=== PATIENT | female | born 1985 | race Hispanic/Latino ===

== ENCOUNTER 2020-06-12 11:23 | Emergency (ER) | payer OTHER, SELFPAY ==
--- NOTE | ~2020-06-12 | XR_ITS ---
EXAMINATION: XR chest 2V DATE: 06/12/2020 13:08 INDICATION: Cough. TECHNIQUE: Frontal and lateral views of the chest were obtained. COMPARISON: None. FINDINGS: The chest demonstrates clear lungs without pneumonia, pleural effusion, or pneumothorax. Th e heart size is normal. Pectus excavatum is noted. IMPRESSION: 1. No acute cardiopulmonary disease. Reviewed, dictated and finalized at location A.
[2020-06-12 11:48] VITALS: BP 106/79; PULSE 65; RESP 16; TEMP 37; O2SAT 98
--- NOTE | 2020-06-12 12:38 | ED.URI ---
HPI - URI/Sore Throat General Chief Complaint: Upper Respiratory Infection Stated Complaint: runny nose/redness swllen itchy eyes Time Seen by Provider: 06/12/20 12:38 Source: patient Mode of arrival: ambulatory Limitations: no limitations History of Present Illness HPI Narrative: Geovanna Torrez is a 35 yo female with a PMH of seasonal allergies who comes to [facility] with 2 days of symptoms of wheezing swelling eyes sore throat bilateral ear pain. 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 Related Data Home Medications Medication Instructions Recorded Confirmed Biotin 06/12/20 Cranberry Pill 06/12/20 One Daily Vitamin 06/12/20 Allergies Allergy/AdvReac Type Severity Reaction Status Date / Time No Known Allergies Allergy Verified 06/12/20 11:43 Review of Systems Review of Systems: Narrative: CONSTITUTIONAL: Denies fever, chills, sweats. EYES: Denies visual changes, redness, discharge. ENT: Denies rhinorrhea, congestion, has sore throat, bilateral otalgia. CARDIOVASCULAR: Denies chest pain, palpitations, edema. RESPIRATORY: Denies dyspnea, has wheezing, cough GASTROINTESTINAL: Denies abdominal pain, nausea, vomiting, diarrhea. GENITOURINARY: Denies dysuria, hematuria, abnormal discharge SKIN: Denies rash or itching. NEUROLOGIC: Denies numbness, or focal weakness. PSYCHIATRIC: Denies anxiety or depression. [facility] Past Medical History Medical History Asthma Family History Family History Other Hypertension Social History Social History (Updated 06/12/20 @ 12:48 by Sienna Brewer CNP) Smoking status: Never smoker Alcohol intake: current Comments At time of signature, I agree with nursing past medical, surgical, social and family history. There is no relevant family history pertinent to the presenting complaint. Exam Narrative: Exam Narrative: GENERAL: This is a well-nourished, well-developed patient, in mild distress. HEAD: normocephalic, atraumatic. EYES: Sclera clear/white. Vision is grossly intact. EARS: External ears normal, auditory canals erythema and without drainage, TMs bulging without perforation. Hearing grossly intact. NOSE: External nose normal without nasal discharge, nares without redness, no rhinorrhea. THROAT: Mucous membranes moist, posterior pharynx erythema with mild edema NECK: Neck supple, non-tender CARDIOVASCULAR: Regular rate and rhythm without murmurs, gallops, or rubs. RESPIRATORY: Clear to auscultation. Breath sounds equal bilaterally. No wheezes, rales, or rhonchi. GASTROINTESTINAL: Abdomen soft, SKIN: warm, intact with no suspicious lesions or rash, good texture and turgor. NEURO: awake, alert, and oriented to person, place and time. There were no obvious focal neurologic abnormalities. Steady gait EXTREMITIES: Normal range of motion. BACK: Nontender without deformity Course Course Emergency Course: Patient comes to [facility] with wheezing and swelling of her eyelids with seasonal allergies, worsening last 2 days Chest x-ray no acute pulmonary disease Start steroids, Cortisporin eardrops, albuterol inhaler Vital Signs Vital signs: Vital Signs Temperature 98.6 F 06/12/20 11:48 Pulse Rate 65 06/12/20 11:48 Respiratory Rate 16 06/12/20 11:48 Blood Pressure 106/79 06/12/20 11:48 Pulse Oximetry 98 06/12/20 11:48 Temperature 98.6 F 06/12/20 11:48 Pulse Rate 65 06/12/20 11:48 Respiratory Rate 16 06/12/20 11:48 Blood Pressure 106/79 06/12/20 11:48 Pulse Oximetry 98 06/12/20 11:48 MDM - URI/Sore Throat Differential Diagnosis Differential diagnosis: Likely upper respiratory infection, bronchitis, pharyngitis and other Lab Data Labs: Lab Results 06/12/20 Range/Units 12:52 POC SARS CoV-2 Ag Pending Influenza A Screen Negative
[2020-06-13 19:39] LABS: SARS-CoV-2 RNA PCR Negative
== END 2020-06-12 13:22 | disposition home or self-care (01) ==
PROVIDERS: Emergency Provider Nurse Practitioner
DX: J40 Bronchitis, not specified as acute or chronic (principal); Z20.822 Contact with and (suspected) exposure to COVID-19; J45.909 Unspecified asthma, uncomplicated
CPT/HCPCS: 71046; 87081; 87426; 87804; 87880; 99203; C9803; G0463; U0003; U0005

== ENCOUNTER 2020-08-01 07:27 | Outpatient (CLI) | payer OTHER, SELFPAY ==
--- NOTE | 2020-08-01 | ECHO_ITS ---
Patient Info Name: Geovanna Torrez Age: 35 years : 1985 Gender: Female Ht: 64 in Wt: 170 lbs BSA: 1.89 m2 HR: 61 bpm BP: 119 / 66 mmHg Technical Quality: Fair Exam Date: 08/01/2020 7:56 AM Exam Location: [facility] Patient Status: Outpatient Admit Date: 08/01/2020 Staff Ordering Physician: Guanako, Shira MOTA Courtesy Car Driver: Penelope Allen RDCS Attending Provider: Guanako, Shira MOTA Referring Physician: Guanako CHIU; Exam Type: CA echo doppler color flow Study Info Indications I51.7 - Cardiomegaly Complete two-dimensional, color flow and Doppler transthoracic echocardiogram is performed. Summary 1. Complete two-dimensional, color flow and Doppler transthoracic echocardiogram is performed. 2. Left ventricular chamber dimension is normal. 3. Left ventricular systolic function is normal, estimated at 55-60%. 4. The left ventricular diastolic function is normal. 5. E/e' 4 is not elevated. 6. Right atrial chamber dimension is mildly enlarged. 7. There is mild tricuspid valve regurgitation. 8. No pulmonary hypertension, estimated pulmonary arterial systolic pressure is 26 mmHg. 9. There is mild pulmonic regurgitation. Left Ventricle E/e' 4 is not elevated. Left ventricular chamber dimension is normal. Left ventricular systolic function is normal, estimated at 55-60%. The left ventricular diastolic function is normal. Right Ventricle Right ventricular systolic function is normal and with normal TAPSE 2.3 cm. Right ventricular chamber dimension is normal. Left Atria Left atrial chamber dimension is normal. Right Atria Right atrial chamber dimension is mildly enlarged. Aortic Valve The aortic valve is trileaflet. There is no aortic valve stenosis. There is no aortic valve regurgitation. Pulmonic Valve There is mild pulmonic regurgitation. Mitral Valve There is no mitral valve stenosis. There is no mitral valve regurgitation. Tricuspid Valve There is mild tricuspid valve regurgitation. No pulmonary hypertension, estimated pulmonary arterial systolic pressure is 26 mmHg. Pericardium/Pleural There is no pericardial effusion. Inferior Vena Cava Normal inferior vena cava with >50% collapse upon inspiration consistent with normal right atrial pressure, 5 mmHg. Aorta The aortic root size at the sinus of Valsalva is normal. Left Ventricular Outflow Tract Name Value Normal LVOT 2D LVOT Diameter 2.0 cm LVOT Doppler LVOT Peak Velocity 91 cm/s LVOT Peak Gradient 3 mmHg LVOT Mean Gradient 2 mmHg LVOT VTI 18 cm LVOT VTI/AV VTI Ratio 0.8 LVOT Stroke Volume 56 ml LVOT CO 3.4 l/min LVOT CI 1.8 l/min/m2 Pulmonic Valve Name Value Normal KALPANAO
== END 2020-08-01 07:28 | disposition home or self-care (01) ==
PROVIDERS: PCP Physician Assistant; Visit Provider Physician Assistant
DX: I51.7 Cardiomegaly (principal); I36.1 Nonrheumatic tricuspid (valve) insufficiency
CPT/HCPCS: 93306

== ENCOUNTER 2020-08-15 09:28 | Emergency (ER) | payer OTHER, SELFPAY ==
--- NOTE | ~2020-08-15 | XR_ITS ---
EXAMINATION: XR chest 2V EXAM DATE: 08/15/2020 10:46 INDICATION: Cough. TECHNIQUE: Frontal and lateral projections of the chest obtained and reviewed. Comparison is made to prior examination from 06/12/2020. FINDINGS: Borderline heart size. There is mild to moderate thoracic dextroscoliosis. No confluent co nsolidation, pneumothorax or pleural effusion suspected. IMPRESSION: 1. No acute findings. 2. Borderline cardiac size. Reviewed, dictated and finalized at location B.
--- NOTE | 2020-08-15 09:33 | ED.URI ---
HPI - URI/Sore Throat General Chief Complaint: Upper Respiratory Infection Stated Complaint: Cough,Fever Time Seen by Provider: 08/15/20 09:46 History of Present Illness HPI Narrative: 35-year-old female with history of asthma presents with concern for 6-day history of cough, chest congestion, fever, general malaise, headache, ear pain. She reports she has been using her albuterol inhaler, however her shortness of breath and cough continued to get worse. She reports that she has not had a Covid vaccine. She denies known sick contacts. MD elicited complaint: cough Related Data Home Medications Medication Instructions Recorded Confirmed albuterol sulfate 1 mcg INHALATION QID 08/15/20 08/15/20 cetirizine 1 mg PO DAILY 08/15/20 08/15/20 fluticasone propion-salmeterol 1 inh INHALATION BID 08/15/20 08/15/20 [Wixela Inhub] Allergies Allergy/AdvReac Type Severity Reaction Status Date / Time No Known Allergies Allergy Verified 08/15/20 09:48 Review of Systems Review of Systems: Narrative: CONSTITUTIONAL: Reports malaise, chills, sweats, or fever. EYES: Denies visual changes, redness, or discharge. ENT: Reports rhinorrhea, congestion, otalgia. Denies sinus pain and sore throat. CARDIOVASCULAR: Denies chest pain, palpitations, or edema. RESPIRATORY: Reports cough, wheezing, dyspnea. GASTROINTESTINAL: Denies abdominal pain, nausea, vomiting, diarrhea SKIN: Denies rash or itching. MUSCULOSKELETAL: Reports myalgia. NEUROLOGIC: Reports headache. PMFSH Past Medical History Medical History Asthma Family History Family History Other Hypertension Social History Social History (Updated 06/12/20 @ 12:48 by Sienna Brewer CNP) Smoking status: Never smoker Alcohol intake: current Exam Narrative: Exam Narrative: GENERAL: Well-appearing, well-nourished, and in no acute distress. HEAD: Normocephalic EYES: PERRLA, conjunctivae clear ENT: Nares clear, turbinates erythematous, clear discharge. Mucous membranes moist. TM mildly erythematous with dull light reflex bilaterally; no tragal tenderness. Oropharynx erythematous without lesions. Tonsils not enlarged and without exudate, no drooling, no hoarseness, no trismus, uvula midline. NECK: Supple. No lymphadenopathy CHEST: Scattered wheeze, rhonchi, breath sounds diminished in the bases, aeration fair. No rales, or stridor. No respiratory distress, speaks in full sentences. HEART: Regular rate and rhythm. No murmur heard. SKIN: Warm, dry, no rash. NEURO: Alert and oriented x3. PSYCH: Normal mood and affect Course Reevaluation(s) Reevaluation #1: DuoNeb given, aeration improved, wheezing greatly improved, left lower lobe continues to be diminished. Will obtain chest x-ray. Date: 08/15/20 Time: 10:35 Vital Signs Vital signs: Vital Signs Temperature 97.8 F 08/15/20 09:37 Pulse Rate 93 08/15/20 09:37 Respiratory Rate 16 08/15/20 09:37 Blood Pressure 93/63 L 08/15/20 09:37 Pulse Oximetry 98 08/15/20 09:37 Temperature 97.8 F 08/15/20 09:37 Pulse Rate 93 08/15/20 09:37 Respiratory Rate 16 08/15/20 09:37 Blood Pressure 93/63 L 08/15/20 09:37 Pulse Oximetry 98 08/15/20 09:37 MDM - URI/Sore Throat MDM Narrative Medical decision making narrative: Differential diagnosis considered: Kim virus, strep pharyngitis, allergic rhinitis, upper respiratory tract infection, sinusitis, rhinosinusitis, nasopharyngitis. viral pharyngitis, otitis media, otitis externa, pneumonia, bronchitis, viral cough syndrome, viral syndrome, and influenza. Exam findings show no acute concerns or changes; patient is non-toxic appearing and is in no distress. Patient is appropriate for outpatient treatment and follow-up. Lab Data Labs: Lab Results 08/15/20 Range/Units 09:46 POC SARS CoV-2 Ag Negative (Negative) Imaging Data My impression:
[2020-08-15 09:37] VITALS: BP 93/63; PULSE 93; RESP 16; TEMP 36.6; O2SAT 98
[2020-08-15] MEDS: IPRATROPIUM BR 0.02% INH SOLN 0.5 MG/2.5 ML VIAL INHALATION (10:04)
[2020-08-15] MEDS: ALBUTEROL SULFATE NEB 2.5 MG/3 ML INH INHALATION (10:04)
== END 2020-08-15 11:04 | disposition home or self-care (01) ==
PROVIDERS: Emergency Provider Nurse Practitioner
DX: J06.9 Acute upper respiratory infection, unspecified (principal); R05 Cough; H66.001 Acute suppurative otitis media without spontaneous rupture of ear drum, right ear; Z20.822 Contact with and (suspected) exposure to COVID-19; J45.909 Unspecified asthma, uncomplicated
CPT/HCPCS: 71046; 87426; 94640; 99213; C9803; G0463

== ENCOUNTER 2020-08-25 15:49 | Emergency (ER) | payer OTHER, SELFPAY ==
--- NOTE | ~2020-08-25 | XR_ITS ---
EXAMINATION: XR chest 2V DATE: 08/25/2020 16:21 INDICATION: Chest pain TECHNIQUE: PA and lateral views of the chest are obtained. COMPARISON: 08/15/2020 FINDINGS: The lungs are free of acute opacities. There is no pleural effusion or pneumothorax. The ca rdiomediastinal silhouette is normal. There is thoracic dextroscoliosis. IMPRESSION: 1. No acute cardiopulmonary abnormality. Reviewed, dictated and finalized at location B.
--- NOTE | 2020-08-25 15:57 | ECG_ITS ---
Measurements Intervals [place] Rate: 79 P: 46 MI: 160 QRS: 44 QRSD: 82 T: -9 QT: 384 QTc: 442 Interpretive Statements SINUS RHYTHM BORDERLINE ST-T WAVE ABNORMALITY- ANT/INF LEADS BORDERLINE ECG Electronically Signed On 08-25-2020 17:31:23 CDT by Shahram Wiggins D.O.
[2020-08-25 16:06] VITALS: BP 121/67; PULSE 77; RESP 14; TEMP 36.1; O2SAT 98
[2020-08-25 17:08] VITALS: BP 124/75; PULSE 65; RESP 20; O2SAT 100
[2020-08-25 17:08] LABS: Basophils Percent Auto 0.5 % (0.2-1.2); Eosinophils Absolute Auto 0.2 K/mm3 (0-0.3); Eosinophils Percent Auto 2.2 % (0-4.4); Hematocrit 41.2 % (37.0-47.0); Hemoglobin 13.1 g/dL (12.0-15.0); Immature Granulocyte Absolute 0.04 K/mm3 (0.00-0.031); Immature Granulocyte Percent A 0.5 % (0-0.5); Lymphocytes Absolute Auto 2.91 K/mm3 (0.9-3.2); Mean Corpuscular HGB Conc 31.8 g/dl (32-36); Mean Corpuscular Hemoglobin 28.1 pg (26-34); Mean Corpuscular Volume 88.2 fl (80-100); Mean Platelet Volume 9.5 fl (7.4-10.4); Monocytes Absolute Auto 0.6 K/mm3 (0.1-0.6); Monocytes Percent Auto 7.2 % (2.6-8.5); Neutrophils Percent Auto 56.6 % (45.5-73.1); Platelet Count Result 214 k/mm3 (150-375); Red Blood Count 4.67 M/mm3 (4.2-5.4); Red Cell Distribution Width 13.4 % (11.5-14.5); White Blood Count 8.8 K/mm3 (4.5-10.0)
[2020-08-25 17:18] LABS: Anion Gap 10 mmol/L (8-16); Blood Urea Nitrogen 11 mg/dL (7-17); Calcium 8.7 mg/dL (8.4-10.2); Carbon Dioxide 21 mmol/L (22-30); Chloride 109 mmol/L (98-107); Estimated CRCL calculation 111 ml/min; Estimated Glomerular Filt Rate > 60; Glucose 86 mg/dL (65-105); Potassium 3.7 mmol/L (3.4-5.0); Sodium 140 mmol/L (137-145)
[2020-08-25] MEDS: ALBUTEROL SULFATE (*SP) AEROSOL 1 PUFF 4 PUFF INHALATION (17:36)
[2020-08-25 17:37] VITALS: PULSE 80; RESP 16
--- NOTE | 2020-08-25 18:58 | ED.SOB ---
HPI - SOB/Dyspnea General Chief Complaint: Shortness of Breath/Dyspnea Stated Complaint: cough, sob Time Seen by Provider: 08/25/20 17:11 Source: patient and RN notes reviewed Mode of arrival: ambulatory Limitations: no limitations History of Present Illness HPI Narrative: This is a 35 year old female with history of asthma who presents for evaluation of cough and shortness of breath. She has been dealing with nonproductive cough for over 1 month. She has taken 2 courses of antibiotics and she just completed amoxicillin. She last evaluated at [facility] 10 days ago. She was prescribed amoxicillin and prednisone. She states there has been no improvement in her symptoms. She reports nonradiating midchest sore ness that she thinks is due to cough. She reports some shortness of breath but she is not getting so short of breath she has to stop. She denies recent fever, chills, leg swelling or calf pain. She has been using albuterol inhaler as needed. Related Data Home Medications Medication Instructions Recorded Confirmed albuterol sulfate 1 mcg INHALATION QID 08/15/20 08/15/20 cetirizine 1 mg PO DAILY 08/15/20 08/15/20 fluticasone propion-salmeterol 1 inh INHALATION BID 08/15/20 08/15/20 [Wixela Inhub] Allergies Allergy/AdvReac Type Severity Reaction Status Date / Time No Known Allergies Allergy Verified 08/25/20 17:12 Review of Systems Review of Systems: All systems reviewed & are unremarkable except as noted in HPI and below PMFSH Past Medical History Medical History Asthma Family History Family History Other Hypertension Social History Social History (Updated 06/12/20 @ 12:48 by Sienna Brewer CNP) Smoking status: Never smoker Alcohol intake: current Exam Const: General: no acute distress and alert Orientation/consciousness: patient oriented x3 HENMT: Ears: TM's normal bilaterally Eyes: Pupils: Equal, round and reactive pupils present EOM: EOMs intact bilaterally Neck: Neck: no lymphadenopathy Chest: Chest palpation & inspection: normal inspection of the chest Resp: Effort & Inspection: normal respiratory effort, not labored, no retractions and not tachypneic Other: prolonged expiratory phase but otherwise clear Cardio: Rate: regular rate Rhythm: regular rhythm Heart sounds: no murmurs GI: GI Palp: Yes Soft to palpation, No Tenderness to palpation present (GI) and No Guarding due to palpation present (GI) Auscultation: normal bowel sounds Back/Spine/Pelvis: Back: no CVA tenderness Skin: General skin exam: normal color Rashes: no rashes Neuro: General: patient oriented x3, moves all extremities and CN's II-XI intact bilaterally Extrem: General: normal to inspection Psych: Mental Status: mental status grossly normal Affect: normal affect Course Reevaluation(s) Reevaluation #1: Patient states she feels better. Clear lung sounds. air movement has improved. She declines taking steroids at this time. Date: 08/25/20 Time: 19:25 Vital Signs Vital signs: Vital Signs Temperature 97.0 F L 08/25/20 16:06 Pulse Rate 77 08/25/20 16:06 Respiratory Rate 14 08/25/20 16:06 Blood Pressure 121/67 08/25/20 16:06 Pulse Oximetry 98 08/25/20 16:06 Temperature 97.0 F L 08/25/20 16:06 Pulse Rate 79 08/25/20 19:40 Respiratory Rate 20 08/25/20 19:40 Blood Pressure 119/69 08/25/20 19:40 Pulse Oximetry 97 08/25/20 19:40 MDM - SOB/Dyspnea Medical Records Attestation: I reviewed the patient's medical records. Lab Data Attestation: I reviewed the patient's lab results. Result diagrams: 08/25/20 16:57 08/25/20 16:57 Labs: Lab Results 08/25/20 08/25/20 08/25/20 Range/Units 16:57 16:57 18:31 WBC 8.8 (4.5-10.0) K/mm3 RBC 4.67 (4.2-5.4) M/mm3 Hgb 13.1 (12.0-15.0) g/dL Hct 41.2
[2020-08-25 19:13] LABS: D Dimer 0.27 ug/mL (<0.48)
[2020-08-25 19:40] VITALS: BP 119/69; PULSE 79; RESP 20; O2SAT 97
== END 2020-08-25 19:42 | disposition home or self-care (01) ==
PROVIDERS: Emergency Medicine; Emergency Provider General Practice
DX: J45.901 Unspecified asthma with (acute) exacerbation (principal)
CPT/HCPCS: 36415; 71046; 80048; 85025; 85380; 93005; 94640; 99284; A9270

== ENCOUNTER 2022-11-18 10:44 | Emergency (ER) | payer OTHER, SELFPAY ==
--- NOTE | ~2022-11-18 | CT_ITS ---
EXAMINATION: CT abdomen pelvis w con DATE: 11/18/2022 16:22 INDICATION: Right lower quadrant and right flank pain TECHNIQUE: Computed tomography (CT) of the abdomen and pelvis was performed with 100 CC Omnipaque 350 intravenous contrast. Automated exposure control and iterative reconstruction technique were employe d. Exam dose: 377.01 mGy-cm total exam DLP. COMPARISON: None. FINDINGS: Minimal discoid atelectasis or scarring at the base of the left lower lobe. The lung bases are clear of infiltrate or consolidation. Normal heart size. No pericardial or pleural effusion. There are 2 l approximately 6 mm or smaller hypoattenuating lesions of the right hepatic lobe, statis tically most likely small hemangiomas and/or cysts. Otherwise the liver, spleen and pancreas appear unremarkable. The gallbladder is present, with eviden ce of cholelithiasis. No gallbladder wall thickening or pericholecystic fluid or fat stranding. No bi le duct or pancreatic duct dilatation is detected. Normal morphology of the adrenal glands. 2.4 cm right renal cyst. 4 mm probable left renal cyst. Kidneys are otherwise unremarkable. No urinary tract calculus or hydroureteronephrosis is detected. The urinary bladder, uterus and adnex al areas are unremarkable with the exception of approximately 1.8 cm left ovarian corpus luteum cyst. Probable postoperative change from appendectomy; recommend clinical correlation with surgical history . No bowel obstruction, bowel wall thickening, pneumatosis or intraperitoneal free air is detected. Normal caliber of the abdominal aorta. No intraperitoneal or retroperitoneal or pelvic mass lesion or adenopathy or ascites is detected. No suspicious osteolytic or osteoblastic lesions. IMPRESSION: Cholelithiasis Renal cysts Probable appendectomy 1.8 cm left ovarian corpus luteum cyst Reviewed, dictated and finalized at Location A. Reviewed, dictated and finalized at location A.
[2022-11-18 11:09] VITALS: BP 131/79; PULSE 51; RESP 15; TEMP 36.4; O2SAT 99
[2022-11-18 12:21] LABS: Basophils Percent Auto 0.5 % (0.2-1.2); Eosinophils Absolute Auto 0.1 K/mm3 (0-0.3); Eosinophils Percent Auto 1.1 % (0-4.4); Hemoglobin 13.3 g/dL (12.0-15.0); Immature Granulocyte Absolute 0.01 K/mm3 (0.00-0.031); Immature Granulocyte Percent A 0.2 % (0-0.5); Lymphocytes Absolute Auto 2.26 K/mm3 (0.9-3.2); Mean Corpuscular HGB Conc 32.4 g/dl (32-36); Mean Corpuscular Hemoglobin 28.6 pg (26-34); Mean Corpuscular Volume 88.2 fl (80-100); Mean Platelet Volume 9.5 fl (7.4-10.4); Monocytes Absolute Auto 0.4 K/mm3 (0.1-0.6); Neutrophils Absolute Auto 3.7 K/mm3 (1.3-6.7); Neutrophils Percent Auto 57.2 % (45.5-73.1); Platelet Count Result 256 k/mm3 (150-375); Red Blood Count 4.65 M/mm3 (4.2-5.4); Red Cell Distribution Width 14.3 % (11.5-14.5); White Blood Count 6.5 K/mm3 (4.5-10.0)
[2022-11-18 12:22] LABS: Appearance Urine Clear (Clear); Bilirubin Urine Negative (Negative); Blood Urine Negative (Negative); Color Urine Yellow (Yellow); Glucose Urine UA Negative (Negative); Ketones Urine 1+ mg/dL (Negative); Leukocyte Esterase Ur Negative LEU/UL (Negative); Nitrate Urine Negative (Negative); Protein Urine Negative (Negative); Specific Grav Ur 1.024 (1.001-1.035)
[2022-11-18 12:27] LABS: Add Urine Microscopic? NO
[2022-11-18 12:30] LABS: Alanine Aminotransferase 12 U/L (6-35); Albumin Level 4.8 g/dL (3.5-5.1); Alkaline Phosphatase 62 U/L (38-126); Anion Gap 9 mmol/L (8-16); Aspartate Amino Transferase 20 U/L (14-36); Bilirubin,Total 0.6 mg/dL (0.2-1.3); Blood Urea Nitrogen 9 mg/dL (7-17); Calcium 8.6 mg/dL (8.4-10.2); Carbon Dioxide 24 mmol/L (22-30); Chloride 108 mmol/L (98-107); Estimated CRCL calculation 93 ml/min; Estimated Glomerular Filt Rate > 60; Glucose 89 mg/dL (65-110); Sodium 141 mmol/L (137-145)
[2022-11-18 12:46] VITALS: BP 101/72; PULSE 62; RESP 18; TEMP 36.4; O2SAT 100
[2022-11-18 13:34] VITALS: BP 109/75; PULSE 74; RESP 20; O2SAT 100
--- NOTE | 2022-11-18 13:56 | ED.FEMALEGU ---
HPI - Female Genitourinary General Chief complaint: Urogenital-Female Stated complaint: pain to kidneys Time Seen by Provider: 11/18/22 13:29 History of Present Illness HPI Narrative: Patient is a 37-year-old female presenting with flank and abdominal pain. States over the last 2 days she has had right flank and right lower quadrant pain that sometimes goes into her left flank. States that today she had some dark urine so she was concerned about her kidneys. States that she has endometriosis as well as a uterine fibroid. She started menstruating this morning. No fevers, vomiting, diarrhea, dysuria. No further complaints. Related Data Home Medications Medication Instructions Recorded Confirmed albuterol sulfate 90 mcg/actuation 1 mcg inhalation QID 08/15/20 08/15/20 aerosol inhaler cetirizine 10 mg tablet 1 mg PO DAILY 08/15/20 08/15/20 fluticasone 500 mcg-salmeterol 50 1 inh inhalation BID 08/15/20 08/15/20 mcg/dose blistr powdr for inhalation (Wixela Inhub) Allergies Allergy/AdvReac Type Severity Reaction Status Date / Time No Known Allergies Allergy Verified 11/18/22 13:34 Review of Systems Review of Systems: All systems reviewed & are unremarkable except as noted in HPI and below PMFSH Past Medical History Medical History Asthma Family History Family History Other Hypertension Social History Social History Smoking status: Never smoker Alcohol intake: current Exam Narrative: GENERAL: Well-appearing, well-nourished, and in no acute distress. HEAD: Normocephalic, atraumatic. EYES: PERRLA and EOMI. ENT: Mucous membranes moist. NECK: Supple. CHEST: Clear to auscultation. No respiratory distress. HEART: Regular rate and rhythm ABDOMEN: Soft, +RLQ tenderness, +R CVA tenderness; no guarding or rebound BACK: no midline tenderness of lumbar or thoracic regions EXTREMITIES: Normal range of motion. No edema. SKIN: Warm, dry, no rash. NEURO: No focal deficits. Alert and oriented x3. PSYCH: Normal mood and affect. Course Vital Signs Vital signs: Vital Signs Temperature 97.6 F 11/18/22 11:09 Pulse Rate 51 L 11/18/22 11:09 Respiratory Rate 15 11/18/22 11:09 Blood Pressure 131/79 11/18/22 11:09 Pulse Oximetry 99 11/18/22 11:09 Oxygen Delivery Room Air 11/18/22 11:09 Temperature 97.6 F 11/18/22 12:46 Pulse Rate 74 11/18/22 13:34 Respiratory Rate 20 11/18/22 13:34 Blood Pressure 109/75 11/18/22 13:34 Pulse Oximetry 100 11/18/22 13:34 Oxygen Delivery Room Air 11/18/22 11:09 MDM - Female Genitourinary MDM Narrative Medical decision making narrative: Patient is a 37-year-old female presenting with right flank and abdominal pain for 2 days. Vital stable. Exam remarkable for the above. Blood work is unremarkable. UA is not infected. CT abdomen pelvis shows no acute abnormalities. On reevaluation, the patient is quietly resting. Discussed the reassuring work-up. Feel she is safe for outpatient management. Advised that she continue using Tylenol and ibuprofen for pain control. We will try some muscle relaxers to see if this helps at all. Appropriate return precautions given. Patient voiced understanding and is agreeable with plan. Discharged in stable condition. Differential Diagnosis Differential diagnosis: Likely urinary tract infection, cystitis and other (Flank pain, kidney stones, muscle spasms, musculoskeletal pain, back pain) Medical Records Attestation: I reviewed the patient's medical records. Lab Data Attestation: I reviewed the patient's lab results. 11/18/22 12:13 11/18/22 12:13 Labs: Lab Results 11/18/22 Range/Units 12:13 WBC 6.5 (4.5-10.0) K/mm3 RBC 4.65 (4.2-5.4) M/mm3 Hgb 13.3 (12.0-15.0) g/dL Hct 4
[2022-11-18] MEDS: SODIUM CHLORIDE 0.9% IV 1,000 ML 999 ML IV CONT (14:24)
[2022-11-18] MEDS: KETOROLAC 30 MG/ML VIAL (*BKC) IV PUSH (14:25)
[2022-11-18] MEDS: CYCLOBENZAPRINE HCL 10 MG TABLET PO (17:40)
== END 2022-11-18 17:40 | disposition home or self-care (01) ==
PROVIDERS: Emergency Medicine; Emergency Provider Emergency Medicine; PCP Physician Assistant
DX: J45.909 Unspecified asthma, uncomplicated (principal); M54.50 Low back pain, unspecified; N83.12 Corpus luteum cyst of left ovary; N28.1 Cyst of kidney, acquired
CPT/HCPCS: 36415; 74177; 80053; 81003; 81025; 85025; 96361; 96374; 99284; A9270; J1885; J7030; Q9967

== ENCOUNTER 2024-09-08 07:28 | Outpatient (CLI) | payer OTHER, SELFPAY ==
--- OUTSIDE RECORDS SUMMARY | 2024-09-08 07:33 | XMS_ITS | Encounter Summary ---
Author Organization [facility] Address [address] [place] [address] Phone Care Team Providers Care Truck Headlight Assembler Name Role Phone Kateryna Brandon MD Primary Care Pr ovider Unknown, Notinfile Primary Care Provider Unavail able Encounter Details Date Type Department Care Team (Late st Contact Info) Description 11/29/2017 Telephone [facility] Cardiology [address] [place] [address] [place] [id number] Bridgette Forbes, MPH Social History Tobacco Use Types Packs/Day Years Used Date Smoking Tobacco: Never Assessed Comments Unknown Sex and Gender Information Value Date Recorded Sex Assigned at Not on file 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
--- OUTSIDE RECORDS SUMMARY | 2024-09-08 07:33 | XMS_ITS | Clinical Summary ---
Author Organization [facility] Address [address] [place] [address] Care Team Providers Care Quarter Doper Name Role Phone Unknown, Notinfile Primary Care Provider Unavail able Allergies Active Allergy Reactions Criticality Noted Date Comments No Known Allergies Other (See comments) Low Reaction: Medications levETIRAcetam (KEPPRA) 500 mg tablet Take 1 tablet (500 mg total) by mouth 2 (two) times a day 09/01/2012 Active Active Problems Problem Noted Date Diagnosed Date Syncope and collapse 01/09/2018 Overview (01/09/2018): Added automatically from request for surgery [id number] Wheezing Encounters Date Type Department Care Team Description 07/09/2024 8:35 AM CDT - 07/09/2024 12:59 PM CDT Emergency [address] [address] Hugh Chan MD Abdominal pain (Primary Dx); Dysfunctional uterine bleeding Discharge Disposition: Discharge to home or self care from Last 3 Months Family History Medical History Relation Name Comments Hypertension Brother Cancer Father Coronary artery disease Father Diabetes Father Heart attack Father Heart failure Father Hypertension Father Stroke Father Sudden Cardiac Father Coronary artery disease Mother Diabetes Mother Heart attack Mother Family history of heart attack - (Added by TW Conv) Heart failure Mother Hypertension Mother Family history of hypertension - (Added by TW Conv) Stroke Mother Family history of cerebrovascular accident - (Added by TW Conv)/Family history of stroke - (Added by TW Conv) Coronary artery disease Sister Stroke Sister Relation Name Status Comments Brother Father Mother Sister Social History Tobacco Use Types Packs/Day Years Used Date Smoking Tobacco: Former Cigarettes Q uit: 11/22/2017 Smokeless Tobacco: Never Personal Safety Answer Date Recorded Have you ever been in or are you currently in a harmful physical or emotional relationship or is someone making you feel afraid or unsafe? 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 Gender Identity Not on file Sexual Orientation Not on file Obstetrics History Last Filed Vital Signs Vital Sign Reading Time Taken Comments Blood Pressure 99/76 07/09/2024 12:30 PM CDT Pulse 51 07/09/2024 12:30 PM CDT Temperature 36.5 C (97.7 F) 07/09/2024 5:12 AM CDT Respiratory Rate 17 07/09/2024 12:30 PM CDT Oxygen Saturation 100% 07/09/2024 12:30 PM CDT Inhaled Oxygen Concentration - - Weight 72.2 kg (159 lb 3.2 oz) 02/03/2018 9:54 A M 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 Height 162.6 cm (5' 4) 12/22/2017 2:52 PM CDT Body Mass Index 27.33 12/22/2017 2:52 PM CDT Plan of Treatment Health Maintenance Due Date Last Done Comments Breast Cancer Screening-Mammogram 1984 Cervical Cancer Screening 1984 Depression Screening 1984 Hepatitis C Screening 1984 DTaP/Tdap/Td Vaccine (3 - Tdap) 1995 12/29/1989, 12/10/1988 Varicella Vaccines (1 of 2 - 13+ 2-dose series) 1997 Regular Well Visit/Exam 18-64 2002 Influenza Vaccine (#1) 2024 Hepatitis B Screening Completed 01/14/2009 HPV Vaccines Aged Out No longer eligi ble based on patient's age to complete this topic Pneumococcal vaccine <65 Aged Out No longer eligible based on patient's age to complete this topic Procedures Procedure Name Priority Date/Time Associated Diagnosis Comments US TRANSVAGINAL AND DOPPLER LIMITED (C) ED 07/09/2024 11:[address] ABDOMEN PELVIS W CONTRAST ED 07/09/2024 8:44 AM CDT POCT HCG, URINE Routine 07/09/2024 7:33 AM CDT URINALYSIS, MICROSCOPIC ONLY STAT 07/09/2024 7:28 AM CDT URINE CULTURE Routine 07/09/2024 7:28 AM CDT URINALYSIS AND REFLEX TO MICROSCOPIC AND CULTURE STAT 07/09/2024 7:28 AM CDT HCG, BLOOD, QUANTITATIVE Add-On 07/09/2024 5:42 AM CDT EGFR STAT 07/09/2024 5:42 AM CDT DIFFERENTIAL AUTO STAT 07/09/2024 5:4 2 AM CDT LIPASE STAT 07/09/2024 5:42 AM CDT COMPREHENSIVE METABOLIC PANEL STAT 07/09/2024 5:42 AM CDT CBC WITH AUTO DIFFERENTIAL STAT 07/09/2024 5:42 AM CDT from Last 3 Months Results * US Transvaginal and Doppler Limited (C) (07/09/2024 11:18 AM CDT) Anatomical Region Laterality Modality Pelvis N/A Ultrasound 07/09/2024 11:2 9 AM CDT Narrative 07/09/2024 11:37 AM CDT EXAM DESCRIPTION: US TRANSVAGINAL AND DOPPLER LIMITED (C) REASON FOR STUDY: Rule out torsion TECHNIQUE: Ultrasound of the pelvic contents was performed with transvaginal transducer. Grayscale, color Doppler and spectral Doppler techniques were utilized. COMPARISON: Correlation is made with CT abdomen and pelvis performed 07/09/2024 FINDINGS: UTERUS: The uterus measures 5.6 x 7.6 x 11.3 cm. The endometrial stripe measures 7.6 mm in thickness. There is a myometrial uterine fibroid measuring 2.5 cm. There are nabothian cysts in the uterine cervix. RIGHT OVARY: The right ovary measures 2.7 x 3.7 x 4.3 cm. Venous blood flow is demonstrated to the ovary. There is a simple appearing cyst measuring 3.5 cm. LEFT OVARY: The left ovary measures 2.4 x 2.4 x 3.8 cm. Venous blood flow is demonstrated to the ovary. No ovarian mass is seen. PELVIC FLUID: There is no significant free pelvic fluid. IMPRESSION: No evidence of ovarian torsion. Uterine fibroid. Simple appearing right ovarian cyst. In a reproductive age female, no further follow-up should be necessary. THIS IS AN ELECTRONICALLY VERIFIED FINAL REPORT 07/09/2024 11:37 AM - Electronically signed by Rober Rogers M.D., JR T: Report ID: [id number] Reading Location: [id number] Procedure Note Rober Rogers MD - 07/09/2024 EXAM DESCRIPTION: US TRANSVAGINAL AND DOPPLER LIMITED (C) REASON FOR STUDY: Rule out torsion TECHNIQUE: Ultrasound of the pelvic contents was performed withtransvaginal transducer. Grayscale, color Doppler and spectral Doppler techniques were utilized. COMPARISON: Correlation is made with CT abdomen and pelvis performed 07/09/2024 FINDINGS: UTERUS: The uterus measures 5.6 x 7.6 x 11.3 cm. Theendometrial stripe measures 7.6 mm in thickness. There is a myometrial uterinefibroid measuring 2.5 cm. There are nabothian cysts in the uterine cervix. RIGHT OVARY: The right ovary measures 2.7 x 3.7 x 4.3 cm. Venous blood flow is demonstrated to the ovary. There is a simple appearing cyst measuring 3.5 cm. LEFT OVARY: The left ovary measures 2.4 x 2.4 x 3.8 cm. Venous bloodflow is demonstrated to the ovary. No ovarian mass is seen. PELVIC FLUID: There is no significant free pelvic fluid. IMPRESSION: No evidence of ovarian torsion. Uterine fibroid. Simple appearing right ovarian cyst. In a reproductive age female, no further follow-up should be necessary. THIS IS AN ELECTRONICALLY VERIFIED FINAL REPORT 07/09/2024 11:37 AM - Electronically signed by Rober Rogers M.D. JR T: Report ID: [id number] Reading Location: [place] [address] us Hugh Chan MD IMG US PROCEDURES Final Result * CT Abdomen Pelvis W Contrast (07/09/2024 8:44 AM CDT) Anatomical Region Laterality Modality Body N/A Computed Tomogra phy 07/09/2024 9:18 AM CDT Narrative 07/09/2024 9:23 AM CDT EXAM DESCRIPTION: CT ABDOMEN PELVIS W CONTRAST REASON FOR STUDY: Abdominal pain, acute, nonlocalized c/o generalized abd pain. PT states she began her cycle last night and the cramps became worse than normal. PT reports pain 8/10 and she has had n/v as well. Pt denies any chest pain or sob. PT reports she was using the restroom at home and was passing multiple blood clots. Surg Hx: Appendectomy, , Tubal Ligation TECHNIQUE: CT scan of the abdomen and pelvis performed with intravenous and without oral contrast using helical scanning technique with dynamic intravenous contrast injection. Reconstructed coronal and sagittal MPR images reviewed. All images stored on PACS. Automated exposure control was used as a dose optimization technique for this examination. CONTRAST TYPE/DOSE: 100mL of IOVERSOL 350 MG IODINE/ML INTRAVENOUS SYRINGE injected via intravenous COMPARISON: None available FINDINGS: LOWER CHEST: No significant pulmonary abnormalities. No effusion. LIVER: Normal size. 1.2 cm hypodensity right lobe image 41 of series 2 likely related to small cysts though nonspecific. GALLBLADDER: Normally distended BILE DUCTS: No intrahepatic or extrahepatic ductal dilatation. SPLEEN: Normal size. No focal lesions. PANCREAS: No identified cystic or solid masses. No significant calcifications. No adjacent inflammation or peripancreatic fluid collections. Pancreatic duct not dilated. ADRENALS: Normal. KIDNEYS/URINARY TRACT: No identified significant cystic or solid masses. No visualized stones. No hydronephrosis or hydroureter. Symmetric enhancement. Urinary bladder is unremarkable. GI: No dilated bowel loops. No obvious wall thickening. Normal appendix. No significant diverticular disease. PERITONEUM: No ascites or free air. RETROPERITONEUM: No mass or adenopathy. REPRODUCTIVE: Uterus is heterogeneous in density. The left fundal region demonstrates a 2.3 cm low-density component that may indicate a fibroid. The right adnexa demonstrates a 3.9 cm hypodensity that may indicate an ovarian cyst. VASCULATURE: No abdominal aortic aneurysm. MUSCULOSKELETAL: No significant abnormality. OTHER: No other abnormality. IMPRESSION: No acute finding. 1.2 cm hypodensity right lobe of liver likely related to a cyst though nonspecific. 3.9 cm hypodensity right adnexa may represent an ovarian cyst. 2.3 cm low-density focus left fundal region of the uterus may indicate a fibroid. THIS IS AN ELECTRONICALLY VERIFIED FINAL REPORT 07/09/2024 9:23 AM - Electronically signed by Deondre ONEILL T: Report ID: [id number] Reading Location: [id number] Procedure Note Deondre Arambula MD - 07/09/2024 EXAM DESCRIPTION: CT ABDOMEN PELVIS W CONTRAST REASON FOR STUDY: Abdominal pain, acute, nonlocalized c/o generalized abd pain. PT states she began her cycle last night and the cramps became worse than normal. PT reports pain 8/10 and she has had n/vas well. Pt denies any chest pain or sob. PT reports she was using therestroom at home and was passing multiple blood clots. Surg Hx:Appendectomy, , Tubal Ligation TECHNIQUE: CT scan of the abdomen and pelvis performed with intravenousand without oral contrast using helical scanning technique with dynamic intravenous contrast injection. Reconstructed coronal and sagittal MPRimages reviewed. All images stored on PACS. Automated exposure control was usedas a dose optimization technique for this examination. CONTRAST TYPE/DOSE: 100mL of IOVERSOL 350 MG IODINE/ML INTRAVENOUSSYRINGE injected via intravenous COMPARISON: None available FINDINGS: LOWER CHEST: No significant pulmonary abnormalities. Noeffusion. LIVER: Normal size. 1.2 cm hypodensity right lobe image 41 of series 2 likely related to small cysts though nonspecific. GALLBLADDER: Normally distended BILE DUCTS: No intrahepatic or extrahepatic ductal dilatation. SPLEEN: Normal size. No focal lesions. PANCREAS: No identified cystic or solid masses. No significant calcifications. No adjacent inflammation or peripancreatic fluidcollections. Pancreatic duct not dilated. ADRENALS: Normal. KIDNEYS/URINARY TRACT: No identified significant cystic or solid masses.No visualized stones. No hydronephrosis or hydroureter. Symmetricenhancement. Urinary bladder is unremarkable. GI: No dilated bowel loops. No obvious wall thickening. Normalappendix. No significant diverticular disease. PERITONEUM: No ascites or free air. RETROPERITONEUM: No mass or adenopathy. REPRODUCTIVE: Uterus is heterogeneous in density. The left fundalregion demonstrates a 2.3 cm low-density component that may indicate a fibroid. The right adnexa demonstrates a 3.9 cm hypodensity that may indicate an ovarian cyst. VASCULATURE: No abdominal aortic aneurysm. MUSCULOSKELETAL: No significant abnormality. OTHER: No other abnormality. IMPRESSION: No acute finding. 1.2 cm hypodensity right lobe of liver likely related to a cyst though nonspecific. 3.9 cm hypodensity right adnexa may represent an ovarian cyst. 2.3 cm low-density focus left fundal region of the uterus may indicate a fibroid. THIS IS AN ELECTRONICALLY VERIFIED FINAL REPORT 07/09/2024 9:23 AM - Electronically signed by Deondre ONEILL T: Report ID: [id number] Reading Location: [place] [address] PROCEDURES Final Re sult * POCT hCG, urine (07/09/2024 7:33 AM CDT) Pathologist [facility] HCG, ur, POC Negative Negative Lot Number [id number] QC Backgroud Clear Acceptable QC Control Line Acceptable Urine 07/09/2024 7:33 AM CDT Hugh Chan MD POINT OF CARE TEST ORDERABLES Fi nal Result * (ABNORMAL) Urinalysis reflex to microscopic and culture Urine (07/09/2024 7:28 AM CDT) Color, ur Red(A) Yellow Clarity, ur Turbid(A) Clear TERE MARIANO Specific gravity, ur 1.023 1.003 - 1.030 [facility] pH, urine 8.0 [facility] Comment: Interpretive Data U rine pH is affected by diet, medications, systemic acid-base disturbances, and renal tubular function. pH may affect urinary stone formation. For example, urine pH below 6.0 may help reduce the tendency for calcium phosphate stones and pH greater than 6.0 may reduce the tendency for uric acid stone formation. Source: [facility] Current Interpretive Data was last revised on 2017 Protein, ur ql 2+(A) Negative [facility] Glucose, ur ql Negative Negative [facility] Ketones, ur Negative Negative [facility] Bilirubin, ur Negative Negative [facility] Blood, ur 3+(A) Negative [facility] Urobilinogen, ur <2.0 <2.0 mg/dL [facility] Nitrite, ur Negative Negative [facility] Leukocyte esterase, ur 3+(A) Negative [facility] UA reflex comment Reflex to microscopic UA will be performed. [facility] Urine 07/09/2024 7:28 AM CDT 07/09/2024 7:35 AM CDT us Hugh Chan MD LAB MICROBIOLOGY - GENERAL ORDER SEBAS Final Result [place] [id number] [facility] Department [place] [address] * (ABNORMAL) Urinalysis, microscopic only (07/09/2024 7:28 AM CDT) WBC, ur >50(A) 0 - 5 /HPF Comment:Original result of 0 -5 was from the undiluted specimen, corrected result was from the diluted speicmen. RBC, ur >50(A) 0 - 2 /HPF [facility] Comment:Original result of 0 -5 was from the undiluted specimen, corrected result was from the diluted speicmen. Mucous, ur Present(A) [facility] Culture Reflex Comment Reflex conditions for urine culture (WBC >10) not met. [facility] Urine 07/09/2024 7:28 AM CDT 07/09/2024 1:54 PM CDT us Monica MOTA LAB URINE ORDERABLES Edited Resu lt - Final Performing Organization Address City/[facility]/ZIP Co de Phone Number [address] [place] [address] * Urine culture Urine (07/09/2024 7:28 AM CDT) Report Final Report: Less than 100,000 colonies/mL (clinically insignificant growth based on current clinical standards) Comment:Testing performed by : [facility], [address] [place]., [address] Organism (CLINICALLY INSIGNIFICANT GROWTH [facility] Urine 07/09/2024 7:28 AM CDT 07/09/2024 3:57 PM CDT Narrative TERE - 07/10/2024 11:22 PM CDT Testing performed by [facility] Microbiology Laboratory ([phone]) Hugh Chan MD LAB MICROBIOLOGY - GENERAL ORDER SEBAS Final Result Performing Organization Address [facility] Co de Phone Number [address] [place] [address] * eGFR (07/09/2024 5:42 AM CDT) eGFR >90 >=60 mL/min/1. 73 m2 Comment: Interpretive Data Reference Interval Normal >/= 90 mL/min/1.73m2 Mildly decreased* 60 - 89 mL/min/1.73m2 Mildly to moderately decreased 45 - 59 mL/min/1.73m2 Moderately to severely decreased 30 - 44 mL/min/1.73m2 Severely decreased 15 - 29 mL/min/1.73m2 Kidney Failure < 15 mL/min/1.73m2 *Relative to young adult level Estimated glomerular filtration rate is determined by the 2020 CKD-EPI equation recommended by the National Kidney Foundation (A Unifying Approach to GFR Estimation: Recommendations of the NKF-ASK Task Force on Reassessing the Inclusion of Race in Diagnosing Kidney Disease, JASN 2020). The CKD-EPI equation should not be used for patients with unstable renal function and has not been validated in children and those over 70. Current interpretive data was last reviewed 2020. Blood 07/09/2024 5:42 AM CDT 07/09/2024 5:45 AM CDT us Hugh Chan MD LAB BLOOD ORDERABLES Final Resul t [place] [id number] [facility] Department [place] [address] * (ABNORMAL) Differential, auto (07/09/2024 5:42 AM CDT) Neutrophil abs 7.13(H) 1.50 - 6.50 K/[place] Imm gran abs 0.03 0.00 - 0.10 K/cumm [facility] Lymphocyte abs 1.54 0.80 - 3.30 K/cumm [facility] Monocyte abs 0.66 0.20 - 0.80 K/cumm [facility] Eosinophil abs 0.15 0.00 - 0.50 K/cumm [facility] Basophil abs 0.03 0.00 - 0.10 K/cumm [facility] Neutrophil pct 74.8 % [facility] Comment: Interpretive Data Percent cell count reference ranges are not reported, since discordance with absolute values may lead to misinterpretation of CBC data. Current Interpretive Data was last revised on 2017. Imm gran pct 0.3 % [facility] Comment: Interpretive Data Percent cell count reference ranges are not reported, since discordance with absolute values may lead to misinterpretation of CBC data. Current Interpretive Data was last revised on 2017. Lymphocyte pct 16.1 % [facility] Comment: Interpretive Data Percent cell count reference ranges are not reported, since discordance with absolute values may lead to misinterpretation of CBC data. Current Interpretive Data was last revised on 2017. Monocyte pct 6.9 % [facility] Comment: Interpretive Data Percent cell count reference ranges are not reported, since discordance with absolute values may lead to misinterpretation of CBC data. Current Interpretive Data was last revised on 2017. Eosinophil pct 1.6 % [facility] Comment: Interpretive Data Percent cell count reference ranges are not reported, since discordance with absolute values may lead to misinterpretation of CBC data. Current Interpretive Data was last revised on 2017. Basophil pct 0.3 % [facility] Comment: Interpretive Data Percent cell count reference ranges are not reported, since discordance with absolute values may lead to misinterpretation of CBC data. Current Interpretive Data was last revised on 2017. Blood 07/09/2024 5:42 AM CDT 07/09/2024 5:45 AM CDT us Hugh Chan MD LAB BLOOD ORDERABLES Final Resul t Performing Organization Address [facility] de Phone Number [address] [place], [place] [id number] * CBC with auto differential (07/09/2024 5:42 AM CDT) WBC 9.54 3.80 - 9.90 K/cumm Hgb 12.9 11.9 - 15.5 g/dL [facility] Hct 38.7 35.6 - 45.5 % [facility] Plt 196 150 - 400 K/cumm [facility] MPV 9.8 9.1 - 12.3 fL [facility] RBC 4.43 3.90 - 5.20 M/cumm [facility] MCV 87.4 81.3 - 96.4 fL [facility] MCH 29.1 27.1 - 33.3 pg [facility] MCHC 33.3 32.3 - 35.7 g/dL [facility] RDW CV 13.6 11.1 - 14.9 % [facility] RDW SD 43.5 35.7 - 48.1 fL [facility] NRBC abs 0.00 0.00 - 0.01 K/cumm [facility] Blood Venous blood specimen / Unknown 07/09/2024 5:42 AM CDT 07/09/2024 5:45 AM CDT us Hugh Chan MD LAB BLOOD ORDERABLES Final Resul t Performing Organization Address City/[facility] Co de Phone Number [address] [place] [address] * hCG, blood, quantitative (07/09/2024 5:42 AM CDT) [facility] hCG, quant <5.0 0.0 - 5.0 IUnits/L Comment: Interpretive Data Male: < 5 IU/L Non- premenopausal Female: <5 IU/L The Abel hCG Beta Quant assay procedure was used. Results from different manufacturers or methods may not be comparable. Serial testing should be performed using the same method. Interpretive Data was last revised on 2023 Blood 07/09/2024 5:42 AM CDT 07/09/2024 9:06 AM CDT Hugh Chan MD LAB BLOOD ORDERABLES Final Resul t Performing Organization Address City/[facility] Co de Phone Number [address] [place] [address] * Lipase (07/09/2024 5:42 AM CDT) [facility] Lipase 20 10 - 99 Units/L Comment:Hemolyzed; result mi ght be falsely decreased Blood Venous blood specimen / Unknown 07/09/2024 5:42 AM CDT 07/09/2024 5:45 AM CDT Hugh Chan MD LAB BLOOD ORDERABLES Final Resul t Performing Organization Address City/[facility] Co de Phone Number [address] [address] * (ABNORMAL) Comprehensive metabolic panel (07/09/2024 5:42 AM CDT) [facility] Sodium 137 135 - 145 mmol/L Potassium, pl See Comment 3.3 - 4.9 [facility] Comment:Credited; Hemolyzed Specimen Chloride 107 97 - 110 mmol/L [facility] CO2 21(L) 22 - 32 mmol/L [facility] Anion gap 9 2 - 15 mmol/L [facility] BUN 9 6 - 25 mg/dL [facility] Creatinine 0.49(L) 0.60 - 1.10 mg/dL [facility] Glucose 97 70 - 199 mg/dL [facility] Comment: Interpretive Data Fasting glucose >/= 126 mg/dl is diagnostic for diabetes. Fasting is defined as no caloric intake for at least 8 hours. Fasting glucose between 100 mg/dl to 125 mg/dl is diagnostic of prediabetes. In a patient with classic symptoms of hyperglycemia or hyperglycemic crisis, a random glucose >/= 200 mg/dl is diagnostic for diabetes. In the absence of unequivocal hyperglycemia, results should be confirmed by repeat testing. The classification and Diagnosis of Diabetes Diabetes Care 202; 46: S19-S40. Current interpretive data was last revised 2022. Calcium 8.1(L) 8.5 - 10.3 mg/dL [facility] Bilirubin, total <0.2 0.1 - 1.2 mg/dL [facility] Protein, pl 6.8 6.5 - 8.5 g/dL [facility] Albumin 4.0 3.5 - 5.0 g/dL [facility] Alk phos 64 40 - 130 Units/L [facility] ALT See Comment 7 - 45 [facility] Comment:Credited; Hemolyzed Specimen AST See Comment 10 45 [facility] Comment:Credited; Hemolyzed Specimen Blood 07/09/2024 5:42 AM CDT 07/09/2024 5:45 AM CDT us Hugh Chan MD LAB BLOOD ORDERABLES Final Resul t [facility] [address] [facility] [place] [address] from Last 3 Months Insurance [employer] [facility] IDPA [facility] [facility] Care Teams Quarter Doper Relationship Specialty Start Date End Date Unknown, Notinfile PCP - General 07/09/24
--- OUTSIDE RECORDS SUMMARY | 2024-09-08 07:33 | XMS_ITS | Referral Summary ---
Author Organization [facility] Address [address] [place] [address] Care Team Providers Care Director Of Home Health Services Name Role Phone Unknown, Notinfile Primary Care Provider Unavail able Encounters Date Type Department Care Team Description 07/09/2024 8:35 AM CDT - 07/09/2024 12:59 PM CDT Emergency [facility] [address] [place] [id number] Hugh Chan MD Abdominal pain (Primary Dx); Dysfunctional uterine bleeding Discharge Disposition: Discharge to home or self care from Last 3 Months Allergies Active Allergy Reactions Criticality Noted Date Comments No Known Allergies Other (See comments) Low Reaction: Medications levETIRAcetam (KEPPRA) 500 mg tablet Take 1 tablet (500 mg total) by mouth 2 (two) times a day 09/01/2012 Active Active Problems Problem Noted Date Diagnosed Date Syncope and collapse 01/09/2018 Overview (01/09/2018): Added automatically from request for surgery [id number] Wheezing Social History Tobacco Use Types Packs/Day Years [...] on file Legal Sex Female 11:06 PM [employer] Gender Identity Not on file Sexual Orientation Not on file Last Filed Vital Signs Vital Sign Reading Time Taken Comments Blood Pressure 99/76 07/09/2024 12:30 PM CDT Pulse 51 07/09/2024 12:30 PM CDT Temperature 36.5 C (97.7 F) 07/09/2024 5:12 AM CDT Respiratory Rate 17 07/09/2024 12:30 PM CDT Oxygen Saturation 100% 07/09/2024 12:30 PM CDT Inhaled Oxygen Concentration - - Weight 72.2 kg (159 lb 3.2 oz) 02/03/2018 9:54 A M [employer] Height 162.6 cm (5' 4) 12/22/2017 2:52 PM CDT Body Mass Index 27.33 12/22/2017 2:52 PM CDT Plan of Treatment Not on file Procedures Procedure Name Priority Date/Time Associated Diagnosis [...] Rober Rogers M.D., JR T: Report ID: [id number] Reading Location: [id number] Procedure Note Rober Rogers MD - 07/09/2024 [...] - Electronically signed by Rober Rogers M.D. T: Report ID: [id number] Reading Location: [place] [address] us Hugh Chan MD IMG US PROCEDURES [...] signed by Deondre ONEILL T: Report ID: [id number] Reading Location: [id number] Procedure Note Deondre Arambula MD - 07/09/2024 [...] 9:23 AM - Electronically signed by Deondre Arambula M.D. RB T: Report ID: [id number] Reading Location: [id number] [facility] IMG CT PROCEDURES Final Re sult * POCT hCG, urine (07/09/2024 7:33 AM CDT) HCG, ur, POC Negative Negative Lot Number [id number] QC Backgroud Clear Acceptable QC Control Line Acceptable Urine 07/09/2024 7:33 AM CDT Hugh Chan MD POINT OF CARE TEST ORDERABLES Fi nal Result * (ABNORMAL) Urinalysis reflex to microscopic and culture Urine (07/09/2024 7:28 AM CDT) Color, ur Red(A) Yellow Clarity, ur Turbid(A) Clear [facility] Specific gravity, ur 1.023 1.003 - 1.030 [facility] pH, urine 8.0 [facility] Comment: Interpretive Data U rine pH is affected by diet, medications, systemic acid-base disturbances, and renal tubular function. pH may affect urinary stone formation. For example, urine pH below 6.0 may help reduce the tendency for calcium phosphate stones and pH greater than 6.0 may reduce the tendency for uric acid stone formation. Source: [facility] Current Interpretive Data was last revised on 2017 Protein, ur ql 2+(A) Negative [facility] Glucose, ur ql Negative Negative [facility] Ketones, ur Negative Negative [facility] Bilirubin, ur Negative Negative [facility] Blood, ur 3+(A) Negative [facility] Urobilinogen, ur <2.0 <2.0 mg/dL [facility] Nitrite, ur Negative Negative [facility] Leukocyte esterase, ur 3+(A) Negative [facility] UA reflex comment Reflex to microscopic UA will be performed. TERE Urine 07/09/2024 7:28 AM CDT 07/09/2024 7:35 AM CDT Hugh Chan MD LAB MICROBIOLOGY - GENERAL ORDER SEBAS Final Result [address] [address] * (ABNORMAL) Urinalysis, microscopic only (07/09/2024 7:28 AM CDT) WBC, ur >50(A) 0 - 5 /HPF Comment:Original result of 0 -5 was from the undiluted specimen, corrected result was from the diluted speicmen. RBC, ur >50(A) 0 - 2 /HPF [facility] Comment:Original result of 0 -5 was from the undiluted specimen, corrected result was from the diluted speicmen. Mucous, ur Present(A) [facility] Culture Reflex Comment Reflex conditions for urine culture (WBC >10) not met. [facility] Urine 07/09/2024 7:28 AM CDT 07/09/2024 1:54 PM CDT us Monica MOTA LAB URINE ORDERABLES Edited Resu lt - Final Performing Organization Address [facility] de Phone Number [address] [address] * Urine culture Urine (07/09/2024 7:28 AM CDT) Report Final Report: Less than 100,000 colonies/mL (clinically insignificant growth based on current clinical standards) Comment:Testing performed by : [facility], [address] [place]., [address] Organism (CLINICALLY INSIGNIFICANT GROWTH [facility] Urine 07/09/2024 7:28 AM CDT 07/09/2024 3:57 PM CDT Narrative [facility] - 07/10/2024 11:22 PM CDT Testing performed by [facility] Microbiology Laboratory ([phone]) us Hugh Chan MD LAB MICROBIOLOGY - GENERAL ORDER SEBAS Final Result Performing Organization Address [facility] Co de Phone Number [address] [address] * eGFR (07/09/2024 5:42 AM CDT) Pathologist [facility] eGFR >90 >=60 mL/min/1. 73 m2 Comment: [...] MD LAB BLOOD ORDERABLES Final Resul t [facility] [address] [facility] [place] [address] * (ABNORMAL) Differential, auto (07/09/2024 5:42 AM CDT) Pathologist [facility] Neutrophil abs 7.13(H) 1.50 - 6.50 K/cumm Imm gran abs 0.03 0.00 - 0.10 K/cumm [facility] Lymphocyte abs 1.54 0.80 - 3.30 K/cumm [facility] Monocyte abs 0.66 0.20 - 0.80 K/cumm [facility] Eosinophil abs 0.15 0.00 - 0.50 K/cumm [facility] Basophil abs 0.03 0.00 - 0.10 K/cumm [facility] Neutrophil pct 74.8 % [facility] Comment: Interpretive Data Percent cell count reference ranges are not reported, since discordance with absolute values may lead to misinterpretation of CBC data. Current Interpretive Data was last revised on 2017. Imm gran pct 0.3 % [facility] Comment: Interpretive Data Percent cell count reference ranges are not reported, since discordance with absolute values may lead to misinterpretation of CBC data. Current Interpretive Data was last revised on 2017. Lymphocyte pct 16.1 % [facility] Comment: Interpretive Data Percent cell count reference ranges are not reported, since discordance with absolute values may lead to misinterpretation of CBC data. Current Interpretive Data was last revised on 2017. Monocyte pct 6.9 % [facility] Comment: Interpretive Data Percent cell count reference ranges are not reported, since discordance with absolute values may lead to misinterpretation of CBC data. Current Interpretive Data was last revised on 2017. Eosinophil pct 1.6 % [facility] Comment: Interpretive Data Percent cell count reference ranges are not reported, since discordance with absolute values may lead to misinterpretation of CBC data. Current Interpretive Data was last revised on 2017. Basophil pct 0.3 % [facility] Comment: Interpretive Data Percent cell count reference ranges are not reported, since discordance with absolute values may lead to misinterpretation of CBC data. Current Interpretive Data was last revised on 2017. Blood 07/09/2024 5:42 AM CDT 07/09/2024 5:45 AM CDT us Hugh Chan MD LAB BLOOD ORDERABLES Final Resul t [facility] [address] [facility] Department of Laboratories [place], [place] [id number] * CBC with auto differential (07/09/2024 5:42 AM CDT) WBC 9.54 3.80 - 9.90 K/cumm Hgb 12.9 11.9 - 15.5 g/dL [facility] Hct 38.7 35.6 - 45.5 % [facility] Plt 196 150 - 400 K/cumm [facility] MPV 9.8 9.1 - 12.3 fL [facility] RBC 4.43 3.90 - 5.20 M/cumm [facility] MCV 87.4 81.3 - 96.4 fL [facility] MCH 29.1 27.1 - 33.3 pg [facility] MCHC 33.3 32.3 - 35.7 g/dL [facility] RDW CV 13.6 11.1 - 14.9 % [facility] RDW SD 43.5 35.7 - 48.1 fL [facility] NRBC abs 0.00 0.00 - 0.01 K/cumm [facility] Blood Venous blood specimen / Unknown 07/09/2024 5:42 AM CDT 07/09/2024 5:45 AM CDT Hugh Chan MD LAB BLOOD ORDERABLES Final Resul t Performing Organization Address [facility] Co de Phone Number [address] Interview [employer] [place], [place] [id number] * hCG, blood, quantitative (07/09/2024 5:42 AM CDT) hCG, quant <5.0 0.0 - 5.0 IUnits/L [...] ORDERABLES Final Resul t Performing Organization Address City/[facility] Co de Phone Number [address] [employer] [place], [place] [id number] * Lipase (07/09/2024 5:42 AM CDT) Pathologist [facility] Lipase 20 10 - 99 Units/L Comment:Hemolyzed; result mi ght be falsely decreased Blood Venous blood specimen / Unknown 07/09/2024 5:42 AM CDT 07/09/2024 5:45 AM CDT us Hugh Chan MD LAB BLOOD ORDERABLES Final Resul t [facility] [address] [facility] [place] [address] * (ABNORMAL) Comprehensive metabolic panel (07/09/2024 5:42 AM CDT) Sodium 137 135 - 145 mmol/L Potassium, pl See Comment 3.3 - 4.9 [facility] Comment:Credited; Hemolyzed Specimen Chloride 107 97 - 110 mmol/L [facility] CO2 21(L) 22 - 32 mmol/L [facility] Anion gap 9 2 - 15 mmol/L [facility] BUN 9 6 - 25 mg/dL [facility] Creatinine 0.49(L) 0.60 - 1.10 mg/dL [facility] Glucose 97 70 - 199 mg/dL [facility] Comment: Interpretive Data Fasting glucose >/= 126 [...] classification and Diagnosis of Diabetes Diabetes Care 2021; 46: S19-S40. Current interpretive data was last revised 2022. Calcium 8.1(L) 8.5 - 10.3 mg/dL [facility] Bilirubin, total <0.2 0.1 - 1.2 mg/dL [facility] Protein, pl 6.8 6.5 - 8.5 g/dL [facility] Albumin 4.0 3.5 - 5.0 g/dL [facility] Alk phos 64 40 - 130 Units/L [facility] ALT See Comment 7 - 45 [facility] Comment:Credited; Hemolyzed Specimen AST See Comment [facility] Comment:Credited; Hemolyzed Specimen Blood 07/09/2024 5:42 AM CDT 07/09/2024 5:45 AM CDT us Hugh Chan MD LAB BLOOD ORDERABLES Final Resul t [facility] [address] [facility] [place] [address] from Last 3 Months Insurance [employer] [place] [address] [place] [address] [employer] Care Teams Director Of Home Health Services Relationship Specialty Start Date End Date Unknown, Notinfile PCP - General 07/09/24
--- OUTSIDE RECORDS SUMMARY | 2024-09-08 07:33 | XMS_ITS | Data Portability ---
Author Organization [facility] [place] Address [address] [place] [address] Care Team Providers Care Peg Driver Name Role Phone EDDIE REYES Primary Care Provider Assessment Encounter Date Assessment Date Assessment LastModified by Organization Details LastModified Time 06/16/2022 06/16/2022 Discussed US & lab work. Will repeat a few values with her PCP. She is interested in surgical options for management of severe dysmenorrhea/ Memhorrhagia/ pelvic pain. While she is awaiting consult appt & possible scheduling of procedure we discussed trial of SLYND in hopes of lightening her cycle. She is open to this. Sample given. Will start now (tubes tied). Consult to discuss surgical options pelvic pain/severe dysmenorrhea/ heavy menses. scheduled Dr. Kerr. No further questions or concerns. Time spent in visit is a total of 22 mins with at least 50% of visit consisting of counseling and review of plan of care. [email or web address] Not available 06/17/2022 10:03:42 Plan of Treatment Reminders Order Date Submit Date Provider Last Modified By Organization Details Last Modified Time Details Appointments Robotic TLH 2024 07:30A Rolando KERR MD Not available Not available Not available SURG POST OP 2024 01:00P Rolando KERR MD Not available Not available Not available Lab None recorded. Referral None recorded. Procedures None recorded. Surgeries robotic assisted hysterect freddie with salpingec sherif (SURG) 2024 025 [id number], [address], [place], [address], 09/04/2024 09:38:14 Imaging US, pelvis 2022 023 [email or web address] [place], [address], [place], [address], 06/12/2022 15:42:58 US, transvagi nal 2022 023 [email or web address] [place], [address], [place], [address], 06/12/2022 15:42:58 Medication Orders Slynd 4 mg (28) tablet 2022 023 [email or web address] [id number], [address] [place], [place], [id number], 07/28/2024 09:47:03 Patient TargetsNo targets recorded. Patient InstructionsNo instructions recorded. Reason for Referral None Reported. Results Created Date Observation Date Name Description Value Unit Range Abnormal Flag Note LastModifiedBy Organization Detail LastModifiedTime 06/11/1906/10/2022 CBC W/DIF F WBC 7.8 10'3/ uL 3.6-10 .2 Not Available [facility] (Lab) [address], [place], [address], 06/11/2022 04:06:33 06/11/1906/10/2022 CBC W/DIF F RBC 4.60 10'6/ uL (based on docume nted legal sex) 4.10-5 .30 Not Available [facility] (Lab) [address], [place], [address], 06/11/2022 04:06:33 06/11/1906/10/2022 CBC W/DIF F HGB 13.3 g/dL (based on docume nted legal sex) 11.9-1 5.8 Not Available [facility] (Lab) [address], [place], [address], 06/11/2022 04:06:33 06/11/19 23 06/10/2022 CBC W/DIF F HCT 39.8 % (based on docume nted legal sex) 37.4-4 8.3 Not Available [facility] (Lab) [address], [place], [address], 06/11/2022 04:06:33 06/11/19 23 06/10/2022 CBC W/DIF F MCV 86.5 fL 82.0-9 9.0 Not Available [facility] (Lab) [address] [facility], [place], [address], 06/11/2022 04:06:33 06/11/19 23 06/10/2022 CBC W/DIF F MCH 28.9 pg 27.0-3 3.0 Not Available [facility] (Lab) [address], [place], [address], 06/11/2022 04:06:33 06/11/19 23 06/10/2022 CBC W/DIF F MCHC 33.4 g/dL 32.0-3 6.0 Not Available [facility] (Lab) [address] [facility], [place], [address], 06/11/2022 04:06:33 06/11/19 23 06/10/2022 CBC W/DIF F RDW 13.3 % 11.0-1 5.0 Not Available [facility] (Lab) [address], [place], [address], 06/11/2022 04:06:33 06/11/19 23 06/10/2022 CBC W/DIF F plt 239 10'3/ uL 150-45 0 Not Available [facility] (Lab) [address], [place], [address], 06/11/2022 04:06:33 06/11/19 23 06/10/2022 CBC W/DIF F MPV 9.8 fL 9.8-12 .7 Not Available [facility] (Lab) [address] [facility], [place], [address], 06/11/2022 04:06:33 06/11/19 23 06/10/2022 CBC W/DIF F NRBC's 0.0 % 0 Not Available [facility] (Lab) [address] [facility], [place], [address], 06/11/2022 04:06:33 06/11/19 23 06/10/2022 CBC W/DIF F absolute NRBCs 0.0 10'3/ uL 0 Not Available [facility] (Lab) [address] [facility], [place], [address], 06/11/2022 04:06:33 06/11/19 23 06/10/2022 CBC W/DIF F neutrophils 59.6 % 37.0-7 2.0 Not Available [facility] (Lab) [address] [facility], [place], [address], 06/11/2022 04:06:33 06/11/19 23 06/10/2022 CBC W/DIF F lymphocytes 29.2 % 16.0-4 8.0 Not Available [facility] (Lab) [address] [facility], [place], [address], 06/11/2022 04:06:33 06/11/19 23 06/10/2022 CBC W/DIF F monocytes 7.3 % 4.0-14 .0 Not Available [facility] (Lab) [address] [facility], [place], [address], 06/11/2022 04:06:33 06/11/19 23 06/10/2022 CBC W/DIF F eosinophils 3.2 % 0.0-9. 0 Not Available [facility] (Lab) [address] [facility], [place], [address], 06/11/2022 04:06:33 06/11/19 23 06/10/2022 CBC W/DIF F basophils 0.6 % 0.0-2. 0 Not Available [facility] (Lab) [address] [facility], [place], [address], 06/11/2022 04:06:33 06/11/19 23 06/10/2022 CBC W/DIF F immature granulocytes 0.1 % no define d refere nce range Not Available [facility] (Lab) [address] [facility], [place], [address], 06/11/2022 04:06:33 06/11/19 23 06/10/2022 CBC W/DIF F absolute neutrophils 4.6 10'3/ uL 1.1-6. 0 Not Available [facility] (Lab) [address] [facility], [place], [address], 06/11/2022 04:06:33 06/11/19 23 06/10/2022 CBC W/DIF F absolute lymphocytes 2.3 10'3/ uL 0.7-3. 4 Not Available [facility] (Lab) [address] [facility], [place], [address], 06/11/2022 04:06:33 06/11/19 23 06/10/2022 CBC W/DIF F absolute monocytes 0.6 10'3/ uL 0.3-1. 0 Not Available [facility] (Lab) [address] [facility], [place], [address], 06/11/2022 04:06:33 06/11/19 23 06/10/2022 CBC W/DIF F absolute eosinophils 0.3 10'3/ uL 0.0-0. 6 Not Available [facility] (Lab) [address] [facility], [place], [address], 06/11/2022 04:06:33 06/11/19 23 06/10/2022 CBC W/DIF F absolute basophils 0.1 10'3/ uL 0.0-0. 1 Not Available [facility] (Lab) [address] [facility], [place], [address], 06/11/2022 04:06:33 06/11/19 23 06/10/2022 CBC W/DIF F absolute immature granulocytes 0.0 10'3/ uL 0.00-0 .10 2022 1:39 AM: P indic ates parti al resul ts on a panel have been relea sed. Addit ional resul ts will follo w. 2022 1:39 AM: This resul t has been final verif ied. No addit ional or dunn ed resul ts are expec edwin. Not Available [facility] (Lab) [address], [place], [address], 06/11/2022 04:06:33 06/11/19 23 06/10/2022 HEMOG LOBIN A1C hemoglobin A1C 5.3 % 0-5.6 The Ameri can Diabe julio Assoc iatio n recom mends that a prima ry goal of thera py armand king be a HBA1C of < 7% and that physi cians shoul d reeva luate the treat ment regim en in patie nts with HBA1C value s consi stent ly > 8%. <5.7% Mary Alice l 5.7 - 6.4% Incre ased risk for diabe julio >=6.5 % Diagn ostic of diabe julio <7.0% Goal of thera py >8.0% Actio n sugge sted Not Available [facility] (Lab) [address], [place], [address], 06/11/2022 04:06:33 06/11/19 23 06/10/2022 CMP(C OMPRE HENSI VE METAB OLIC PANEL ) sodium 139 mmol/ L 133-14 6 Not Available [facility] (Lab) [address], [place], [address], 06/11/2022 04:06:34 06/11/19 23 06/10/2022 CMP(C OMPRE HENSI VE METAB OLIC PANEL ) potassium 3.7 mmol/ L 3.5-5. 1 Not Available [facility] (Lab) [address], [place], [address], 06/11/2022 04:06:34 06/11/19 23 06/10/2022 CMP(C OMPRE HENSI VE METAB OLIC PANEL ) chloride 108 mmol/ L 98-107 high Not Available [facility] (Lab) [address] [facility], [place], [address], 06/11/2022 04:06:34 06/11/19 23 06/10/2022 CMP(C OMPRE HENSI VE METAB OLIC PANEL ) carbon dioxide 24 mmol/ L 21-31 Not Available [facility] (Lab) [address] [facility], [place], [address], 06/11/2022 04:06:34 06/11/19 23 06/10/2022 CMP(C OMPRE HENSI VE METAB OLIC PANEL ) anion gap 7 mmol/ L 4-13 Not Available [facility] (Lab) [address] [facility], [place], [address], 06/11/2022 04:06:34 06/11/19 23 06/10/2022 CMP(C OMPRE HENSI VE METAB OLIC PANEL ) blood urea nitrogen 11 mg/dL 7-25 Not Available [facility] (Lab) [address] [facility], [place], [address], 06/11/2022 04:06:34 06/11/19 23 06/10/2022 CMP(C OMPRE HENSI VE METAB OLIC PANEL ) creatinine 0.59 mg/dL 0.60-1 .30 low Not Available [facility] (Lab) [address] [facility], [place], [address], 06/11/2022 04:06:34 06/11/19 23 06/10/2022 CMP(C OMPRE HENSI VE METAB OLIC PANEL ) egfrcr (CKD-epi 2020) >90 mL/mi n/1.7 3_m2 >=60 Not Available [facility] (Lab) [address], [place], [address], 06/11/2022 04:06:34 06/11/19 23 06/10/2022 CMP(C OMPRE HENSI VE METAB OLIC PANEL ) calcium 8.8 mg/dL 8.3-10 .5 Not Available [facility] (Lab) [address] [facility], [place], [address], 06/11/2022 04:06:34 06/11/19 23 06/10/2022 CMP(C OMPRE HENSI VE METAB OLIC PANEL ) glucose 77 mg/dL 70-100 Not Available [facility] (Lab) [address] [facility], [place], [address], 06/11/2022 04:06:34 06/11/19 23 06/10/2022 CMP(C OMPRE HENSI VE METAB OLIC PANEL ) protein, total 7.1 g/dL 6.4-8. 3 Not Available [facility] (Lab) [address] [facility], [place], [address], 06/11/2022 04:06:34 06/11/19 23 06/10/2022 CMP(C OMPRE HENSI VE METAB OLIC PANEL ) albumin 4.3 g/dL 3.5-5. 0 Not Available [facility] (Lab) [address] [facility], [place], [address], 06/11/2022 04:06:34 06/11/19 23 06/10/2022 CMP(C OMPRE HENSI VE METAB OLIC PANEL ) ALT 8 units /L 9-43 low Not Available [facility] (Lab) [address] [facility], [place], [address], 06/11/2022 04:06:34 06/11/19 23 06/10/2022 CMP(C OMPRE HENSI VE METAB OLIC PANEL ) alkaline phosphatase 55 units /L 34-104 Not Available [facility] (Lab) [address] [facility], [place], [address], 06/11/2022 04:06:34 06/11/19 23 06/10/2022 CMP(C OMPRE HENSI VE METAB OLIC PANEL ) AST 11 units /L 13-39 low Not Available [facility] (Lab) [address] [facility], [place], [address], 06/11/2022 04:06:34 06/11/19 23 06/10/2022 CMP(C OMPRE HENSI VE METAB OLIC PANEL ) bilirubin, total 0.4 mg/dL 0.2-1. 2 Not Available [facility] (Lab) [address] [facility], [place], [address], 06/11/2022 04:06:34 06/11/19 23 06/10/2022 TSH, REFLE X FREE T4 TSH 1.74 uIU/m L 0.30-5 .33 Not Available [facility] (Lab) [address] [facility], [place], [address], 06/11/2022 04:06:34 06/11/19 23 06/10/2022 REGINE TIN / IRON / TRANS REGINE N / TIBC iron 89 ug/dL 40-170 Not Available [facility] (Lab) [address] [facility], [place], [address], 06/11/2022 04:06:35 06/11/19 23 06/10/2022 REGINE TIN / IRON / TRANS REGINE N / TIBC transferrin 240 mg/dL 200-36 0 Not Available [facility] (Lab) [address] [facility], [place], [address], 06/11/2022 04:06:35 06/11/19 23 06/10/2022 REGINE TIN / IRON / TRANS REGINE N / TIBC ferritin 22.5 NG/mL 8.0-25 2.0 Not Available [facility] (Lab) [address] [facility], [place], [address], 06/11/2022 04:06:35 06/11/19 23 06/10/2022 REGINE TIN / IRON / TRANS REGINE N / TIBC TIBC 336 ug/dL 250-45 0 Not Available [facility] (Lab) [address] [facility], [place], [address], 06/11/2022 04:06:35 06/11/19 23 06/10/2022 REGINE TIN / IRON / TRANS REGINE N / TIBC iron saturation 26 % 20-55 Not Available [facility] (Lab) [address] [facility], [place], [address], 06/11/2022 04:06:35 06/11/19 23 06/10/2022 PROLA CTIN prolactin, total 12.80 NG/mL 4.79-2 3.30 This assay was perfo rmed using [employer] ratio n reage nts and test kits. Value s obtai lakesha with other assay metho ds or kits canno t be used inter dunn eably . Not Available [facility] (Lab) [address] [facility], [place], [address], 06/11/2022 04:06:35 06/11/19 23 06/10/2022 VITAM IN B12 / FOLAT E PANEL vitamin B12 150 pg/mL 180-91 4 low Mary Alice l Range : 180-9 14 pg/mL . Indet ermin ate Range : 145-1 80 pg/mL . Defic ient Range : <=145 pg/mL . Not Available [facility] (Lab) [address] [facility], [place], [address], 06/11/2022 04:06:35 06/11/1906/10/2022 VITAM IN B12 / FOLAT E PANEL folate, serum 17.8 NG/mL 6.0-20 .0 Not Available [facility] (Lab) [address] [facility], [place], [address], 06/11/2022 04:06:35 06/11/19 23 06/10/2022 IMAGE GUIDE D PAP AND HPV REGAR DLESS image guided Pap, HPV regardless of Pap result SEE RESULT S BELOW CASE REPOR T: Cytol ogy Gynec ologi loulou Repor t Case: [id number] Autho rizin g Provi tommie: Kirsten bolton , Lauren Barnes cted: 06/10 1621 [facility] Order ing Locat ion: [place] Patho logjacob Recei tyler: 06/11 0111 First Scree n: Jeyson Tello am, CT Speci men: Scree alo Pap - Image d, Cervi x STATE MENT OF ADEQU ACY: Satis facto ry for evalu ation Trans forma tion zone compo nent prese nt FINAL DIAGN OSIS: Negat brant for Intra epith elial Lesio n or Lorena lopez (NIL) . Shift in crispin sugge stive of bacte rial vagin osis. Elect zac jungjacob joaquín d by Jeyson Tello am, CT on 2022 at 8:16 AM ----- ----- ----- ----- ----- ----- ----- ----- ----- ----- ----- ----- ----- ----- ----- ----- ----- ---- HPV RESUL TS: HPV mRNA E6/E7 : No HPV mRNA Detec edwin NOTE: This high risk HPV mRNA assay detec ts fourt een high- risk HPV types (16, 18, 31, 33, 35, 39, 45, 51, 52, 56, 58, 59, 66, 68) witho ut diffe renti ation . COMME NT: This speci men was revie wed by a Cytot echno logis t and/o r Patho logis t (as indic ated in this repor t) after evalu ation using the Thinp rep Imagi ng Syste m. CLINI LOULOU INFOR MATIO N: Menst rual Statu s: LMP (if appli cable ): Clini loulou Histo ry/Pr eviou s Pap: Type of Neopl camilla (if appli cable ): Signi fican t Clini loulou Findi ngs: Other Histo ry: Hormo mikayla (if appli cable ): PAP EDUCA GEOFFREY L NOTE: The Pap Test is a scree alo test with an inher ent false negat brant rate. Liqui d-bas ed sampl ing may decre ase, but will not elimi suraj, false negat brant resul ts. A negat brant resul t does not precl ude the prese nce and/o r devel opmen t of disea se, since the prese nce of abnor mal cells in the sampl e depen ds on the locat ion of the lesio n and sampl ing techn ique. Letty nued regul ar scree alo is the best metho d of cance r preve ntion . If repor edwin cytol ogic findi ng do not corre late with physi loulou and/o r histo rical findi ngs, furth er inves tigat ion is recom cynthia d, as clini lina francis nted. Not Available [facility] (Lab) [address], [place], [address], 06/14/2022 09:19:00 06/12/19 23 06/11/2022 US, pelvi s No observ ation record ed. [email or web address], [place], [address], 06/11/2022 18:24:53 06/12/19 23 06/11/2022 US, trans vagmichaelle al No observ ation record ed. [email or web address] [place] [address] [address], [place], [address], 06/11/2022 18:24:45 06/12/19 23 06/11/2022 US, pelvi s No observ ation record ed. [email or web address] [address], [place], [address], 06/17/2022 13:46:59 Result Notes None recorded. Procedures Surgical History Date Name Laterality Status Provider Name and Address Organization Details Recorded Time 06/11/19 Date of Last Pap Smear completed Vilma Dotson [facility] 06/16/2022 15:44:58 05/31/19 cardiac pacemaker procedure completed Velma Aquino, [facility]- [address], [place], [address], [facility] 06/10/2022 16:44:53 03/31/19 10 Tubal Ligation completed [facility] 06/10/2022 16:19:32 01/15/20 08 delivery completed [facility] 06/16/2022 15:46:57 03/31/19 06 appendectomy completed [facility] 06/10/2022 16:19:37 01/16/20 05 Caesarean Section completed [facility] 06/16/2022 15:46:40 Tubal Ligation completed [facility] 06/16/2022 15:44:03 Laparoscopy completed [facility] 06/16/2022 15:44:04 Imaging Results None recorded. Procedure Notes None recorded. Medical Equipment None Reported. Allergies No known drug allergies Medications Name Sig Start Date Stop Date Status Note LastModified by Organization Details LastModified Time amoxicillin 500 mg capsule TAKE 1 CAPSULE BY MOUTH TWICE DAILY WITH FOOD 06/10 completed Not Available Not Available Not Available azelastine 0.05 % eye drops 06/10 completed Not Available Not Available Not Available prednisone 10 mg tablet 06/10 completed Not Available Not Available Not Available cetirizine 10 mg tablet TAKE 1 TABLET DAILY 07/28 completed Not Available Not Available Not Available azithromyci n 250 mg tablet 06/10 completed Not Available Not Available Not Available ibuprofen 800 mg tablet TAKE 1 TABLET BY MOUTH EVERY 8 HOURS NEEDED FOR PAIN 06/10 completed Not Available Not Available Not Available diclofenac ER 100 mg tablet,exte nded release 24 hr TAKE 1 TABLET BY MOUTH EVERY DAY 07/28 completed Not Available Not Available Not Available hydrocodone 5 mg-acetamin ophen 325 mg tablet TAKE 1 TABLET BY MOUTH EVERY 6 HOURS active Not Available Not Available No t Available ondansetron 8 mg disintegrat ing tablet DISSOLVE 1 TABLET ON THE TONGUE TWICE DAILY FOR 7 DAYS NEEDED 07/28 completed Not Available Not Available Not Available ofloxacin 0.3 % ear drops INSTILL 5 DROPS TO LEFT EAR TWICE DAILY FOR 7 DAYS 06/10 completed Not Available Not Available Not Available baclofen 10 mg tablet TAKE 1 TABLET BY MOUTH TWICE DAILY FOR 7 DAYS NEEDED 07/28 completed Not Available Not Available Not Available ergocalcife rol (vitamin D2) 1,250 mcg (50,000 unit) capsule TAKE 1 CAPSULE BY MOUTH WEEKLY 06/10 completed Not Available Not Available Not Available methylpredn isolone 4 mg tablets in a dose pack FOLLOW PACKAGE DIRECTION S 06/10 completed Not Available Not Available Not Available albuterol sulfate HFA 90 mcg/actuati on aerosol inhaler INHALE 2 PUFFS BY MOUTH EVERY 4 HOURS NEEDED 06/10 completed Not Available Not Available Not Available amoxicillin 875 mg-potassiu m clavulanate 125 mg tablet TAKE 1 TABLET BY MOUTH TWICE A DAY 07/28 completed Not Available Not Available Not Available tranexamic acid 650 mg tablet 06/16 completed Not Available Not Available Not Available Slynd 4 mg (28) tablet Take 1 tablet every day by oral route with meals for 30 days. 07/28 completed Not Available Not Available Not Available Vitals Date Recorded Body height Body mass index (BMI) Body weight Systolic And Diastolic Provider Name and Address Organization Details Last Updated DateTime 06/16/2022 162.56 cm 25.6 kg/m2 54399.26 g 114/73 mm[Hg] Vilma Dotson [facility] 06/16/2022 15:42:47 Date Recorded Body height Body mass index (BMI) Body weight Systolic And Diastolic Provider Name and Address Organization Details Last Updated DateTime 06/25/2022 162.56 cm 25.6 kg/m2 00977.26 g 100/66 mm[Hg] Megan Hargrove [facility] 06/25/2022 09:43:03 Date Recorded Body height Body mass index (BMI) Body weight Systolic And Diastolic Provider Name and Address Organization Details Last Updated DateTime 07/28/2024 162.56 cm 25.4 kg/m2 43314.67 g 116/81 mm[Hg] Tresa Brown [facility] 07/28/2024 09:47:27 Date Recorded Body height Body mass index (BMI) Body weight Systolic And Diastolic Provider Name and Address Organization Details Last Updated DateTime 09/05/2024 162.56 cm 25.4 kg/m2 08009.67 g 112/69 mm[Hg] Angela Lin [facility] 09/05/2024 18:19:16 Social History Question Answer Notes LastModified by Organizat ion Details LastModified Time Tobacco Smoking Status Never Smoker Domo Rodascassie thorne, [facility] 06/25/2022 09:15:02 How Many Years Have You Consumed Alcohol? 2 [email or web address] Information not available 06/16/2022 Are You Blind Or Do You Have Difficulty Seeing? No [email or web address] Information n ot available 06/16/2022 What Is Your Level Of Caffeine Consumption? Moderate [email or web address] Information not available 06/16/2022 How Much Tobacco Do You Chew? None [email or web address] Information not available 06/16/2022 In The 14 Days Before Symptom Onset, Have You Had Close Contact With A Laboratory-confirm ed COVID-19 While That Case Was Ill? No [email or web address] Information n ot available 06/16/2022 In The 14 Days Before Symptom Onset, Have You Had Close Contact With A Person Who Is Under Investigation For COVID-19 While That Person Was Ill? No Information not available 06/16/2022 Have You Been To An Area Known To Be High Risk For COVID-19? No [email or web address] Information not available 06/16/2022 Are You Deaf Or Do You Have Serious Difficulty Hearing? No [email or web address] Information not available 06/16/2022 What Type Of Diet Are You Following? REGULAR [email or web address] Information n ot available 06/16/2022 What Is The Highest Grade Or Level Of School You Have Completed Or The Highest Degree You Have Received? [id number] [email or web address] Information not available 06/16/2022 Are There Any Guns Present In Your Home? No [email or web address] Information not available 06/16/2022 Do You Use Protection During Sex? No [email or web address] Information not available 06/16/2022 Do You Use Your Seat Belt Or Car Seat Routinely? Yes [email or web address] Information not available 06/16/2022 Do You Have Smoke And Carbon Monoxide Detectors In Your Home? Yes [email or web address] Information not available 06/16/2022 At What Age Did You Start Smoking Tobacco? 13 [email or web address] Information not available 06/16/2022 How Much Tobacco Do You Smoke? No [email or web address] Information not available 06/16/2022 Do You Use Sunscreen Routinely? Yes [email or web address] Information not available 06/16/2022 Has Tobacco Cessation Counseling Been Provided? No [email or web address] Information not available 06/25/2022 How Many Years Have You Smoked Tobacco? 25 [email or web address] Information not available 06/16/2022 Have You Used IV Drugs? No [email or web address] Information not available 06/16/2022 Sex: Unknown Functional Status Question Answer Note LastModified by Organizat ion Details LastModified Time Do you use any illicit or recreational drugs? No Information not available 06/10/2022 Do you or have you ever used any other forms of tobacco or nicotine? No [email or web address] Information not available 06/25/2022 What is your level of alcohol consumption? None Information not available 06/10/2022 Are you able to walk? 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 Moderate [email or web address] Information not available 06/16/2022 Mental Status Question Answer Note LastModified by Organization D etails LastModified Time Do you feel stressed (tense, restless, nervous, or anxious, or unable to sleep at night)? [id number] [email or web address] Information not available 06/16/2022 Family History Relationship Description Onset Age of this Age Resolved Age Notes LastModified by Organization Details LastModified Time Father Myocardial infarction [email or web address] Not available 05/29 15:43:03 Father Heart disease [email or web address] Not available 06/16 15:43:03 Mother Myocardial infarction [email or web address] Not available 05/29 15:43:03 Mother Hypertensive disorder [email or web address] Not available 06/16 15:43:03 Mother Heart disease [email or web address] Not available 06/16 15:43:03 Mother Disorder of nervous system [email or web address] Not available 06/16 15:43:03 Mother Diabetes mellitus [email or web address] Not available 2022 16:23:05 Mother Depressive disorder [email or web address] Not available 2022 16:23:10 Mother Asthma [email or web address] Not available 06/16/2022 15:43:03 Mother Anxiety disorder [email or web address] Not available 2022 16:23:37 Mother Malignant tumor of breast Not available 06/16 15:43:03 Mother Endometrial carcinoma [email or web address] Not available 06/16 15:43:03 Paternal Aunt Malignant tumor of breast [email or web address] Not available 06/16 15:43:03 Maternal Aunt Malignant tumor of breast [email or web address] Not available 2022 16:20:32 Maternal Aunt Endometrial carcinoma Not available 06/16 15:43:03 Paternal Grandmother Depressive disorder [email or web address] Not available 06/16 15:43:03 Maternal Grandmother Disorder of nervous system [email or web address] Not available 06/16 15:43:03 Maternal Grandmother Myocardial infarction [email or web address] Not available 05/29 15:43:03 Maternal Grandmother Hypertensive disorder [email or web address] Not available 06/16 15:43:03 Maternal Grandmother Heart disease [email or web address] Not available 06/16 15:43:03 Maternal Grandmother Blood coagulation disorder [email or web address] Not available 06/16 15:43:03 Maternal Grandmother Diabetes mellitus [email or web address] Not available 06/16 15:43:03 Sister Asthma Not available 06/16/2022 15:43:03 Medical History Condition Response Allergies (Food, seasonal, environmental ) N Other N Breast Cancer N Drug/Latex Allergies/Reactions N Blood Transfusion Y Dermatologic Disorders N Lung Disease N Defects or Inherited Disease N Breast Problem N Gestational Diabetes N Hematologic disorders N Anesthesia Complications N History of STI N Deep Vein Thrombosis Y Polycystic ovary syndrome N Anxiety Disorder N Autoimmune disease N Arthritis N Infertility N Polyps N Acid Reflux (GERD) N History of abnormal pap N Cancer N Stroke N Varicosities N Neurologic/Epilepsy N Endometriosis Y High Cholesterol N Headaches N Fibromyalgia N Kidney Disease N Heart Problems Y Kidney or Bladder Problems N Thyroid Problems N GI Problems N Eating Disorder N Anemia N Art (IVF or FET) N Psychiatric Illness N Ovarian Cancer N Diabetes N Pulmonary (TB, Asthma) N Hepatitis/Liver Disease N No Past Medical History N Eczema N Urinary Tract Infection N Abuse/Domestic Violence N Asthma Y Trauma/Violence N Depression/ depression N Heart Disease N Pre-Eclampsia N Hypertension N Osteoporosis N Thrombophilias N Gynecological History Statement/Question Response Abnormal Pap N Flow Light Date of LMP 06/29/2024 On BCP's at Conception? N N Was last menstrual period normal Y STIs/STDs N HPV Vaccine N Duration of Flow (days) 4 Current Control Method Tubal Ligat ion Age at First Child 19 Frequency of Cycle (Q days) 24 Sexually Active? Y Condoms Age of first menstrual cycle 9 Date of Last Pap Smear 06/10/2022 Sexual Problems? Y Desired Control Method Condoms LMP Approximate N Obstetrics History GPAL:G 4 P 0 3 1 3 Type Value Full Term 0 Spontaneous 1 Premature 3 Living 3 Total 4 Past Encounters Encounter ID Performer Location Encounter Start Date Encounter Closed Date Diagnosis/Indication Diagnosis SNOMED-CT Code Diagnosis ICD10 Code Diagnosis Note [id number] AUBREY [facility] [address] [address] 06/10/2022 15:46:18 06/16/2022 15:54:25 Chronic pelvic pain of female 816040356 R10.2 Today we discussed Hx of chronic pelvic pain.She is not ready for a laproscopy to explore possible endometrio sis.We agreed to updated US which she has not had.Will determine what direction she needs to go once completed. +PDF on exam more on left side than right. Likely contribute s to some of her discomfort during her cycle. Advised likely need MD consult moving forward.Te sting updated Time spent in visit is a total of 45 mins with at least 50% of visit consisting of counseling and review of plan of care. Menorrhagia [id number] N9 2.0 Will return to discuss US/Labs and then decide what options she would like to pursue.We briefly discussed IUD's, BC options, Endometria l ablation.S he will consider & we will discuss again once returns.I have recommende d pre-medica ting with NSAID's, muscle relaxer and tylenol 2-3 days prior to onset of her cycle which she voices is predictabl e in onset.Will report outcome of this trial at her f/u. Secondary dysmenorrhea 02036241 N94.5 Trial for use prior to cycle & during cycle for max of 7 days. Counseled on medication R/B's, Most common side effects, & use. All questions were answered to patient satisfacti on. Nausea [id number] R11.0 Use prn if feel nauseated during her menstrual cycle.Coun seled on medication R/B's, Most common side effects, & use. All questions were answered to patient satisfacti on. [id number] Aaron Kerr MD [facility] [address],[place] [address] 06/11/2022 15:58:27 06/11/2022 17:10:09 Menorrhagia 922993844 N92.0 R10.2 [id number] Velma Aquino [facility] [address],[place] [address] 06/16/2022 14:56:23 06/17/2022 10:10:40 Pain in pelvis 08234314 R10.2 N92.0 N94.5 Vitamin B1 2 deficiency (non anemic) [id number] E53.8 Will update her PCP who can further manage this issue. [id number] Aaron Kerr MD [facility] [address],[place] [address] 06/25/2022 09:14:49 06/25/2022 10:28:13 Menorrhagia 710676748 N92.0 R10.2 Dysmenorrhea 485542829 N 94.6 This patient is a 37-year-ol d female with menorrhagi a and dysmenorrh ea. The menorrhagi a is and dysmenorrh ea or profound. It affects her quality of life and activities daily living. She has accidents , getting blood on her bedding and clothing. she wanted to consider surgical treatments . She has tried some medical therapy and has failed. She tried progestero ne only contracept ion. We talked about ablation. Talked hysterecto my. Talked in detail about the procedures themselves and risk. Talked about recovery. Talked about success rates. Talked about failure. We spent over 40 minutes face-to-fa ce. More than 50% was counseling . We agreed to meet again. She can talk to her family a decision about surgery. She is going to come together with me organ talk about a little bit more. [id number] Aaron Kerr MD [facility] [address] [address] 07/28/2024 09:40:15 07/30/2024 04:49:00 Dysmenorrhea 642446290 N94.6 Menorrhagia 631551640 N9 2.0 This patient is a 37-year-ol d female with menorrhagi a and dysmenorrh ea. The menorrhagi a is and dysmenorrh ea or profound. It affects her quality of life and activities daily living. She has accidents , getting blood on her bedding and clothing. she wanted to consider surgical treatments . She has tried some medical therapy and has failed. She tried progestero ne only contracept ion. she has tried Mirena IUD as well. She has failed multiple medical therapies. We talked about ablation. Talked hysterecto my. Talked in detail about the procedures themselves and risk. Talked about recovery. Talked about success rates. Talked about failure. I spent over 30 minutes on her care in total and we agreed to move forward with robotic assisted hysterecto my with bilateral salping The patient understand s the procedure. The procedure was described to the patient in great detail. the patient also understand s the risks. The risks were also explained in detail. She understand s that injuries May occur during surgery. She understand s these injuries can result in hospitaliz ation, more surgery, and severe illness. She understand s there is risk of hemorrhage and infection. [id number] Aaron Kerr MD [facility] [address] [address] 09/05/2024 17:52:45 09/07/2024 12:43:42 Menorrhagia 399613253 N92.0 Dysmenorrhea 260619166 N 94.6 This patient is a 39-year-ol d female with menorrhagi a and severe dysmenorrh ea. We agreed to perform robotic assisted hysterecto my and bilateral salpingect freddie. She understand s risks, benefits, and alternativ es. She has completed informed consent process and is ready to proceed. Health Concerns Section Related Observation LastModified by Organization Detai ls LastModified Time None Recorded Concern Status LastModified by Organization Details LastModified Time None Recorded Advance Directives Directive None Recorded Payers Insurance Date Sequence Insurance Name Policy Number Policy Huynh Covered Member ID Huynh Member ID Guarantor Name 09/04/2024 1 [place] [facility] Geovanna Torrez [id number] Geovanna Torrez 09/05/2024 1 [facility] (MEDICAID HMO) [id number] [id number] 09/04/2024 1 [facility] (MEDICAID HMO) [id number] [facility] [id number] Geovannabryce Ndiayeoza Notes Date Note Type Note Provider Name and Address Organization Details Recorded Time 06/16/2022 text/html Here today to review US & lab work. AUBREY [facility]- [address], [place], [address], [facility] 06/17/2022 10:04:05 06/25/2022 text/html This patient is a 37-year-old female with menorrhagia and dysmenorrhea. The menorrhagia is and dysmenorrhea or profound. It affects her quality of life and activities daily living. She has accidents , getting blood on her bedding and clothing. she wanted to consider surgical treatments. She has tried some medical therapy and has failed. She tried progesterone only contraception. We talked about ablation. Talked hysterectomy. Talked in detail about the procedures themselves and risk. Talked about recovery. Talked about success rates. Talked about failure. We spent over 40 minutes [id number]. More than 50% was counseling. We agreed to meet again. She can talk to her family a decision about surgery. She is going to come together with me organ talk about a little bit more. Aaron Kerr MD [address], [place], [address], [facility] 06/25/2022 10:24:06 07/28/2024 text/html This patient is a 37-year-old female with menorrhagia and dysmenorrhea. The menorrhagia is and dysmenorrhea or profound. It affects her quality of life and activities daily living. She has accidents , getting blood on her bedding and clothing. she wanted to consider surgical treatments. She has tried some medical therapy and has failed. She tried progesterone only contraception. she has tried Mirena IUD as well. She has failed multiple medical therapies. We talked about ablation. Talked hysterectomy. Talked in detail about the procedures themselves and risk. Talked about recovery. Talked about success rates. Talked about failure. I spent over 30 minutes on her care in total and we agreed to move forward with robotic assisted hysterectomy with bilateral salping The patient understands the procedure. The procedure was described to the patient in great detail. the patient also understands the risks. The risks were also explained in detail. She understands that injuries May occur during surgery. She understands these injuries can result in hospitalization, more surgery, and severe illness. She understands there is risk of hemorrhage and infection. Aaron Kerr MD [address], [place], [address], [facility] 07/28/2024 12:51:11 09/05/2024 text/html This patient is a 39-year-old female with menorrhagia and severe dysmenorrhea. We agreed to perform robotic assisted hysterectomy and bilateral salpingectomy. She understands risks, benefits, and alternatives. She has completed informed consent process and is ready to proceed. The patient understands the procedure. The procedure was described to the patient in great detail. the patient also understands the risks. The risks were also explained in detail. She understands that injuries May occur during surgery. She understands these injuries can result in hospitalization, more surgery, and severe illness. She understands there is risk of hemorrhage and infection. Aaron Kerr MD [address], [place], [address], [facility] 09/07/2024 11:09:02 OBGyn Episode Ob Episode Information Episode Created Date Number of Fetuses Patient Bloodtype Patient rh Status Prepregnancy Weight lbs Domestic Partner Domestic Partner Phone Father Name Inside Tester Status 06/11/19 1 CLOSED Fetus Data First Name Last Name Admitted to NICU Weight (g) Sex Living Outcome Pediatric Complications Fetus ID Race Codes Race Delivery Type 3628.73 6 [place] [address] Repeat Blanco Calculation Initial Blanco Date Initial Exam Date Initial Exam Provider Initial Ultrasound Date Last Menstrual Period Date Ultra Sound Weeks Gestation 0 Eighteen To Twenty Week Blanco Update Ultra Sound Date Fundal Height At Umbil Quickening Date Ultra Sound Latest Weeks Gestation Final Blanco Confirmed By Final Blanco Confirmed Date Final Blanco Date Ultra Sound Latest Days Gestation 0 0 Menstrual History Last Menstrual Date Menses Monthly On Bcp Conception Prior Menses Frequency Hcg Plus Date Menarche Onset Age Delivery Information Delivery Date Delivery Type Labor Anesthesia Weeks Gestation Incision Type Labor Labor Length Hrs Delivered By Post Complications Tubal Sterilization Discharge Date Comments 8 30 Discharge Information Feeding Method Contraceptive Method Maternal HG B and HCT Levels Ob Episode Information Episode Created Date Number of Fetuses Patient Bloodtype Patient rh Status Prepregnancy Weight lbs Domestic Partner Domestic Partner Phone Father Name Inside Tester Status 06/11/19 1 CLOSED Fetus Data First Name Last Name Admitted to NICU Weight (g) Sex Living Outcome Pediatric Complications Fetus ID Race Codes Race Delivery Type 4365.82 3 M Prematur e 01885 Primary Blanco Calculation Initial Blanco Date Initial Exam Date Initial Exam Provider Initial Ultrasound Date Last Menstrual Period Date Ultra Sound Weeks Gestation 0 Eighteen To Twenty Week Blanco Update Ultra Sound Date Fundal Height At Umbil Quickening Date Ultra Sound Latest Weeks Gestation Final Blanco Confirmed By Final Blanco Confirmed Date Final Blanco Date Ultra Sound Latest Days Gestation 0 0 Menstrual History Last Menstrual Date Menses Monthly On Bcp Conception Prior Menses Frequency Hcg Plus Date Menarche Onset Age Delivery Information Delivery Date Delivery Type Labor Anesthesia Weeks Gestation Incision Type Labor Labor Length Hrs Delivered By Post Complications Tubal Sterilization Discharge Date Comments 5 32 blood clot Discharge Information Feeding Method Contraceptive Method Maternal HG B and HCT Levels Ob Episode Information Episode Created Date Number of Fetuses Patient Bloodtype Patient rh Status Prepregnancy Weight lbs Domestic Partner Domestic Partner Phone Father Name Inside Tester Status 06/11/19 23 1 CLOSED Fetus Data First Name Last Name Admitted to NICU Weight (g) Sex Living Outcome Pediatric Complications Fetus ID Race Codes Race Delivery Type 3855.53 2 M Prematur e 29466 Repeat Blanco Calculation Initial Blanco Date Initial Exam Date Initial Exam Provider Initial Ultrasound Date Last Menstrual Period Date Ultra Sound Weeks Gestation 0 Eighteen To Twenty Week Blanco Update Ultra Sound Date Fundal Height At Umbil Quickening Date Ultra Sound Latest Weeks Gestation Final Blanco Confirmed By Final Blanco Confirmed Date Final Blanco Date Ultra Sound Latest Days Gestation 0 0 Menstrual History Last Menstrual Date Menses Monthly On Bcp Conception Prior Menses Frequency Hcg Plus Date Menarche Onset Age Delivery Information Delivery Date Delivery Type Labor Anesthesia Weeks Gestation Incision Type Labor Labor Length Hrs Delivered By Post Complications Tubal Sterilization Discharge Date Comments 8 26 asthma Discharge Information Feeding Method Contraceptive Method Maternal HG B and HCT Levels Ob Episode Information Episode Created Date Number of Fetuses Patient Bloodtype Patient rh Status Prepregnancy Weight lbs Domestic Partner Domestic Partner Phone Father Name Inside Tester Status 06/11/19 23 1 CLOSED Fetus Data First Name Last Name Admitted to NICU Weight (g) Sex Living Outcome Pediatric Complications Fetus ID Race Codes Race Delivery Type , Spontane ous [id number] Blanco Calculation Initial Blanco Date Initial Exam Date Initial Exam Provider Initial Ultrasound Date Last Menstrual Period Date Ultra Sound Weeks Gestation 0 Eighteen To Twenty Week Blanco Update Ultra Sound Date Fundal Height At Umbil Quickening Date Ultra Sound Latest Weeks Gestation Final Blanco Confirmed By Final Blanco Confirmed Date Final Blanco Date Ultra Sound Latest Days Gestation 0 0 Menstrual History Last Menstrual Date Menses Monthly On Bcp Conception Prior Menses Frequency Hcg Plus Date Menarche Onset Age Delivery Information Delivery Date Delivery Type Labor Anesthesia Weeks Gestation Incision Type Labor Labor Length Hrs Delivered By Post Complications Tubal Sterilization Discharge Date Comments 4 Discharge Information Feeding Method Contraceptive Method Maternal HG B and HCT Levels
--- OUTSIDE RECORDS SUMMARY | 2024-09-08 07:33 | XMS_ITS | Clinical Summary ---
Author Organization [facility] Address [address] [place] [address] Care Team Providers Care Rail Manager Name Role Phone Unavailable Primary Care Provider Unavailabl e Social History Tobacco Use Types Packs/Day Years Used Date Smoking Tobacco: Never Assessed Comments Unknown Sex and Gender Information Value Date Recorded Sex Assigned at Not on file Legal Sex Female 11:35 AM KEYPUNCHER Gender Identity Not on file Sexual Orientation Not on file Plan of Treatment Health Maintenance Due Date Last Done Comments Hepatitis C Virus (HCV) Screening 1984 TdaP Immunization 1984 Hepatitis B Immunization (1 of 3 - 19+ 3-dose series) 2003 Pap Smear 2005 Cervical Cancer Screening (CCS) 2014 HPV/Cotest 2014 Influenza Immunization (#1) 2023 SARS-COV-2 Immunization ( season) 2023 Discussion re Starting/Frequ ency of Mammograms 2024 Respiratory Syncytial Virus (RSV) Immunization (Adult) (1 - 1-dose 75+ series) 2059 Meningococcal Immunization (ACWY) Aged Out No longer eligible based on patient's age to complete this topic Pneumococcal Immunization Combined Aged Out No longer eligible based on patient's age to complete this topic Rotavirus Immunization Aged Out No lo nger eligible based on patient's age to complete this topic
--- OUTSIDE RECORDS SUMMARY | 2024-09-08 07:33 | XMS_ITS | Encounter Summary ---
Author Organization [facility] Address [address] [place] [address] Phone Care Team Providers Care Crepe Sole Wire Brusher Name Role Phone No, Physician Primary Care Provider Unavailabl e No, Physician Primary Care Provider [phone] Kateryna Brandon MD Primary Care Pr ovider Unknown, Notinfile Primary Care Provider Unavail able Encounter Details Date Type Department Care Team (Late st Contact Info) Description 01/11/2014 Orders Only [facility] Provider, MD Sebastien [address] [place] [address] Social History Tobacco Use Types Packs/Day Years Used Date Smoking Tobacco: Never Assessed Comments Unknown Sex and Gender Information Value Date Recorded Sex Assigned at Not on file Legal Sex Female 11:06 PM PATIENT INTAKE COORDINATOR Gender Identity Not on file Sexual Orientation Not on file documented as of this encounter Plan of Treatment Not on file documented as of this encounter Procedures Procedure Name Priority Date/Time Associated Diagnosis Comments CARDIOLOGY REPORT 01/11/2014 documented in this encounter Results * CARDIOLOGY REPORT (01/11/2014) Anatomical Region Laterality Modality Other Narrative 01/11/2014 Ordered by an unspecified provider. us Historical Provider [facility] Final Result documented in this encounter Visit Diagnoses Not on filedocumented in this encounter Care Teams Crepe Sole Wire Brusher Relationship Specialty Start Date End Date NO, PHYSICIAN PCP - General 06/27/16 07/09/16 No, Physician PCP - General 07/10/16 10/18/17 Kateryna Brandon MD PCP - General Obstetrics and Gynecology 10/19/1706/28 Unknown, Notinfile PCP - General 07/09/24 documented as of this encounter
--- OUTSIDE RECORDS SUMMARY | 2024-09-08 07:33 | XMS_ITS | Encounter Summary ---
Author Organization [facility] Address [address] [place] [address] Phone Care Team Providers Care Education Department Chair Name Role Phone No, Physician Primary Care Provider Unavailabl e No, Physician Primary Care Provider Kateryna Brandon MD Primary Care Pr ovider Unknown, Notinfile Primary Care Provider Unavail able Encounter Details Date Type Department Care Team (Late st Contact Info) Description 06/07/2013 Orders Only [facility] Provider, MD Sebastien [address] [place] [address] Social History Tobacco Use Types Packs/Day Years Used Date Smoking Tobacco: Never Assessed Comments Unknown Sex and Gender Information Value Date Recorded Sex Assigned at Not on file 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 us Historical Provider [facility] Final Result documented in this encounter Visit Diagnoses Not on filedocumented in this encounter Care Teams Education Department Chair Relationship Specialty Start Date End Date NO, PHYSICIAN PCP - General 06/27/16 07/09/16 No, Physician PCP - General 07/10/16 10/18/17 Kateryna Brandon MD PCP - General Obstetrics and Gynecology 10/19/1706/28 Unknown, Notinfile PCP - General 07/09/24 documented as of this encounter
--- OUTSIDE RECORDS SUMMARY | 2024-09-08 07:34 | XMS_ITS | Clinical Summary ---
Author Organization [facility] Address [address] [place] [id number] Care Team Providers Care Lagging Machine Operator Name Role Phone Shira Mujica PA-C Primary Care Provider [phone] Allergies No known active allergies Medications No known medications Active Problems Problem Noted Date Diagnosed Date Enlarged heart Angina at rest Family History Medical History Relation Comments Heart Attack Maternal Grandmother Open Heart Maternal Grandmother Stent Cardiac Maternal Grandmother Stroke Maternal Grandmother Relation Status Comments Brother Alive Father (Age 45) Maternal Grandmother (Age 42) Mother Alive Sister Alive Social History Tobacco Use Types Packs/Day Years Used Date Smoking Tobacco: Every Day Cigarettes 0.5 16.5 Started: 2008 Smokeless Tobacco: Never Tobacco Cessation:Ready to Q uit: Not Asked; Counseling Given: Not Answered Alcohol Use Standard Drinks/Week Comments Not Currently 0 (1 standard drink = 0.6 oz pur e alcohol) Comments No Sex and Gender Information Value Date Recorded Sex Assigned at Not on file Legal Sex Female 10:35 AM CDT Gender Identity Not on file Sexual Orientation Not on file 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 Not on file Not on file Last Filed Vital Signs Vital Sign Reading Time Taken Comments Blood Pressure 133/93 08/29/2023 8:11 AM CDT Pulse 79 08/29/2023 8:06 AM CDT Temperature 37.3 C (99.1 F) 08/29/2023 8:06 AM CDT Respiratory Rate 16 08/29/2023 8:06 AM CDT Oxygen Saturation 99% 08/29/2023 8:06 AM CDT Inhaled Oxygen Concentration - - Weight 65.8 kg (145 lb) 08/29/2023 8:06 AM CDT Height 162.6 cm (5' 4) 08/29/2023 8:06 AM CDT Body Mass Index 24.89 08/29/2023 8:06 AM CDT Plan of Treatment Health Maintenance Due Date Last Done Comments ASCVD LDL 1984 ASCVD Statin 1984 Annual Physical 1987 Hepatitis C 2002 DTaP, Tdap and Td Vaccines ( 1 - Tdap) 2003 Hepatitis B Vaccines (1 of 3 - 19+ 3-dose series) 2003 Pneumococcal Vaccine: Pediat rics (0 to 5 Years) and At-Risk Patients (6 to 49 Years) (1 of 2 - PCV) 2003 Cervical Cancer Screening Pa p with HPV Testing (Age 30 to 64) Every 5 Years 2014 COVID-19 Vaccine ( - 2023-2 5 season) 2023 PHQ-2 (Physician Citizen [place]) 02/29/2024 Mammogram Screening 2024 Cervical Cancer Screening Pa p Smear (Age 30 to 64) Every 3 Years 06/10/2025 06/10/2022 Cervical Cancer Screening with HPV 06/10/2025 HPV Vaccines Aged Out No longer eligi ble based on patient's age to complete this topic Meningococcal B Vaccine Aged Out No l onger eligible based on patient's age to complete this topic Meningococcal Vaccine Aged Out No fern stella eligible based on patient's age to complete this topic RSV Immunizations Under 20 Months Aged Out No longer eligible based on patient's age to complete this topic Insurance [facility] [address] MEDICAID Care Teams Lagging Machine Operator Relationship Specialty Start Date End Date Shira Mujica PA-C PCP - General NURSE PRACTITIONER 05/15/23
== END 2024-09-08 07:29 | disposition home or self-care (01) ==
PROVIDERS: PCP Physician Assistant; Visit Provider Anesthesiology
DX: N92.0 Excessive and frequent menstruation with regular cycle (principal)
CPT/HCPCS: 36415; 86850; 86900; 86901

== ENCOUNTER 2024-09-11 00:41 | Day surgery (SDC) | payer OTHER, SELFPAY ==
[2024-09-07 14:06] VITALS: BMI 26.4
--- NOTE | 2024-09-07 14:17 | PC.NURSE ---
Report to the Outpatient Waiting Room, entrance under the green pavilion located off [facility], at time _0600__ on date 09/11/24_. Planned Procedure Time: _0730_.? Time changes happen often and if your time is changed the preop area will call you the afternoon before. - You and your visitor will be asked to self-screen and do not enter if you have any COVID symptoms. Please call surgeon if you need to reschedule. - A mask is optional within the hospital at this time. Patients may have clear liquids (water, carbonated beverages, clear teas, apple juice) until 3 hours prior to surgery with a maximum of 20 ounces. - No food from midnight until time of surgery and no smoking, or chewing tobacco (or any form of nicotine). No chewing gum, candy or mints. - Infants may have breast milk until 4 hours before surgery, infant formula 6 hours prior to surgery. - Children will be allowed to drink immediately following surgery.? If applicable, please bring a bottle or sippy cup to assist with drinking. Juice, water, soda, and popsicles are readily available.? For infants on formula, please bring formula the day of surgery.? Pacifiers are allowed. Take only the following medications with a SIP of water on the morning of surgery: ____NONE DO NOT STOP ANY OF YOUR OTHER PRESCRIPTION MEDICATIONS PRIOR TO SURGERY EXCEPT THE FOLLOWING Hold all vitamins and supplements for 3 days per anesthesiologist. Medications to discontinue per physician Date to take last dose Please no make-up, nail singaporean, hairspray, perfume, deodorant, or body powder the day of surgery.? No jewelry (including any body piercings) or valuables the day of surgery, leave them at home.? Please take a shower or bath the night before, or the morning of, surgery with an antibacterial soap.? Wear comfortable, loose fitting clothing.? Children are encouraged to wear pajamas. - Jewelry must be removed prior to entering the operating room.? Rings and piercings that are not removed may be cut off. - The hospital will not accept responsibility for valuables.? - Please leave all valuables, including medications, at home the day of surgery. If you are going home after surgery, a licensed dray driver must drive you home.? - NO public transportation without another adult if you receive anesthesia. - We recommend that an adult stay with you for 24 hours following discharge. - We also recommend that you do not drive, make important decision, drink alcoholic beverages, or take any drugs that were not prescribed by your health care provider for at least 24 hours after your discharge time. For Pediatric surgeries, we recommend two adults accompany the child home. Follow any additional instructions given to you from your surgeon. Telephone instructions given to _PATIENT__and asked if any additional questions and then verbalized understanding. Patient advised to call surgeon office or pre surgery nurse liaison [phone] if any additional questions.
[2024-09-11] VITALS (11 sets, daily range): BP systolic 99–129; BP diastolic 49–79; PULSE 51–78; RESP 14–30; TEMP 36.4–36.9; O2SAT 99–100
--- OUTSIDE RECORDS SUMMARY | 2024-09-11 00:50 | XMS_ITS | Data Portability ---
Author Organization [facility] [place] Address [address] [place] [address] Care Team Providers Care Cook Helper Preserves Name Role Phone EDDIE REYES Primary Care [...] [facility], [address], [place], [address], 09/04/2024 09:38:14 Imaging US, pelvis 2022 023 [email or web address] [facility], [address], [place], [address], 06/12/2022 15:42:58 US, transvagi nal 2022 023 [email or web address] [facility], [address], [place], [address], 06/12/2022 15:42:58 Medication Orders Slynd 4 mg (28) tablet 2022 023 [email or web address] [id number], [address], [place], [id number], 07/28/2024 09:47:03 Patient TargetsNo targets recorded. Patient InstructionsNo instructions recorded. Reason for Referral None Reported. Results Created Date Observation Date Name Description Value Unit Range Abnormal Flag Note LastModifiedBy Organization Detail LastModifiedTime 06/11/1906/10/2022 CBC W/DIF F WBC 7.8 10'3/ uL 3.6-10 .2 Not Available [facility] (Lab) [address], [place], [address], 06/11/2022 04:06:33 06/11/1906/10/2022 CBC W/DIF F RBC 4.60 10'6/ uL (based on docume nted legal sex) 4.10-5 .30 Not Available [facility] (Lab) [address], [place], [address], 06/11/2022 04:06:33 06/11/1906/10/2022 CBC W/DIF F HGB 13.3 g/dL (based on docume nted legal sex) 11.9-1 5.8 Not Available [facility] (Lab) [address], [place], [address], 06/11/2022 04:06:33 06/11/19 23 06/10/2022 CBC W/DIF F HCT 39.8 % (based on docume nted legal sex) 37.4-4 8.3 Not Available [facility] (Lab) [address], [place], [address], 06/11/2022 04:06:33 06/11/19 23 06/10/2022 CBC W/DIF F MCV 86.5 fL 82.0-9 9.0 Not Available [facility] (Lab) [address] [facility], [place], [address], 06/11/2022 04:06:33 06/11/19 23 06/10/2022 CBC W/DIF F MCH 28.9 pg 27.0-3 3.0 Not Available [facility] (Lab) [address], [place], [address], 06/11/2022 04:06:33 06/11/19 23 06/10/2022 CBC W/DIF F MCHC 33.4 g/dL 32.0-3 6.0 Not Available [facility] (Lab) [address] [facility], [place], [address], 06/11/2022 04:06:33 06/11/19 23 06/10/2022 CBC W/DIF F RDW 13.3 % 11.0-1 5.0 Not Available [facility] (Lab) [address], [place], [address], 06/11/2022 04:06:33 06/11/19 23 06/10/2022 CBC W/DIF F plt 239 10'3/ uL 150-45 0 Not Available [facility] (Lab) [address], [place], [address], 06/11/2022 04:06:33 06/11/19 23 06/10/2022 CBC W/DIF F MPV 9.8 fL 9.8-12 .7 Not Available [facility] (Lab) [address] [facility], [place], [address], 06/11/2022 04:06:33 06/11/19 23 06/10/2022 CBC W/DIF F NRBC's 0.0 % 0 Not Available [facility] (Lab) [address] [facility], [place], [address], 06/11/2022 04:06:33 06/11/19 23 06/10/2022 CBC W/DIF F absolute NRBCs 0.0 10'3/ uL 0 Not Available [facility] (Lab) [address] [facility], [place], [address], 06/11/2022 04:06:33 06/11/19 23 06/10/2022 CBC W/DIF F neutrophils 59.6 % 37.0-7 2.0 Not Available [facility] (Lab) [address] [facility], [place], [address], 06/11/2022 04:06:33 06/11/19 23 06/10/2022 CBC W/DIF F lymphocytes 29.2 % 16.0-4 8.0 Not Available [facility] (Lab) [address] [facility], [place], [address], 06/11/2022 04:06:33 06/11/19 23 06/10/2022 CBC W/DIF F monocytes 7.3 % 4.0-14 .0 Not Available [facility] (Lab) [address] [facility], [place], [address], 06/11/2022 04:06:33 06/11/19 23 06/10/2022 CBC W/DIF F eosinophils 3.2 % 0.0-9. 0 Not Available [facility] (Lab) [address] [facility], [place], [address], 06/11/2022 04:06:33 06/11/19 23 06/10/2022 CBC W/DIF F basophils 0.6 % 0.0-2. 0 Not Available [facility] (Lab) [address] [facility], [place], [address], 06/11/2022 04:06:33 06/11/19 23 06/10/2022 CBC W/DIF F immature granulocytes 0.1 % no define d refere nce range Not Available [facility] (Lab) [address] [facility], [place], [address], 06/11/2022 04:06:33 06/11/19 23 06/10/2022 CBC W/DIF F absolute neutrophils 4.6 10'3/ uL 1.1-6. 0 Not Available [facility] (Lab) [address] [facility], [place], [address], 06/11/2022 04:06:33 06/11/19 23 06/10/2022 CBC W/DIF F absolute lymphocytes 2.3 10'3/ uL 0.7-3. 4 Not Available [facility] (Lab) [address] [facility], [place], [address], 06/11/2022 04:06:33 06/11/19 23 06/10/2022 CBC W/DIF F absolute monocytes 0.6 10'3/ uL 0.3-1. 0 Not Available [facility] (Lab) [address] [facility], [place], [address], 06/11/2022 04:06:33 06/11/19 23 06/10/2022 CBC W/DIF F absolute eosinophils 0.3 10'3/ uL 0.0-0. 6 Not Available [facility] (Lab) [address] [facility], [place], [address], 06/11/2022 04:06:33 06/11/19 23 06/10/2022 CBC W/DIF F absolute basophils 0.1 10'3/ uL 0.0-0. 1 Not Available [facility] (Lab) [address] [facility], [place], [address], 06/11/2022 04:06:33 06/11/19 23 06/10/2022 CBC W/DIF [...] resul ts are expec edwin. Not Available [facility] (Lab) [address], [place], [address], 06/11/2022 04:06:33 06/11/19 23 06/10/2022 HEMOG LOBIN [...] >8.0% Actio n sugge sted Not Available [facility] (Lab) [address], [place], [address], 06/11/2022 04:06:33 06/11/19 23 06/10/2022 CMP(C OMPRE HENSI VE METAB OLIC PANEL ) sodium 139 mmol/ L 133-14 6 Not Available [facility] (Lab) [address], [place], [address], 06/11/2022 04:06:34 06/11/19 23 06/10/2022 CMP(C OMPRE HENSI VE METAB OLIC PANEL ) potassium 3.7 mmol/ L 3.5-5. 1 Not Available [facility] (Lab) [address], [place], [address], 06/11/2022 04:06:34 06/11/19 23 06/10/2022 CMP(C OMPRE HENSI VE METAB OLIC PANEL ) chloride 108 mmol/ L 98-107 high Not Available [facility] (Lab) [address] [facility], [place], [address], 06/11/2022 04:06:34 06/11/19 23 06/10/2022 CMP(C OMPRE HENSI VE METAB OLIC PANEL ) carbon dioxide 24 mmol/ L 21-31 Not Available [facility] (Lab) [address] [facility], [place], [address], 06/11/2022 04:06:34 06/11/19 23 06/10/2022 CMP(C OMPRE HENSI VE METAB OLIC PANEL ) anion gap 7 mmol/ L 4-13 Not Available [facility] (Lab) [address] [facility], [place], [address], 06/11/2022 04:06:34 06/11/19 23 06/10/2022 CMP(C OMPRE HENSI VE METAB OLIC PANEL ) blood urea nitrogen 11 mg/dL 7-25 Not Available [facility] (Lab) [address] [facility], [place], [address], 06/11/2022 04:06:34 06/11/19 23 06/10/2022 CMP(C OMPRE HENSI VE METAB OLIC PANEL ) creatinine 0.59 mg/dL 0.60-1 .30 low Not Available [facility] (Lab) [address] [facility], [place], [address], 06/11/2022 04:06:34 06/11/19 23 06/10/2022 CMP(C OMPRE HENSI VE METAB OLIC PANEL ) egfrcr (CKD-epi 2020) >90 mL/mi n/1.7 3_m2 >=60 Not Available [facility] (Lab) [address], [place], [address], 06/11/2022 04:06:34 06/11/19 23 06/10/2022 CMP(C OMPRE HENSI VE METAB OLIC PANEL ) calcium 8.8 mg/dL 8.3-10 .5 Not Available [facility] (Lab) [address] [facility], [place], [address], 06/11/2022 04:06:34 06/11/19 23 06/10/2022 CMP(C OMPRE HENSI VE METAB OLIC PANEL ) glucose 77 mg/dL 70-100 Not Available [facility] (Lab) [address] [facility], [place], [address], 06/11/2022 04:06:34 06/11/19 23 06/10/2022 CMP(C OMPRE HENSI VE METAB OLIC PANEL ) protein, total 7.1 g/dL 6.4-8. 3 Not Available [facility] (Lab) [address] [facility], [place], [address], 06/11/2022 04:06:34 06/11/19 23 06/10/2022 CMP(C OMPRE HENSI VE METAB OLIC PANEL ) albumin 4.3 g/dL 3.5-5. 0 Not Available [facility] (Lab) [address] [facility], [place], [address], 06/11/2022 04:06:34 06/11/19 23 06/10/2022 CMP(C OMPRE HENSI VE METAB OLIC PANEL ) ALT 8 units /L 9-43 low Not Available [facility] (Lab) [address] [facility], [place], [address], 06/11/2022 04:06:34 06/11/19 23 06/10/2022 CMP(C OMPRE HENSI VE METAB OLIC PANEL ) alkaline phosphatase 55 units /L 34-104 Not Available [facility] (Lab) [address] [facility], [place], [address], 06/11/2022 04:06:34 06/11/19 23 06/10/2022 CMP(C OMPRE HENSI VE METAB OLIC PANEL ) AST 11 units /L 13-39 low Not Available [facility] (Lab) [address] [facility], [place], [address], 06/11/2022 04:06:34 06/11/19 23 06/10/2022 CMP(C OMPRE HENSI VE METAB OLIC PANEL ) bilirubin, total 0.4 mg/dL 0.2-1. 2 Not Available [facility] (Lab) [address] [facility], [place], [address], 06/11/2022 04:06:34 06/11/19 23 06/10/2022 TSH, REFLE X FREE T4 TSH 1.74 uIU/m L 0.30-5 .33 Not Available [facility] (Lab) [address] [facility], [place], [address], 06/11/2022 04:06:34 06/11/19 23 06/10/2022 REGINE TIN / IRON / TRANS REGINE N / TIBC iron 89 ug/dL 40-170 Not Available [facility] (Lab) [address] [facility], [place], [address], 06/11/2022 04:06:35 06/11/19 23 06/10/2022 REGINE TIN / IRON / TRANS REGINE N / TIBC transferrin 240 mg/dL 200-36 0 Not Available [facility] (Lab) [address] [facility], [place], [address], 06/11/2022 04:06:35 06/11/19 23 06/10/2022 REGINE TIN / IRON / TRANS REGINE N / TIBC ferritin 22.5 NG/mL 8.0-25 2.0 Not Available [facility] (Lab) [address] [facility], [place], [address], 06/11/2022 04:06:35 06/11/19 23 06/10/2022 REGINE TIN / IRON / TRANS REGINE N / TIBC TIBC 336 ug/dL 250-45 0 Not Available [facility] (Lab) [address] [facility], [place], [address], 06/11/2022 04:06:35 06/11/19 23 06/10/2022 REGINE TIN / IRON / TRANS REGINE N / TIBC iron saturation 26 % 20-55 Not Available [facility] (Lab) [address] [facility], [place], [address], 06/11/2022 04:06:35 06/11/19 23 06/10/2022 PROLA CTIN prolactin, total 12.80 NG/mL 4.79-2 3.30 This assay was perfo rmed using [employer] ratio n reage nts and test kits. Value s obtai lakesha with other assay metho ds or kits canno t be used inter dunn eably . Not Available [facility] (Lab) [address] [facility], [place], [address], 06/11/2022 04:06:35 06/11/19 23 06/10/2022 VITAM IN B12 / FOLAT E PANEL vitamin B12 150 pg/mL 180-91 4 low Mary Alice l Range : 180-9 14 pg/mL . Indet ermin ate Range : 145-1 80 pg/mL . Defic ient Range : <=145 pg/mL . Not Available [facility] (Lab) [address] [facility], [place], [address], 06/11/2022 04:06:35 06/11/1906/10/2022 VITAM IN B12 / FOLAT E PANEL folate, serum 17.8 NG/mL 6.0-20 .0 Not Available [facility] (Lab) [address] [facility], [place], [address], 06/11/2022 04:06:35 06/11/19 23 06/10/2022 IMAGE GUIDE D PAP AND HPV REGAR DLESS image guided Pap, HPV regardless of Pap result SEE RESULT S BELOW CASE REPOR T: Cytol ogy Gynec ologi loulou Repor t Case: [id number] Autho rizin g Provi tommie: Kirsten bolton , Lauren Barnes cted: 06/10 1621 [employer] Order ing Locat ion: [place] Patho logjacob [...] as clini lina francis nted. Not Available [facility] (Lab) [address], [place], [address], 06/14/2022 09:19:00 06/12/19 23 06/11/2022 US, pelvi s No observ ation record ed. [email or web address], [place], [address], 06/11/2022 18:24:53 06/12/19 23 06/11/2022 US, trans vagmichaelle al No observ ation record ed. [email or web address] [place] [address] [address], [place], [address], 06/11/2022 18:24:45 06/12/19 23 06/11/2022 US, pelvi s No observ ation record ed. [email or web address] [address], [place], [address], 06/17/2022 13:46:59 Result Notes None recorded. Procedures Surgical History Date Name Laterality Status Provider Name and Address Organization Details Recorded Time 06/11/19 Date of Last Pap Smear completed Vilma Dotson [facility] 06/16/2022 15:44:58 05/31/19 cardiac pacemaker procedure completed Velma Aquino, [facility]- [address], [place], [address], [facility] 06/10/2022 16:44:53 03/31/19 10 Tubal Ligation completed [facility] 06/10/2022 16:19:32 01/15/20 08 delivery completed [facility] 06/16/2022 15:46:57 03/31/19 06 appendectomy completed [facility] 06/10/2022 16:19:37 01/16/20 05 Caesarean Section completed [facility] 06/16/2022 15:46:40 Tubal Ligation completed [facility] 06/16/2022 15:44:03 Laparoscopy completed [facility] 06/16/2022 15:44:04 Imaging Results None recorded. [...] Updated DateTime 06/16/2022 162.56 cm 25.6 kg/m2 40247.26 g 114/73 mm[Hg] Vilma Dotson [facility] 06/16/2022 15:42:47 Date Recorded Body height Body mass index (BMI) Body weight Systolic And Diastolic Provider Name and Address Organization Details Last Updated DateTime 06/25/2022 162.56 cm 25.6 kg/m2 96976.26 g 100/66 mm[Hg] Megan Hargrove [facility] 06/25/2022 09:43:03 Date Recorded Body height Body mass index (BMI) Body weight Systolic And Diastolic Provider Name and Address Organization Details Last Updated DateTime 07/28/2024 162.56 cm 25.4 kg/m2 38715.67 g 116/81 mm[Hg] Tresa Brown [facility] 07/28/2024 09:47:27 Date Recorded Body height Body mass index (BMI) Body weight Systolic And Diastolic Provider Name and Address Organization Details Last Updated DateTime 09/05/2024 162.56 cm 25.4 kg/m2 69229.67 g 112/69 mm[Hg] Angela Lin [facility] 09/05/2024 18:19:16 Social History Question Answer Notes LastModified by Organizat ion Details LastModified Time Tobacco Smoking Status Never Smoker Domo Rodascassie thorne, [facility] 06/25/2022 09:15:02 How Many Years Have You Consumed Alcohol? 2 [email or web address] Information not available 06/16/2022 Are You Blind Or Do You Have Difficulty Seeing? No [email or web address] Information n ot available 06/16/2022 What Is Your Level Of Caffeine Consumption? Moderate [email or web address] Information not available 06/16/2022 How Much Tobacco Do You Chew? None [email or web address] Information not available 06/16/2022 In The 14 Days Before Symptom Onset, Have You Had Close Contact With A Laboratory-confirm ed COVID-19 While That Case Was Ill? No [email or web address] Information n ot available 06/16/2022 In The 14 Days Before Symptom Onset, Have You Had Close Contact With A Person Who Is Under Investigation For COVID-19 While That Person Was Ill? No [email or web address] Information not available 06/16/2022 Have You Been To An Area Known To Be High Risk For COVID-19? No [email or web address] Information not available 06/16/2022 Are You Deaf Or Do You Have Serious Difficulty Hearing? No [email or web address] Information not available 06/16/2022 What Type Of Diet Are You Following? REGULAR [email or web address] Information n ot available 06/16/2022 What Is The Highest Grade Or Level Of School You Have Completed Or The Highest Degree You Have Received? [id number] [email or web address] Information not available 06/16/2022 Are There Any Guns Present In Your Home? No [email or web address] Information not available 06/16/2022 Do You Use Protection During Sex? No [email or web address] Information not available 06/16/2022 Do You Use Your Seat Belt Or Car Seat Routinely? Yes [email or web address] Information not available 06/16/2022 Do You Have Smoke And Carbon Monoxide Detectors In Your Home? Yes [email or web address] Information not available 06/16/2022 At What Age Did You Start Smoking Tobacco? 13 [email or web address] Information not available 06/16/2022 How Much Tobacco Do You Smoke? No [email or web address] Information not available 06/16/2022 Do You Use Sunscreen Routinely? Yes Information not available 06/16/2022 Has Tobacco Cessation Counseling Been Provided? No [email or web address] Information not available 06/25/2022 How Many Years Have You Smoked Tobacco? 25 [email or web address] Information not available 06/16/2022 Have You Used IV Drugs? No [email or web address] Information not available 06/16/2022 Sex: Unknown Functional Status Question Answer Note LastModified by Organizat ion Details LastModified Time Do you use any illicit or recreational drugs? No Information not available 06/10/2022 Do you or have you ever used any other forms of tobacco or nicotine? No [email or web address] Information not available 06/25/2022 What is your level of alcohol consumption? None Information not available 06/10/2022 Are you able to walk? 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 Moderate [email or web address] Information not available 06/16/2022 Mental Status Question Answer Note LastModified by Organization D etails LastModified Time Do you feel stressed (tense, restless, nervous, or anxious, or unable to sleep at night)? [id number] [email or web address] Information not available 06/16/2022 Family History Relationship Description Onset Age of this Age Resolved Age Notes LastModified by Organization Details LastModified Time Father Myocardial infarction Not available 05/29 15:43:03 Father Heart disease [email or web address] Not available 06/16 15:43:03 Mother Myocardial infarction [email or web address] Not available 05/29 15:43:03 Mother Hypertensive disorder [email or web address] Not available 06/16 15:43:03 Mother Heart disease Not available 06/16 15:43:03 Mother Disorder of nervous system [email or web address] Not available 06/16 15:43:03 Mother Diabetes mellitus smcaley Not available 2022 16:23:05 Mother Depressive disorder smcaley Not available 2022 16:23:10 Mother Asthma [email or web address] Not available 06/16/2022 15:43:03 Mother Anxiety disorder smcaley Not available 2022 16:23:37 Mother Malignant tumor of breast [email or web address] Not available 06/16 15:43:03 Mother Endometrial carcinoma [email or web address] Not available 06/16 15:43:03 Paternal Aunt Malignant tumor of breast [email or web address] Not available 06/16 15:43:03 Maternal Aunt Malignant tumor of breast smcaley Not available 2022 16:20:32 Maternal Aunt Endometrial carcinoma iprbwniy82 Not available 06/16 15:43:03 Paternal Grandmother Depressive disorder [email or web address] Not available 06/16 15:43:03 Maternal Grandmother Disorder of nervous system [email or web address] Not available 06/16 15:43:03 Maternal Grandmother Myocardial infarction [email or web address] Not available 05/29 15:43:03 Maternal Grandmother Hypertensive disorder Not available 06/16 15:43:03 Maternal Grandmother Heart disease [email or web address] Not available 06/16 15:43:03 Maternal Grandmother Blood coagulation disorder Not available 06/16 15:43:03 Maternal Grandmother Diabetes mellitus [email or web address] Not available 06/16 15:43:03 Sister Asthma Not available 06/16/2022 15:43:03 Medical History Condition Response Allergies (Food, seasonal, environmental ) N Other N Drug/Latex Allergies/Reactions N Blood Transfusion Y Breast Cancer N Dermatologic Disorders N Lung Disease N Defects or Inherited Disease N Breast Problem N Gestational Diabetes N Hematologic disorders N Anesthesia Complications N History of STI N Deep Vein Thrombosis Y Polycystic ovary syndrome N Anxiety Disorder N Autoimmune disease N Arthritis N Polyps N Infertility N Acid Reflux (GERD) N History of abnormal pap N Cancer N Varicosities N Stroke N Neurologic/Epilepsy N Endometriosis Y High Cholesterol N Fibromyalgia N Headaches N Kidney Disease N Heart Problems Y Thyroid Problems N Kidney or Bladder Problems N GI Problems N Eating Disorder [...] SNOMED-CT Code Diagnosis ICD10 Code Diagnosis Note [id number] AUBREY Hopson[facility] [address] [address] 06/10/2022 15:46:18 06/16/2022 15:54:25 Chronic pelvic pain of female 920941581 R10.2 Today we discussed Hx of chronic [...] and review of plan of care. Menorrhagia 533676246 N9 2.0 Will return to discuss US/Labs [...] this trial at her f/u. 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 Counseled on medication R/B's, Most common side effects, & use. All questions were answered to patient satisfacti on. Nausea [id number] R11.0 Use prn if feel nauseated during her menstrual cycle.Coun seled on medication R/B's, Most common side effects, & use. All questions were answered to patient satisfacti on. [id number] Aaron Kerr MD [facility] [address],[place] [address] 06/11/2022 15:58:27 06/11/2022 17:10:09 Menorrhagia 155277173 N92.0 R10.2 [id number] Velma Aquino [facility] [address],[place] [address] 06/16/2022 14:56:23 06/17/2022 10:10:40 Pain in pelvis 20779104 R10.2 N92.0 N94.5 Vitamin B1 2 deficiency (non anemic) 62265392 E53.8 Will update her PCP who can further manage this issue. [id number] Aaron Kerr MD [facility] [address],[place] [address] 06/25/2022 09:14:49 06/25/2022 10:28:13 Menorrhagia 345265862 N92.0 R10.2 Dysmenorrhea 623763329 N 94.6 This patient is a 37-year-ol [...] organ talk about a little bit more. [id number] Aaron Kerr MD [facility] [address] [address] 07/28/2024 09:40:15 07/30/2024 04:49:00 Dysmenorrhea 435215731 N94.6 Menorrhagia 482723939 N9 2.0 This patient is a 37-year-ol [...] there is risk of hemorrhage and infection. [id number] Aaron Kerr MD [facility] [address] [address] 09/05/2024 17:52:45 09/07/2024 12:43:42 Menorrhagia 050975596 N92.0 Dysmenorrhea 509817834 N 94.6 This patient is a 39-year-ol [...] Member ID Guarantor Name 09/04/2024 1 [place] [employer] Geovanna Torrez [id number] Geovanna Torrez 09/09/2024 1 [facility] (MEDICAID HMO) [id number] [id number] [facility] 09/04/2024 1 [facility] (MEDICAID HMO) [id number] [facility] [id number] Geovannabryce Ndiayeoza Notes Date Note Type Note Provider Name and Address Organization Details Recorded Time 06/16/2022 text/html Here today to review US & lab work. AUBREY Hopson- [address], [place], [address], [facility] 06/17/2022 10:04:05 [...] about failure. We spent over 40 minutes [id number]. More than 50% was counseling. We agreed to meet again. She can talk to her family a decision about surgery. She is going to come together with me organ talk about a little bit more. Aaron Kerr MD [address], [place], [address], [facility] 06/25/2022 10:24:06 07/28/2024 text/html This patient [...] infection. Aaron Kerr MD [address], [place], [address], [facility] 07/28/2024 12:51:11 09/05/2024 text/html This patient [...] infection. Aaron Kerr MD [address], [place], [address], [facility] 09/07/2024 11:09:02 OBGyn Episode Ob Episode Information Episode Created Date Number of Fetuses Patient Bloodtype Patient rh Status Prepregnancy Weight lbs Domestic Partner Domestic Partner Phone Father Name Envelope Cutter Status 06/11/19 1 CLOSED Fetus Data First Name Last Name Admitted to NICU Weight (g) Sex Living Outcome Pediatric Complications Fetus ID Race Codes Race Delivery Type 3628.73 6 F Prematur e [id number] Repeat Blanco Calculation Initial Blanco Date Initial [...] Domestic Partner Domestic Partner Phone Father Name Envelope Cutter Status 06/11/19 1 CLOSED Fetus Data First Name Last Name Admitted to NICU Weight (g) Sex Living Outcome Pediatric Complications Fetus ID Race Codes Race Delivery Type 4365.82 3 M Prematur e [id number] Primary Blanco Calculation Initial Blanco Date Initial [...] Domestic Partner Domestic Partner Phone Father Name Envelope Cutter Status 06/11/19 23 1 CLOSED Fetus Data First Name Last Name Admitted to NICU Weight (g) Sex Living Outcome Pediatric Complications Fetus ID Race Codes Race Delivery Type 3855.53 2 M Prematur e [id number] Repeat Blanco Calculation Initial Blanco Date Initial [...] Domestic Partner Domestic Partner Phone Father Name Envelope Cutter Status 06/11/19 23 1 CLOSED Fetus Data First Name Last Name Admitted to NICU Weight (g) Sex Living Outcome Pediatric Complications Fetus ID Race Codes Race Delivery Type , Spontane ous [id number] Blanco Calculation Initial Blanco Date Initial Exam [...]
--- OUTSIDE RECORDS SUMMARY | 2024-09-11 00:50 | XMS_ITS | Encounter Summary ---
Author Organization [facility] Address [address] [place] [address] Phone Care Team Providers Care Prop And Effects Designer Name Role Phone Kateryna Brandon MD Primary Care Pr ovider Unknown, Notinfile Primary Care Provider Unavail able Encounter Details Date Type Department Care Team (Late st Contact Info) Description 11/29/2017 Telephone [facility] Cardiology [address] [place] [address] [place] [phone] Bridgette Forbes, MPH Social History Tobacco Use Types Packs/Day Years Used Date Smoking Tobacco: Never Assessed Comments Unknown Sex and Gender Information Value Date Recorded Sex Assigned at Not on file Legal Sex Female 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
--- OUTSIDE RECORDS SUMMARY | 2024-09-11 00:50 | XMS_ITS | Referral Summary ---
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 T: Report ID: [id number] Reading Location: [place] [address] us Hugh Chan MD IMG US PROCEDURES [...] signed by Deondre ONEILL T: Report ID: [id number] Reading Location: [id number] Procedure Note Deondre Arambula MD - 07/09/2024 [...] Deondre Arambula M.D. RB T: Report ID: [id number] Reading Location: [id number] Breann MOTA IMG CT PROCEDURES Final Re [...] ur Red(A) Yellow Clarity, ur Turbid(A) Clear [facility] Specific gravity, ur 1.023 1.003 - 1.030 [facility] pH, urine 8.0 [facility] Comment: Interpretive Data U rine pH is affected by diet, medications, systemic acid-base disturbances, and renal tubular function. pH may affect urinary stone formation. For example, urine pH below 6.0 may help reduce the tendency for calcium phosphate stones and pH greater than 6.0 may reduce the tendency for uric acid stone formation. Source: [facility] [place] [facility] Current Interpretive Data was last revised on 2017 Protein, ur ql 2+(A) Negative [facility] Glucose, ur ql Negative Negative [facility] Ketones, ur Negative Negative [facility] Bilirubin, ur Negative Negative [facility] Blood, ur 3+(A) Negative [facility] Urobilinogen, ur <2.0 <2.0 mg/dL [facility] Nitrite, ur Negative Negative [facility] Leukocyte esterase, ur 3+(A) Negative [facility] UA reflex comment Reflex to microscopic UA will be performed. TERE Urine 07/09/2024 7:28 AM CDT 07/09/2024 7:35 AM CDT Hugh Chan MD LAB MICROBIOLOGY - GENERAL ORDER SEBAS Final Result [address] [address] * (ABNORMAL) Urinalysis, microscopic only (07/09/2024 7:28 AM CDT) WBC, ur >50(A) 0 - 5 /HPF Comment:Original result of 0 -5 was from the undiluted specimen, corrected result was from the diluted speicmen. RBC, ur >50(A) 0 - 2 /HPF [facility] Comment:Original result of 0 -5 was from the undiluted specimen, corrected result was from the diluted speicmen. Mucous, ur Present(A) [facility] Culture Reflex Comment Reflex conditions for urine culture (WBC >10) not met. [facility] Urine 07/09/2024 7:28 AM CDT 07/09/2024 1:54 PM CDT us Monica MOTA LAB URINE ORDERABLES Edited Resu lt - Final Performing Organization Address [facility] de Phone Number [address] [address] * Urine culture Urine (07/09/2024 7:28 AM CDT) Report Final Report: Less than 100,000 colonies/mL (clinically insignificant growth based on current clinical standards) Comment:Testing performed by : [facility], [address] [facility] [place]., [address] Organism (CLINICALLY INSIGNIFICANT GROWTH [facility] Urine 07/09/2024 7:28 AM CDT 07/09/2024 3:57 PM CDT Narrative [facility] - 07/10/2024 11:22 PM CDT Testing performed by [facility] Microbiology Laboratory ([phone]) us Hugh Chan MD LAB MICROBIOLOGY - GENERAL ORDER SEBAS Final Result Performing Organization Address [facility] Co de Phone Number [address] [address] * eGFR (07/09/2024 5:42 AM CDT) Pathologist [facility] eGFR >90 >=60 mL/min/1. 73 m2 Comment: [...] MD LAB BLOOD ORDERABLES Final [facility]ul t [facility] [address] [facility] Department [place] [address] * (ABNORMAL) Differential, auto (07/09/2024 5:42 AM CDT) Pathologist [facility] Neutrophil abs 7.13(H) 1.50 - 6.50 K/cumm Imm gran abs 0.03 0.00 - 0.10 K/cumm [facility] Lymphocyte abs 1.54 0.80 - 3.30 K/cumm [facility] Monocyte abs 0.66 0.20 - 0.80 K/cumm [facility] Eosinophil abs 0.15 0.00 - 0.50 K/cumm [facility] Basophil abs 0.03 0.00 - 0.10 K/cumm [facility] Neutrophil pct 74.8 % [facility] Comment: Interpretive Data Percent cell count reference ranges are not reported, since discordance with absolute values may lead to misinterpretation of CBC data. Current Interpretive Data was last revised on 2017. Imm gran pct 0.3 % [facility] Comment: Interpretive Data Percent cell count reference ranges are not reported, since discordance with absolute values may lead to misinterpretation of CBC data. Current Interpretive Data was last revised on 2017. Lymphocyte pct 16.1 % [facility] Comment: Interpretive Data Percent cell count reference ranges are not reported, since discordance with absolute values may lead to misinterpretation of CBC data. Current Interpretive Data was last revised on 2017. Monocyte pct 6.9 % [facility] Comment: Interpretive Data Percent cell count reference ranges are not reported, since discordance with absolute values may lead to misinterpretation of CBC data. Current Interpretive Data was last revised on 2017. Eosinophil pct 1.6 % [facility] Comment: Interpretive Data Percent cell count reference ranges are not reported, since discordance with absolute values may lead to misinterpretation of CBC data. Current Interpretive Data was last revised on 2017. Basophil pct 0.3 % [facility] Comment: Interpretive Data Percent cell count reference ranges are not reported, since discordance with absolute values may lead to misinterpretation of CBC data. Current Interpretive Data was last revised on 2017. Blood 07/09/2024 5:42 AM CDT 07/09/2024 5:45 AM CDT us Hugh Chan MD LAB BLOOD ORDERABLES Final Resul t [facility] [address] [facility] Department of Laboratories [place], [place] [id number] * CBC with auto differential (07/09/2024 5:42 AM CDT) WBC 9.54 3.80 - 9.90 K/cumm Hgb 12.9 11.9 - 15.5 g/dL [facility] Hct 38.7 35.6 - 45.5 % [facility] Plt 196 150 - 400 K/cumm [facility] MPV 9.8 9.1 - 12.3 fL [facility] RBC 4.43 3.90 - 5.20 M/cumm [facility] MCV 87.4 81.3 - 96.4 fL [facility] MCH 29.1 27.1 - 33.3 pg [facility] MCHC 33.3 32.3 - 35.7 g/dL [facility] RDW CV 13.6 11.1 - 14.9 % [facility] RDW SD 43.5 35.7 - 48.1 fL [facility] NRBC abs 0.00 0.00 - 0.01 K/cumm [facility] Blood Venous blood specimen / Unknown 07/09/2024 5:42 AM CDT 07/09/2024 5:45 AM CDT Hugh Chan MD LAB BLOOD ORDERABLES Final Resul t Performing Organization Address [facility] Co de Phone Number [address] [employer] [place], [place] [id number] * hCG, blood, quantitative (07/09/2024 5:42 AM [...] ORDERABLES Final Resul t Performing Organization Address [place]/[facility] Co de Phone Number [address] [employer] [place], [place] [id number] * Lipase (07/09/2024 5:42 AM CDT) Pathologist [facility] Lipase 20 10 - 99 Units/L Comment:Hemolyzed; result mi ght be falsely decreased Blood Venous blood specimen / Unknown 07/09/2024 5:42 AM CDT 07/09/2024 5:45 AM CDT us Hugh Chan MD LAB BLOOD ORDERABLES Final Resul t [facility] [address] [facility] Department [place] [address] * (ABNORMAL) Comprehensive metabolic panel (07/09/2024 5:42 AM CDT) Sodium 137 135 - 145 mmol/L Potassium, pl See Comment 3.3 - 4.9 [facility] Comment:Credited; Hemolyzed Specimen Chloride 107 97 - 110 mmol/L [facility] CO2 21(L) 22 - 32 mmol/L [facility] Anion gap 9 2 - 15 mmol/L [facility] BUN 9 6 - 25 mg/dL [facility] Creatinine 0.49(L) 0.60 - 1.10 mg/dL [facility] Glucose 97 70 - 199 mg/dL [facility] Comment: Interpretive Data Fasting glucose >/= [...] 2022. Calcium 8.1(L) 8.5 - 10.3 mg/dL [facility] Bilirubin, total <0.2 0.1 - 1.2 mg/dL [facility] Protein, pl 6.8 6.5 - 8.5 g/dL [facility] Albumin 4.0 3.5 - 5.0 g/dL [facility] Alk phos 64 40 - 130 Units/L [facility] ALT See Comment 7 - 45 [facility] Comment:Credited; Hemolyzed Specimen AST See Comment [facility] Comment:Credited; Hemolyzed Specimen Blood 07/09/2024 5:42 AM CDT 07/09/2024 5:45 AM CDT us Hugh Chan MD LAB BLOOD ORDERABLES Final Resul t [facility] [address] [facility] Department [place] [address] from Last 3 Months Insurance [employer] [place] [address] [place] [id number] [employer] Care Teams Welding Specialist Relationship Specialty Start Date End Date Unknown, Notinfile PCP - General 07/09/24
--- OUTSIDE RECORDS SUMMARY | 2024-09-11 00:50 | XMS_ITS | Clinical Summary ---
Author Organization 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
--- OUTSIDE RECORDS SUMMARY | 2024-09-11 00:50 | XMS_ITS | Encounter Summary ---
Author Organization [facility] Address [address] [place] [address] Phone Care Team Providers Care Needle Maker Name Role Phone No, Physician Primary Care Provider Unavailabl e No, Physician Primary Care Provider [phone] Kateryna Brandon MD Primary Care Pr ovider Unknown, Notinfile Primary Care Provider Unavail able Encounter Details Date Type Department Care Team (Late st Contact Info) Description 06/07/2013 Orders Only [facility] IM CAR CLINCONV Provider, MD Sebastien [address] [place] [id number] Social History Tobacco Use Types Packs/Day Years Used Date Smoking Tobacco: Never Assessed Comments Unknown Sex and Gender Information Value Date Recorded Sex Assigned at Not on file 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
--- OUTSIDE RECORDS SUMMARY | 2024-09-11 00:50 | XMS_ITS | Clinical Summary ---
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 JR T: Report ID: [id number] Reading Location: [place] [address] us Hugh Chan MD IMG US PROCEDURES [...] signed by Deondre ONEILL T: Report ID: [id number] Reading Location: [id number] Procedure Note Deondre Arambula MD - 07/09/2024 [...] signed by Deondre ONEILL T: Report ID: [id number] Reading Location: [place] [address] PROCEDURES Final Re sult * POCT hCG, urine (07/09/2024 7:33 AM CDT) Pathologist [facility] HCG, ur, POC Negative Negative Lot Number [id number] QC Backgroud Clear Acceptable QC Control Line Acceptable Urine 07/09/2024 7:33 AM CDT Hugh Chan MD POINT OF CARE TEST ORDERABLES Fi nal Result * (ABNORMAL) Urinalysis reflex to microscopic and culture Urine (07/09/2024 7:28 AM CDT) Color, ur Red(A) Yellow Clarity, ur Turbid(A) Clear TERE MARIANO Specific gravity, ur 1.023 1.003 - 1.030 [facility] pH, urine 8.0 [facility] Comment: Interpretive Data U rine pH is affected by diet, medications, systemic acid-base disturbances, and renal tubular function. pH may affect urinary stone formation. For example, urine pH below 6.0 may help reduce the tendency for calcium phosphate stones and pH greater than 6.0 may reduce the tendency for uric acid stone formation. Source: [facility] Current Interpretive Data was last revised on 2017 Protein, ur ql 2+(A) Negative [facility] Glucose, ur ql Negative Negative [facility] Ketones, ur Negative Negative [facility] Bilirubin, ur Negative Negative [facility] Blood, ur 3+(A) Negative [facility] Urobilinogen, ur <2.0 <2.0 mg/dL [facility] Nitrite, ur Negative Negative [facility] Leukocyte esterase, ur 3+(A) Negative [facility] UA reflex comment Reflex to microscopic UA will be performed. [facility] Urine 07/09/2024 7:28 AM CDT 07/09/2024 7:35 AM CDT us Hugh Chan MD LAB MICROBIOLOGY - GENERAL ORDER SEBAS Final Result [place] [id number] [facility] [place] [address] * (ABNORMAL) Urinalysis, microscopic only (07/09/2024 7:28 AM CDT) WBC, ur >50(A) 0 - 5 /HPF Comment:Original result of 0 -5 was from the undiluted specimen, corrected result was from the diluted speicmen. RBC, ur >50(A) 0 - 2 /HPF [facility] Comment:Original result of 0 -5 was from the undiluted specimen, corrected result was from the diluted speicmen. Mucous, ur Present(A) [facility] Culture Reflex Comment Reflex conditions for urine culture (WBC >10) not met. [facility] Urine 07/09/2024 7:28 AM CDT 07/09/2024 1:54 PM CDT us Monica MOTA LAB URINE ORDERABLES Edited Resu lt - Final Performing Organization Address City/[facility]/ZIP Co de Phone Number [address] [place] [address] * Urine culture Urine (07/09/2024 7:28 AM CDT) Report Final Report: Less than 100,000 colonies/mL (clinically insignificant growth based on current clinical standards) Comment:Testing performed by : [facility], [address] [place]., [address] Organism (CLINICALLY INSIGNIFICANT GROWTH [facility] Urine 07/09/2024 7:28 AM CDT 07/09/2024 3:57 PM CDT Narrative TERE - 07/10/2024 11:22 PM CDT Testing performed by [facility] Microbiology Laboratory ([phone]) Hugh Chan MD LAB MICROBIOLOGY - GENERAL ORDER SEBAS Final Result Performing Organization Address [facility] Co de Phone Number JOS[address] [place] [address] * eGFR (07/09/2024 5:42 AM CDT) eGFR [...] MD LAB BLOOD ORDERABLES Final Resul t [place] [id number] [facility] [place] [address] * (ABNORMAL) Differential, auto (07/09/2024 5:42 AM CDT) Neutrophil abs 7.13(H) 1.50 - 6.50 K/cumm Imm gran abs 0.03 0.00 - 0.10 K/cumm [facility] Lymphocyte abs 1.54 0.80 - 3.30 K/cumm [facility] Monocyte abs 0.66 0.20 - 0.80 K/cumm [facility] Eosinophil abs 0.15 0.00 - 0.50 K/cumm [facility] Basophil abs 0.03 0.00 - 0.10 K/cumm [facility] Neutrophil pct 74.8 % [facility] Comment: Interpretive Data Percent cell count reference ranges are not reported, since discordance with absolute values may lead to misinterpretation of CBC data. Current Interpretive Data was last revised on 2017. Imm gran pct 0.3 % [facility] Comment: Interpretive Data Percent cell count reference ranges are not reported, since discordance with absolute values may lead to misinterpretation of CBC data. Current Interpretive Data was last revised on 2017. Lymphocyte pct 16.1 % [facility] Comment: Interpretive Data Percent cell count reference ranges are not reported, since discordance with absolute values may lead to misinterpretation of CBC data. Current Interpretive Data was last revised on 2017. Monocyte pct 6.9 % [facility] Comment: Interpretive Data Percent cell count reference ranges are not reported, since discordance with absolute values may lead to misinterpretation of CBC data. Current Interpretive Data was last revised on 2017. Eosinophil pct 1.6 % [facility] Comment: Interpretive Data Percent cell count reference ranges are not reported, since discordance with absolute values may lead to misinterpretation of CBC data. Current Interpretive Data was last revised on 2017. Basophil pct 0.3 % [facility] Comment: Interpretive Data Percent cell count reference ranges are not reported, since discordance with absolute values may lead to misinterpretation of CBC data. Current Interpretive Data was last revised on 2017. Blood 07/09/2024 5:42 AM CDT 07/09/2024 5:45 AM CDT us Hugh Chan MD LAB BLOOD ORDERABLES Final Resul t Performing Organization Address [facility] de Phone Number [address] [employer] [place], [place] [id number] * CBC with auto differential (07/09/2024 5:42 AM CDT) WBC 9.54 3.80 - 9.90 K/cumm Hgb 12.9 11.9 - 15.5 g/dL [facility] Hct 38.7 35.6 - 45.5 % [facility] Plt 196 150 - 400 K/cumm [facility] MPV 9.8 9.1 - 12.3 fL [facility] RBC 4.43 3.90 - 5.20 M/cumm [facility] MCV 87.4 81.3 - 96.4 fL [facility] MCH 29.1 27.1 - 33.3 pg [facility] MCHC 33.3 32.3 - 35.7 g/dL [facility] RDW CV 13.6 11.1 - 14.9 % [facility] RDW SD 43.5 35.7 - 48.1 fL [facility] NRBC abs 0.00 0.00 - 0.01 K/cumm [facility] Blood Venous blood specimen / Unknown 07/09/2024 5:42 AM CDT 07/09/2024 5:45 AM CDT us Hugh Chan MD LAB BLOOD ORDERABLES Final Resul t Performing Organization Address City/[facility] Co de Phone Number JOS[address] [place] [employer] [place] [address] * hCG, blood, quantitative (07/09/2024 5:42 AM CDT) [facility] hCG, quant <5.0 0.0 - 5.0 IUnits/L [...] ORDERABLES Final Resul t Performing Organization Address City/[facility] Co de Phone Number [address] [place] [address] * Lipase (07/09/2024 5:42 AM CDT) [facility] Lipase 20 10 - 99 Units/L Comment:Hemolyzed; result mi ght be falsely decreased Blood Venous blood specimen / Unknown 07/09/2024 5:42 AM CDT 07/09/2024 5:45 AM CDT Hugh Chan MD LAB BLOOD ORDERABLES Final Resul t Performing Organization Address City/[facility] Co de Phone Number [address] [address] * (ABNORMAL) Comprehensive metabolic panel (07/09/2024 5:42 AM CDT) [facility] Sodium 137 135 - 145 mmol/L Potassium, pl See Comment 3.3 - 4.9 [facility] Comment:Credited; Hemolyzed Specimen Chloride 107 97 - 110 mmol/L [facility] CO2 21(L) 22 - 32 mmol/L [facility] Anion gap 9 2 - 15 mmol/L [facility] BUN 9 6 - 25 mg/dL [facility] Creatinine 0.49(L) 0.60 - 1.10 mg/dL [facility] Glucose 97 70 - 199 mg/dL [facility] Comment: Interpretive Data Fasting glucose [...] 2022. Calcium 8.1(L) 8.5 - 10.3 mg/dL [facility] Bilirubin, total <0.2 0.1 - 1.2 mg/dL [facility] Protein, pl 6.8 6.5 - 8.5 g/dL [facility] Albumin 4.0 3.5 - 5.0 g/dL [facility] Alk phos 64 40 - 130 Units/L [facility] ALT See Comment 7 - 45 [facility] Comment:Credited; Hemolyzed Specimen AST See Comment 10 45 [facility] Comment:Credited; Hemolyzed Specimen Blood 07/09/2024 5:42 AM CDT 07/09/2024 5:45 AM CDT us Hugh Chan MD LAB BLOOD ORDERABLES Final Resul t [facility] [address] [facility] [place] [address] from Last 3 Months Insurance [employer] [facility] IDPA [employer] [facility] Care Teams Pick Up Man Relationship Specialty Start Date End Date Unknown, Notinfile PCP - General 07/09/24
--- OUTSIDE RECORDS SUMMARY | 2024-09-11 00:50 | XMS_ITS | Encounter Summary ---
Author Organization [facility] Address [address] [place] [address] Phone Care Team Providers Care Sales Account Manager Name Role Phone No, Physician Primary Care Provider Unavailabl e No, Physician Primary Care Provider [phone] Kateryna Brandon MD Primary Care Pr ovider Unknown, Notinfile Primary Care Provider Unavail able Encounter Details Date Type Department Care Team (Late st Contact Info) Description 01/11/2014 Orders Only [facility] IM CAR CLINCONV Provider, MD Sebastien [address] [place] [id number] Social History Tobacco Use Types Packs/Day Years Used Date Smoking Tobacco: Never Assessed Comments Unknown Sex and Gender Information Value Date Recorded Sex Assigned at Not on file 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
--- OUTSIDE RECORDS SUMMARY | 2024-09-11 00:50 | XMS_ITS | Clinical Summary ---
Author Organization [facility] Address [address] [place] [address] Care Team Providers Care Supervising Appraiser Name Role Phone Shira Mujica PA-C Primary Care Provider [phone] Allergies No known active allergies Medications No [...] - 2023-2 5 season) 2023 PHQ-2 (Physician [place]) 02/29/2024 Mammogram Screening 2024 Cervical Cancer Screening [...] patient's age to complete this topic Insurance [facility] N [address] MEDICAID Care Teams Supervising Appraiser Relationship Specialty Start Date End Date Shira Mujica PA-C PCP - General NURSE PRACTITIONER 05/15/23
[2024-09-11] MEDS: LACTATED RINGERS 1,000 ML 30 ML IV CONT ×2 (07:00→10:09)
[2024-09-11] MEDS: ACETAMINOPHEN 500 MG TABLET 1000 MG PO ×3 (07:00→20:03)
[2024-09-11] MEDS: KETOROLAC 15 MG/ML VIAL (*BKC) IV PUSH (07:00)
--- NOTE | 2024-09-11 07:07 | P.PNAN_ITS ---
Anes - Initial Pre Proc Eval Procedure: Operation Date: 09/11/24 07:30 Proposed Procedures p Robotic Assisted Hysterectomy with Bilateral Salpingectomy - Aaron Kerr MD Date/Time: 09/11/24 07:07 Surgeon: Aaron Kerr MD Pre Op Diagnosis: Menorrhagia Patient Data Age: 39 Gender: F Height: 1.63 m Weight: 70 kg Allergies Allergy/AdvReac Type Severity Reaction Status Date / Time No Known Allergies Allergy Verified 09/07/24 14:03 Home Medications ?Medication ?Instructions ?Recorded ?Confirmed ?Type albuterol sulfate 90 mcg/actuation 2 puff inhalation QID PRN 08/25/20 09/07/24 Rx aerosol inhaler shortness of breath or wheezing #6.7 grams Patient hx anesthesia problems: none Family hx anesthesia problems: none Results Review: All pre-operative results and documents have been reviewed as part of the pre- operative evaluation. PMFSH Past Medical History Medical History Asthma Family History Family History Other Hypertension Social History Social History Years smoked: 15 Smoking status: Current some day smoker Tobacco type: cigarettes Alcohol intake: former Substance use type: marijuana Other substance usage details: DAILY Living arrangements: with family Anes - Eval Final PreProcedure Day of Procedure 09/11/24 07:07 Patient weight: overweight Heart: regular rate and rhythm Lungs: clear to auscultation Airway: Mallampati scale class II Neurological: alert and oriented Last oral intake: >/= 8 hours ASA classification: II Emergent: no Anesthetic plan: proceed Anesthesia type and monitoring: general ETT and standard monitoring Results Review: All pre-operative results and documents have been reviewed as part of the pre- operative evaluation. Informed Consent: The patient's anesthetic plan and its attendant risks and benefits were discussed with the patient/family/POA. Questions were solicited and answers provided to the satisfaction of the patient/family/POA.
--- NOTE | 2024-09-11 07:20 | WPDHPUPDATE1 ---
History and Physical Update Update Date/Time: 09/11/24 07:20 History and Physical has been reviewed, including an updated exam of the patient. There are NO changes in the patient's condition. Risks, benefits, and alternatives have been discussed and questions answered. Patient agrees to proceed with procedure.
[2024-09-11] MEDS: SCOPOLAMINE 1 MG PATCH 1 PATCH TRANSDERM (07:30)
[2024-09-11 07:32] LABS: BEDSIDEPREGUCG Negative (Negative)
[2024-09-11] MEDS: ceFAZolin 2 GM in SODIUM CHLORIDE 0.9% IV 50 ML 100 ML IVPB (07:38)
--- NOTE | 2024-09-11 09:43 | S_PTH ---
PATIENT: Geovanna Torrez LOC: [facility] U#:[id number] AGE/SX: 39/F ROOM: RE09/11/[address]: Aaron Kerr MD : 1985 BED: DIS: 09/12/2024 SPEC #: [id number] RECD: 09/11/24 13:19 STATUS: ROSALINO REQ #: [id number] LINDEN: 09/11/24 09:[address]: Aaron Kerr DEPT: [facility] Surgical RECD BY: Danielle Flores ENTERED: 09/11/24 13:20 SP TYPE: Surgical OTHR DR: Shira Mujica, PA Tissues: A - Uterus Procedures: Hematoxylin and Eosin Stain Gross and Microscopic Level 5
--- NOTE | 2024-09-11 10:16 | P.OP_ITS ---
Procedure Note - Detailed Date of Procedure 09/11/24 Pre-op Diagnosis Menorrhagia Post-op Diagnosis Same Procedure Performed Robot assisted Total hysterectomy with bilateral salpingectomy. Surgeon Aaron Kerr MD Anesthesia General Indications heavy vaginal bleeding, pelvic pain Findings normal-appearing uterus, ovaries, and left tube, right tube was partially resected. Some scarring over the posterior cul-de-sac peritoneum. Description of Procedure This patient was taken to the operating room. She was prepped and draped in the dorsal lithotomy position after induction of general anesthesia. The uterine manipulator and Lalit cup were placed. This was done with a speculum and tenaculum. The speculum was placed. The cervix was grasped with a tenaculum. The stay sutures were placed at 3 and 9:00 a.m.. The stay sutures of 0 Vicryl were tied to the appropriately Size scope after it was slipped around the cervix.. The tip of the ARMANDO manipulator was placed in the intrauterine cavity. The cup was slid into place around the cervix and into the fornices. It was locked into place. The sutures were then wrapped around the handle and tied under tension. A 8 mm skin incision was made in the left upper quadrant the abdomen. a 5 mm Visiport trocar was inserted into abdominal cavity and pneumoperitoneum was achieved. A 8 mm supraumbilical incision was made and a 8 mm trocar was insert ed into the intrauterine cavity under direct visualization of the scope. an 8 mm incision was made in the right upper quadrant of the abdomen and an 8 mm robotic trocar was placed the inter uterine cavity under direct visualization the scope. An 11 mm trocar was inserted in the right upper quadrant of the abdomen rectal is a cystoscope after an incision was made there as well. The robot was docked. Electronic Orientation of the robot was performed. Bilateral ureteral lysis was performed. This was done from the pelvic brim down to the uterine artery. This was done with careful dissection using sharp and blunt dissection. The fallopian tubes were removed bilaterally. The mesosalpinx around the fallopian tubes were cauterized transected with LigaSure cautery. This was done in a bilateral fashion from the ovary to the uterine cornua. The fallopian tube was transected at the uterine cornu and amputated. The tube was taken out the left lower quadrant trocar site. In a stepwise f ashion along the lateral aspects of the uterus the round ligament and broad ligaments were cauterized transected down to the level of the uterine arteries. A bladder flap was created in the bladder was moved distally to the end of the cervix and over the Lalit cup. The bilateral uterine arteries were cauterized and transected. Colpotomy was then performed. In a circumferential fashion the vagina was transected using unipolar cautery. The incision was made down on the Lalit cup. The uterus and cervix were taken out through the vagina. A pneumo occluder was placed in the vagina. The vaginal cuff was closed with a 0 V lock suture in a running fashion. The pelvis was irrigated with copious amounts antibiotic irrigation. The ureters were again examined and found to be intact and flowing freely under the uterine arteries into the bladder. The bladder was intact. It was examined directly. Cystoscopy was performed after administration of methylene blue. The cystoscope was inserted. Bladder was distended with fluid. The ureteric meatus was observed bilaterally. Blue fluid was seen to egress bilaterally. The bladder was drained and the cystoscope was withdrawn. The vagina was irrigated with Betadine solution after removal of the Pneumo occluder. the trocars were removed after the robot was undocked. The skin was closed with subacute or Dermabond. The patient was taken to recovery room. She was stable condition. Sponge lap and needle counts were correct x2. Estimated Blood Loss 125 Urine Output 800 Drains Yes Packing No Pathology Yes Complications No immediate complications Condition Stable Disposition Floor
[2024-09-11] MEDS: HYDROmorphone HCL INJ (*CRX) 1 MG/ML SYR 0.25 MG IV PUSH ×4 (10:20→10:49)
[2024-09-11] MEDS: fentaNYL CITRATE INJ (*CRX) 100 MCG/2 ML VIAL 25 MCG IV PUSH ×4 (10:53→11:03)
[2024-09-11] MEDS: ONDANSETRON INJ 4 MG/2 ML VIAL IV PUSH ×2 (11:18→18:03)
[2024-09-11] MEDS: PROPARACAINE HCL 0.5% 15 ML OPHTH SOLN 1 DROP EACH EYE (11:23)
[2024-09-11] MEDS: DICLOFENAC SODIUM 0.1% OPHTH SOLN 2.5 ML BOTTLE 1 DROP EACH EYE ×2 (11:24→18:02)
[2024-09-11] MEDS: ARTIFICIAL TEARS OPHTH SOLN 15 ML BOTTLE 1 DROP EACH EYE ×2 (11:26→15:09)
[2024-09-11] MEDS: DEXTROSE 5%/0.45% SOD CHL 1,000 ML 125 ML IV CONT ×2 (12:32→20:11)
[2024-09-11] MEDS: HYDROmorphone HCL INJ (*CRX) 2 MG/ML VIAL 1 MG IV PUSH ×2 (12:33→18:05)
[2024-09-11] MEDS: METOCLOPRAMIDE HCL INJ 10 MG/2 ML VIAL IV PUSH ×2 (12:33→20:11)
[2024-09-11] MEDS: SIMETHICONE 80 MG TAB.CHEW PO (14:03)
[2024-09-11] MEDS: KETOROLAC 30 MG/ML VIAL (*BKC) IV PUSH ×2 (14:04→20:03)
[2024-09-11] MEDS: oxyCODONE HCL (*CRX) 5 MG TAB IR 10 MG PO (15:08)
--- NOTE | 2024-09-11 15:26 | PC.NURSE ---
This patient, Geovanna Torrez, was received from PACU on 09/11/24 at 1143. Patient/family oriented to unit policies and routines
[2024-09-12] MEDS: oxyCODONE HCL (*CRX) 5 MG TAB IR PO ×2 (00:12→04:23)
[2024-09-12] MEDS: ACETAMINOPHEN 500 MG TABLET 1000 MG PO ×3 (02:24→14:20)
[2024-09-12] MEDS: KETOROLAC 30 MG/ML VIAL (*BKC) IV PUSH (02:25)
[2024-09-12] MEDS: DICLOFENAC SODIUM 0.1% OPHTH SOLN 2.5 ML BOTTLE 1 DROP EACH EYE ×2 (02:26→10:47)
[2024-09-12 03:53] VITALS: BP 99/54; PULSE 58; RESP 17; TEMP 36.8; O2SAT 98
--- NOTE | 2024-09-12 08:01 | WPDANESPN ---
Anes - Prog Note Post-Op Date/Time: 09/12/24 08:01 Cardiovascular status: normal Respiratory status: normal Airway patency: baseline Mental status: baseline Post-Op hydration status: normal Vital Signs: Last Vital Signs Temp 36.8 C 09/12/24 03:53 Pulse 58 L 09/12/24 03:53 Resp 17 09/12/24 03:53 BP 99/54 L 09/12/24 03:53 Pulse Ox 98 09/12/24 03:53 O2 Del Method Room Air 09/11/24 11:20 O2 Flow Rate 8 09/11/24 10:35 Pain Score (VAS): 3 I/O: Intake & Output 09/11/24 09/12/24 09/12/24 23:59 07:59 15:59 Intake Total 1196.3 Output Total 1600 Balance -403.7 Post-procedural complaints: nausea Patient Feedback: Patient satisfied with anesthetic care.
[2024-09-12 08:20] VITALS: BP 104/64; PULSE 50; RESP 16; TEMP 37.6; O2SAT 99
[2024-09-12] MEDS: SIMETHICONE 80 MG TAB.CHEW PO ×2 (08:20→14:20)
[2024-09-12] MEDS: METOCLOPRAMIDE HCL INJ 10 MG/2 ML VIAL IV PUSH (08:20)
[2024-09-12] MEDS: DOCUSATE SODIUM 100 MG CAPSULE PO (08:24)
[2024-09-12] MEDS: IBUPROFEN 600 MG TABLET PO ×2 (08:24→14:20)
--- NOTE | 2024-09-12 14:31 | PC.NURSE ---
1430-Patient discharged per Dr. Kerr; RN spoke with doctor via phone regarding patient's discharge today. Dr. Kerr telephoned patient and spoke with her via phone regarding her instructions for healing. Medications were send to pharmacy via his office.
== END 2024-09-12 14:30 | disposition home or self-care (01) ==
LOC: ANHSURGERY 10:43 → ANHOB2 12:01
PROVIDERS: PCP Physician Assistant; Visit Provider Obstetrics & Gynecology
PROC: (CPT 58571; principal; 2024-09-11 07:30)
DX: N92.0 Excessive and frequent menstruation with regular cycle (principal); N73.6 Female pelvic peritoneal adhesions (postinfective); R10.2 Pelvic and perineal pain; N80.03 Adenomyosis of the uterus; D25.1 Intramural leiomyoma of uterus; F17.210 Nicotine dependence, cigarettes, uncomplicated; F12.90 Cannabis use, unspecified, uncomplicated
CPT/HCPCS: 58571; S2900; 88307; 99199; J0690; A9270; J1100; J1171; J1885; J2003; J2250; J2405; J2704; J2765; J3010; J7030; J7120; Q9968

== ENCOUNTER 2024-11-01 12:33 | Inpatient (IN) | payer OTHER, SELFPAY ==
--- OUTSIDE RECORDS SUMMARY | 2024-10-28 12:48 | XMS_ITS | Encounter Summary ---
Author Organization [facility] Healthcare Address [address] [place] [address] Care Team Providers Care Housesmith Name Role Phone Unknown, Notinfile Primary Care Provider Unavail able Reason for Visit * Reason Comments Abdominal Pain * Auth/Cert (Routine) Specialty Diagnoses / Procedures Referred By Genna siu Referred To Contact Diagnoses Pneumoperitoneum Procedures na Referral ID Status Reason Start Date Expiration Date Visits Re quested Visits Authorized [id number] 1 1 Encounter Details Date Type Department Care Team (Latest Contact Info) Description 10/28/2024 12:48 PM CDT - 10/30/2024 7:05 PM CDT Hospital Encounter [place] [id number] Med [address] [place] [id number] Esa Wesley DO [address] [place] [address] EMERGENCY DEPT [place], [place] [id number] Jona Palumbo MD [address] [place] [address] [id number] Kelvin Portillo MD [address] [place] [address] [place] [address] Pneumoperitoneum (Primary Dx) Discharge Disposition: Discharge to home or self care Social History Tobacco Use Types Packs/Day Years Used Date Smoking Tobacco: Former Cigarettes Q uit: 11/22/2017 Smokeless Tobacco: Never Social Connection and Isolation Panel Answer Date Recorded In a typical week, how many times do you talk on the phone with family, friends, or neighbors? More than three times a week 10/30/2024 How often do you get togethe r with friends or relatives? More than three times a week 10/30/2024 How often do you attend chur ch or tenriism services? Never 10/30/2024 Do you belong to any clubs o r organizations such as scientology groups, unions, fraternal or athletic groups, or school groups? No 10/30/2024 How often do you attend meet ings of the clubs or organizations you belong to? Never 10/30/2024 Are you , , di vorced, , never , or living with a partner? Never 10/30/2024 Overall Financial Resource Strain (CARDIA) Answe r Date Recorded How hard is it for you to pa y for the very basics like food, housing, medical care, and heating? Not hard at all 10/30/2024 Hunger Vital Sign Answer Date Recorded Within the past 12 months, y ou worried that your food would run out before you got the money to buy more. Never true 10/31/19 25 Within the past 12 months, t he food you bought just didn't last and you didn't have money to get more. Never true 10/30/2024 PRAPARE - Transportation Answer Date Re corded In the past 12 months, has l ack of transportation kept you from medical appointments or from getting medications? No 03/2024 In the past 12 months, has l ack of transportation kept you from meetings, work, or from getting things needed for daily living? No 10/30/2024 Housing Stability Vital Sign Answer Chaparro e Recorded In the last 12 months, was t here a time when you were not able to pay the mortgage or rent on time? No 10/30/2024 In the past 12 months, how m any times have you moved where you were living? 0 10/30/2024 At any time in the past 12 m [facility], were you homeless or living in a residential (including now)? No 10/30/2024 [facility] Utilities Answer Date Recorded In the past 12 months has th e electric, gas, oil, or water company threatened to shut off services in your home? No 10/30/2024 Personal Safety Answer Date Recorded Have you ever been in or are you currently in a harmful physical or emotional relationship or is someone making you feel afraid or unsafe? 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[employer] Gender Identity Not on file Sexual Orientation Not on file documented as of this encounter Last Filed Vital Signs Vital Sign Reading Time Taken Comments Blood Pressure 113/72 10/30/2024 3:32 PM CDT Pulse 62 10/30/2024 3:32 PM CDT Temperature 36.6 C (97.9 F) 10/30/2024 3:32 PM CDT Respiratory Rate 18 10/30/2024 3:32 PM CDT Oxygen Saturation 97% 10/30/2024 3:32 PM CDT Inhaled Oxygen Concentration - - Weight 68 kg (150 lb) 10/28/2024 10:57 PM CDT Height 162.6 cm (5' 4.02) 10/28/2024 10:57 PM C DT Body Mass Index 25.73 10/28/2024 10:57 PM CDT documented in this encounter Discharge Summaries * Kelvin Portillo MD - 10/30/2024 3:06 PM CDT Inpatient Discharge Summary Patient Name - Aurelia Torrez Patient Age - 39 yrs Patient - [id number] [facility] - [id number] Document Creation Date: 10/30/2024 Admitting Provider, MD: Jona Palumbo MD Discharge Provider, MD: Kelvin Portillo MD Primary Care Physician at Discharge: Unknown, Notinfile None Admission Date: 10/28/2024 Discharge Date/time: 10/30/2024 Admission Location: [facility] LOS - LOS: 2 days DETAILS OF HOSPITAL STAY Hospital Problems/Diagnoses Principal Problem: Pneumoperitoneum Reason for Hospitalization: Pneumoperitoneum Hospital Course: Aurelia Torrez is a 39 y.o. female who is s/p a laparoscopic TLH complicated by severe endometriosis that required a 5hr surgical time and 2 day post-op admission on 09/11 (Dr. [facility]) with a to-date normal post-operative recovery course who presented to ED withacute onset diffuse abdominal pain and bleeding from the vaginal canal, diaphoresis, and syncope inthe last 24hrs. Pt was seen for her last post-op exam on 10/23 and was clear of all restrictions but no pelvic examination was done. She has been doing heavy lifting since cleared but has NOT been sexually active. ED work -up notable for WBC - 23.5, lactate - normal (1.3), and a CT that showed Scattered subtle foci of free air in the abdomen and pelvis; Mild mucosal thickening of the small bowel with mild dilatation measuring up to 3.7 cm, which may be related to mild enteritis of infectious or inflammatoryetiology with mild reactive ileus; Mild diffuse mucosal thickening of the mid to distal transverse colon, descending colon, and sigmoid colon, which may be related to underdistention versus a component of mild colitis of infectious or inflammatory etiology; Small amount of free fluid in the abdomen and pelvis; Mild mucosal thickening of the urinary bladder, which may be related to underdistention versus cystitis; Right ovarian cystic lesion with an irregular hyperattenuating rimmeasuring 2.1 cm, which likely represents a corpus luteum or hemorrhagic cyst; Few foci of air noted within the urinary bladder, which may be related to recent instrumentation. General surgery was consulted for CT findings and recommended broad spectrum antibiotics and bowel rest for conservative management for now. 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 On pelvic examination ED - a full vaginal cuff width (3-4cm) mucosal dehiscence was noted with proximal peritonealization - no evidence of visceral evisceration or strangulation, active bleeding or acute infection/celulitis of cuff. The patient was seen by both general surgery and quality assurance/r&d lab technician. Pile Header cleared the patient for discharge since no acute intervention is required general surgery recommended to repeat CT which was done today and show few air bubbles next of the vagina but no gross abnormalities and no indication for acute intervention. The patient's WBC count down trended from the peak of 23.5-12.6 she has remained afebrile. General surgery and quality assurance/r&d lab technician cleared the patient for discharge he went recommended Augmentin for 14 days. The patient refused times the pain medications which include ibuprofen and pain medication we will send Tylenol to help with the pain control. Discharge Details Physical Exam at Discharge: Discharge Condition: stable Pulse: 56 Resp: 18 BP: 106/71 Temp: 36.7 ??C (98.1 ??F) Weight: 68 kg (150 lb) Pertinent Exam Findings at Discharge: No acute findings Discharge Disposition: Discharge to home or self care Code Status at Discharge: Full Code Active Issues & Recommended Plan for Follow-up: PCP and quality assurance/r&d lab technician Allergies: No known allergies Discharge Medications: Your medication list START taking these medications Instructions Last Dose Given Next Dose Due acetaminophen 500 mg tablet Commonly known as: TYLENOL 500 mg, oral, Every 6 hours PRN amoxicillin-clavulanate 875-125 mg per tablet Commonly known as: AUGMENTIN 875 mg of amoxicillin, oral, 2 times daily CONTINUE taking these medications Instructions Last Dose Given Next Dose Due levETIRAcetam 500 mg tablet Commonly known as: KEPPRA 500 mg, oral, 2 times daily Where to Get Your Medications These medications were sent to [id number] - [facility] [address] [facility] [place], [facility] [address] [facility] [id number] acetaminophen 500 mg tablet amoxicillin-clavulanate 875-125 mg per tablet Time Spent in Discharge Process: I have spent 42 minutes on discharge planning activities. Time spent was on Counselling with patient/family Test Results Pending at Discharge (If Blank, None Found): Pending Labs Order Current Status Lipase In process Blood culture Blood Peripheral Preliminary result Blood culture Blood Peripheral Preliminary result Operative Procedures Performed (If Blank, None Found): Procedure(s): EXAM UNDER ANESTHESIA, REPAIR OF VAGINAL CUFF Outpatient Follow-Up: Please schedule an appointment with the following provider(s): No follow-up provider specified. ANCILLARY INFORMATION Other Procedures & Diagnostic Tests: CTA Abdomen Pelvis Result Date: 10/28/2024 EXAM DESCRIPTION: CTA ABDOMEN PELVIS REASON FOR STUDY: Lower GI bleed Patient she had syncopal episode on the toilet due to the pain she got very sweaty and dizzy and blacked out falling off the toilet. She reports she is 5 weeks post-op hysterectomy. Reports she started with heavy vaginal bleedingyesterday and has continued today. TECHNIQUE: CTA scan of the abdomen and pelvis performed without and with intravenous and without oral contrast using helical scanning technique with dynamic intravenous contrast injection. Precontrast, arterial, and portal venous phase images of the abdomen and pelvis were acquired. Images reviewed with lung, soft tissue and bone windows. Reconstructed coronal and sagittal MPR images reviewed. All images stored on PACS. 3D MIP images rendered on scanning unit and reviewed at time of interpretation. Automated exposure control was used as a dose optimization technique for this examination. CONTRAST TYPE/DOSE: 100mL of IOVERSOL 350 MG IODINE/ML INTRAVENOUS SYRINGE injected via intravenous COMPARISON: 07/09/2024 FINDINGS: VASCULATURE: On the noncontrast sequence, there are no significant calcified atherosclerotic changes of the aorta. On the post- contrast sequence, there is no definite evidence of acute aortic injury or dissection. The abdominal aorta appears grossly unremarkable without definite evidence of hemodynamic significant stenosis, occlusion,aneurysmal dilatation. There is no definite evidence of intraluminal extravasation of contrast within the large and small bowel to suggest active GI bleed. CELIAC TRUNK: The celiac artery appears grossly unremarkable without definite evidence of hemodynamically significant stenosis, occlusion, or aneurysmal dilatation. SUPERIOR MESENTERIC ARTERY: The superior mesenteric artery appears grossly unremarkable without definite of hemodynamically significant stenosis, occlusion, or aneurysmal dilatation. RIGHT RENAL ARTERY: There is a single right renal artery noted without evidence of hemodynamically significant stenosis, occlusion, aneurysmal dilatation. LEFT RENAL ARTERY: There are 2 left renal arteries noted without evidence of hemodynamic significant stenosis, occlusion, aneurysmal dilatation. INFERIOR MESENTERIC ARTERY: The inferior mesenteric artery appears grossly unremarkable without definite evidence of occlusion or aneurysmal dilatation. ILIAC ARTERIES: The bilateral common iliac, internal iliac, external iliac, and common femoral arteries appear grossly unremarkable without evidence of hemodynamic significant stenosis, occlusion, aneurysmal dilatation. LOWER CHEST: The heart size is normal. There is no definite evidence of pericardial effusion. There are mild patchy airspace opacities in the left lower lobe, which may be related to subsegmental atelectasis versus airspace disease. LIVER: The liver is grossly normal in size and contour. There is focal fatty infiltration of the liver along the falciform ligament. There are few scattered too small to characterize hypoattenuating lesions in the liver, which do not require follow- up imaging. The hepatic and portal veins are grossly patent. GALLBLADDER: There is cholelithiasis. BILE DUCTS: No intrahepatic or extrahepatic ductal dilatation. SPLEEN: The spleen is grossly normal in size and unremarkable. PANCREAS: The pancreas appears grossly unremarkable without definite evidence of pancreatic ductal dilatation, peripancreatic inflammatory changes, or peripancreatic fluid collection. ADRENALS: The bilateral adrenal glands are grossly symmetrical and unremarkable. KIDNEYS/URINARY TRACT: On the noncontrast sequence, there is no definite evidence of nephrolithiasis. The bilateral kidneys enhance symmetrically. There is a 2.6 cm cyst in the interpolar region of the right kidney, which does not require follow-up imaging. There is no definite evidence of hydronephrosis or hydroureter. There is mild mucosal thicke alo of the urinary bladder. There are few foci of air noted within the urinary bladder, which may be related to recent instrumentation. GI: There are scattered subtle foci of free air in the abdomenand pelvis, which is most significant in the right upper quadrant of the abdomen, and findings raise the concern for bowel perforation. There is mild mucosal thickening of the small bowel with mild dilatation measuring up to 3.7 cm, which may be related to mild enteritis of infectious or inflammatory etiology with mild reactive ileus. The appendix is surgically absent. There is mild diffuse mucosal thickening of the mid to distal transverse colon, descending colon, and sigmoid colon. There is asmall amount of free fluid in the abdomen and pelvis. There is no definite evidence of lymphadenopathy in the abdomen and pelvis. REPRODUCTIVE: The uterus is surgically absent. There is a cystic lesion in the right ovary with an irregular hyperattenuating rim measuring 2.1 cm, which likely represents a corpus luteum or hemorrhagic cyst. MUSCULOSKELETAL: There is a minimal to mild S shaped scoliotic curvature of the spine with minimal to mild degenerative changes. OTHER: No other abnormality. IMPRESSION: 1. No definite evidence of intraluminal extravasation of contrast within the large and small bowel to suggest active GI bleed. 2. Scattered subtle foci of free air in the abdomen and pelvis,which is most significant in the right upper quadrant of the abdomen, and findings raise the concern for bowel perforation. Surgical consultation and management is recommended as clinically indicated. 3. Mild mucosal thickening of the small bowel with mild dilatation measuring up to 3.7 cm, which may be related to mild enteritis of infectious or inflammatory etiology with mild reactive ileus. Cont inued follow-up is recommended as clinically indicated. 4. Mild diffuse mucosal thickening of the mid to distal transverse colon, descending colon, and sigmoid colon, which may be related to underdistention versus a component of mild colitis of infectious or inflammatory etiology. 5. Small amount of free fluid in the abdomen and pelvis. 6. Mild mucosal thickening of the urinary bladder, which maybe related to underdistention versus cystitis. Clinical correlation with urinary analysis is recommended as clinically indicated. 7. Few foci of air noted within the urinary bladder, which may be related to recent instrumentation. Correlation with recent procedural history is recommended as clinically indicated. 8. Mild patchy airspace opacities in the left lower lobe, which may be related to subsegmental atelectasis versus airspace disease. 9. Cholelithiasis. 10. Right ovarian cystic lesion with an irregular hyperattenuating rim measuring 2.1 cm, which likely represents a corpus luteum or hemorrhagic cyst. Findings were discussed with Dr. Wesley by Dr. Dominguez at 15:48 hours on 10/28/2024 . THIS IS AN ELECTRONICALLY VERIFIED FINAL REPORT 10/28/2024 3:48 PM - Electronically signed by Brijesh Dominguez D.O. PS: PS Report ID: [id number] Reading Location: [id number] Recent Labs: Recent Labs Lab Units 10/30/24 0534 10/29/24 01510/28/24 1304 WBC K/cumm 12.63* 15.61* 23.51* HEMOGLOBIN g/dL 10.3* 11.5* 13.9 HEMATOCRIT % 30.7* 33.5* 41.0 PLATELETS K/cumm 197 214 263 Recent Labs Lab Units 10/30/24 0534 10/29/24 0156 10/28/24 1304 WBC K/cumm 12.63* 15.61* 23.51* HEMOGLOBIN g/dL 10.3* 11.5* 13.9 HEMATOCRIT % 30.7* 33.5* 41.0 PLATELETS K/cumm 197 214 263 NEUTROS PCT % 79.4 94.2 91.6 LYMPHS PCT % 13.2 4.0 3.8 MONOS PCT % 6.0 1.3 3.7 EOS PCT % 0.5 0.0 0.0 Recent Labs Lab Units 10/30/24 0534 10/29/24 0156 10/28/24 1928 10/28/24 1304 SODIUM mmol/L 140 136 -- 140 POTASSIUM PLASMA mmol/L 3.3 3.8 -- 4.0 CHLORIDE mmol/L 108 104 -- 106 CO2 mmol/L 21* 20* -- 18* BUN SERUM mg/dL 6 6 -- 9 CREATININE mg/dL 0.50* 0.55* -- 0.50* QOX-EFC-CEWOSUB mL/min/1.73 m2 >90 >90 -- >90 GLUCOSE mg/dL 94 157 -- 107 CALCIUM mg/dL 7.7* 8.4* -- 8.5 ALBUMIN g/dL -- -- -- 4.1 PHOSPHORUS PLASMA mg/dL -- -- 2.6 -- Recent Labs Lab Units 10/30/24 0534 10/29/24 0156 10/28/24 1304 SODIUM mmol/L 140 136 140 POTASSIUM PLASMA mmol/L 3.3 3.8 4.0 CHLORIDE mmol/L 108 104 106 CO2 mmol/L 21* 20* 18* ANIONGAP mmol/L 11 12 16* GLUCOSE mg/dL 94 157 107 BUN SERUM mg/dL 6 6 9 CREATININE mg/dL 0.50* 0.55* 0.50* CALCIUM mg/dL 7.7* 8.4* 8.5 ALBUMIN g/dL -- -- 4.1 ALK PHOS Units/L -- -- 66 ALT Units/L -- -- 6* AST Units/L -- -- 17 BILIRUBIN TOTAL mg/dL -- -- 0.6 Recent Labs Lab Units 10/28/24 1304 ALK PHOS Units/L 66 BILIRUBIN TOTAL mg/dL 0.6 TOTAL PROTEIN g/dL 6.9 ALT Units/L 6* AST Units/L 17 Recent Labs Lab Units 10/28/24 1928 MAGNESIUM mg/dL 1.6 Lab Results Component Value Date GLUCOSE 94 10/30/2024 GLUCOSE 157 10/29/2024 GLUCOSE 107 10/28/2024 Implant: Implants No active implants to display in this view. General Precautions (If Blank, None Found): Isolation Status: No active isolations Nutritional Status and in-house recommendations: Dietary Orders (From admission, onward) Start Ordered 10/28/242258 Adult Diet Regular Diet effective now Question: (MHB/MHE) Diet type Answer: Regular 10/28/242257 Anticoagulation Indication: INR: No results found for requested labs within last 30 days. Warfarin Administrations (last 168 hours) None Oxygen Status: O2 Therapy for the past 12 hrs: O2 Therapy 10/30/24 1137 None (Room air) 10/30/24 0339 None (Room air) Wound Care Instructions Wound 10/28/24 Incision Vagina (Active) Dressing Status OR dressing;Clean/Dry/Intact 10/29/242099 Site Assessment ELE 10/29/242099 Drainage Amount None 10/29/242099 Claudia-wound Assessment ELE 10/29/242099 Interventions Closure 10/28/240 Dressing Dry dressing 10/29/242099 Closure Sutures 10/29/24 2100 Wound 10/28/24 Incision Vagina (Active) Dressing Status OR dressing;Clean/Dry/Intact 10/29/242099 Site Assessment ELE 10/29/242099 Drainage Amount None 10/29/242099 Claudia-wound Assessment ELE 10/29/242099 Interventions Closure 10/28/240 Dressing Dry dressing 10/29/242099 Closure Sutures 10/29/242099 Active LDAs (If Blank, None Found): Peripheral IV Left;Posterior Hand (Active) No placement date or time found. Location Orientation: Left;Posterior Location: Hand Patient Emergency Contact: Primary Emergency Contact: Reina Urrutia Immunization Status at Discharge There is no immunization history on file for this patient. Kelvin Blunt MD documented in this encounter Discharge Instructions * Discharge Instructions* Melva Palomino RN - 10/30/2024 5:53 PM CDT * Attachments The following attachments cannot be sent through Care Everywhere. * Amoxicillin/Clavulanate Potassium (By mouth) (Bolivian) * Oxycodone, Rapid Release (By mouth) (Bolivian) documented in this encounter Medications at Time of Discharge acetaminophen (TYLENOL) 500 mg tablet Take 1 tablet (500 mg total) by mouth every 6 (six) hours as needed for pain, headaches or fever for up to 14 days 30 tablet 10/30/2024 11/14/19 amoxicillin-clavula suraj (AUGMENTIN) 875-125 mg per tablet Take 1 tablet (875 mg of amoxicillin total) by mouth 2 (two) times a day for 14 days 28 tablet 10/30/2024 11/14/19 25 levETIRAcetam (KEPPRA) 500 mg tablet Take 1 tablet (500 mg total) by mouth 2 (two) times a day 09/01/2012 ondansetron ODT (ZOFRAN-ODT) 4 mg disintegrating tablet Take 1 tablet (4 mg total) by mouth every 8 (eight) hours as needed for nausea or vomiting for up to 7 days 20 tablet 10/30/2024 11/07/19 25 oxyCODONE (ROXICODONE) 5 mg immediate release tabletIndications:P ain Take 1 tablet (5 mg total) by mouth every 6 (six) hours as needed for pain for up to 5 days 20 tablet 10/30/2024 11/05/19 25 documented as of this encounter Ordered Prescriptions Prescription Sig Dispense Quantity Refills Last Filled Start Date End Date ondansetron ODT (ZOFRAN-ODT) 4 mg disintegrating tablet Take 1 tablet (4 mg total) by mouth every 8 (eight) hours as needed for nausea or vomiting for up to 7 days 20 tablet 10/30/2024 11/07/19 25 oxyCODONE (ROXICODONE) 5 mg immediate release tabletIndications:P ain Take 1 tablet (5 mg total) by mouth every 6 (six) hours as needed for pain for up to 5 days 20 tablet 10/30/2024 11/05/19 25 acetaminophen (TYLENOL) 500 mg tablet Take 1 tablet (500 mg total) by mouth every 6 (six) hours as needed for pain, headaches or fever for up to 14 days 30 tablet 10/30/2024 11/14/19 25 amoxicillin-clavula suraj (AUGMENTIN) 875-125 mg per tablet Take 1 tablet (875 mg of amoxicillin total) by mouth 2 (two) times a day for 14 days 28 tablet 10/30/2024 11/14/19 25 metroNIDAZOLE (FLAGYL) 500 mg tablet Take 1 tablet (500 mg total) by mouth 4 (four) times a day for 14 days 56 tablet 10/30/2024 10/31/19 25 documented in this encounter Discharge Disposition Disposition Code Departure Means Destination Comment s Discharge to home or self care documented in this encounter Progress Notes * Sherry Boyd - 10/30/2024 3:28 PM CDT Spiritual Care Note Sherry Boyd M.Div. BCC Pt not in room. 10/30/24 1500 Time Spent Start Time 1515 Clinical Encounter Type Visited With Patient not available Advance Directives (For Healthcare) Advance Directive Patient does not have advance directive * Kelvin Portillo MD - 10/30/2024 11:18 AM CDT Images from the original note were not included. General Medicine Daily Progress SUBJECTIVE The patient is seen and examined at bedside, she is hemodynamically stable AO x3 the patient is still complains of abdominal pain History of Present Illness: Aurelia Torrez is a 39 y.o. female who is s/p a laparoscopic TLH complicated by severe endometriosis that required a 5hr surgical time and 2 day post-op admission on 09/11 (Dr. [facility] of [facility]) with a to-date normal post- operative recovery course who presented to ED with acute onset diffuse abdominal pain and bleeding from the vaginal canal, diaphoresis, and syncope in the last 24hrs. Pt was seen for her last post-op exam on 10/23 and was clear of all restrictions but no pelvic examination was done. She has been doing heavy lifting since cleared but has NOT been sexually active. ED work -up notable for WBC - 23.5, lactate - normal (1.3), and a CT that showed Scattered subtle foci of free air in the abdomen and pelvis; Mild mucosal thickening of the small bowel with mild dilatation measuring up to 3.7 cm, which may be related to mild enteritis of infectious or inflammatoryetiology with mild reactive ileus; Mild diffuse mucosal thickening of the mid to distal transverse colon, descending colon, and sigmoid colon, which may be related to underdistention versus a component of mild colitis of infectious or inflammatory etiology; Small amount of free fluid in the abdomen and pelvis; Mild mucosal thickening of the urinary bladder, which may be related to underdistention versus cystitis; Right ovarian cystic lesion with an irregular hyperattenuating rimmeasuring 2.1 cm, which likely represents a corpus luteum or hemorrhagic cyst; Few foci of air noted within the urinary bladder, which may be related to recent instrumentation. General surgery was consulted for CT findings and recommended broad spectrum antibiotics and bowel rest for conservative management for now. 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 On pelvic examination ED - a full vaginal cuff width (3-4cm) mucosal dehiscence was noted with proximal peritonealization - no evidence of visceral evisceration or strangulation, active bleeding or acute infection/celulitis of cuff. Chief complaint of abdominal pain Interval History: Aurelia Torrez is a 39 y.o. female who is s/p a laparoscopic TLH complicated by severe endometriosis that required a 5hr surgical time and 2 day post-op admission on 09/11 (Dr. Miller of [facility]) with a to-date normal post-operative recovery course who presented to ED with acute onset diffuse abdominal pain and bleeding from the vaginal canal, diaphoresis, and syncope in the last 24hrs. Pt was seen for her last post-op exam on 10/23 and was clear of all restrictions but no pelvic examination was done. She has been doing heavy lifting since cleared but has NOT been sexually active. ED work -up notable for WBC - 23.5, lactate - normal (1.3), and a CT that showed Scattered subtle foci of free air in the abdomen and pelvis; Mild mucosal thickening of the small bowel with mild dilatation measuring up to 3.7 cm, which may be related to mild enteritis of infectious or inflammatoryetiology with mild reactive ileus; Mild diffuse mucosal thickening of the mid to distal transverse colon, descending colon, and sigmoid colon, which may be related to underdistention versus a component of mild colitis of infectious or inflammatory etiology; Small amount of free fluid in the abdomen and pelvis; Mild mucosal thickening of the urinary bladder, which may be related to underdistention versus cystitis; Right ovarian cystic lesion with an irregular hyperattenuating rimmeasuring 2.1 cm, which likely represents a corpus luteum or hemorrhagic cyst; Few foci of air noted within the urinary bladder, which may be related to recent instrumentation. General surgery was consulted for CT findings and recommended broad spectrum antibiotics and bowel rest for conservative management for now. 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 On pelvic examination ED - a full vaginal cuff width (3-4cm) mucosal dehiscence was noted with proximal peritonealization - no evidence of visceral evisceration or strangulation, active bleeding or acute infection/celulitis of cuff. The patient was seen by both general surgery and quality assurance/r&d lab technician. Pile Header cleared the patient for discharge since no acute intervention is required general surgery recommended to repeat CT which was done today and show few air bubbles next of the vagina but no gross abnormalities and no indication for acute intervention. The patient's WBC count down trended from the peak of 23.5-12.6 she has remained afebrile will continue antibiotic therapy anticipate transitioned to p.o. and discharge tomorrow pending on pain control OBJECTIVE Vitals: 24hr Min/Max: Temp Min: 36 ??C (96.8 ??F) Max: 36.9 ??C (98.4 ??F) Pulse Min: 56 Max: 86 BP Min: 88/55 Max: 122/68 Resp Min: 18 Max: 18 SpO2 Min: 96 % Max: 98 % Most Recent : Vitals: 10/30/24 0737 BP: 122/68 Pulse: 56 Resp: 18 Temp: 36.7 ??C (98.1 ??F) SpO2: 98% I/O last 2 completed shifts: In: 1200.2 [P.O.:480; I.V.:398; IV Piggyback:322.2] Out: - I/O this shift: In: 240 [P.O.:240] Out: - Physical Exam: General: NAD Eyes: EOMI, BING, sclare non icteric Neck: supple, no nuchal ridigity, no gross carotid bruits appreciated Pharynx: No gross oral lesion, tongue midline, mucosa moist Lungs CTA Heart: [id number], no significant murmur or gallop Abd: +BS, mild lower quadrant tenderness, Non distended, No gross hepatomegaly Lower Ext: No gross edema, pedal artery pulses are palpable bilaterally Neuro: No new deficits appreciated Musculoskeletal: no gross joint erythema, edema, tenderness Skin: No new change Lab/Current Medication Review: Recent Results (from the past 24 hours) Basic metabolic panel Collection Time: 10/30/24 5:34 AM Result Value Ref Range Sodium 140 135 - 145 mmol/L Potassium, pl 3.3 3.3 - 4.9 mmol/L Chloride 108 97 - 110 mmol/L CO2 21 (L) 22 - 32 mmol/L Anion gap 11 2 - 15 mmol/L BUN 6 6 - 25 mg/dL Creatinine 0.50 (L) 0.60 - 1.10 mg/dL Glucose 94 70 - 199 mg/dL Calcium 7.7 (L) 8.5 - 10.3 mg/dL CBC with auto differential Collection Time: 10/30/24 5:34 AM Result Value Ref Range WBC 12.63 (H) 3.80 - 9.90 K/cumm Hgb 10.3 (L) 11.9 - 15.5 g/dL Hct 30.7 (L) 35.6 - 45.5 % Plt 197 150 - 400 K/cumm MPV 9.9 9.1 - 12.3 fL RBC 3.60 (L) 3.90 - 5.20 M/cumm MCV 85.3 81.3 - 96.4 fL MCH 28.6 27.1 - 33.3 pg MCHC 33.6 32.3 - 35.7 g/dL RDW CV 13.1 11.1 - 14.9 % RDW SD 40.9 35.7 - 48.1 fL NRBC abs 0.00 0.00 - 0.01 K/cumm Differential, auto Collection Time: 10/30/24 5:34 AM Result Value Ref Range Neutrophil abs 10.02 (H) 1.50 - 6.50 K/cumm Imm gran abs 0.09 0.00 - 0.10 K/cumm Lymphocyte abs 1.67 0.80 - 3.30 K/cumm Monocyte abs 0.76 0.20 - 0.80 K/cumm Eosinophil abs 0.06 0.00 - 0.50 K/cumm Basophil abs 0.03 0.00 - 0.10 K/cumm Neutrophil pct 79.4 % Imm gran pct 0.7 % Lymphocyte pct 13.2 % Monocyte pct 6.0 % Eosinophil pct 0.5 % Basophil pct 0.2 % eGFR Collection Time: 10/30/24 5:34 AM Result Value Ref Range eGFR >90 >=60 mL/min/1.73 m2 Imaging CTA Abdomen Pelvis Result Date: 10/28/2024 Narrative: EXAM DESCRIPTION: CTA ABDOMEN PELVIS REASON FOR STUDY: Lower GI bleed Patient she had syncopal episode on the toilet due to the pain she got very sweaty and dizzy and blacked out falling off the toilet. She reports she is 5 weeks post-op hysterectomy. Reports she started with heavy vaginal bleeding yesterday and has continued today. TECHNIQUE: CTA scan of the abdomen and pelvis performed without and with intravenous and without oral contrast using helical scanning technique with dynamic intravenous contrast injection. Precontrast, arterial, and portal venous phase images of the abdomen and pelvis were acquired. Images reviewed with lung, soft tissue and bone windows. Reconstructe d coronal and sagittal MPR images reviewed. All images stored on PACS. 3D MIP images rendered on scanning unit and reviewed at time of interpretation. Automated exposure control was used as a dose optimization technique for this examination. CONTRAST TYPE/DOSE: 100mL of IOVERSOL 350 MG IODINE/ML INTRAVENOUS SYRINGE injected via intravenous COMPARISON: 07/09/2024 FINDINGS: VASCULATURE: On the noncontrast sequence, there are no significant calcified atherosclerotic changes of the aorta. On the post-contrast sequence, there is no definite evidence of acute aortic injury or dissection. The abdominal aorta appears grossly unremarkable without definite evidence of hemodynamic significant stenosis, occlusion, aneurysmal dilatation. There is no definite evidence of intraluminal extravasation of contrast within the large and small bowel to suggest active GI bleed. CELIAC TRUNK: The celiac arteryappears grossly unremarkable without definite evidence of hemodynamically significant stenosis, occlusion, or aneurysmal dilatation. SUPERIOR MESENTERIC ARTERY: The superior mesenteric artery appearsgrossly unremarkable without definite of hemodynamically significant stenosis, occlusion, or aneurysmal dilatation. RIGHT RENAL ARTERY: There is a single right renal artery noted without evidence of h emodynamically significant stenosis, occlusion, aneurysmal dilatation. LEFT RENAL ARTERY: There are2 left renal arteries noted without evidence of hemodynamic significant stenosis, occlusion, aneurysmal dilatation. INFERIOR MESENTERIC ARTERY: The inferior mesenteric artery appears grossly unremarkable without definite evidence of occlusion or aneurysmal dilatation. ILIAC ARTERIES: The bilateral common iliac, internal iliac, external iliac, and common femoral arteries appear grossly unremarkable without evidence of hemodynamic significant stenosis, occlusion, aneurysmal dilatation. LOWER CHEST: The heart size is normal. There is no definite evidence of pericardial effusion. There are mild pa tchy airspace opacities in the left lower lobe, which may be related to subsegmental atelectasis versus airspace disease. LIVER: The liver is grossly normal in size and contour. There is focal fatty infiltration of the liver along the falciform ligament. There are few scattered too small to characterize hypoattenuating lesions in the liver, which do not require follow-up imaging. The hepatic and portal veins are grossly patent. GALLBLADDER: There is cholelithiasis. BILE DUCTS: No intrahepatic or extrahepatic ductal dilatation. SPLEEN: The spleen is grossly normal in size and unremarkable. PANCREAS: The pancreas appears grossly unremarkable without definite evidence of pancreatic ductal dilatation, peripancreatic inflammatory changes, or peripancreatic fluid collection. ADRENALS: The bilateral adrenal glands are grossly symmetrical and unremarkable. KIDNEYS/URINARY TRACT: On the noncontrast sequence, there is no definite evidence of nephrolithiasis. The bilateral kidneys enhance symmetr ically. There is a 2.6 cm cyst in the interpolar region of the right kidney, which does not requirefollow-up imaging. There is no definite evidence of hydronephrosis or hydroureter. There is mild mucosal thickening of the urinary bladder. There are few foci of air noted within the urinary bladder,which may be related to recent instrumentation. GI: There are scattered subtle foci of free air in the abdomen and pelvis, which is most significant in the right upper quadrant of the abdomen, and findings raise the concern for bowel perforation. There is mild mucosal thickening of the small bowel with mild dilatation measuring up to 3.7 cm, which may be related to mild enteritis of infectious or inflammatory etiology with mild reactive ileus. The appendix is surgically absent. There is mild diffuse mucosal thickening of the mid to distal transverse colon, descending colon, and sigmoid colon.There is a small amount of free fluid in the abdomen and pelvis. There is no definite evidence of ly mphadenopathy in the abdomen and pelvis. REPRODUCTIVE: The uterus is surgically absent. There is a cystic lesion in the right ovary with an irregular hyperattenuating rim measuring 2.1 cm, which likely represents a corpus luteum or hemorrhagic cyst. MUSCULOSKELETAL: There is a minimal to mild S shaped scoliotic curvature of the spine with minimal to mild degenerative changes. OTHER: No other abnormality. IMPRESSION: 1. No definite evidence of intraluminal extravasation of contrast within the large and small bowel to suggest active GI bleed. 2. Scattered subtle foci of free air in the abdomen and pelvis, which is most significant in the right upper quadrant of the abdomen, and findings raise the concern for bowel perforation. Surgical consultation and management is recommended as clinically indicated. 3. Mild mucosal thickening of the small bowel with mild dilatation measuring up to 3.7 cm, which may be related to mild enteritis of infectious or inflammatory etiology with mild reactiveileus. Continued follow-up is recommended as clinically indicated. 4. Mild diffuse mucosal thickening of the mid to distal transverse colon, descending colon, and sigmoid colon, which may be related to underdistention versus a component of mild colitis of infectious or inflammatory etiology. 5. Small amount of free fluid in the abdomen and pelvis. 6. Mild mucosal thickening of the urinary bladder, which may be related to underdistention versus cystitis. Clinical correlation with urinary analysis is recommended as clinically indicated. 7. Few foci of air noted within the urinary bladder, whichmay be related to recent instrumentation. Correlation with recent procedural history is recommendedas clinically indicated. 8. Mild patchy airspace opacities in the left lower lobe, which may be related to subsegmental atelectasis versus airspace disease. 9. Cholelithiasis. 10. Right ovarian cystic lesion with an irregular hyperattenuating rim measuring 2.1 cm, which likely represents a corpus luteum or hemorrhagic cyst. Findings were discussed with Dr. Wesley by Dr. Dominguez at 15:48 hours on 10/28/2024 . THIS IS AN ELECTRONICALLY VERIFIED FINAL REPORT 10/28/2024 3:48 PM - Electronically signed byBrijesh Dominguez D.O. PS: PS Report ID: [id number] Reading Location: [place] [address] Current Facility-Administered Medications Medication Dose Route Frequency Provider Last Rate Last Admin acetaminophen (TYLENOL) tablet 650 mg 650 mg oral Q4H PRN Latha Rojas NP Or acetaminophen (TYLENOL) 32 mg/mL oral liquid 650 mg 650 mg feeding tube Q4H PRN Latha Rojas NP Or acetaminophen (TYLENOL) suppository 650 mg 650 mg rectal Q4H PRN Latha Rojas NP acetaminophen (TYLENOL) tablet 975 mg 975 mg oral Q6H [facility] Jackson Rodarte MD 975 mg at 10/30/24 0537 Carrier Fluids for Secondary Infusion - 0.9% Sodium Chloride 30 mL intravenous PRN Latha Rojas NP Carrier Fluids for Secondary Infusion - 0.9% Sodium Chloride 30 mL intravenous PRN Jackson Rodarte MD enoxaparin (LOVENOX) syringe 40 mg 40 mg subcutaneous Daily Jackson Rodarte MD 40 mg at 10/30/24 0815 ibuprofen (ADVIL,MOTRIN) tablet/capsule 600 mg 600 mg oral Q6H NATALY Jackson Rodarte MD 600 mgat 10/30/24 0815 Lactated Ringer's (LR) infusion 125 mL/hr intravenous Continuous Latha Rojas NP 125 mL/hr at 10/29/24 0400 125 mL/hr at 10/29/24 0400 Lactated Ringer's (LR) infusion 30 mL/hr intravenous Continuous Jackson Rodarte MD 30 mL/hr at 10/29/24 1737 30 mL/hr at 10/29/24 1737 levETIRAcetam (KEPPRA) tablet 500 mg 500 mg oral BID Latha Rojas NP loperamide (IMODIUM) capsule 2 mg 2 mg oral TID PRN Kelvin Portillo MD 2 mg at 10/30/24 1109 metoclopramide (REGLAN) 5 mg/mL injection 10 mg 10 mg intravenous Q8H PRN Jackson Rodarte MD10 mg at 10/30/24 1109 morphine injection 2 mg 2 mg intravenous Q4H PRN Jackson Rodarte MD 2 mg at 10/30/24 0645 naloxone (NARCAN) 0.4 mg/mL injection 0.4 mg 0.4 mg intravenous Q10 Min PRN Jackson Rodarte MD ondansetron (ZOFRAN) injection 4 mg 4 mg intravenous Q6H PRN Jackson Rodarte MD 4 mg at 10/30/24 0538 oxyCODONE (ROXICODONE) tablet 5 mg 5 mg oral Q4H PRN Jackson Rodarte MD 5 mg at 10/30/24 0538 piperacillin-tazobactam (ZOSYN) 3.375 gram/115 mL in sodium chloride 0.9% (premix) 3.375 g 3.375 g intravenous Q8H [facility] Jackson Rodarte MD 28.8 mL/hr at 10/30/24 0629 3.375 g at 10/30/24 0629 polyethylene glycol (MIRALAX) packet 17 g 17 g oral Daily PRN Latha Rojas NP 17 g at 10/29/24 1309 simethicone (MYLICON) chewable tablet 160 mg 160 mg oral TID PRN Jameson Smith MD 160 mg at 10/29/24 1309 sodium chloride 0.9% flush 0.5-20 mL 0.5-20 mL intra-catheter Q8H NATALY Latha Rojas NP 10 mL at 10/30/24 0538 sodium chloride 0.9% flush 0.5-20 mL 0.5-20 mL intra-catheter PRN Latha Rojas NP sodium chloride 0.9% flush 0.5-20 mL 0.5-20 mL intra-catheter Q8H [facility] (ALT) Jackson Rodarte MD 10 mL at 10/29/24 2336 sodium chloride 0.9% flush 0.5-20 mL 0.5-20 mL intra-catheter PRN Jackson Rodarte MD A/P: Principal Problem: Pneumoperitoneum Resolved Problems: No resolved hospital problems. Pneumoperitoneum Status post hysterectomy Dysmenorrhea secondary to endometriosis Patient presents to ED with abdominal pain and distention, nausea and vomiting, and leukocytosis. She states he has had a recent hysterectomy approximately [address] imaging confirms presence of free air although there is no identified source of bowel perforation. There is leukocytosis present on the CBC -IV fluids for hydration -Antiemetics -Pain management -General surgical consult appreciated -IV antibiotic therapy -Monitor for increasing leukocytosis, sepsis, and fever curve -CT abdomen and pelvis repeated show free few fluid in the pelvis with tiny air bubbles but no acute findings general surgery cleared the patient. -WBC count down trended from 23-12. -The patient is still complains of pain anticipated discharge pending on pain control History of Recurrent syncope -Patient had Holter monitor study -Follow up with Cardiology -Currently sinus rhythm on monitor without arrhythmia or ischemic ST or T-wave changes -May give IV fluid bolus for hypotension and feelings of syncope -Safety precautions; up with assist , bed alarm, chair alarm. Seizures -Seizure precautions -Continue Keppra, maybe change to IV if patient remains NPO History of DVT during -No heparin or Lovenox at this time due to impending surgery -Use SCDs -Encourage ambulation Seasonal allergies -Continue Wixela or formulary equivalent -Continue cetirizine Disposition Anticipated discharge tomorrow DVT prophylaxis: Lovenox 40 mg PT/OT: Patient ambulating independently Case discussed with Case Management and Biology Specimen Technician Medical complexity/risk: Moderate My total encounter time on 10/30/24 was 37 minutes which was spent in the activities documented in the note. This includes time spent prior to the visit and after the visit in direct care of the patient. This time does not include time spent in any separately reportable services. Voice recognition software [employer] Direct may have been used dictate and transcribe this document. [employer] Developer variances may occur. Despite proofreading, typographical errors may occur. Kelvin Blunt MD 10/30/2024 11:18 AM * Jd Medrano MD - 10/30/2024 10:54 AM CDT General Surgery Interval Note Vitals: 10/30/24 0737 BP: 122/68 Pulse: 56 Resp: 18 Temp: 36.7 ??C (98.1 ??F) SpO2: 98% Follow up CT shows a few air bubbles next the vaginal cuff but no other gross abnormalities. Nothing requiring general surgical intervention. * Jaz Torres MD - 10/30/2024 9:32 AM CDT Inpatient FINISHING FRAME RUNNER Progress Note Subjective: Aurelia Torrez is a 39 y.o. female 6wks post-op from [facility] complicated by severe endometriosis and 5hr surgery (09/11/24), who presented with free air and peritonitis and was found to have a vaginal cuff partial thickness dehiscence. She is now POD#2 s/p vaginal cuff repair via vaginal approach only. Initially was doing better, but in the last 24 hours reports the RLQ pain has worsened. Is near herbelly button and upper abdomen as well. Some spotting with wiping, no actual vaginal bleeding. Reports had a BM this morning and is passing a lot of gas. Review of Systems: Past Medical History No LMP recorded. No past medical history on file. History reviewed. No pertinent surgical history. Social History Tobacco Use Smoking status: Former Current packs/day: 0.00 Types: Cigarettes Quit date: 11/22/2017 Years since quittin.9 Smokeless tobacco: Never Substance and Sexual Activity Drug use: None Sexual activity: None Alcohol Use: Not on file Family History Problem Relation Age of Onset Stroke Mother Family history of cerebrovascular accident - (Added by TW Conv)/Family history of stroke - (Added by TW Conv) Heart attack Mother Family history of heart attack - (Added by TW Conv) Hypertension Mother Family history of hypertension - (Added by TW Conv) Coronary artery disease Mother Heart failure Mother Diabetes Mother Sudden Cardiac Father Coronary artery disease Father Stroke Father Heart attack Father Heart failure Father Diabetes Father Hypertension Father Cancer Father Coronary artery disease Sister Stroke Sister Hypertension Brother Allergies Allergen Reactions No Known Allergies Other (See comments) Reaction: HOME MEDICATIONS: levETIRAcetam (KEPPRA) 500 mg tablet Vitals: Temp: [36 ??C (96.8 ??F)-36.9 ??C (98.4 ??F)] 36.7 ??C (98.1 ??F) Pulse: [56-86] 56 BP: (88-122)/(52-71) 106/71 Resp: [18] 18 SpO2: [96 %-98 %] 98 % Weight: 150 lb (68 kg) Physical Exam: General: no acute distress, is eating lunch Lungs: Normal effort, no respiratory distress Abdomen: soft, tender to palpation around the umbilicus and mid upper abdomen, no rebound, no palpable masses Skin: warm, well-perfused Neuro: No focal deficits Psych: alert; normal mood and affect Labs: Recent Labs Lab Units 10/30/24 0534 10/29/24 0156 10/28/24 1304 WBC K/cumm 12.63* 15.61* 23.51* HEMOGLOBIN g/dL 10.3* 11.5* 13.9 HEMATOCRIT % 30.7* 33.5* 41.0 PLATELETS K/cumm 197 214 263 CREATININE mg/dL 0.50* 0.55* 0.50* AST Units/L -- -- 17 ALT Units/L -- -- 6* GLUCOSE mg/dL 94 157 107 Assessment and Plan Aurelia Torrez is a 39 y.o. female POD#2 from Vaginal Cuff Repair/Closure - increase in right lower quadrant pain in the last 24 hours - WBC down-trending, 23 > 15.6 > 12.6 - afebrile and VS otherwise appropriate, some lower Bps overnight while sleeping - Gen Surg following - CT scan this AM: free fluid deep in the pelvis with tiny air bubbles adjacent to the vaginal cuff, which is not unexpected in the post-operative area, nothing to explain abdominal pain in the area identified on exam - continue broad spectrum antibiotics *Zosyn 10/28 - current - recommend a total of two weeks of antibiotics, to be completed with PO BID flagyl and BID Bactrim-OR- BID augmentin Continue bowel regimen. No new recommendations from a gynecologic perspective. Would continue IV antibiotics for now given increased pain. Jaz Torres MD 10/30/24 * Jd Medrano MD - 10/30/2024 6:28 AM CDT General Surgery Daily Post-op Progres Note Patient: Aurelia Torrez 39 y.o.female Date: 10/30/2024 Primary: A Admit Date: 10/28/2024 Attending: Kelvin Portillo* LOS: 2 SUBJECTIVE: Patient really does not feel any better complains of right lower quadrant pain Current Facility-Administered Medications: acetaminophen (TYLENOL) tablet 650 mg, 650 mg, oral, Q4H PRN OR acetaminophen (TYLENOL) 32 mg/mL oral liquid 650 mg, 650 mg, feeding tube, Q4H PRN OR acetaminophen (TYLENOL) suppository 650 mg, 650 mg, rectal, Q4H PRN, Latha Rojas NP acetaminophen (TYLENOL) tablet 975 mg, 975 mg, oral, Q6H [place] INGRAM Bertram Edward, MD, 975 mg at 10/30/24 0537 Carrier Fluids for Secondary Infusion - 0.9% Sodium Chloride, 30 mL, intravenous, PRN, Latha Rojas NP Carrier Fluids for Secondary Infusion - 0.9% Sodium Chloride, 30 mL, intravenous, PRN, Jackson Rodarte MD enoxaparin (LOVENOX) syringe 40 mg, 40 mg, subcutaneous, Daily, Jackson Rodarte MD, 40 mg at10/29/24 0808 [COMPLETED] ketorolac (TORADOL) 30 mg/mL injection 30 mg, 30 mg, intravenous, Q6H NATALY, 30 mg at 10/29/242041 FOLLOWED BY ibuprofen (ADVIL,MOTRIN) tablet/capsule 600 mg, 600 mg, oral, Q6H NATALY, Jackson Rodarte MD, 600 mg at 10/30/24 0238 Lactated Ringer's (LR) infusion, 125 mL/hr, intravenous, Continuous, Latha Rojas NP, Last Rate: 125 mL/hr at 10/29/24 0400, 125 mL/hr at 10/29/24 0400 Lactated Ringer's (LR) infusion, 30 mL/hr, intravenous, Continuous, Jackson Rodarte MD, LastRate: 30 mL/hr at 10/29/24 1737, 30 mL/hr at 10/29/24 1737 levETIRAcetam (KEPPRA) tablet 500 mg, 500 mg, oral, BID, Latha Rojas NP metoclopramide (REGLAN) 5 mg/mL injection 10 mg, 10 mg, intravenous, Q8H PRN, Jackson Rodarte MD, 10 mg at 10/30/24 0244 [DISCONTINUED] morphine injection 4 mg, 4 mg, intravenous, Q4H PRN OR morphine injection 2 mg, 2 mg, intravenous, Q4H PRN, 2 mg at 10/30/24 0239 OR [DISCONTINUED] morphine injection 1 mg, 1 mg, intravenous, Q4H PRN, Jackson Rodarte MD, 1 mg at 10/29/24 09 naloxone (NARCAN) 0.4 mg/mL injection 0.4 mg, 0.4 mg, intravenous, Q10 Min PRN, Jackson Rodarte MD ondansetron (ZOFRAN) injection 4 mg, 4 mg, intravenous, Q6H PRN, Jackson Rodarte MD, 4 mg at10/30/24 0538 oxyCODONE (ROXICODONE) tablet 5 mg, 5 mg, oral, Q4H PRN, Jackson Rodarte MD, 5 mg at 10/30/24 0538 piperacillin-tazobactam (ZOSYN) 3.375 gram/115 mL in sodium chloride 0.9% (premix) 3.375 g, 3.375 g, intravenous, Q8H NATALY, Jackson Rodarte MD, Stopped at 10/30/24 0345 polyethylene glycol (MIRALAX) packet 17 g, 17 g, oral, Daily PRN, Latha Rojas NP, 17 g at 10/29/24 1309 simethicone (MYLICON) chewable tablet 160 mg, 160 mg, oral, TID PRN, Jameson Smith MD, 160 mg at10/29/24 1309 sodium chloride 0.9% flush 0.5-20 mL, 0.5-20 mL, intra-catheter, Q8H NATALY, Latha Rojas NP, 10 mL at 10/30/24 0538 sodium chloride 0.9% flush 0.5-20 mL, 0.5-20 mL, intra-catheter, PRN, Latha Rojas NP sodium chloride 0.9% flush 0.5-20 mL, 0.5-20 mL, intra-catheter, Q8H NATALY (ALT), Jackson Rodarte MD, 10 mL at 10/29/24 2336 sodium chloride 0.9% flush 0.5-20 mL, 0.5-20 mL, intra-catheter, PRN, Jackson Rodarte MD OBJECTIVE: 24hr Min/Max: Temp Min: 36 ??C (96.8 ??F) Max: 36.9 ??C (98.4 ??F) Pulse Min: 59 Max: 86 BP Min: 88/55 Max: 112/59 Resp Min: 18 Max: 18 SpO2 Min: 94 % Max: 98 % Most Recent : Vitals: 10/30/24 0340 BP: 92/56 Pulse: Resp: Temp: SpO2: Exam: Abdomen is soft tender in the right lower quadrant with some mild guarding Lab/Radiology/Diagnostic Review: WBC Date Value Ref Range Status 10/29/2024 15.61 (H) 3.80 - 9.90 K/cumm Final Comment: Testing performed by: [facility] [address] [place] [address]., [id number] 10/28/2024 23.51 (H) 3.80 - 9.90 K/cumm Final Comment: Testing performed by: [facility] [address] [place] [address]., [id number] Hgb Date Value Ref Range Status 10/29/2024 11.5 (L) 11.9 - 15.5 g/dL Final Comment: Testing performed by: [facility] [address] [place] [address]., [id number] 10/28/2024 13.9 11.9 - 15.5 g/dL Final Comment: Testing performed by: [facility] [address] [place] [address]., [id number] Hct Date Value Ref Range Status 10/29/2024 33.5 (L) 35.6 - 45.5 % Final Comment: Testing performed by: [facility] [address] [place] [address]., [id number] 10/28/2024 41.0 35.6 - 45.5 % Final Comment: Testing performed by: [facility] [address] [place] [address]., [id number] Plt Date Value Ref Range Status 10/29/2024 214 150 - 400 K/cumm Final Comment: Testing performed by: [facility] [address] [place] [address]., [id number] 10/28/2024 263 150 - 400 K/cumm Final Comment: Testing performed by: [facility] [address] [place] [address]., [id number] AST Date Value Ref Range Status 10/28/2024 17 10 - 45 Units/L Final Comment: Testing performed by: [facility] [address] [place] [address]., [id number] 07/09/2024 See Comment 10 - 45 Final Comment: Credited; Hemolyzed Specimen ALT Date Value Ref Range Status 10/28/2024 6 (L) 7 - 45 Units/L Final Comment: Testing performed by: [address] [id number] 07/09/2024 See Comment 7 - 15 Final Comment: Credited; Hemolyzed Specimen Alk phos Date Value Ref Range Status 10/28/2024 66 40 - 130 Units/L Final Comment: Testing performed by: [address] [id number] 07/09/2024 64 40 - 130 Units/L Final Albumin Date Value Ref Range Status 10/28/2024 4.1 3.5 - 5.0 g/dL Final Comment: Testing performed by: [address], [id number] 07/09/2024 4.0 3.5 - 5.0 g/dL Final Lipase Date Value Ref Range Status 10/28/2024 6 (L) 10 - 99 Units/L Final Comment: Testing performed by: [address], [id number] 07/09/2024 20 10 - 99 Units/L Final Comment: Hemolyzed; result might be falsely decreased ASSESSMENT: Principal Problem: Pneumoperitoneum PLAN: We will repeat CT scan Jd Medrano MD 10/30/2024 This examination was transcribed using the Flowity voice recognition system without human fundraising coordinator. In an effort to expedite patient care, this report has not been adjusted for typographical, grammatical, and syntax by a trained medical technologist blood bank. * Jona Palumbo MD - 10/29/2024 3:38 PM CDT Images from the original note were not included. General Medicine Daily Progress SUBJECTIVE History of Present Illness: Aurelia Torrez is a 39 y.o. female who is s/p a laparoscopic TLH complicated by severe endometriosis that required a 5hr surgical time and 2 day post-op admission on 09/11 (Dr. Miller of [facility]) with a to-date normal post- operative recovery course who presented to ED with acute onset diffuse abdominal pain and bleeding from the vaginal canal, diaphoresis, and syncope in the last 24hrs. Pt was seen for her last post-op exam on 10/23 and was clear of all restrictions but no pelvic examination was done. She has been doing heavy lifting since cleared but has NOT been sexually active. ED work -up notable for WBC - 23.5, lactate - normal (1.3), and a CT that showed Scattered subtle foci of free air in the abdomen and pelvis; Mild mucosal thickening of the small bowel with mild dilatation measuring up to 3.7 cm, which may be related to mild enteritis of infectious or inflammatoryetiology with mild reactive ileus; Mild diffuse mucosal thickening of the mid to distal transverse colon, descending colon, and sigmoid colon, which may be related to underdistention versus a component of mild colitis of infectious or inflammatory etiology; Small amount of free fluid in the abdomen and pelvis; Mild mucosal thickening of the urinary bladder, which may be related to underdistention versus cystitis; Right ovarian cystic lesion with an irregular hyperattenuating rimmeasuring 2.1 cm, which likely represents a corpus luteum or hemorrhagic cyst; Few foci of air noted within the urinary bladder, which may be related to recent instrumentation. General surgery was consulted for CT findings and recommended broad spectrum antibiotics and bowel rest for conservative management for now. 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 On pelvic examination ED - a full vaginal cuff width (3-4cm) mucosal dehiscence was noted with proximal peritonealization - no evidence of visceral evisceration or strangulation, active bleeding or acute infection/celulitis of cuff. Chief complaint of abdominal pain Interval History: Preoperative diagnosis partial vaginal cuff dehiscence/peritonitis abdominal free air Status post EUA; repair/closure of vaginal cuff OBJECTIVE Vitals: 24hr Min/Max: Temp Min: 36.6 ??C (97.8 ??F) Max: 37.1 ??C (98.8 ??F) Pulse Min: 51 Max: 101 BP Min: 87/55 Max: 115/71 Resp Min: 18 Max: 27 SpO2 Min: 94 % Max: 100 % Most Recent : Vitals: 10/29/24 1128 BP: 101/67 Pulse: 68 Resp: 18 Temp: 36.7 ??C (98.1 ??F) SpO2: 97% I/O last 2 completed shifts: In: 1010 [I.V.:1010] Out: 760 [Urine:750; Blood:10] I/O this shift: In: 595 [P.O.:480; IV Piggyback:115] Out: - Physical Exam: General: NAD Eyes: EOMI, BING, sclare non icteric Neck: supple, no nuchal ridigity, no gross carotid bruits appreciated Pharynx: No gross oral lesion, tongue midline, mucosa moist Lungs CTA Heart: [id number], no significant murmur or gallop Abd: +BS, mild lower quadrant tenderness, Non distended, No gross hepatomegaly Lower Ext: No gross edema, pedal artery pulses are palpable bilaterally Neuro: No new deficits appreciated Musculoskeletal: no gross joint erythema, edema, tenderness Skin: No new change Lab/Current Medication Review: Recent Results (from the past 24 hours) ABO / Rh Confirmation Testing Collection Time: 10/28/24 4:22 PM Result Value Ref Range ABO/Rh Confirmation O Positive Troponin T high-sensitivity 6-hour Collection Time: 10/28/24 7:28 PM Result Value Ref Range Trop T hs 13 <=14 ng/L Trop T hs delta 7 ng/L Trop T hs interp Equivocal Phosphorus Collection Time: 10/28/24 7:28 PM Result Value Ref Range Phosphorus, pl 2.6 2.3 - 4.5 mg/dL Magnesium Collection Time: 10/28/24 7:28 PM Result Value Ref Range Magnesium 1.6 1.4 - 2.5 mg/dL Basic metabolic panel Collection Time: 10/29/24 1:56 AM Result Value Ref Range Sodium 136 135 - 145 mmol/L Potassium, pl 3.8 3.3 - 4.9 mmol/L Chloride 104 97 - 110 mmol/L CO2 20 (L) 22 - 32 mmol/L Anion gap 12 2 - 15 mmol/L BUN 6 6 - 25 mg/dL Creatinine 0.55 (L) 0.60 - 1.10 mg/dL Glucose 157 70 - 199 mg/dL Calcium 8.4 (L) 8.5 - 10.3 mg/dL CBC with auto differential Collection Time: 10/29/24 1:56 AM Result Value Ref Range WBC 15.61 (H) 3.80 - 9.90 K/cumm Hgb 11.5 (L) 11.9 - 15.5 g/dL Hct 33.5 (L) 35.6 - 45.5 % Plt 214 150 - 400 K/cumm MPV 9.4 9.1 - 12.3 fL RBC 3.99 3.90 - 5.20 M/cumm MCV 84.0 81.3 - 96.4 fL MCH 28.8 27.1 - 33.3 pg MCHC 34.3 32.3 - 35.7 g/dL RDW CV 13.1 11.1 - 14.9 % RDW SD 40.5 35.7 - 48.1 fL NRBC abs 0.00 0.00 - 0.01 K/cumm Sepsis Lactate w/ Reflex Collection Time: 10/29/24 1:56 AM Result Value Ref Range Sepsis Lactate 2.5 (H) 0.7 - 2.0 mmol/L Differential, auto Collection Time: 10/29/24 1:56 AM Result Value Ref Range Neutrophil abs 14.69 (H) 1.50 - 6.50 K/cumm Imm gran abs 0.07 0.00 - 0.10 K/cumm Lymphocyte abs 0.63 (L) 0.80 - 3.30 K/cumm Monocyte abs 0.20 0.20 - 0.80 K/cumm Eosinophil abs 0.00 0.00 - 0.50 K/cumm Basophil abs 0.02 0.00 - 0.10 K/cumm Neutrophil pct 94.2 % Imm gran pct 0.4 % Lymphocyte pct 4.0 % Monocyte pct 1.3 % Eosinophil pct 0.0 % Basophil pct 0.1 % eGFR Collection Time: 10/29/24 1:56 AM Result Value Ref Range eGFR >90 >=60 mL/min/1.73 m2 Urinalysis reflex to microscopic and culture Urine Collection Time: 10/29/24 2:07 AM Specimen: Urine Result Value Ref Range Color, ur Straw Yellow Clarity, ur Clear Clear Specific gravity, ur 1.007 1.003 - 1.030 pH, urine 7.0 Protein, ur ql Negative Negative Glucose, ur ql Negative Negative Ketones, ur 1+ (A) Negative Bilirubin, ur Negative Negative Blood, ur 3+ (A) Negative Urobilinogen, ur <2.0 <2.0 mg/dL Nitrite, ur Negative Negative Leukocyte esterase, ur 1+ (A) Negative UA reflex comment Reflex to microscopic UA will be performed. Urinalysis, microscopic only Collection Time: 10/29/24 2:07 AM Result Value Ref Range WBC, ur 0-5 0 - 5 /HPF RBC, ur 3-5 (A) 0 - 2 /HPF Epithelial cells, squamous, ur 1-5 0 - 5 /HPF Bacteria, ur Trace (A) Culture Reflex Comment Reflex conditions for urine culture (WBC >10) not met. Sepsis Lactate w/ Reflex Collection Time: 10/29/24 4:51 AM Result Value Ref Range Sepsis Lactate 0.8 0.7 - 2.0 mmol/L Imaging CTA Abdomen Pelvis Result Date: 10/28/2024 Narrative: EXAM DESCRIPTION: CTA ABDOMEN PELVIS REASON FOR STUDY: Lower GI bleed Patient she had syncopal episode on the toilet due to the pain she got very sweaty and dizzy and blacked out falling off the toilet. She reports she is 5 weeks post-op hysterectomy. Reports she started with heavy vaginal bleeding yesterday and has continued today. TECHNIQUE: CTA scan of the abdomen and pelvis performed without and with intravenous and without oral contrast using helical scanning technique with dynamic intravenous contrast injection. Precontrast, arterial, and portal venous phase images of the abdomen and pelvis were acquired. Images reviewed with lung, soft tissue and bone windows. Reconstructed coronal and sagittal MPR images reviewed. All images stored on PACS. 3D MIP images rendered on scanning unit and reviewed at time of interpretation. Automated exposure control was used as a dose optimization technique for this examination. CONTRAST TYPE/DOSE: 100mL of IOVERSOL 350 MG IODINE/ML INTRAVENOUS SYRINGE injected via intravenous COMPARISON: 07/09/2024 FINDINGS: VASCULATURE: On the noncontrast sequence, there are no significant calcified atherosclerotic changes of the aorta. On the post-contrast sequence, there is no definite evidence of acute aortic injury or dissection. The abdominal aorta appears grossly unremarkable without definite evidence of hemodynamic significant stenosis,occlusion, aneurysmal dilatation. There is no definite evidence of intraluminal extravasation of contrast within the large and small bowel to suggest active GI bleed. CELIAC TRUNK: The celiac artery appears grossly unremarkable without definite evidence of hemodynamically significant stenosis, occlusion, or aneurysmal dilatation. SUPERIOR MESENTERIC ARTERY: The superior mesenteric artery appears grossly unremarkable without definite of hemodynamically significant stenosis, occlusion, or aneurysmal dilatation. RIGHT RENAL ARTERY: There is a single right renal artery noted without evidence of he modynamically significant stenosis, occlusion, aneurysmal dilatation. LEFT RENAL ARTERY: There are 2 left renal arteries noted without evidence of hemodynamic significant stenosis, occlusion, aneurysmal dilatation. INFERIOR MESENTERIC ARTERY: The inferior mesenteric artery appears grossly unremarkable without definite evidence of occlusion or aneurysmal dilatation. ILIAC ARTERIES: The bilateral common iliac, internal iliac, external iliac, and common femoral arteries appear grossly unremarkablewithout evidence of hemodynamic significant stenosis, occlusion, aneurysmal dilatation. LOWER CHEST: The heart size is normal. There is no definite evidence of pericardial effusion. There are mild patchy airspace opacities in the left lower lobe, which may be related to subsegmental atelectasis versus airspace disease. LIVER: The liver is grossly normal in size and contour. There is focal fatty infiltration of the liver along the falciform ligament. There are few scattered too small to characterize hypoattenuating lesions in the liver, which do not require follow-up imaging. The hepatic and portal veins are grossly patent. GALLBLADDER: There is cholelithiasis. BILE DUCTS: No intrahepatic orextrahepatic ductal dilatation. SPLEEN: The spleen is grossly normal in size and unremarkable. PANCREAS: The pancreas appears grossly unremarkable without definite evidence of pancreatic ductal dilatation, peripancreatic inflammatory changes, or peripancreatic fluid collection. ADRENALS: The bilateral adrenal glands are grossly symmetrical and unremarkable. KIDNEYS/URINARY TRACT: On the noncontrast sequence, there is no definite evidence of nephrolithiasis. The bilateral kidneys enhance symmetri lina. There is a 2.6 cm cyst in the interpolar region of the right kidney, which does not require follow-up imaging. There is no definite evidence of hydronephrosis or hydroureter. There is mild mucosal thickening of the urinary bladder. There are few foci of air noted within the urinary bladder, which may be related to recent instrumentation. GI: There are scattered subtle foci of free air in the abdomen and pelvis, which is most significant in the right upper quadrant of the abdomen, and findings raise the concern for bowel perforation. There is mild mucosal thickening of the small bowel with mild dilatation measuring up to 3.7 cm, which may be related to mild enteritis of infectious or inflammatory etiology with mild reactive ileus. The appendix is surgically absent. There is mild diffuse mucosal thickening of the mid to distal transverse colon, descending colon, and sigmoid colon. There is a small amount of free fluid in the abdomen and pelvis. There is no definite evidence of lym phadenopathy in the abdomen and pelvis. REPRODUCTIVE: The uterus is surgically absent. There is a cystic lesion in the right ovary with an irregular hyperattenuating rim measuring 2.1 cm, which likely represents a corpus luteum or hemorrhagic cyst. MUSCULOSKELETAL: There is a minimal to mild S shaped scoliotic curvature of the spine with minimal to mild degenerative changes. OTHER: No other abnormality. IMPRESSION: 1. No definite evidence of intraluminal extravasation of contrast within the large and small bowel to suggest active GI bleed. 2. Scattered subtle foci of free air in the abdomen and pelvis, which is most significant in the right upper quadrant of the abdomen, and findings raise the concern for bowel perforation. Surgical consultation and management is recommended as clinicallyindicated. 3. Mild mucosal thickening of the small bowel with mild dilatation measuring up to 3.7 cm, which may be related to mild enteritis of infectious or inflammatory etiology with mild reactive ileus. Continued follow-up is recommended as clinically indicated. 4. Mild diffuse mucosal thickening of the mid to distal transverse colon, descending colon, and sigmoid colon, which may be related to underdistention versus a component of mild colitis of infectious or inflammatory etiology. 5. Small amount of free fluid in the abdomen and pelvis. 6. Mild mucosal thickening of the urinary bladder,which may be related to underdistention versus cystitis. Clinical correlation with urinary analysisis recommended as clinically indicated. 7. Few foci of air noted within the urinary bladder, which may be related to recent instrumentation. Correlation with recent procedural history is recommended as clinically indicated. 8. Mild patchy airspace opacities in the left lower lobe, which may be related to subsegmental atelectasis versus airspace disease. 9. Cholelithiasis. 10. Right ovarian cysticlesion with an irregular hyperattenuating rim measuring 2.1 cm, which likely represents a corpus luteum or hemorrhagic cyst. Findings were discussed with Dr. Wesley by Dr. Dominguez at 15:48 hours on 10/28/2024 . THIS IS AN ELECTRONICALLY VERIFIED FINAL REPORT 10/28/2024 3:48 PM - Electronically signed by Brijesh Dominguez D.O. PS: PS Report ID: [id number] Reading Location: [place] [address] Current Facility-Administered Medications Medication Dose Route Frequency Provider Last Rate Last Admin acetaminophen (TYLENOL) tablet 650 mg 650 mg oral Q4H PRN Latha Rojas NP Or acetaminophen (TYLENOL) 32 mg/mL oral liquid 650 mg 650 mg feeding tube Q4H PRN Latha Rojas NP Or acetaminophen (TYLENOL) suppository 650 mg 650 mg rectal Q4H PRN Latha Rojas NP acetaminophen (TYLENOL) tablet 975 mg 975 mg oral Q6H [facility] Jackson Rodarte MD 975 mg at 10/29/24 1138 Carrier Fluids for Secondary Infusion - 0.9% Sodium Chloride 30 mL intravenous PRN Latha Rojas NP Carrier Fluids for Secondary Infusion - 0.9% Sodium Chloride 30 mL intravenous PRN Jackson Rodarte MD enoxaparin (LOVENOX) syringe 40 mg 40 mg subcutaneous Daily Jackson Rodarte MD 40 mg at 10/29/24 0808 ketorolac (TORADOL) 30 mg/mL injection 30 mg 30 mg intravenous Q6H [facility] Jackson Rodarte MD 30mg at 10/29/24 1519 Followed by [START ON 10/30/2024] ibuprofen (ADVIL,MOTRIN) tablet/capsule 600 mg 600 mg oral Q6H [facility] Jackson Rodarte MD Lactated Ringer's (LR) infusion 125 mL/hr intravenous Continuous Latha Rojas NP 125 mL/hr at 10/29/24 0400 125 mL/hr at 10/29/24 0400 Lactated Ringer's (LR) infusion 30 mL/hr intravenous Continuous Jackson Rodarte MD 30 mL/hr at 10/29/24 0001 30 mL/hr at 10/29/24 0001 levETIRAcetam (KEPPRA) tablet 500 mg 500 mg oral BID Latha Rojas NP metoclopramide (REGLAN) 5 mg/mL injection 10 mg 10 mg intravenous Q8H PRN Jackson Rodarte MD10 mg at 10/29/24 0810 morphine injection 2 mg 2 mg intravenous Q4H PRN Jackson Rodarte MD 2 mg at 10/29/24 1309 naloxone (NARCAN) 0.4 mg/mL injection 0.4 mg 0.4 mg intravenous Q10 Min PRN Jackson Rodarte MD ondansetron (ZOFRAN) injection 4 mg 4 mg intravenous Q6H PRN Jackson Rodarte MD 4 mg at 10/29/24 1138 oxyCODONE (ROXICODONE) tablet 5 mg 5 mg oral Q4H PRN Jackson Rodarte MD 5 mg at 10/29/24 1138 piperacillin-tazobactam (ZOSYN) 3.375 gram/115 mL in sodium chloride 0.9% (premix) 3.375 g 3.375 g intravenous Q8H NATALY Jackson Rodarte MD 28.8 mL/hr at 10/29/24 1425 3.375 g at 10/29/24 1425 polyethylene glycol (MIRALAX) packet 17 g 17 g oral Daily PRN Latha Rojas NP 17 g at 10/29/24 1309 simethicone (MYLICON) chewable tablet 160 mg 160 mg oral TID PRN Jameson Smith MD 160 mg at 10/29/24 1309 sodium chloride 0.9% flush 0.5-20 mL 0.5-20 mL intra-catheter Q8H NATALY Latha Rojas NP 10 mL at 10/29/24 0615 sodium chloride 0.9% flush 0.5-20 mL 0.5-20 mL intra-catheter PRN Latha Rojas NP sodium chloride 0.9% flush 0.5-20 mL 0.5-20 mL intra-catheter Q8H NATALY (ALT) Jackson Rodarte MD 10 mL at 10/29/24 0615 sodium chloride 0.9% flush 0.5-20 mL 0.5-20 mL intra-catheter PRN Jackson Rodarte MD A/P: Principal Problem: Pneumoperitoneum Resolved Problems: No resolved hospital problems. Pneumoperitoneum Status post hysterectomy Dysmenorrhea secondary to endometriosis Patient presents to ED with abdominal pain and distention, nausea and vomiting, and leukocytosis. She states he has had a recent hysterectomy approximately [address] imaging confirms presence of free air although there is no identified source of bowel perforation. There is leukocytosis present on the CBC -IV fluids for hydration -Antiemetics -Pain management -General surgical consult -IV antibiotic therapy -Monitor for increasing leukocytosis, sepsis, and fever curve History of Recurrent syncope -Patient had Holter monitor study -Follow up with Cardiology -Currently sinus rhythm on monitor without arrhythmia or ischemic ST or T-wave changes -May give IV fluid bolus for hypotension and feelings of syncope -Safety precautions; up with assist , bed alarm, chair alarm. Seizures -Seizure precautions -Continue Keppra, maybe change to IV if patient remains NPO History of DVT during -No heparin or Lovenox at this time due to impending surgery -Use SCDs -Encourage ambulation Seasonal allergies -Continue Wixela or formulary equivalent -Continue cetirizine 10/29/24 Status post TLH 6 weeks and presented with post op vaginal cuff dehiscence and acute peritonitis and possible ileus. Patient is status post E UA; repair/closure of vaginal cuff on 10/28/2024 postop day 1 clinically improved. No concerns Status post repair of disruption of the vaginal cough causing free air and some peritonitis much improved IV Zosyn day 2 Patient tolerating regular diet Encourage ambulation Disposition Possible discharge in 1 or 2 when okay by surgery DVT prophylaxis: Lovenox 40 mg PT/OT: Patient ambulating independently Case discussed with Case Management and Biology Specimen Technician Medical complexity/risk: Moderate My total encounter time on 10/29/24 was 37 minutes which was spent in the activities documented in the note. This includes time spent prior to the visit and after the visit in direct care of the patient. This time does not include time spent in any separately reportable services. Voice recognition software [email or web address] may have been used dictate and transcribe this document. [employer] Developer variances may occur. Despite proofreading, typographical errors may occur. Jona Palumbo MD 10/29/2024 3:39 PM * Victor Hugo Sousa MD - 10/29/2024 12:06 PM CDT Images from the original note were not included. General Surgery Progress Note-[facility] Aurelia Torrez is an 39 y.o. female. 1 Day Post-Op Procedure(s) (LRB): EXAM UNDER ANESTHESIA, REPAIR OF VAGINAL CUFF (N/A) SUBJECTIVE: Feeling much better, less pain OBJECTIVE: Blood pressure 101/67, pulse 68, temperature 36.7 ??C (98.1 ??F), temperature source Oral, resp. rate 18, height 162.6 cm (5' 4.02), weight 68 kg (150 lb), SpO2 97%. Exam: Abdomen is softer, not nearly as tender in the right mid abdomen Labs noted Labs: Recent Labs Lab Units 10/29/24 0156 10/28/24 1304 WBC K/cumm 15.61* 23.51* HEMOGLOBIN g/dL 11.5* 13.9 MCV fL 84.0 84.0 Recent Labs Lab Units 10/29/24 0156 10/28/24 1304 CO2 mmol/L 20* 18* Recent Labs Lab Units 10/28/24 1304 AST Units/L 17 ALT Units/L 6* ALK PHOS Units/L 66 Rads: No new studies IMPRESSION: 1 Day Post-Op Status post repair of disruption of vaginal cuff causing free air and some peritonitis-much improved PLAN: 1. Continue antibiotics 2. Continued management pertaining to cough from Gynecology 3. We will monitor closely to ensure that peritoneal signs resolved completely Victor Hugo Sousa MD 10/29/2024 * Jackson Rodarte MD - 10/29/2024 10:46 AM CDT Inpatient FINISHING FRAME RUNNER Progress Note Admitting Provider: Jona Palumbo MD Primary Care Physician: Unknown, Notinfile None Admission Date: 10/28/2024 Admission Location: [facility] CC: Chief Complaint Patient presents with Abdominal Pain HPI: Aurelia Torrez is a 39 y.o. female 6wks post-op from [facility] complicated by severe endometriosis and 5hr surgery (09/11/24) with a freeair and peritonitis with a vaginal cuff partial thickness dehiscence- s/p repair (10/28/24) - POD#1. Pt reports feeling so much better - still have some fullness on lower right side, but nearly as much pain as she had yesterday. Ambulating, voiding. Not taking any PO as on bowel rest per Gen Surg for possible ileus. Review of Systems: Past Medical History No LMP recorded. No past medical history on file. History reviewed. No pertinent surgical history. Social History Tobacco Use Smoking status: Former Current packs/day: 0.00 Types: Cigarettes Quit date: 11/22/2017 Years since quittin.9 Smokeless tobacco: Never Substance and Sexual Activity Drug use: None Sexual activity: None Alcohol Use: Not on file Family History Problem Relation Age of Onset Stroke Mother Family history of cerebrovascular accident - (Added by TW Conv)/Family history of stroke - (Added by TW Conv) Heart attack Mother Family history of heart attack - (Added by TW Conv) Hypertension Mother Family history of hypertension - (Added by TW Conv) Coronary artery disease Mother Heart failure Mother Diabetes Mother Sudden Cardiac Father Coronary artery disease Father Stroke Father Heart attack Father Heart failure Father Diabetes Father Hypertension Father Cancer Father Coronary artery disease Sister Stroke Sister Hypertension Brother Allergies Allergen Reactions No Known Allergies Other (See comments) Reaction: HOME MEDICATIONS: levETIRAcetam (KEPPRA) 500 mg tablet Vitals: Temp: [36.6 ??C (97.8 ??F)-37.1 ??C (98.8 ??F)] 36.7 ??C (98.1 ??F) Pulse: [51-101] 60 BP: (87-115)/(50-75) 91/51 Resp: [18-33] 18 SpO2: [94 %-100 %] 94 % Weight: 68 kg (150 lb) Physical Exam: General: over weight female, pleasant, in no acute distress HEENT: normocephalic, atraumatic, nose normal, conjunctivae normal Lungs: Normal effort, no respiratory distress Abdomen: soft, appropriately TTP - much less, non-distended Skin: warm, well-perfused Neuro: No focal deficits Psych: alert; normal mood and affect Labs: Recent Labs Lab Units 10/29/24 0156 10/28/24 1304 WBC K/cumm 15.61* 23.51* HEMOGLOBIN g/dL 11.5* 13.9 HEMATOCRIT % 33.5* 41.0 PLATELETS K/cumm 214 263 CREATININE mg/dL 0.55* 0.50* AST Units/L -- 17 ALT Units/L -- 6* GLUCOSE mg/dL 157 107 Assessment and Plan Aurelia Ndiayeoza is a 39 y.o. female POD#1 from Vaginal Cuff Repair/Closure - doing well post-op - clinically improving - no concerns - meeting post-op goals - advance diet per gen surg recs - continue broad spectrum antibiotics (recommend continuing Zosyn for at least 24hrs post-op as showing improvement - but defer to hospitalist management) - recommend 2wk course of PO flagyl BID and Bactrim DS BID upon discharge - WBC - 23.5 -> 15.6 - Lacate - 1.3 -> 2.5 -> 0.8 - UA - no evidence of acute infection - microscopic hematuria - suspect recent catheter related Recommend 2wk post-op upon discharge with primary surgeon (Dr. Miller) as well as myself Jackson Rodarte MD 10/29/24 * Meghan Pratt, OT - 10/29/2024 8:46 AM CDT Occupational Therapy 10/29/24 0846 General Chart Reviewed Yes Session Type Evaluation OT Received On 10/29/24 Safe Environment Patient found in supine Subjective Agreeable to Therapy Subjective Comment Pt states, I don't think I need therapy. Additional Pertinent History 39 y.o. female 6wks s/p TLH here for post-op vaginal cuff dehiscence with acute peritonitis and possible ileus. Pt is s/p vaginal cuff repair/closure on 10/28. PMHx seizures, syncope, dysmenorrhea Occupational Therapy-Patient Goal To return home Current Functional Status OT Functional Mobility INDEP for all functional mobility including sup<>sit, sit<>stand, functional ambulation w/o AD OT Self Care Pt is INDEP for all self care. Reach in all planes appropriate for UB/LB dressing. Balance appropriate for functional transfers and ADLs performed in sitting or standing. Precautions Precautions Fall risk Precaution Comments No sx precautions Prior Function Prior Function Comments 2nd level apt, no elevator access - stairs with rails. Tub/shower no AD, std toilet. No AD used at baseline. Lives with children, two dtrs. Family can assist PRN. 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 1 syncopal fall. Pain Assessment Pain Assessment 0-10 Pain Score 6 Pain Type Surgical pain Pain Location Abdomen Activity Tolerance Endurance Tolerates 10 - 20 min activity with multiple rests Activity Tolerance Comments Pain Vision - Complex Assessment Acuity Able to read clock/calendar on wall without difficulty;Able to read employee name badge without difficulty Perception Inattention/Neglect Appears intact Initiation Appears intact Perseveration Not present Cognition Orientation Oriented X4 (person, place, time, situation) Cognitive Tests Cognitive Tests Yes Short Blessed Test What year is it now? 0 What month is it now? 0 Repeat this name and address after me Debbie Ken [address] [place] [address] Without looking at the clock, tell me what time it is 0 Count aloud backwards from 20-1 0 Say the months of the year backwards in reverse order 0 Repeat the name and address I asked you to remember 2 Short Blessed Comments (S) SBT Score 2/28 indicates normal cognition. Sensation Light Touch WFL Sensation Comments BUE intact Proprioception Proprioception No apparent deficits Motor Planning Motor Planning Appears intact Coordination Fine Motor WFL Serial Opposition WFL Hand Function Coordination Functional Gross Grasp Functional Reach/Grasp RUE Reach WFL LUE Reach WFL RUE Assessment RUE Assessment WFL LUE Assessment LUE Assessment WFL Safe Environment End of Therapy Session Safe Environment End of Therapy Session Patient left sitting at edge of bed;Call light within reach;Overbed table within reach;Bed in lowest position with wheels locked Assessment Prognosis Excellent Plan Plan Discharge Recommendation/Plan OT Recommendation (S) Home with family;Home with intermittent assist OT Recommendation/Plan Comments Patient appears to be functioning at baseline for mobility and selfcare. Anticipate they will able to discharge home at prior level of function. Continued skilled OT not recommended at this time. OT Evaluation Complete Yes OT Time Calculation OT Start Time 0846 OT Stop Time 0858 OT Time Calculation (min) 12 min * Veronica Cartagena, PT - 10/29/2024 8:45 AM CDT Physical Therapy 10/29/24 0845 General Chart Reviewed Yes Session Type Evaluation PT Received On 10/29/24 Safe Environment Patient found in supine;Gait belt utilized for all out of bed mobility Subjective Agreeable to Therapy Additional Pertinent History Pt admitted for pneumoperitoneum Family/Caregiver Present Yes (Godfather) Physical Therapy-Patient Goal D/C home Precautions Precautions Safety Precaution Comments IV, tele, SCDs Home Living Type of Home Apartment (2nd floor) Home Layout One level Home Access Stairs to enter with rails Entrance Stairs-Number of Steps 1 flight Home Mobility Equipment-Available None Home Mobility Equipment-Currently Using None Prior Function Level of [place] Independent with ADLs;Independent functional transfers;Independent with ambulation;Independent with homemaking with ambulation Lives With Daughter (Daughters are out of town currently) Driving Yes Mode of Transportation Driven by self Vocational/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 Pain Assessment Pain Assessment 0-10 Pain Score 6 Pain Type Surgical pain Pain Location Abdomen Cognition Orientation Oriented X4 (person, place, time, situation) Bed Mobility 1 Bed Mobility From 1 Supine Bed Mobility Type 1 To and from Bed Mobility to 1 Edge of bed Level of Assistance 1 Independent Bed Mobility Comments 1 No use of bed rails. Pt able to maintain sitting balance EOB without assist. Transfer 1 Transfer From 1 Sit Transfer Type 1 To and from Transfer to 1 Stand Technique 1 Sit to stand;Stand to sit Transfer Device 1 No device Transfer Level of Assistance 1 Independent Trials/Comments 1 No LOB noted with transfer. Pt able to maintain standing balance without assist. Ambulation 1 Distance (ft) 1 100 Surface 1 Level tile Device 1 No device;IV pole Assistance 1 Independent Ambulation Comments 1 Pt ambulated with no significant gait deviations. Pt performed 90 and 180 degree turns, sidestepping, backwards walking, tandem walking, and picked object up from floor independently. Pt able to manage IV pole with ambulation independently. No safety concerns noted. PT Treatment/Exercise Comments PT Treatment/Exercise Comments BLE strength grossly 4+/5. Pt performed all bed mobility, transfers,and ambulation independently. Pt ambulated with no significant gait deviations. Pt performed 90 [id number] degree turns, sidestepping, backwards walking, tandem walking, and picked object up from floor i ndependently. Pt able to manage IV pole with ambulation independently. No safety concerns noted. Ptdischarged. Safe Environment End of Therapy Session Safe Environment End of Therapy Session Patient left supine in bed;RN notified;Call light within reach;Overbed table within reach;Bed in lowest position with wheels locked (OT in room assessing cognition) Assessment Prognosis Good Barriers to Discharge None Plan Plan Discharge Recommendation/Plan PT Recommendation/Plan (S) Home independently;Home with intermittent assist PT Frequency during current admission One time visit (Discharge from this service) PT - OK to Discharge Yes PT Evaluation Complete Yes PT Time Calculation PT Start Time 0845 PT Stop Time 0856 PT Time Calculation (min) 11 min Cotx with Meghan ENCINAS for safety of patient and staff due to current diagnosis, medical status, and unknown level of functional performance prior to evaluation. Dry Cleaner Hand Services Utilized: NO Pt performed all bed mobility, transfers, and ambulation independently. Pt ambulated with no significant gait deviations. Pt performed 90 and 180 degree turns, sidestepping, backwards walking, tandemwalking, and picked object up from floor independently. Pt able to manage IV pole with ambulation independently. No safety concerns noted. Pt discharged. Patient was left with all needs met and equipment intact. Mobility and ADL status posted at bedsideand within medical record. documented in this encounter H&P Notes * Jackson Rodarte MD - 10/28/2024 8:36 PM CDT Gynecology Pre-op H&P CC: Chief Complaint Patient presents with Abdominal Pain SUBJECTIVE HPI: Aurelia Torrez is a 39 y.o. female who is s/p a laparoscopic TLH complicated by severe endometriosis that required a 5hr surgical time and 2 day post-op admission on 09/11 (Dr. Miller of [facility]) with a to-date normal post- operative recovery course who presented to ED with acute onset diffuse abdominal pain and bleeding from the vaginal canal, diaphoresis, and syncope in the last 24hrs. Pt was seen for her last post-op exam on 10/23 and was clear of all restrictions but no pelvic examination was done. She has been doing heavy lifting since cleared but has NOT been sexually active. ED work -up notable for WBC - 23.5, lactate - normal (1.3), and a CT that showed Scattered subtle foci of free air in the abdomen and pelvis; Mild mucosal thickening of the small bowel with mild dilatation measuring up to 3.7 cm, which may be related to mild enteritis of infectious or inflammatoryetiology with mild reactive ileus; Mild diffuse mucosal thickening of the mid to distal transverse colon, descending colon, and sigmoid colon, which may be related to underdistention versus a component of mild colitis of infectious or inflammatory etiology; Small amount of free fluid in the abdomen and pelvis; Mild mucosal thickening of the urinary bladder, which may be related to underdistention versus cystitis; Right ovarian cystic lesion with an irregular hyperattenuating rimmeasuring 2.1 cm, which likely represents a corpus luteum or hemorrhagic cyst; Few foci of air noted within the urinary bladder, which may be related to recent instrumentation. General surgery was consulted for CT findings and recommended broad spectrum antibiotics and bowel rest for conservative management for now. 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 On pelvic examination ED - a full vaginal cuff width (3-4cm) mucosal dehiscence was noted with proximal peritonealization - no evidence of visceral evisceration or strangulation, active bleeding or acute infection/celulitis of cuff. Decision was made to proceed with EUA and vaginal cuff repair. OB History No obstetric history on file. No past medical history on file. History reviewed. No pertinent surgical history. Social History Tobacco Use Smoking status: Former Current packs/day: 0.00 Types: Cigarettes Quit date: 11/22/2017 Years since quittin.9 Smokeless tobacco: Never Substance and Sexual Activity Drug use: None Sexual activity: None Alcohol Use: Not on file Family History Problem Relation Age of Onset Stroke Mother Family history of cerebrovascular accident - (Added by TW Conv)/Family history of stroke - (Added by TW Conv) Heart attack Mother Family history of heart attack - (Added by TW Conv) Hypertension Mother Family history of hypertension - (Added by TW Conv) Coronary artery disease Mother Heart failure Mother Diabetes Mother Sudden Cardiac Father Coronary artery disease Father Stroke Father Heart attack Father Heart failure Father Diabetes Father Hypertension Father Cancer Father Coronary artery disease Sister Stroke Sister Hypertension Brother Allergies Allergen Reactions No Known Allergies Other (See comments) Reaction: Current Facility-Administered Medications: [Transfer Hold] morphine injection 4 mg, 4 mg, intravenous, Q4H PRN OR [Transfer Hold] morphineinjection 2 mg, 2 mg, intravenous, Q4H PRN OR [Transfer Hold] morphine injection 1 mg, 1 mg, intravenous, Q4H PRN, Jameson Smith MD, 1 mg at 10/28/241940 [Transfer Hold] naloxone (NARCAN) 0.4 mg/mL injection 0.4 mg, 0.4 mg, intravenous, Q10 Min PRN, Jameson Smith MD [Transfer Hold] ondansetron (ZOFRAN) injection 4 mg, 4 mg, intravenous, Q6H PRN, Latha Rojas NP, 4 mg at 10/28/241940 Review of Systems 10 system ROS completed and negative, except for those mentioned above in HPI. 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 Normal appearing urethra. Vaginal rugae - normal with physiologic discharge in vault. Vaginal cuff - full length (3-4cm) mucosal dehiscence with proximal peritonealization - no evidence of cellulitis, abscess, hematoma, active bleeding, or evisceration/strangulation of abdominal viscera Urethra appears normal, bladder palpates normal with no tenderness or lesions Perineum normal appearance without lesions ASSESSMENT / PLAN Aurelia Torrez is a 39 y.o. female 6wks s/p TLH here for post-op vaginal cuff dehiscence with acute peritonitis and possible ileus - Given on exam no evidence of evisceration or strangulation of abdominal viscera and the dehiscence appears to be only partial thickness - decision was to proceed with vaginal cuff repair only and defer intra-abdominal assessment at this time. - Pt counseled there may still be a need intra-abdominal assessment if following vaginal cuff closure and IV antibiotics course - she does not show expected improvement - appreciate General Surgery following for recs on when intra- abdominal assessment for possible bowel injury is needed - Procedure Description and Date/Time: EUA, Vagina cuff repair/closure - Pre-op PCP clearance: n/a - Advised pt of all risks, benefits, complications, and alternatives of the surgery above. Pt voiced understanding wished to proceed with surgery. Written informed consent to be obtaine dpre-op - Discussed anticipated hospital stay time, long-term recovery time, applicable work leave, and activity restrictions. - Pt advised to bring a family member or friend who is able to drive her home after surgery or upondischarge from hospital. - Pt advised to be strict NPO 8hrs prior to hospital arrival time, or surgery may be rescheduled. - Reviewed current medications - advised to hold all meds the morning of surgery, and that evening meds and beta-blockers are ok to continue as scheduled. - Anti-coagulation: Pt is not on any custodial anti-coagulation. Will plan for SCD's during surgeryand in the immediate post-op period as well early ambulation. - Patient denies current or recent and denies any recent transfusions - Pre-op Antibiotics: Zosyn (to continue post-op for acute peritonitis) Dispo: admit to med surg post-op for IV antibiotics and bowel rest Gen surg and hospitalist service also following All patient questions were answered at this time. Jackson Rodarte MD * Latha Rojas NP - 10/28/2024 5:15 PM CDT Images from the original note were not included. History & Physical Date of Service: 10/28/2024 Primary Care Physician: Unknown, Notinfile None CHIEF COMPLAINT: Patient is a 39 y.o. female presenting to the ED with a chief complaint of abdominal pain and syncope. HPI: 39 y.o. female patient with PMHx of seasonal allergies, seizures, syncope, dysmenorrhea presenting to the ED w/ c/o abdominal pain and syncope. She reports that she had hysterectomy 5 weeks ago secondary to endometriosis. She said she has been fine, returned to work and was doing well until last night when she developed a pain on the right side of her abdomen. She said she felt like that area herabdomen was swollen. Later that night she became diaphoretic and felt like she needed to have a bowel movement. When she got up to the bathroom she noted blood in her underwear. She stayed on the stool to use the bathroom and had a syncopal event. She states her vision went black. It is unknown if she hit her head but stated she continues to feel like she is going to pass out. She stayed in the bathroom for 12 hours until she could get help. She notes during that time there was a lot of presumed vaginal bleeding into the toilet. On her ED assessment she continues to have severe right-sided pain on her abdomen. She states the pain is causing her to vomit. She denies any fevers, nausea and vom iting, blood in her stool or vaginal bleeding since surgery. Her ED evaluation includes leukocytosis and imaging shows multiple small foci of free air, more than expected 5 weeks postsurgical concerning for perforation. Patient will be admitted Abnormal labs show: -CO2 18, anion gap 16, -WBCs 23.51, lactic 1.3 immature granulocytes 0.17, neutrophils 21.53, monocytes 0.86 -Blood cultures drawn and pending results Radiology results show: -CT of the abdomen and pelvis no suggestion of active GI bleed, there scattered subtle foci of freeair in the abdomen and pelvis most significant in right upper quadrant raising the concern for bowel perforation Mild mucosal thickening of the small bowel with dilatation measuring up to 3.7 cm, maybe AE mild enteritis of infectious or inflammatory etiology with mild reactive ileus Mild diffuse mucosal thickening of mid to distal transverse colon, descending colon, and sigmoid colon, may be related to underdistention versus component of mild colitis of infectious or inflammatory etiology. Small amount of free fluid in the abdomen and pelvis. Mild mucosal thickening of the urinary bladder possibly underdistention versus cystitis Few focal of air noted within the urinary bladder may be related to recent instrumentation Mild patchy airspace opacities in the left lower lobe possible subsegmental atelectasis versus airspace disease Cholelithiasis Right ovarian cystic lesion with irregular hyper attenuating rim measuring 2.1 cm probable corpus luteum or hemorrhagic cyst Medications given in ED: Medications fentaNYL (SUBLIMAZE) preservative free injection 50 mcg (50 mcg intravenous Given 10/28/24 1336) ondansetron (ZOFRAN) injection 4 mg (4 mg intravenous Given 10/28/24 1336) Lactated Ringer's (LR) bolus 1,000 mL (0 mL intravenous Stopped 10/28/24 1500) piperacillin-tazobactam (ZOSYN) 4.5 g in sodium chloride 0.9% 100 mL IVPB (0 g intravenous Stopped 10/28/24 1531) ioversoL (OPTIRAY 350) syringe 100 mL (100 mL intravenous Contrast Given 10/28/24 1521) HYDROmorphone (DILAUDID) injection 0.5 mg (0.5 mg intravenous Given 10/28/24 1537) HYDROmorphone (DILAUDID) injection 0.5 mg (0.5 mg intravenous Given 10/28/24 1628) Data analysis -Independent historian yes -Patient seen and evaluated, available studies reviewed -Prior available records reviewed, triage/progress notes reviewed PMH Seasonal allergies, Seizures Dysmenorrhea secondary to endometriosis Recurrent syncope History of DVT during Pertinent surgical history Hysterectomy (Not in a hospital admission) Allergies Allergen Reactions No Known Allergies Other (See comments) Reaction: Social History Tobacco Use Smoking status: Former Current packs/day: 0.00 Types: Cigarettes Quit date: 11/22/2017 Years since quittin.9 Smokeless tobacco: Never Substance and Sexual Activity Drug use: None Sexual activity: None Alcohol Use: Not on file Family History Problem Relation Age of Onset Stroke Mother Family history of cerebrovascular accident - (Added by TW Conv)/Family history of stroke - (Added by TW Conv) Heart attack Mother Family history of heart attack - (Added by TW Conv) Hypertension Mother Family history of hypertension - (Added by TW Conv) Coronary artery disease Mother Heart failure Mother Diabetes Mother Sudden Cardiac Father Coronary artery disease Father Stroke Father Heart attack Father Heart failure Father Diabetes Father Hypertension Father Cancer Father Coronary artery disease Sister Stroke Sister Hypertension Brother Review of Systems: Review of Systems Constitutional: Negative. Negative for diaphoresis and fever. HENT: Negative. Negative for ear pain and facial swelling. Eyes: Negative. Negative for discharge and redness. Respiratory: Negative. Negative for chest tightness and shortness of breath. Cardiovascular: Negative. Negative for chest pain. Gastrointestinal: Positive for abdominal distention, abdominal pain, nausea and vomiting. Negative for constipation and diarrhea. Endocrine: Negative. Genitourinary: Positive for vaginal bleeding. Negative for flank pain and urgency. Musculoskeletal: Negative. Negative for arthralgias and neck pain. Skin: Negative. Allergic/Immunologic: Negative. Neurological: Positive for weakness. Negative for dizziness and seizures. Hematological: Negative. Psychiatric/Behavioral: Negative. Negative for agitation and behavioral problems. OBJECTIVE: Vitals: Arrival Vitals Temp 10/28/24 1310 36.8 ??C (98.3 ??F) Pulse 10/28/24 1310 86 Resp 10/28/24 1310 24 BP 10/28/24 1310 110/66 SpO2 10/28/24 1310 96 % Temp src 10/28/24 1310 Axillary Heart Rate Source 10/28/24 1330 Monitor Patient Position 10/28/24 1330 Lying BP Location -- FiO2 (%) -- Most Recent : Vitals: 10/28/24 1535 10/28/24 1600 10/28/24 1630 10/28/24 1645 BP: 105/66 104/66 105/66 103/66 Patient Position: Lying Lying Pulse: 85 82 81 80 Resp: Temp: TempSrc: SpO2: 96% 97% 97% 95% Weight: Height: No intake/output data recorded. No intake/output data recorded. Physical Exam: Physical Exam Vitals and nursing note reviewed. Constitutional: Appearance: She is well-developed. She is not ill-appearing. HENT: Head: Normocephalic and atraumatic. Right Ear: External ear normal. Left Ear: External ear normal. Nose: Nose normal. Mouth/Throat: Mouth: Mucous membranes are dry. Eyes: Extraocular Movements: Extraocular movements intact. Pupils: Pupils are equal, round, and reactive to light. Cardiovascular: Rate and Rhythm: Normal rate and regular rhythm. Heart sounds: No murmur heard. Pulmonary: Effort: Pulmonary effort is normal. Breath sounds: Normal breath sounds. Abdominal: General: Abdomen is protuberant. Bowel sounds are decreased. Palpations: Abdomen is soft. Tenderness: There is generalized abdominal tenderness and tenderness in the epigastric area. There is no guarding or rebound. Musculoskeletal: Cervical back: Normal range of motion. Skin: General: Skin is warm and dry. Capillary Refill: Capillary refill takes less than 2 seconds. Coloration: Skin is pale. Neurological: Mental Status: She is alert and oriented to person, place, and time. Psychiatric: Mood and Affect: Mood normal. Behavior: Behavior normal. Lab/Radiology/Diagnostic Review: Recent Results (from the past 24 hours) CBC with auto differential Collection Time: 10/28/24 1:04 PM Result Value Ref Range WBC 23.51 (H) 3.80 - 9.90 K/cumm Hgb 13.9 11.9 - 15.5 g/dL Hct 41.0 35.6 - 45.5 % Plt 263 150 - 400 K/cumm MPV 9.5 9.1 - 12.3 fL RBC 4.88 3.90 - 5.20 M/cumm MCV 84.0 81.3 - 96.4 fL MCH 28.5 27.1 - 33.3 pg MCHC 33.9 32.3 - 35.7 g/dL RDW CV 13.1 11.1 - 14.9 % RDW SD 40.1 35.7 - 48.1 fL NRBC abs 0.00 0.00 - 0.01 K/cumm Comprehensive metabolic panel Collection Time: 10/28/24 1:04 PM Result Value Ref Range Sodium 140 135 - 145 mmol/L Potassium, pl 4.0 3.3 - 4.9 mmol/L Chloride 106 97 - 110 mmol/L CO2 18 (L) 22 - 32 mmol/L Anion gap 16 (H) 2 - 15 mmol/L BUN 9 6 - 25 mg/dL Creatinine 0.50 (L) 0.60 - 1.10 mg/dL Glucose 107 70 - 199 mg/dL Calcium 8.5 8.5 - 10.3 mg/dL Bilirubin, total 0.6 0.1 - 1.2 mg/dL Protein, pl 6.9 6.5 - 8.5 g/dL Albumin 4.1 3.5 - 5.0 g/dL Alk phos 66 40 - 130 Units/L ALT 6 (L) 7 - 45 Units/L AST 17 10 - 45 Units/L Troponin T high-sensitivity series (baseline, 2hr, 4hr, 6hr) Collection Time: 10/28/24 1:04 PM Result Value Ref Range Trop T hs <6 <=14 ng/L Differential, auto Collection Time: 10/28/24 1:04 PM Result Value Ref Range Neutrophil abs 21.53 (H) 1.50 - 6.50 K/cumm Imm gran abs 0.17 (H) 0.00 - 0.10 K/cumm Lymphocyte abs 0.90 0.80 - 3.30 K/cumm Monocyte abs 0.86 (H) 0.20 - 0.80 K/cumm Eosinophil abs 0.01 0.00 - 0.50 K/cumm Basophil abs 0.04 0.00 - 0.10 K/cumm Neutrophil pct 91.6 % Imm gran pct 0.7 % Lymphocyte pct 3.8 % Monocyte pct 3.7 % Eosinophil pct 0.0 % Basophil pct 0.2 % Lipase Collection Time: 10/28/24 1:04 PM Result Value Ref Range Lipase 6 (L) 10 - 99 Units/L Blood smear review Collection Time: 10/28/24 1:04 PM Result Value Ref Range RBC morphology Consistent with RBC Indicies Platelet estimate Adequate eGFR Collection Time: 10/28/24 1:04 PM Result Value Ref Range eGFR >90 >=60 mL/min/1.73 m2 ABO/Rh Collection Time: 10/28/24 1:36 PM Result Value Ref Range ABO/Rh O Positive Antibody screen Collection Time: 10/28/24 1:36 PM Result Value Ref Range Mavis, indirect, Gel Interpretation Negative ABSC Sepsis Lactate w/ Reflex Collection Time: 10/28/24 2:02 PM Result Value Ref Range Sepsis Lactate 1.3 0.7 - 2.0 mmol/L Troponin T high-sensitivity 2-hour Collection Time: 10/28/24 3:32 PM Result Value Ref Range Trop T hs <6 <=14 ng/L Trop T hs interp Equivocal ABO / Rh Confirmation Testing Collection Time: 10/28/24 4:22 PM Result Value Ref Range ABO/Rh Confirmation O Positive CTA Abdomen Pelvis Result Date: 10/28/2024 Narrative: EXAM DESCRIPTION: CTA ABDOMEN PELVIS REASON FOR STUDY: Lower GI bleed Patient she had syncopal episode on the toilet due to the pain she got very sweaty and dizzy and blacked out falling off the toilet. She reports she is 5 weeks post-op hysterectomy. Reports she started with heavy vaginal bleeding yesterday and has continued today. TECHNIQUE: CTA scan of the abdomen and pelvis performed without and with intravenous and without oral contrast using helical scanning technique with dynamic intravenous contrast injection. Precontrast, arterial, and portal venous phase images of the abdomen and pelvis were acquired. Images reviewed with lung, soft tissue and bone windows. Reconstructed coronal and sagittal MPR images reviewed. All images stored on PACS. 3D MIP images rendered on scanning unit and reviewed at time of interpretation. Automated exposure control was used as a dose optimization technique for this examination. CONTRAST TYPE/DOSE: 100mL of IOVERSOL 350 MG IODINE/ML INTRAVENOUS SYRINGE injected via intravenous COMPARISON: 07/09/2024 FINDINGS: VASCULATURE: On the noncontrast sequence, there are no significant calcified atherosclerotic changes of the aorta. On the post-contrast sequence, there is no definite evidence of acute aortic injury or dissection. The abdominal aorta appears grossly unremarkable without definite evidence of hemodynamic significant stenosis,occlusion, aneurysmal dilatation. There is no definite evidence of intraluminal extravasation of contrast within the large and small bowel to suggest active GI bleed. CELIAC TRUNK: The celiac artery appears grossly unremarkable without definite evidence of hemodynamically significant stenosis, occlusion, or aneurysmal dilatation. SUPERIOR MESENTERIC ARTERY: The superior mesenteric artery appears grossly unremarkable without definite of hemodynamically significant stenosis, occlusion, or aneurysmal dilatation. RIGHT RENAL ARTERY: There is a single right renal artery noted without evidence of he modynamically significant stenosis, occlusion, aneurysmal dilatation. LEFT RENAL ARTERY: There are 2 left renal arteries noted without evidence of hemodynamic significant stenosis, occlusion, aneurysmal dilatation. INFERIOR MESENTERIC ARTERY: The inferior mesenteric artery appears grossly unremarkable without definite evidence of occlusion or aneurysmal dilatation. ILIAC ARTERIES: The bilateral common iliac, internal iliac, external iliac, and common femoral arteries appear grossly unremarkablewithout evidence of hemodynamic significant stenosis, occlusion, aneurysmal dilatation. LOWER CHEST: The heart size is normal. There is no definite evidence of pericardial effusion. There are mild patchy airspace opacities in the left lower lobe, which may be related to subsegmental atelectasis versus airspace disease. LIVER: The liver is grossly normal in size and contour. There is focal fatty infiltration of the liver along the falciform ligament. There are few scattered too small to characterize hypoattenuating lesions in the liver, which do not require follow-up imaging. The hepatic and portal veins are grossly patent. GALLBLADDER: There is cholelithiasis. BILE DUCTS: No intrahepatic orextrahepatic ductal dilatation. SPLEEN: The spleen is grossly normal in size and unremarkable. PANCREAS: The pancreas appears grossly unremarkable without definite evidence of pancreatic ductal dilatation, peripancreatic inflammatory changes, or peripancreatic fluid collection. ADRENALS: The bilateral adrenal glands are grossly symmetrical and unremarkable. KIDNEYS/URINARY TRACT: On the noncontrast sequence, there is no definite evidence of nephrolithiasis. The bilateral kidneys enhance symmetri lina. There is a 2.6 cm cyst in the interpolar region of the right kidney, which does not require follow-up imaging. There is no definite evidence of hydronephrosis or hydroureter. There is mild mucosal thickening of the urinary bladder. There are few foci of air noted within the urinary bladder, which may be related to recent instrumentation. GI: There are scattered subtle foci of free air in the abdomen and pelvis, which is most significant in the right upper quadrant of the abdomen, and findings raise the concern for bowel perforation. There is mild mucosal thickening of the small bowel with mild dilatation measuring up to 3.7 cm, which may be related to mild enteritis of infectious or inflammatory etiology with mild reactive ileus. The appendix is surgically absent. There is mild diffuse mucosal thickening of the mid to distal transverse colon, descending colon, and sigmoid colon. There is a small amount of free fluid in the abdomen and pelvis. There is no definite evidence of lym phadenopathy in the abdomen and pelvis. REPRODUCTIVE: The uterus is surgically absent. There is a cystic lesion in the right ovary with an irregular hyperattenuating rim measuring 2.1 cm, which likely represents a corpus luteum or hemorrhagic cyst. MUSCULOSKELETAL: There is a minimal to mild S shaped scoliotic curvature of the spine with minimal to mild degenerative changes. OTHER: No other abnormality. IMPRESSION: 1. No definite evidence of intraluminal extravasation of contrast within the large and small bowel to suggest active GI bleed. 2. Scattered subtle foci of free air in the abdomen and pelvis, which is most significant in the right upper quadrant of the abdomen, and findings raise the concern for bowel perforation. Surgical consultation and management is recommended as clinicallyindicated. 3. Mild mucosal thickening of the small bowel with mild dilatation measuring up to 3.7 cm, which may be related to mild enteritis of infectious or inflammatory etiology with mild reactive ileus. Continued follow-up is recommended as clinically indicated. 4. Mild diffuse mucosal thickening of the mid to distal transverse colon, descending colon, and sigmoid colon, which may be related to underdistention versus a component of mild colitis of infectious or inflammatory etiology. 5. Small amount of free fluid in the abdomen and pelvis. 6. Mild mucosal thickening of the urinary bladder, which may be related to underdistention versus cystitis. Clinical correlation with urinary analysis is recommended as clinically indicated. 7. Few foci of air noted within the urinary bladder, whichmay be related to recent instrumentation. Correlation with recent procedural history is recommendedas clinically indicated. 8. Mild patchy airspace opacities in the left lower lobe, which may be related to subsegmental atelectasis versus airspace disease. 9. Cholelithiasis. 10. Right ovarian cystic lesion with an irregular hyperattenuating rim measuring 2.1 cm, which likely represents a corpus luteum or hemorrhagic cyst. Findings were discussed with Dr. Wesley by Dr. Dominguez at 15:48 hours on 10/28/2024 . THIS IS AN ELECTRONICALLY VERIFIED FINAL REPORT 10/28/2024 3:48 PM - Electronically signed byBrijesh Dominguez D.O. PS: PS Report ID: [id number] Reading Location: [place] [id number] ASSESSMENT/PLAN: Principal Problem: Pneumoperitoneum Resolved Problems: No resolved hospital problems. Admit to inpatient - surgical Pneumoperitoneum Status post hysterectomy Dysmenorrhea secondary to endometriosis Patient presents to ED with abdominal pain and distention, nausea and vomiting, and leukocytosis. She states he has had a recent hysterectomy approximately [address] imaging confirms presence of free air although there is no identified source of bowel perforation. There is leukocytosis present on the CBC -IV fluids for hydration -Antiemetics -Pain management -General surgical consult -IV antibiotic therapy -Monitor for increasing leukocytosis, sepsis, and fever curve History of Recurrent syncope -Patient had Holter monitor study -Follow up with Cardiology -Currently sinus rhythm on monitor without arrhythmia or ischemic ST or T-wave changes -May give IV fluid bolus for hypotension and feelings of syncope -Safety precautions; up with assist , bed alarm, chair alarm. Seizures -Seizure precautions -Continue Keppra, maybe change to IV if patient remains NPO History of DVT during -No heparin or Lovenox at this time due to impending surgery -Use SCDs -Encourage ambulation Seasonal allergies -Continue Wixela or formulary equivalent -Continue cetirizine These fluid and electrolyte abnormalities are being treated, evaluated or monitored: No Order Explanation of disposition: Results and plan explained to the patient with understanding and agreement. All questions answered ESTIMATED LENGTH OF STAY: Greater than 2 midnight DVT prophylaxis: SCDs, encourage early ambulation Diet: NPO for now Consults: General surgery Advance Care Planning Advance Care Planning Conversation Pertinent diagnoses: Pneumoperitoneum The patient and/or family consented to a voluntary Advance Care Planning conversation. Individuals present for the conversation: patient Summary of the conversation: In the event the patient's heart or lungs were to stop working they would like everything done including but not limited to chest compressions, intubation, defibrillation Outcome of the conversation and documents completed (select all that apply): CHANGE code status to FULL CODE I spent for minutes providing separately identifiable ACP services with the patient and/or surrogate decision maker in a voluntary, in-person conversation discussing the patient's wishes and goals asdetailed in the above note. My total encounter time on 10/28/2024 was 56 minutes which was spent in the activities documented inthe note. This includes time spent prior to the visit and after the visit in direct care of the patient. This time does not include time spent in any separately reportable services. Complexity: Moderate Voice recognition software [employer] Fluency Direct may have been used to dictate and transcribe this document. [employer] Developer variances may occur. Despite proofreading, typographical errors may occur. Latha Rojas AGACNPMARITA 10/28/2024 5:16 PM For patients or family members viewing this note through [employer]: This note was written as a communication tool between healthcare providers and may contain technical language, terminology and abbreviations that is difficult to interpret without advanced medical training. If you have questions or concerns regarding what is written in this note, please request to speak with the healthcare provider taking care of you or your family member. Cosigned by Jona Palumbo MD at 10/28/2024 6:31 PM CDT documented in this encounter Consult Notes * Victor Hugo Sousa MD - 10/28/2024 5:19 PM CDTAssociated Order(s): IP CONSULT TO GENERAL SURGERY Images from the original note were not included. General Surgery Consultation Note-[facility] Aurelia Torrez 39 y.o. female Date of Service: 10/28/2024 CHIEF COMPLAINT: Abdominal pain with vaginal bleeding HPI: The patient is a pleasant 5 ft 4 in 68 kg 39-year-old female who is 5 weeks out from a robotichysterectomy who was doing well postoperatively and had returned to work shortly after surgery. Thepatient had an episode yesterday where she was feeling abdominal fullness and pressure and thought she may need to have a bowel movement. Patient noticed some bloody discharge from her vagina and while she was on the toilet had a syncopal episode and continued to have bloody discharge. The patient presented to the emergency room and was evaluated. Surgery has been consulted because part of her workup was a CT scan which demonstrated some small scattered droplets of free air. The free air prompted the call to general surgery. I reviewed the digital images of the CT scan and discussed the case in detail with the ER physician. Patient states that she also went to the bathroom here and had someadditional vaginal bleeding. When I questioned her about her postop course in detail she stated that she had a fullness on the right side in the same area and was reassured postoperatively and that it did improve but never quite went away and was hurting again yesterday after she had been spending some time rearranging some furniture to do some cleaning in her apartment. Patient has an associatedleukocytosis. Patient states that she had an episode of chills and sweating yesterday when she had the syncopal episode on the toilet. PMH: No past medical history on file. PSH: History reviewed. No pertinent surgical history. ALL: Allergies Allergen Reactions No Known Allergies Other (See comments) Reaction: MEDS: Current: Prior to Admission medications Medication Sig Start Date End Date Taking? Authorizing Provider levETIRAcetam (KEPPRA) 500 mg tablet Take 1 tablet (500 mg total) by mouth 2 (two) times a day 09/01/12 ProviderSebastien MD Social History Tobacco Use Smoking status: Former Current packs/day: 0.00 Types: Cigarettes Quit date: 11/22/2017 Years since quittin.9 Smokeless tobacco: Never Substance and Sexual Activity Drug use: None Sexual activity: None Alcohol Use: Not on file Family History Problem Relation Age of Onset Stroke Mother Family history of cerebrovascular accident - (Added by TW Conv)/Family history of stroke - (Added by TW Conv) Heart attack Mother Family history of heart attack - (Added by TW Conv) Hypertension Mother Family history of hypertension - (Added by TW Conv) Coronary artery disease Mother Heart failure Mother Diabetes Mother Sudden Cardiac Father Coronary artery disease Father Stroke Father Heart attack Father Heart failure Father Diabetes Father Hypertension Father Cancer Father Coronary artery disease Sister Stroke Sister Hypertension Brother REVIEW OF SYSTEMS: 12 system review is negative aside from that mentioned in the HPI and PMH/PSH. PHYSICAL EXAM: Patient Vitals for the past 24 hrs: BP Temp Temp src Pulse Resp SpO2 Height Weight 10/28/24 1700 99/65 -- -- 86 26 96 % -- -- 10/28/24 1645 103/66 -- -- 80 27 95 % -- -- 10/28/24 1630 105/66 -- -- 81 21 97 % -- -- 10/28/24 1600 104/66 -- -- 82 25 97 % -- -- 10/28/24 1535 105/66 -- -- 85 26 96 % -- -- 10/28/24 1500 105/69 -- -- 84 25 97 % -- -- 10/28/24 1430 113/67 -- -- 77 (!) 33 97 % -- -- 10/28/24 1400 111/75 -- -- 81 29 97 % -- -- 10/28/24 1330 99/70 -- -- 88 30 96 % -- -- 10/28/24 1310 110/66 36.8 ??C (98.3 ??F) Axillary 86 24 96 % 162.6 cm (5' 4) 68 kg (150 lb) SKIN: No obvious lesions, masses or rash HEENT: NC/AT, PERRLA, EOMI, Neck Supple CHEST: CTA HEART: RRR ABDOMEN: Right-sided tenderness to palpation in the infraumbilical position around the area where the fluid is noted on her CT scan EXT: WNL, No clubbing, cyanosis or edema NEURO: No Focal Deficit, CN II-XII intact LYMPHATICS: No palpable lymphadenopathy BREAST: Deferred RECTAL: Deferred LABS: I reviewed the recent laboratories and pertinent values were noted. Recent Labs Lab Units 10/28/24 1304 WBC K/cumm 23.51* RBC M/cumm 4.88 HEMOGLOBIN g/dL 13.9 HEMATOCRIT % 41.0 CO2 mmol/L 18* AST Units/L 17 ALT Units/L 6* LIPASE Units/L 6* IMAGING: I reviewed the digital images of the patient's imaging studies. Results for orders placed during the hospital encounter of 07/09/24 US Transvaginal and Doppler Limited (C) Narrative EXAM DESCRIPTION: US TRANSVAGINAL AND DOPPLER LIMITED [...] There is no significant free pelvic fluid. Impression No evidence of ovarian torsion. Uterine fibroid. Simple appearing right ovarian cyst. In a reproductive age female, no further follow-up should be necessary. THIS IS AN ELECTRONICALLY VERIFIED FINAL REPORT 07/09/2024 11:37 AM - Electronically signed by Rober Rogers M.D. JR T: Report ID: [id number] Reading Location: [id number] IMPRESSION: Abdominal pain, vaginal bleeding 5 weeks after robotic hysterectomy with some scattered droplets offree air and an associated leukocytosis with free fluid in the right lower quadrant of undeterminedetiology PLAN: 1. IV antibiotics 2. Bowel rest 3. Serial laboratory, clinical and radiographic studies as indicated 4. I had a detailed discussion with the patient and her family at the bedside regarding the implications of her CT scan findings and the droplets of air and vaginal discharge and how they are likely related. 4. Patient realizes that if she does not get better or worsens acutely surgery will be indicated and recommended. 5. Recommend gynecology consult to potentially evaluate the vaginal cuff as the source of the bleeding and pneumoperitoneum Victor Hugo Sousa MD 10/28/2024 documented in this encounter ED Notes * Esa Wesley, - 10/28/2024 1:23 PM CDTAssociated Order(s): Critical Care HPI Chief Complaint Patient presents with ??? Abdominal Pain HPI 1:23 PM Aurelia Torrez is a 39 y.o. female presenting to the ED c/o abdominal pain and syncope. Patient states she had hysterectomy 5 weeks ago for endometriosis. Patient states she had gone back towork and everything was doing okay until last night she developed pain on the right side of her abdomen. States she felt like it was swollen in that area. Later she became diaphoretic and felt like she needed to have a bowel movement. States she noted vaginal bleeding in her underwear. Went to use the bathroom and had syncopal event on the toilet. States her vision went black. She denies knowledge of hitting her head, but states she continued to feel like she was going to pass out and stayed inthe bathroom for 12 hours until she could get help. She notes having a lot of vaginal bleeding in the toilet. Still having severe pain to right side of her abdomen which she states caused vomiting. She denies any fevers since her surgery or blood in her stool. Patient History: No past medical history on file. History reviewed. No pertinent surgical history. Family History Problem Relation Age of Onset ??? Stroke Mother Family history of cerebrovascular accident - (Added by TW Conv)/Family history of stroke - (Added by TW Conv) ??? Heart attack Mother Family history of heart attack - (Added by TW Conv) ??? Hypertension Mother Family history of hypertension - (Added by TW Conv) ??? Coronary artery disease Mother ??? Heart failure Mother ??? Diabetes Mother ??? Sudden Cardiac Father ??? Coronary artery disease Father ??? Stroke Father ??? Heart attack Father ??? Heart failure Father ??? Diabetes Father ??? Hypertension Father ??? Cancer Father ??? Coronary artery disease Sister ??? Stroke Sister ??? Hypertension Brother Social History Tobacco Use ??? Smoking status: Former Current packs/day: 0.00 Types: Cigarettes Quit date: 11/22/2017 Years since quittin.9 ??? Smokeless tobacco: Never Substance and Sexual Activity ??? Drug use: None ??? Sexual activity: None Alcohol Use: Not on file No current facility-administered medications for this encounter. Current Outpatient Medications: ??? levETIRAcetam (KEPPRA) 500 mg tablet Review of Systems Review of Systems All other systems reviewed and are negative. Physical Exam ED Triage Vitals Temp Pulse Resp BP SpO2 10/28/24 1310 10/28/24 1310 10/28/24 1310 10/28/24 1310 10/28/24 1310 36.8 ??C (98.3 ??F) 86 24 110/66 96 % Temp src Heart Rate Source Patient Position BP Location FiO2 (%) 10/28/24 1310 10/28/24 1330 10/28/24 1330 -- -- Axillary Monitor Lying Height Height Method Weight Weight Method 10/28/24 1310 10/28/24 1310 10/28/24 1310 10/28/24 1310 1.626 m (5' 4) Stated 68 kg (150 lb) Stated Physical Exam Vitals and nursing note reviewed. Exam conducted with a geospatial extractor analysis present (RN). Constitutional: Appearance: Normal appearance. She is well-developed. She is ill-appearing (mildly). She is not toxic-appearing. HENT: Head: Normocephalic and atraumatic. Nose: Nose normal. Mouth/Throat: Mouth: Mucous membranes are moist. Eyes: Pupils: Pupils are equal, round, and reactive to light. Cardiovascular: Rate and Rhythm: Normal rate and regular rhythm. Heart sounds: Normal heart sounds. Pulmonary: Effort: Pulmonary effort is normal. Breath sounds: Normal breath sounds. Abdominal: Palpations: Abdomen is soft. Tenderness: There is abdominal tenderness (Resists my examination by holding my wrist, tenderness not localized and no obvious guarding or rebound). Genitourinary: Comments: No external signs of bleeding Musculoskeletal: General: No swelling. Cervical back: Neck supple. Skin: General: Skin is warm and dry. Neurological: Mental Status: She is alert. Mental status is at baseline. Psychiatric: Mood and Affect: Mood normal. Behavior: Behavior normal. Critical Care Performed by: Esa Wesley DO Authorized by: Esa Wesley DO Critical care provider statement: As reflected in the history, physical exam, orders, notes, and/or MDM, I was personally present while the patient was critically ill and provided critical care services for 35 minutes, excluding timeinvolved in separately billable procedures. Critical care was necessary to treat or prevent imminent or life- threatening deterioration of the following condition(s): Critical care was time spent by me providing the following: continuous telemetry, continuous pulse oximetry, interpretation of bedside monitors, imaging, and arterial/venous lab draws, serial bedside patient exams and resuscitation with fluids Pneumoperitoneum. Discussion with surgeon. obtain appropriate cultures and empiric broad coverage antibiotics I provided emergent necessary critical care medicine services to this patient. I ordered and reviewed test results and/or imaging studies. I spent time discussing the management of this critically ill patient with consultants and the medical staff. I spent time discussing the management and therapeutic options for this critically ill patient with the patient themselves or with the appropriate designated surrogate decision-maker. I spent time documenting in the medical record. I admitted this patient to a continuous cardiac monitored bed. MDM Labs Reviewed CBC WITH AUTO DIFFERENTIAL - Abnormal Result Value WBC 23.51 (*) Hgb 13.9 Hct 41.0 Plt 263 MPV 9.5 RBC 4.88 MCV 84.0 MCH 28.5 MCHC 33.9 RDW CV 13.1 RDW SD 40.1 NRBC abs 0.00 COMPREHENSIVE METABOLIC PANEL - Abnormal Sodium 140 Potassium, pl 4.0 Chloride 106 CO2 18 (*) Anion gap 16 (*) BUN 9 Creatinine 0.50 (*) Glucose 107 Calcium 8.5 Bilirubin, total 0.6 Protein, pl 6.9 Albumin 4.1 Alk phos 66 ALT 6 (*) AST 17 DIFFERENTIAL AUTO - Abnormal Neutrophil abs 21.53 (*) Imm gran abs 0.17 (*) Lymphocyte abs 0.90 Monocyte abs 0.86 (*) Eosinophil abs 0.01 Basophil abs 0.04 Neutrophil pct 91.6 Imm gran pct 0.7 Lymphocyte pct 3.8 Monocyte pct 3.7 Eosinophil pct 0.0 Basophil pct 0.2 LIPASE - Abnormal Lipase 6 (*) URINALYSIS AND REFLEX TO MICROSCOPIC AND CULTURE BLOOD CULTURE BLOOD CULTURE TROPONIN T HIGH-SENSITIVITY SERIES (BASELINE, 2HR, 4HR, 6HR) Trop T hs <6 LIPASE TYPE AND SCREEN TROPONIN T HIGH-SENSITIVITY 2-HOUR Trop T hs <6 Trop T hs interp Equivocal ABO/RH ABO/Rh O Positive Narrative: Has the patient had Daratumumab or Isatuximab in the past 6 months?->Unknown ANTIBODY SCREEN Mavis, indirect, Gel Interpretation Negative ABSC Narrative: Has the patient had Daratumumab or Isatuximab in the past 6 months?->Unknown SEPSIS LACTATE WITH REFLEX Sepsis Lactate 1.3 BLOOD SMEAR REVIEW RBC morphology Consistent with RBC Indicies Platelet estimate Adequate B ABO / RH CONFIRMATION TESTING ABO/Rh Confirmation O Positive EGFR eGFR >90 TROPONIN T HIGH-SENSITIVITY 4-HR TROPONIN T HIGH-SENSITIVITY 6-HOUR LIPASE CTA Abdomen Pelvis Final Result BP 99/65 (Patient Position: Lying) Pulse 86 Temp 36.8 ??C (98.3 ??F) (Axillary) Resp 26 Ht 162.6 cm (5' 4) Wt 68 kg (150 lb) SpO2 96% BMI 25.75 kg/m?? MDM Amount and/or Complexity of Data Reviewed Clinical lab tests: reviewed Tests in the radiology section of CPT??: reviewed ED Course as of 10/28/24 1727 Time: 10/28 1342 Value: WBC(!): 23.51 Comment: (Reviewed) By: Esa Wesley DO Time: 10/28 1342 Value: Hgb: 13.9 Comment: (Reviewed) By: Esa Wesley DO Time: 10/28 1549 Comment: No external signs of bleeding noted on my exam with normal hemoglobin, but elevated white count. Septic workup was initiated. Patient was given prophylactic dose of Zosyn. I received verbal report from radiologist that CT scan shows multiple small foci of free air, more than expected 5 weeks postsurgical concerning for perforation. By: Esa Wesley DO Time: 10/28 1553 Value: CTA Abdomen Pelvis Comment: 1. No definite evidence of intraluminal extravasation of contrast within the large and small bowel to suggest active GI bleed. 2. Scattered subtle foci of free air in the abdomen and pelvis, which is most significant in the right upper quadrant of the abdomen, and findings raise the concern for bowel perforation. Surgical consultation and management is recommended as clinically indicated. 3. Mild mucosal thickening of the small bowel with mild dilatation measuring up to 3.7 cm, which may be related to mild enteritis of infectious or inflammatory etiology with mild reactive ileus. Continued follow-up is recommended as clinically indicated. 4. Mild diffuse mucosal thickening of the mid to distal transverse colon, descending colon, and sigmoid colon, which may be related to underdistention versus a component of mild colitis of infectious or inflammatory etiology. 5. Small amount of free fluid in the abdomen and pelvis. 6. Mild mucosal thickening of the urinary bladder, which may be related to underdistention versus cystitis. Clinical correlation with urinary analysis is recommended as clinically indicated. 7. Few foci of air noted within the urinary bladder, which may be related to recent instrumentation. Correlation with recent procedural history is recommended as clinically indicated. 8. Mild patchy airspace opacities in the left lower lobe, which may be related to subsegmental atelectasis versus airspace disease. 9. Cholelithiasis. 10. Right ovarian cystic lesion with an irregular hyperattenuating rim measuring 2.1 cm, which likely represents a corpus luteum or hemorrhagic cyst. By: Esa Wesley, Time: 10/28 1617 Comment: I discussed with Dr. Sousa who will come to evaluate patient. Patient denies any sexual intercourse since surgery. By: Esa Wesley DO Time: 10/28 1618 Comment: Patient asked again about vaginal bleeding. Noted she went to the bathroom because she felt like she need to have a bowel movement, unsure source of bleeding prior to arrival. By: Esa Wesley DO Time: 10/28 1626 Comment: Admission discussed with Dr. Palumbo. By: Esa Wesley DO Time: 10/28 1726 Comment: Dr. Sousa recommended medical management at this time. Pile Header consult discussed with Dr. Rodarte. By: Esa Wesley DO This examination was transcribed using the Flowity voice recognition system without human fundraising coordinator. In an effort to expedite patient care, this report has not been adjusted for typographical, grammatical, and syntax by a trained medical technologist blood bank. Clinical Impression: Pneumoperitoneum Esa Wesley, 10/28/24 1628 Esa Wesley DO 10/28/24 1727 * Valencia Vega RN - 10/28/2024 1:06 PM CDT 39yr, F presents to the ED via EMS from home with c/o right sided abdominal that started last night. Patient she had syncopal episode on the toilet due to the pain she got very sweaty and dizzy and blacked out falling off the toilet. She reports she is 5 weeks post-op hysterectomy. Reports she started with heavy vaginal bleeding yesterday and has continued today. documented in this encounter Miscellaneous Notes * Plan of Care - Kiki Abdullahi RN - 10/30/2024 3:59 PM CDT Goals: Clinical Goals for the Shift: labs, vitals, telemetry, pain control, abx, IV fluids, safety comfort, Surgery and Gyne following Summary: . Neuro: AO x 4, IV patent and saline locked, Zosyn given during shift, IV fluids DC during shift Cardiac: Sinus Jaun on tele, denies any chest palpitations or dizziness Skin: clean, dry, and intact-healed surgical wounds to abdomen Resp: RM Air, denies any SOB or resp distress GI/: complaints of nausea-treated with Reglan and Zofran, complaints of diarrhea-treated with Immodium Activity: Independent Procedures: CT abdomen/pelvis performed today Right sided abdominal pain being treated with Ibuprofen, Tylenol Problem: Lack of Knowledge Goal: Ability to develop a pain control plan will improve Outcome: Progressing Flowsheets (Taken 10/30/2024 155) Ability to develop a pain control plan will improve: Teach information regarding pain management Teach notification to healthcare provider of episodes of pain Explain causes of pain and how long pain can be expected to last Educate pain scale for assessing level of pain Problem: Medication Goal: Satisfaction with pain management medication regimen will improve Outcome: Progressing Flowsheets (Taken 10/30/2024 155) Satisfaction with pain management medication regimen will improve: Evaluate medication effects Manage analgesics Monitor patient controlled analgesia or anesthesia Assess satisfaction with pain management regimen Provide administration of medications prior to painful activities Report inadequate pain control to healthcare provider Problem: Health Behavior Goal: Identification of resources available to assist in meeting health care needs will improve Outcome: Progressing Flowsheets (Taken 10/30/2024 155) Identification of resources available to assist in meeting health care needs will improve: Collaborate with all therapies Collaborate with pain management Problem: Musculoskeletal Goal: Return mobility to safest level of function Outcome: Progressing Flowsheets (Taken 10/30/2024 155) Return mobility to safest level of function: Assess patient stability and activity tolerance for standing, transferring and ambulating with or without assistive devices Assist with transfers and ambulation using safe patient handling equipment as needed Ensure adequate protection for wounds/incisions during mobilization Problem: Infection Goal: Absence of infection during hospitalization Outcome: Progressing Flowsheets (Taken 10/30/2024 155) Absence of infection during hospitalization: Monitor lab/diagnostic results Assess and monitor for signs and symptoms of infection [place] appropriate cooling/warming therapies per order Administer medications as ordered Instruct and encourage patient and family to use good hand hygiene technique Identify and instruct in appropriate isolation precautions for identified infection/condition Apply infection specific precautions per policy * Provider Query - Kelvin Portillo MD - 10/30/2024 1:28 PM CDT Please specify a diagnosis that reflects the patient's lab findings and document in the medical record and on the form below. __x_ Metabolic acidosis __x_Acute ___Unspecified ___ Acidosis, unspecified type ___ Abnormal laboratory findings, inconclusive diagnosis ___ Clinically insignificant abnormal laboratory findings ___ Other explanation of clinical findings, specify below Additional Provider Response: Clinical Indicators/Treatments: 39 yr old female presents with acute onset diffuse abdominal pain and bleeding from the vaginal canal, diaphoresis, and syncope.S/P TLH 6 weeks ago. Admitted with vaginal cuff dehiscence and peritonitis. On presentation to the ED 10/28 C02 was 18 followed by 20 and 21 the following days IVF bolus of LR given 10/28 with maintenance fluids , Underlying condition treated Latest Reference Range & Units 10/28/24 13:04 10/29/24 01:56 10/30/24 05:34 CO2 22 - 32 mmol/L 18 (L) 20 (L) 21 (L) (L): Data is abnormally low References: Acidosis Screening Criteria Acidemia is a low arterial pH (<7.35) which can result from a metabolic acidosis, respiratory acidosis, or both. Acidosis is the umbrella term for any process that lowers the pH (either by fall in bicarbonate or elevation in PCO2). It can be further characterized by metabolic/respiratory and then even further delineated by gap or non-gap (if metabolic) There can be multiple acid/base disorders in one patient, therefore the HCO3, the CO2, and the pH alone cannot always be used to diagnose a metabolic disorder. The whole clinical picture is necessaryto make the diagnosis. Metabolic Acidosis Metabolic Acidosis serum HCO3?< 22 mEq/L (< 22 mmol/L) or serum CO2 <22 Acidosis can be diagnosed with a low serum CO2. Serum CO2 may be measured in lieu of serum bicarbonate as serum bicarbonate comprises ?95% of CO2 measurement pH may be high, low, or normal Anion gap can be normal, normal high, or high Causes: Elevated gap: Renal failure, DKA, lactic acidosis, toxic alcohol ingestion Normal gap: GI loss, RTA, interstitial renal disease, ureterosigmoid loop, acetazolamide Lactic Acidosis is a type of metabolic acidosis While no definitive concentration of lactate has been established for the diagnosis of lactic acidosis, lactate concentrations > 4 mmol/L are generally considered indicative of significant lactic acidosis. Less extreme lactate and pH changes are referred to as hyperlacticemia (>2 mmol/L). Lactic acid > 4 mmol/L supports the diagnosis of lactic acidosis, even in the setting of normal CO2 and HCO3 values. (Neither anion gap or pH is a reliable criteria for lactic acidosis.) Lactic acidosis is not integral to sepsis and may be documented and coded as an additional diagnosis, when appropriate Respiratory Acidosis Respiratory Acidosis (Acute) Pco2> 45 mm Hg caused by hypoventilation with or without compensatory increase in bicarbonate (HCO3?) pH is usually low but may be near normal Causes: COPD, interstitial lung disease, obstructive sleep apnea Obstruction of larynx or trachea Abnormalities of chest muscles: polio, myasthenia, Guillain-[place] [employer] depression due to drugs, anesthesia, obesity hypoventilation If provider believes patient has acidosis in the absence of above laboratory values, please document rationale and clinical impression in detail Acidosis References Bing CD, Nurys RE. Lactic Acidosis. [Updated 2018Jan 22]. In: Scurri [Internet]. [facility]): [employer]; 2019-. Available from: https://www.ncbi.nlm.nih.gov/books/YTP774483/ https://www.[employer]/contents/xaemvg-ja-bngmlc-acidosis https://www.[employer]/professional/xcktzkdrw-qbm-pmluwpeon-disorders/acid -ujgm-zlypffplxz-zom-disorders/metabolic-acidosis https://www.[employer]/professional/itvdrzcso-xrj-iovnevylx-disorders/acid -xyqy-oxuzxtdwzs-bwb-disorders/respiratory-acidosis https://www.[employer]/professional/imbqfoapn-nws-ifmvqavzv-disorders/acid -hfbi-icquetsfct-tls-disorders/lactic-acidosis Guide to Clinical Validation, Documentation and Coding, 2019 Edition, [employer] As of November 28, 2021, IPPS Final Rule updates, if acute respiratory acidosis is documented, the code for acute respiratory failure with hypercapnia will be reported. If chronic respiratory acidosis is documented, the code for chronic respiratory failure with hypercapnia. The diagnosis of acute respiratory acidosis is valid when it meets the criteria listed in this guideline and when appropriately documented by the provider. From the ICD-10-CM Coding Guidelines, use of terms such as likely, suspected, possible, or probable(associated with a specific diagnosis that is being evaluated, monitored, or treated as if it exists) are acceptable and can be coded in the inpatient setting when documented at the time of discharge. This documentation will become part of the patient's medical record. Sincerely, Magdalene Ruiz RN, CCDS * Initial Assessments - Fawn Calero RN - 10/30/2024 9:45 AM CDT CM Initial Assessment Interview Note Information Obtained From: Patient (10/30/24944) Admission Source: ED from home Impression: Met with patient at the bedside. She is lying in bed on her phone. She is pleasant but apprehensive with discussion. Patient states she is living at home with her two children but they are currently staying with their father. She denies any family or friends in the area for support. Patient plans to use an Uber for transportation to get home. She declined any assistance for support. Plan Includes: Presented with abdominal pain and vaginal bleeding . Admitted for pneumoperitoneum. Hx of recent hysterectomy 5 weeks ago. Underwent closure of vaginal cuff on 10/[address] Rodarte. Gynecology and General Surgery are following. Will continue IV Abx for the next 24hrs with potential discharge then. CM anticipating no needs. Will assist with transportation if required. Will continue to follow for discharge planning and progression of care. Primary Source of Transportation: Does the patient need discharge transport arranged?: No (10/30/24944) Health Insurance Coverage: Primary Coverage Payor Plan Insurance Group Employer/Plan Group [employer] Payor Plan Address Payor Plan Phone Number Payor Plan Fax Number Effective Dates [address] 09/28/2024 - None Entered [facility] [id number] Subscriber Name Subscriber Date Member ID AURELIA TORREZ 1985 [id number] Pharmacy: [id number] - [place], [place] - [address] [facility] [id number] Primary Care Provider: Unknown, Notinfile Prior to Admission: Functional Status: Independent with ADLs Primary Caregiver: Self Support System: Friends/neighbors When was the last time you have seen your PCP?: Within last 6 months Home Care Services: No Outpatient Services: No Durable Medical Equipment: None Living Arrangements: Children Type of Residence: Private residence Medication management: Independent (10/30/24944) SDOH: Transportation: In the past 12 months, has lack of transportation kept you from medical appointments or from getting medications?: No In the past 12 months, has lack of transportation kept you from meetings, work, or from getting things needed for daily living?: No (10/30/24 1257) Financial Resource: How hard is it for you to pay for the very basics like food, housing, medical care, and heating?: Not hard at all (10/30/24 1257) Housing: In the last 12 months, was there a time when you were not able to pay the mortgage or rent on time?: No In the past 12 months, how many times have you moved where you were living?: 0 At any time in the past 12 months, were you homeless or living in a residential (including now)?: No (10/30/241257) Utilities: No, (10/30/241256) Social Connections: In a typical week, how many times do you talk on the phone with family, friends, or neighbors?: More than three times a week How often do you get together with friends or relatives?: More than three times a week How often do you attend scientology or tenriism services?: Never Do you belong to any clubs or organizations such as scientology groups, unions, fraternal or athletic groups, or school groups?: No How often do you attend meetings of the clubs or organizations you belong to?: Never Are you , , , , never , or living with a partner?: Never (10/30/241257) Food Insecurity: Within the past 12 months, you worried that your food would run out before you got the money to buymore.: Never true Within the past 12 months, the food you bought just didn't last and you didn't have money to get more.: Never true (10/30/241257) Anticipated Level of Care: Anticipated discharge level of care: Private residence Pt/Family agrees with Anticipated Level of Care: Yes (10/30/24944) Patient expects to be Discharged to: Private residence, (10/30/24944) Patient's Identified Problem/Goal Problem: Ensure acute medical needs are met and that patient has a safe discharge plan. Goal: Secure a discharge plan that patient/family are agreeable with and ensure patient has continuum of care. Case management will follow for discharge planning and send referrals as needed. Fawn Calero RN * Plan of Care - Vandana Abdullahi RN - 10/30/2024 2:56 AM CDT Goals: Clinical Goals for the Shift: labs, vitals, telemetry, pain control, abx, IV fluids, safety comfort, Surgery and Gyne following Summary: Problem: Lack of Knowledge Goal: Ability to develop a pain control plan will improve Outcome: Progressing Flowsheets (Taken 10/30/2024254) Ability to develop a pain control plan will improve: Explain causes of pain and how long pain can be expected to last Teach information regarding pain management Problem: Medication Goal: Satisfaction with pain management medication regimen will improve Outcome: Progressing Flowsheets (Taken 10/30/2024254) Satisfaction with pain management medication regimen will improve: Assess satisfaction with pain management regimen Evaluate medication effects Problem: Sensory Goal: Ability to identify factors that increase pain levels will improve while working to decrease the patient's pain levels Outcome: Progressing Flowsheets (Taken 10/30/2024254) Ability to identify factors that increase pain levels will improve while working to decrease patients pain levels: Assess pain status Observe non-verbal cues of discomfort, such as restlessness, muscle tension, or altered vital signs Assess effects of pain control measures Explore factors that precipitate, worsens, or relieves pain or discomfort Problem: Coping Goal: Ability to cope will improve Outcome: Progressing Flowsheets (Taken 10/30/2024254) Ability to cope will Improve: Provide emotional support Problem: Discharge Planning Goal: Understanding discharge needs will improve Outcome: Progressing Flowsheets (Taken 10/30/2024254) Understanding of discharge needs will improve: Discuss information regarding discharge instructions Identify discharge barriers Identify discharge learning needs (meds, wound care, etc.) Problem: Fall Risk Goal: Ability to state ways to decrease the risk of falls will improve Outcome: Progressing Flowsheets (Taken 10/30/2024254) Ability to state ways to decrease the risk of falls will improve: Teach fall prevention measures Teach information regarding appropriate enviornmental changes Goal: Will remain free from falls Outcome: Progressing Flowsheets (Taken 10/30/2024254) Will remain free from falls: Assess risk factors for falls Implement fall prevention measures Collaborate with other disciplines Goal: Will remain free from injury from falls Outcome: Progressing Flowsheets (Taken 10/30/2024254) Will remain free from injury from falls: Provide safe environment for conduction of activities of daily living in hospital environment Problem: Cardiovascular Goal: Maintains optimal cardiac output and hemodynamic stability Outcome: Progressing Flowsheets (Taken 10/30/2024254) Maintain optimal cardiac output and hemodynamic Stability: Monitor for bleeding, hypotension and signs of decreased cardiac output Monitor vital signs, rhythm, and trends Goal: Absence of cardiac dysrhythmias or at baseline Outcome: Progressing Flowsheets (Taken 10/30/2024254) Absence of cardiac dysrhythmias or at baseline: Continuous cardiac monitoring, monitor vital signs,obtain 12 lead EKG if indicated Problem: Musculoskeletal Goal: Return mobility to safest level of function Outcome: Progressing Flowsheets (Taken 10/30/2024254) Return mobility to safest level of function: Assess patient stability and activity tolerance for standing, transferring and ambulating with or without assistive devices Assist with transfers and ambulation using safe patient handling equipment as needed Problem: Gastrointestinal Goal: Minimal or absence of nausea and vomiting Outcome: Progressing Flowsheets (Taken 10/30/2024254) Minimal or absence of nausea and vomiting: Assess gastrointestinal status Provide appropriate dietary choices Monitor intake and output Goal: Maintains adequate nutritional intake Outcome: Progressing Flowsheets (Taken 10/30/2024254) Maintains adequate nutritional intake: Monitor percentage of each meal consumed Monitor I&O, weight and lab values Problem: Infection Goal: Absence of infection during hospitalization Outcome: Progressing Flowsheets (Taken 10/30/2024254) Absence of infection during hospitalization: Assess and monitor for signs and symptoms of infection Monitor lab/diagnostic results Monitor all insertion sites i.e., indwelling lines, tubes and drains and evaluate for need daily * Plan of Care - Annmarie Charles RN - 10/29/2024 3:37 PM CDT Problem: Lack of Knowledge Goal: Ability to develop a pain control plan will improve Outcome: Ongoing Flowsheets (Taken 10/29/20241534) Ability to develop a pain control plan will improve: Explain causes of pain and how long pain can be expected to last Teach information regarding pain management Educate pain scale for assessing level of pain Teach notification to healthcare provider of episodes of pain Problem: Medication Goal: Satisfaction with pain management medication regimen will improve Outcome: Ongoing Flowsheets (Taken 10/29/2024 153) Satisfaction with pain management medication regimen will improve: Assess satisfaction with pain management regimen Evaluate medication effects Manage analgesics Report inadequate pain control to healthcare provider Provide administration of medications prior to painful activities Problem: Sensory Goal: Ability to identify factors that increase pain levels will improve while working to decrease the patient's pain levels Outcome: Ongoing Flowsheets (Taken 10/29/20241534) Ability to identify factors that increase pain levels will improve while working to decrease patients pain levels: Assess pain status Observe non-verbal cues of discomfort, such as restlessness, muscle tension, or altered vital signs Problem: Discharge Planning Goal: Understanding discharge needs will improve Outcome: Ongoing Flowsheets (Taken 10/29/20241534) Understanding of discharge needs will improve: Discuss information regarding discharge instructions Identify discharge learning needs (meds, wound care, etc.) Collaborate with case management interdisciplinary team Arrange for needed discharge resources and transportation as appropriate Identify discharge barriers Problem: Fall Risk Goal: Ability to state ways to decrease the risk of falls will improve Outcome: Ongoing Flowsheets (Taken 10/29/20241534) Ability to state ways to decrease the risk of falls will improve: Teach fall prevention measures Teach information regarding appropriate enviornmental changes Goal: Will remain free from falls Outcome: Ongoing Flowsheets (Taken 10/29/20241534) Will remain free from falls: Assess risk factors for falls Implement fall prevention measures Collaborate with other disciplines Goal: Will remain free from injury from falls Outcome: Ongoing Flowsheets (Taken 10/29/20241534) Will remain free from injury from falls: Provide safe environment for conduction of activities of daily living in hospital environment Problem: Cardiovascular Goal: Maintains optimal cardiac output and hemodynamic stability Outcome: Ongoing Flowsheets (Taken 10/29/20241534) Maintain optimal cardiac output and hemodynamic Stability: Monitor vital signs, rhythm, and trends Monitor for bleeding, hypotension and signs of decreased cardiac output Assess quality of pulses, skin color and temperature Goal: Absence of cardiac dysrhythmias or at baseline Outcome: Ongoing Flowsheets (Taken 10/29/20241534) Absence of cardiac dysrhythmias or at baseline: Continuous cardiac monitoring, monitor vital signs,obtain 12 lead EKG if indicated Problem: Musculoskeletal Goal: Return mobility to safest level of function Outcome: Ongoing Flowsheets (Taken 10/29/20241534) Return mobility to safest level of function: Assess patient stability and activity tolerance for standing, transferring and ambulating with or without assistive devices Assist with transfers and ambulation using safe patient handling equipment as needed Problem: Gastrointestinal Goal: Minimal or absence of nausea and vomiting Outcome: Ongoing Flowsheets (Taken 10/29/20241534) Minimal or absence of nausea and vomiting: Assess gastrointestinal status Monitor intake and output Administer ordered antiemetic medications as needed, assess medication effects Provide fluid volume management Goal: Maintains adequate nutritional intake Outcome: Ongoing Flowsheets (Taken 10/29/20241534) Maintains adequate nutritional intake: Assist with meals as needed Monitor percentage of each meal consumed Problem: Infection Goal: Absence of infection during hospitalization Outcome: Ongoing Flowsheets (Taken 10/29/20241534) Absence of infection during hospitalization: Assess and monitor for signs and symptoms of infection Monitor lab/diagnostic results Administer medications as ordered Monitor all insertion sites i.e., indwelling lines, tubes and drains and evaluate for need daily Goals: Clinical Goals for the Shift: VSS, IV abx, pain management, IV fluids, * Plan of Care - Vandana Abdullahi RN - 10/29/2024 3:47 AM CDT Goals: Clinical Goals for the Shift: VSS, IV abx, pain management, IV fluids, Summary: Problem: Lack of Knowledge Goal: Ability to develop a pain control plan will improve Outcome: Progressing Flowsheets (Taken 10/29/20245) Ability to develop a pain control plan will improve: Explain causes of pain and how long pain can be expected to last Educate pain scale for assessing level of pain Teach information regarding pain management Problem: Medication Goal: Satisfaction with pain management medication regimen will improve Outcome: Progressing Flowsheets (Taken 10/29/2024344) Satisfaction with pain management medication regimen will improve: Assess satisfaction with pain management regimen Evaluate medication effects Problem: Sensory Goal: Ability to identify factors that increase pain levels will improve while working to decrease the patient's pain levels Outcome: Progressing Flowsheets (Taken 10/29/2024344) Ability to identify factors that increase pain levels will improve while working to decrease patients pain levels: Assess pain status Assess effects of pain control measures Observe non-verbal cues of discomfort, such as restlessness, muscle tension, or altered vital signs Problem: Coping Goal: Ability to cope will improve Outcome: Progressing Flowsheets (Taken 10/29/2024344) Ability to cope will Improve: Provide emotional support Problem: Discharge Planning Goal: Understanding discharge needs will improve Outcome: Progressing Flowsheets (Taken 10/29/2024344) Understanding of discharge needs will improve: Discuss information regarding discharge instructions Identify discharge barriers Identify discharge learning needs (meds, wound care, etc.) Problem: Fall Risk Goal: Ability to state ways to decrease the risk of falls will improve Outcome: Progressing Flowsheets (Taken 10/29/2024344) Ability to state ways to decrease the risk of falls will improve: Teach fall prevention measures Teach information regarding appropriate enviornmental changes Goal: Will remain free from falls Outcome: Progressing Flowsheets (Taken 10/29/2024344) Will remain free from falls: Assess risk factors for falls Implement fall prevention measures Goal: Will remain free from injury from falls Outcome: Progressing Flowsheets (Taken 10/29/2024344) Will remain free from injury from falls: Provide safe environment for conduction of activities of daily living in hospital environment Problem: Cardiovascular Goal: Maintains optimal cardiac output and hemodynamic stability Outcome: Progressing Flowsheets (Taken 10/29/2024344) Maintain optimal cardiac output and hemodynamic Stability: Monitor vital signs, rhythm, and trends Monitor for bleeding, hypotension and signs of decreased cardiac output Goal: Absence of cardiac dysrhythmias or at baseline Outcome: Progressing Problem: Musculoskeletal Goal: Return mobility to safest level of function Outcome: Progressing Problem: Gastrointestinal Goal: Minimal or absence of nausea and vomiting Outcome: Progressing Flowsheets (Taken 10/29/2024344) Minimal or absence of nausea and vomiting: Assess gastrointestinal status Goal: Maintains adequate nutritional intake Outcome: Progressing Flowsheets (Taken 10/29/2024344) Maintains adequate nutritional intake: Monitor I&O, weight and lab values Problem: Infection Goal: Absence of infection during hospitalization Outcome: Progressing Flowsheets (Taken 10/29/2024344) Absence of infection during hospitalization: Assess and monitor for signs and symptoms of infection Monitor lab/diagnostic results * Op Note - Jackson Rodarte MD - 10/28/2024 8:26 PM CDT Operative Note 10/28/24 Preoperative diagnosis: Partial Vaginal Cuff Dehiscence; Peritonitis; Abdominal free air Postoperative diagnosis: Same Procedure: EUA; Repair/Closure of Vaginal Cuff Surgeon: Jackson Rodarte MD Asst.: Overhauler Helper Anesthesia type: general Antibiotics: Zosyn IV (to continue for post-op) Complications: none Estimated blood loss: 10mL IV Fluids: Per anesthesia Urine Output: Per anesthesia Specimens: none Findings: 4cm midline partial vagina cuff dehiscence (deep peritoneal layer appears and probed intact). No hematoma. No abscess. Healthy mucosal and vaginal muscularis layer edges to defect with general oozing noted. Good full thickness vaginal cuff closure completed at end of procedure. Indications: Patient was seen at the bedside prior to procedure and advised of all risks, benefits,and alternatives of procedure noted above. Pt wished to proceed with procedure and written informedconsent was obtained. Procedure: The patient was taken to the operating room with IV fluids running and SCD's applied to the lower extremities and positioned on operating table. Patient was given preoperative prophylactic intravenous antibiotics. General anesthesia was established without difficulty. The patient was then re-positioned in the dorsal lithotomy position. All pressure points were padded and a Jimenez hugger was placed to maintain control of core body temperature. The patient was prepped and draped in the usual sterile fashion. Surgical timeout was performed to identify correct patient and procedure. A olivas catheter was placed to drain the bladder. Right angle vaginal retractors were placed with the help of assist for vaginal cuff visualization. The defect was first gently probed with the suction tip across the full length and no through and through defects were noted. Next the tissue edges were inspected prior to closure. The vaginal vault and cuff were then copiously irrigated with sterilesaline. Next damon clamps were applied to the anterior and posterior edges of defect and a series of 0-vicryl figure of eight sutures were used to close the defect in a horizontal fashion (x4 sutures) careful to incorporate the lateral apexes of defect and including full thickness closure of all vaginal tissue layers. The defect closure was visually and digitally inspected and good closure was noted. The vaginal vault was again irrigated. Olivas catheter was removed and maintained clear urine. Patient was then awaken for anesthesia without difficulty. The patient was taken to the recovery roomin stable condition. Sponge, lap and needle counts were correct x2. Jackson Rodarte MD documented in this encounter Plan of Treatment Pending Results Name Type Priority Associated Diagnoses Date /Time Lipase Lab STAT 10/28/2024 1:0 4 PM CDT Blood culture Blood Peripheral Microbiology STAT 10/28/2024 2:02 PM CDT Blood culture Blood Peripheral Microbiology STAT 10/28/2024 2:02 PM CDT Scheduled Orders Name Type Priority Associated Diagnoses Orde r Schedule Lipase Lab STAT Once for 1 Occ urrences starting 10/28/2024 until 10/28/2024 Aerobic culture and gram stain Sputum Lung Microbiology STAT STAT for 1 Occur rences starting 10/28/2024 until 10/28/2024 documented as of this encounter Procedures Procedure Name Priority Date/Time Associated Diagnosis Comments CT ABDOMEN PELVIS W CONTRAST ED Urgent/IP Urgent 10/30/2024 8:45 AM CDT EGFR Routine 10/30/2024 5:34 AM CDT DIFFERENTIAL AUTO Routine 10/30/2024 5:3 4 AM CDT CBC WITH AUTO DIFFERENTIAL Routine 10/30/2024 5:34 AM CDT BASIC METABOLIC PANEL Routine 10/30/2024 5:34 AM CDT SEPSIS LACTATE WITH REFLEX Timed 10/29/2024 4:51 AM CDT URINALYSIS AND REFLEX TO MICROSCOPIC AND CULTURE STAT 10/29/2024 2:07 AM CDT URINALYSIS, MICROSCOPIC ONLY STAT 10/29/2024 2:07 AM CDT SEPSIS LACTATE WITH REFLEX STAT 10/29/2024 1:56 AM CDT EGFR Routine 10/29/2024 1:56 AM CDT DIFFERENTIAL AUTO Routine 10/29/2024 1:5 6 AM CDT CBC WITH AUTO DIFFERENTIAL Routine 10/29/2024 1:56 AM CDT BASIC METABOLIC PANEL Routine 10/29/2024 1:56 AM CDT HYSTERECTOMY VAGINAL SALPINGO-OOPHORECTOM Y 10/28/2024 8:58 PM CDT TROPONIN T HIGH-SENSITIVITY 6-HOUR Timed 10/28/2024 7:28 PM CDT PHOSPHORUS Timed 10/28/2024 7:28 PM CDT MAGNESIUM Timed 10/28/2024 7:28 PM CDT B ABO / RH CONFIRMATION TESTING STAT 10/28/2024 4:22 PM CDT TROPONIN T HIGH-SENSITIVITY 2-HOUR Timed 10/28/2024 3:32 PM CDT CTA ABDOMEN PELVIS W WO CONTRAST ED Urgent/IP Urgent 10/28/2024 3:24 PM CDT SEPSIS LACTATE WITH REFLEX STAT 10/28/2024 2:02 PM CDT BLOOD CULTURE STAT 10/28/2024 2:02 PM CDT BLOOD CULTURE STAT 10/28/2024 2:02 PM CDT ABO/RH STAT 10/28/2024 1:36 PM CDT ANTIBODY SCREEN STAT 10/28/2024 1:36 PM CDT TYPE AND SCREEN STAT 10/28/2024 1:36 PM CDT TN CRITICAL CARE ILL/INJURED PATIENT INIT 30-74 MIN Routine 10/28/2024 1:23 PM CDT TROPONIN T HIGH-SENSITIVITY SERIES (BASELINE, 2HR, 4HR, 6HR) STAT 10/28/2024 1:04 PM CDT BLOOD SMEAR REVIEW STAT 10/28/2024 1: 04 PM CDT EGFR STAT 10/28/2024 1:04 PM CDT DIFFERENTIAL AUTO STAT 10/28/2024 1:0 4 PM CDT CBC WITH AUTO DIFFERENTIAL STAT 10/28/2024 1:04 PM CDT LIPASE STAT 10/28/2024 1:04 PM CDT COMPREHENSIVE METABOLIC PANEL STAT 10/28/2024 1:04 PM CDT ECG 12-LEAD STAT 10/28/2024 12:58 PM CDT documented in this encounter Results * CT Abdomen Pelvis W Contrast (10/30/2024 8:45 AM CDT) Anatomical Region Laterality Modality Body N/A Computed Tomogra phy 10/30/2024 9:25 AM CDT Narrative 10/30/2024 9:36 AM CDT EXAM DESCRIPTION: CT ABDOMEN PELVIS W CONTRAST REASON FOR STUDY: RLQ abdominal pain Patient had a robotic hysterectomy about 5 weeks ago. Was found to have a disruption in her vaginal cuff which was repaired 2 days ago. Having right lower quadrant pain. TECHNIQUE: CT scan of the abdomen and pelvis performed with intravenous and without oral contrast using helical scanning technique with dynamic intravenous contrast injection. Reconstructed coronal and sagittal MPR images reviewed. All images stored on PACS. Automated exposure control was used as a dose optimization technique for this examination. CONTRAST TYPE/DOSE: 100mL of IOVERSOL 350 MG IODINE/ML INTRAVENOUS SYRINGE injected via intravenous COMPARISON: 10/28/2024 FINDINGS: LOWER CHEST: Band like density right middle lobe may represent atelectasis and is increased from previous. LIVER: Normal size. Subtle hypodensity along falciform ligament likely related to focal fatty infiltrative change similar to previous. GALLBLADDER: Normally distended containing small layering stones. No surrounding induration. BILE DUCTS: No intrahepatic or extrahepatic ductal dilatation. SPLEEN: Normal size. No focal lesions. PANCREAS: No identified cystic or solid masses. No significant calcifications. No adjacent inflammation or peripancreatic fluid collections. Pancreatic duct not dilated. ADRENALS: Normal. KIDNEYS/URINARY TRACT: No stone or hydronephrosis. Midpole hypodensity measures 3.0 cm in the right kidney and is unchanged, most suggestive of simple cysts with no follow-up required per guidelines. Urinary bladder is distended. A tiny air bubble is noted which may be related to instrumentation. GI: No dilated bowel loops. No obvious wall thickening. Appendix is not visualized. No significant diverticular disease. PERITONEUM: Small amount of fluid deep in the pelvis. Tiny air bubbles adjacent to the vaginal cuff. No loculated or peripherally enhancing components to suggest abscess at this time. No free air under the hemidiaphragms to suggest marisela perforation. RETROPERITONEUM: No mass or adenopathy. REPRODUCTIVE: No significant abnormality. VASCULATURE: No abdominal aortic aneurysm. MUSCULOSKELETAL: No significant abnormality. OTHER: No other abnormality. IMPRESSION: 1. Small amount of free fluid deep in the pelvis with tiny air bubbles adjacent to the vaginal cuff. Likely post procedural. No loculated or peripherally enhancing components to suggest abscess at this time. 2. No free air under the hemidiaphragms to suggest marisela perforation. 3. Band like density right middle lobe of lung may represent atelectasis and is increased from previous. 4. Probable focal fatty infiltrative change of the liver similar to previous. 5. Probable cyst right kidney unchanged. THIS IS AN ELECTRONICALLY VERIFIED FINAL REPORT 10/30/2024 9:36 AM - Electronically signed by Deondre Arambula M.D. RB: MAI Report ID: [id number] Reading Location: [id number] Procedure Note Deondre Arambula MD - 10/30/2024 EXAM DESCRIPTION: CT ABDOMEN PELVIS W CONTRAST REASON FOR STUDY: RLQ abdominal pain Patient had a robotic hysterectomy about 5 weeks ago. Was found to have a disruption in her vaginal cuff which was repaired 2 days ago. Having right lower quadrant pain. TECHNIQUE: CT scan of the abdomen and pelvis performed with intravenousand without oral contrast using helical scanning technique with dynamic intravenous contrast injection. Reconstructed coronal and sagittal MPRimages reviewed. All images stored on PACS. Automated exposure control was usedas a dose optimization technique for this examination. CONTRAST TYPE/DOSE: 100mL of IOVERSOL 350 MG IODINE/ML INTRAVENOUSSYRINGE injected via intravenous COMPARISON: 10/28/2024 FINDINGS: LOWER CHEST: Band like density right middle lobe may represent atelectasis and is increased from previous. LIVER: Normal size. Subtle hypodensity along falciform ligament likely related to focal fatty infiltrative change similar to previous. GALLBLADDER: Normally distended containing small layering stones. No surrounding induration. BILE DUCTS: No intrahepatic or extrahepatic ductal dilatation. SPLEEN: Normal size. No focal lesions. PANCREAS: No identified cystic or solid masses. No significant calcifications. No adjacent inflammation or peripancreatic fluidcollections. Pancreatic duct not dilated. ADRENALS: Normal. KIDNEYS/URINARY TRACT: No stone or hydronephrosis. Midpole hypodensity measures 3.0 cm in the right kidney and is unchanged,most suggestive of simple cysts with no follow-up required per guidelines. Urinary bladder is distended. A tiny air bubble is noted which may berelated to instrumentation. GI: No dilated bowel loops. No obvious wall thickening. Appendix is not visualized. No significant diverticular disease. PERITONEUM: Small amount of fluid deep in the pelvis. Tiny air bubbles adjacent to the vaginal cuff. No loculated or peripherally enhancing components to suggest abscess at this time. No free air under the hemidiaphragms to suggest marisela perforation. RETROPERITONEUM: No mass or adenopathy. REPRODUCTIVE: No significant abnormality. VASCULATURE: No abdominal aortic aneurysm. MUSCULOSKELETAL: No significant abnormality. OTHER: No other abnormality. IMPRESSION: 1. Small amount of free fluid deep in the pelvis with tiny air bubbles adjacent to the vaginal cuff. Likely post procedural. No loculated or peripherally enhancing components to suggest abscess at this time. 2. No free air under the hemidiaphragms to suggest marisela perforation. 3. Band like density right middle lobe of lung may represent atelectasisand is increased from previous. 4. Probable focal fatty infiltrative change of the liver similar toprevious. 5. Probable cyst right kidney unchanged. THIS IS AN ELECTRONICALLY VERIFIED FINAL REPORT 10/30/2024 9:36 AM - Electronically signed by Deondre Arambula M.D. RB: RB Report ID: [id number] Reading Location: [place] [id number] us Jd Medrano MD IMG CT PROCEDURES Final Resu lt * eGFR (10/30/2024 5:34 AM CDT) eGFR >90 >=60 mL/min/1. 73 [...] Current interpretive data was last reviewed 2020. Testing performed by: [facility], [address] [place] [address], [place]., [address] Blood 10/30/2024 5:34 AM CDT 10/30/2024 6:25 AM CDT us Latha Rojas NURSING PROFESSOR LAB BLOOD ORDERABLES Final Result TERE [address] [facility] Department [place] [address] * (ABNORMAL) Differential, auto (10/30/2024 5:34 AM CDT) Neutrophil abs 10.02(H) 1.50 - 6.50 K/cumm Comment:Testing performed by : [address] [address] Imm gran abs 0.09 0.00 - 0.10 K/cumm TERE Comment:Testing performed by : [address] [address] Lymphocyte abs 1.67 0.80 - 3.30 K/cumm TERE Comment:Testing performed by : [address] [address] Monocyte abs 0.76 0.20 - 0.80 K/cumm [facility] Comment:Testing performed by : [address] [address] Eosinophil abs 0.06 0.00 - 0.50 K/cumm [facility] Comment:Testing performed by : [address] [address] Basophil abs 0.03 0.00 - 0.10 K/cumm [facility] Comment:Testing performed by : [address] [address] Neutrophil pct 79.4 % [facility] Comment: Interpretive Data Percent cell count reference ranges are not reported, since discordance with absolute values may lead to misinterpretation of CBC data. Current Interpretive Data was last revised on 2017. Testing performed by: [address] [address] Imm gran pct 0.7 % TERE Comment: Interpretive Data Percent cell count reference ranges are not reported, since discordance with absolute values may lead to misinterpretation of CBC data. Current Interpretive Data was last revised on 2017. Testing performed by: [address] [address] Lymphocyte pct 13.2 % TERE Comment: Interpretive Data Percent cell count reference ranges are not reported, since discordance with absolute values may lead to misinterpretation of CBC data. Current Interpretive Data was last revised on 2017. Testing performed by: [address] [address] Monocyte pct 6.0 % TERE Comment: Interpretive Data Percent cell count reference ranges are not reported, since discordance with absolute values may lead to misinterpretation of CBC data. Current Interpretive Data was last revised on 2017. Testing performed by: [address] [address] Eosinophil pct 0.5 % TERE Comment: Interpretive Data Percent cell count reference ranges are not reported, since discordance with absolute values may lead to misinterpretation of CBC data. Current Interpretive Data was last revised on 2017. Testing performed by: [address] [address] Basophil pct 0.2 % TERE Comment: Interpretive Data Percent cell count reference ranges are not reported, since discordance with absolute values may lead to misinterpretation of CBC data. Current Interpretive Data was last revised on 2017. Testing performed by: [address] [address] Blood 10/30/2024 5:34 AM CDT 10/30/2024 6:26 AM CDT us Latha Rojas NP LAB BLOOD ORDERABLES Final Result TERE [address] [facility] Department [place] [address] * (ABNORMAL) CBC with auto differential (10/30/2024 5:34 AM CDT) WBC 12.63(H) 3.80 - 9.90 K/cumm Comment:Testing performed by : [address] [address] Hgb 10.3(L) 11.9 - 15.5 g/dL TERE MARIANO Comment:Testing performed by : [address] [address] Hct 30.7(L) 35.6 - 45.5 % TERE Comment:Testing performed by : [address], [address] Plt 197 150 - 400 K/cumm TERE Comment:Testing performed by : [address] [address] MPV 9.9 9.1 - 12.3 fL TERE Comment:Testing performed by : [address], [address] RBC 3.60(L) 3.90 - 5.20 M/cumm TERE Comment:Testing performed by : [address], [address] MCV 85.3 81.3 - 96.4 fL TERE Comment:Testing performed by : [address], [address] MCH 28.6 27.1 - 33.3 pg TERE Comment:Testing performed by : [address], [address] MCHC 33.6 32.3 - 35.7 g/dL TERE Comment:Testing performed by : [address], [address] RDW CV 13.1 11.1 - 14.9 % TERE Comment:Testing performed by : [address], [address] RDW SD 40.9 35.7 - 48.1 fL TERE Comment:Testing performed by : [address], [address] NRBC abs 0.00 0.00 - 0.01 K/cumm TERE Comment:Testing performed by : [address], [address] Blood 10/30/2024 5:34 AM CDT 10/30/2024 6:26 AM CDT us Latha Rjoas NP LAB BLOOD ORDERABLES Final Result TERE MARIANO [address] [facility] Department [place] [address] * (ABNORMAL) Basic metabolic panel (10/30/2024 5:34 AM CDT) Sodium 140 135 - 145 mmol/L Comment:Testing performed by : [address] [address] Potassium, pl 3.3 3.3 - 4.9 mmol/L TERE Comment:Testing performed by : [address], [place]., [address] Chloride 108 97 - 110 mmol/L TERE Comment:Testing performed by : [address], [place]., [address] CO2 21(L) 22 - 32 mmol/L TERE Comment:Testing performed by : [address], [place]., [address] Anion gap 11 2 - 15 mmol/L TERE Comment:Testing performed by : [address] [address] BUN 6 6 - 25 mg/dL TERE Comment:Testing performed by : [address] [address] Creatinine 0.50(L) 0.60 - 1.10 mg/dL TERE Comment:Testing performed by : [address] [address] Glucose 94 70 - 199 mg/dL TERE Comment: Interpretive Data Fasting glucose >/= 126 [...] Current interpretive data was last revised 2022. Testing performed by: [address], [place]., [address] Calcium 7.7(L) 8.5 - 10.3 mg/dL TERE Comment:Testing performed by : [address] [address] Blood 10/30/2024 5:34 AM CDT 10/30/2024 6:25 AM CDT Latha Rojas NURSING PROFESSOR LAB BLOOD ORDERABLES Final Result Performing Organization Address [facility] de Phone Number [address] [employer] [place] [address] * Sepsis Lactate w/ Reflex (10/29/2024 4:51 AM CDT) Pathologist [facility] Sepsis Lactate 0.8 0.7 - 2.0 mmol/L Comment:Testing performed by : [address] [address] Blood 10/29/2024 4:51 AM CDT 10/29/2024 4:53 AM CDT Latha Rojas NURSING PROFESSOR LAB BLOOD ORDERABLES Final Result Performing Organization Address [facility]/[place] [facility] de Phone Number [address] [address] * (ABNORMAL) Urinalysis, microscopic only (10/29/2024 2:07 AM CDT) WBC, ur 0-5 0 - 5 /HPF Comment:Testing performed by : [address] [address] RBC, ur 3-5(A) 0 - 2 /HPF TERE Comment:Testing performed by : [address] [address] Epithelial cells, squamous, ur 1-5 0 - 5 /HPF TERE Comment:Testing performed by : [address] [address] Bacteria, ur Trace(A) TERE Comment:Testing performed by : [address] [address] Culture Reflex Comment Reflex conditions for urine culture (WBC >10) not met. TERE MARIANO Comment:Testing performed by : [address] [address] Urine 10/29/2024 2:07 AM CDT 10/29/2024 2:12 AM CDT Esa Wesley DO LAB URINE ORDERABLES Final Result TERE MARIANO [address] [facility] Department [place] [address] * (ABNORMAL) Urinalysis reflex to microscopic and culture Urine (10/29/2024 2:07 AM CDT) Color, ur Straw Yellow Comment:Testing performed by : [address] [address] Clarity, ur Clear Clear TERE Comment:Testing performed by : [address] [address] Specific gravity, ur 1.007 1.003 - 1.030 TERE Comment:Testing performed by : [address] [address] pH, urine 7.0 TERE Comment: Interpretive Data U rine pH is affected by diet, medications, systemic acid-base disturbances, and renal tubular function. pH may affect urinary stone formation. For example, urine pH below 6.0 may help reduce the tendency for calcium phosphate stones and pH greater than 6.0 may reduce the tendency for uric acid stone formation. Source: [facility] [employer] Current Interpretive Data was last revised on 2017 Testing performed by: [address] [address] Protein, ur ql Negative Negative TERE Comment:Testing performed by : [address] [address] Glucose, ur ql Negative Negative TERE Comment:Testing performed by : [address] [address] Ketones, ur 1+(A) Negative TERE Comment:Testing performed by : [address] [address] Bilirubin, ur Negative Negative TERE Comment:Testing performed by : [facility], [address] [place] [address], [place]., [address] Blood, ur 3+(A) Negative TERE Comment:Testing performed by : [facility], [address] [place] [address], [place]., [address] Urobilinogen, ur <2.0 <2.0 mg/dL TERE Comment:Testing performed by : [address] [address] Nitrite, ur Negative Negative TERE Comment:Testing performed by : [address], [place]., [address] Leukocyte esterase, ur 1+(A) Negative TERE Comment:Testing performed by : [address] [address] UA reflex comment Reflex to microscopic UA will be performed. TERE Comment:Testing performed by : [address] [address] Urine 10/29/2024 2:07 AM CDT 10/29/2024 2:12 AM CDT us Jackson Rodarte MD LAB MICROBIOLOGY - GENER AL ORDERABLES Final Result TERE MARIANO 4[address] [facility] Department of Laboratories [place], [place] [id number] * eGFR (10/29/2024 1:56 AM CDT) eGFR >90 >=60 mL/min/1. 73 [...] of Race in Diagnosing Kidney Disease, JASN 202). The CKD-EPI equation should not be used for patients with unstable renal function and has not been validated in children and those over 70. Current interpretive data was last reviewed 2020. Testing performed by: [address] [address] Blood 10/29/2024 1:56 AM CDT 10/29/2024 2:02 AM CDT us Latha Rojas NURSING PROFESSOR LAB BLOOD ORDERABLES Final Result TERE 7540 [facility] Department [place] [address] * (ABNORMAL) Differential, auto (10/29/2024 1:56 AM CDT) Neutrophil abs 14.69(H) 1.50 - 6.50 K/cumm Comment:Testing performed by : [address] [address] Imm gran abs 0.07 0.00 - 0.10 K/cumm TERE Comment:Testing performed by : [address] [address] Lymphocyte abs 0.63(L) 0.80 - 3.30 K/cumm TERE Comment:Testing performed by : [address] [address] Monocyte abs 0.20 0.20 - 0.80 K/cumm TERE Comment:Testing performed by : [address] [address] Eosinophil abs 0.00 0.00 - 0.50 K/cumm TERE Comment:Testing performed by : [address] [address] Basophil abs 0.02 0.00 - 0.10 K/cumm TERE Comment:Testing performed by : [address] [address] Neutrophil pct 94.2 % TERE Comment: Interpretive Data Percent cell count reference ranges are not reported, since discordance with absolute values may lead to misinterpretation of CBC data. Current Interpretive Data was last revised on 2017. Testing performed by: [address] [address] Imm gran pct 0.4 % [facility] Comment: Interpretive Data Percent cell count reference ranges are not reported, since discordance with absolute values may lead to misinterpretation of CBC data. Current Interpretive Data was last revised on 2017. Testing performed by: [address] [address] Lymphocyte pct 4.0 % [facility] Comment: Interpretive Data Percent cell count reference ranges are not reported, since discordance with absolute values may lead to misinterpretation of CBC data. Current Interpretive Data was last revised on 2017. Testing performed by: [address] [address] Monocyte pct 1.3 % [facility] Comment: Interpretive Data Percent cell count reference ranges are not reported, since discordance with absolute values may lead to misinterpretation of CBC data. Current Interpretive Data was last revised on 2017. Testing performed by: [address] [address] Eosinophil pct 0.0 % [facility] Comment: Interpretive Data Percent cell count reference ranges are not reported, since discordance with absolute values may lead to misinterpretation of CBC data. Current Interpretive Data was last revised on 2017. Testing performed by: [address] [address] Basophil pct 0.1 % [facility] Comment: Interpretive Data Percent cell count reference ranges are not reported, since discordance with absolute values may lead to misinterpretation of CBC data. Current Interpretive Data was last revised on 2017. Testing performed by: [address] [address] Blood 10/29/2024 1:56 AM CDT 10/29/2024 2:02 AM CDT Latha Rojas NP LAB BLOOD ORDERABLES Final Result Performing Organization Address City/[facility] Co de Phone Number [place] [address] [place] [address] * (ABNORMAL) Sepsis Lactate w/ Reflex (10/29/2024 1:56 AM CDT) [facility] Sepsis Lactate 2.5(H) 0.7 - 2.0 mmol/L Comment:Testing performed by : [address] [address] Blood 10/29/2024 1:56 AM CDT 10/29/2024 2:02 AM CDT Latha Rojas NP LAB BLOOD ORDERABLES Final Result Performing Organization Address [facility] Co de Phone Number [facility] [address] [place] [address] * (ABNORMAL) CBC with auto differential (10/29/2024 1:56 AM CDT) [facility] WBC 15.61(H) 3.80 - 9.90 K/cumm Comment:Testing performed by : [address] [address] Hgb 11.5(L) 11.9 - 15.5 g/dL TERE Comment:Testing performed by : [address] [address] Hct 33.5(L) 35.6 - 45.5 % TERE Comment:Testing performed by : [address] [address] Plt 214 150 - 400 K/cumm TERE Comment:Testing performed by : [address] [address] MPV 9.4 9.1 - 12.3 fL TERE MARIANO Comment:Testing performed by : [address] [address] RBC 3.99 3.90 - 5.20 M/cumm TERE MARIANO Comment:Testing performed by : [address] [address] MCV 84.0 81.3 - 96.4 fL TERE MARIANO Comment:Testing performed by : [address] [address] MCH 28.8 27.1 - 33.3 pg TERE MARIANO Comment:Testing performed by : [address] [address] MCHC 34.3 32.3 - 35.7 g/dL TERE MARIANO Comment:Testing performed by : [address] [address] RDW CV 13.1 11.1 - 14.9 % TERE MARIANO Comment:Testing performed by : [address] [address] RDW SD 40.5 35.7 - 48.1 fL TERE MARIANO Comment:Testing performed by : [address] [address] NRBC abs 0.00 0.00 - 0.01 K/cumm TERE MARIANO Comment:Testing performed by : [address] [address] Blood 10/29/2024 1:56 AM CDT 10/29/2024 2:02 AM CDT Latha Rojas NP LAB BLOOD ORDERABLES Final Result TERE [facility] Department [place] [address] * (ABNORMAL) Basic metabolic panel (10/29/2024 1:56 AM CDT) Pathologist [facility] Sodium 136 135 - 145 mmol/L Comment:Testing performed by : [address] [address] Potassium, pl 3.8 3.3 - 4.9 mmol/L TERE MARIANO Comment:Testing performed by : [address] [address] Chloride 104 97 - 110 mmol/L TERE MARIANO Comment:Testing performed by : [address] [address] CO2 20(L) 22 - 32 mmol/L TERE Comment:Testing performed by : [address] [address] Anion gap 12 2 - 15 mmol/L TERE Comment:Testing performed by : [address] [address] BUN 6 6 - 25 mg/dL TERE Comment:Testing performed by : [address] [address] Creatinine 0.55(L) 0.60 - 1.10 mg/dL TERE Comment:Testing performed by : [address] [address] Glucose 157 70 - 199 mg/dL TERE Comment: Interpretive Data Fasting glucose >/= 126 [...] Current interpretive data was last revised 2022. Testing performed by: [address] [address] Calcium 8.4(L) 8.5 - 10.3 mg/dL TERE Comment:Testing performed by : [address] [address] Blood 10/29/2024 1:56 AM CDT 10/29/2024 2:02 AM CDT us Latha Rojas NP LAB BLOOD ORDERABLES Final Result TERE MARIANO 08[address] [facility] Department [place] [address] * Magnesium (10/28/2024 7:28 PM CDT) [facility] Magnesium 1.6 1.4 - 2.5 mg/dL Comment:Testing performed by : [address] [address] Blood 10/28/2024 7:28 PM CDT 10/28/2024 7:34 PM CDT Latha Rojas NURSING PROFESSOR LAB BLOOD ORDERABLES Final Result Performing Organization Address City/[facility]/ZIP Co de Phone Number TERE [address] [address] * Phosphorus (10/28/2024 7:28 PM CDT) Pathologist [facility] Phosphorus, pl 2.6 2.3 - 4.5 mg/dL Comment:Testing performed by : [address] [address] Blood 10/28/2024 7:28 PM CDT 10/28/2024 7:34 PM CDT Latha Rojas NURSING PROFESSOR LAB BLOOD ORDERABLES Final Result Performing Organization Address [facility] Co de Phone Number [address]OS[address] [address] * Troponin T high-sensitivity 6-hour (10/28/2024 7:28 PM CDT) Pathologist [facility] Trop T hs 13 <=14 ng/L Comment: Interpretive Data For further hscTnT resources including the diagnostic algorithm and an aid in interpretation, copy and paste this link: https://nrl.testcatalog.org/show/hsTrop Current Interpretive Data last revised 2020. Testing performed by: [address] [address] Trop T hs delta 7 ng/L TERE Comment:Testing performed by : [address] [address] Trop T hs interp Equivocal TERE Comment:Testing performed by : [address] [address] Blood 10/28/2024 7:28 PM CDT 10/28/2024 7:34 PM CDT Esa Wesley DO LAB BLOOD ORDERABLES Final Result TERE [address] [place] [address] * ABO / Rh Confirmation Testing (10/28/2024 4:22 PM CDT) ABO/Rh Confirmation O Positive [facility] Comment:Testing performed by : [address] [address] Blood 10/28/2024 4:22 PM CDT 10/28/2024 4:26 PM CDT Esa Wesley DO LAB BLOOD ORDERABLES Final Result Performing Organization Address [facility] Co de Phone Number TERE [address] [place] [address] [facility] * Troponin T high-sensitivity 2-hour (10/28/2024 3:32 PM CDT) Trop T hs <6 <=14 ng/L Comment: Interpretive Data For further hscTnT resources including the diagnostic algorithm and an aid in interpretation, copy and paste this link: https://nrl.testcatalog.org/show/hsTrop Current Interpretive Data last revised 2020. Testing performed by: [address] [address] Trop T hs interp Equivocal TERE Comment:Testing performed by : [address] [address] Blood 10/28/2024 3:32 PM CDT 10/28/2024 3:39 PM CDT Esa Wesley DO LAB BLOOD ORDERABLES Final Result Performing Organization Address City/[facility]/ZIP Co de Phone Number TERE [facility] [place] [address] * CTA Abdomen Pelvis (10/28/2024 3:24 PM CDT) Anatomical Region Laterality Modality Body N/A Computed Tomogra phy 10/28/2024 3:34 PM CDT Narrative 10/28/2024 3:48 PM CDT EXAM DESCRIPTION: CTA ABDOMEN PELVIS REASON FOR STUDY: Lower GI bleed Patient she had syncopal episode on the toilet due to the pain she got very sweaty and dizzy and blacked out falling off the toilet. She reports she is 5 weeks post-op hysterectomy. Reports she started with heavy vaginal bleeding yesterday and has continued today. TECHNIQUE: CTA scan of the abdomen and pelvis performed without and with intravenous and without oral contrast using helical scanning technique with dynamic intravenous contrast injection. Precontrast, arterial, and portal venous phase images of the abdomen and pelvis were acquired. Images reviewed with lung, soft tissue and bone windows. Reconstructed coronal and sagittal MPR images reviewed. All images stored on PACS. 3D MIP images rendered on scanning unit and reviewed at time of interpretation. Automated exposure control was used as a dose optimization technique for this examination. CONTRAST TYPE/DOSE: 100mL of IOVERSOL 350 MG IODINE/ML INTRAVENOUS SYRINGE injected via intravenous COMPARISON: 07/09/2024 FINDINGS: VASCULATURE: On the noncontrast sequence, there are no significant calcified atherosclerotic changes of the aorta. On the post-contrast sequence, there is no definite evidence of acute aortic injury or dissection. The abdominal aorta appears grossly unremarkable without definite evidence of hemodynamic significant stenosis, occlusion, aneurysmal dilatation. There is no definite evidence of intraluminal extravasation of contrast within the large and small bowel to suggest active GI bleed. CELIAC TRUNK: The celiac artery appears grossly unremarkable without definite evidence of hemodynamically significant stenosis, occlusion, or aneurysmal dilatation. SUPERIOR MESENTERIC ARTERY: The superior mesenteric artery appears grossly unremarkable without definite of hemodynamically significant stenosis, occlusion, or aneurysmal dilatation. RIGHT RENAL ARTERY: There is a single right renal artery noted without evidence of hemodynamically significant stenosis, occlusion, aneurysmal dilatation. LEFT RENAL ARTERY: There are 2 left renal arteries noted without evidence of hemodynamic significant stenosis, occlusion, aneurysmal dilatation. INFERIOR MESENTERIC ARTERY: The inferior mesenteric artery appears grossly unremarkable without definite evidence of occlusion or aneurysmal dilatation. ILIAC ARTERIES: The bilateral common iliac, internal iliac, external iliac, and common femoral arteries appear grossly unremarkable without evidence of hemodynamic significant stenosis, occlusion, aneurysmal dilatation. LOWER CHEST: The heart size is normal. There is no definite evidence of pericardial effusion. There are mild patchy airspace opacities in the left lower lobe, which may be related to subsegmental atelectasis versus airspace disease. LIVER: The liver is grossly normal in size and contour. There is focal fatty infiltration of the liver along the falciform ligament. There are few scattered too small to characterize hypoattenuating lesions in the liver, which do not require follow-up imaging. The hepatic and portal veins are grossly patent. GALLBLADDER: There is cholelithiasis. BILE DUCTS: No intrahepatic or extrahepatic ductal dilatation. SPLEEN: The spleen is grossly normal in size and unremarkable. PANCREAS: The pancreas appears grossly unremarkable without definite evidence of pancreatic ductal dilatation, peripancreatic inflammatory changes, or peripancreatic fluid collection. ADRENALS: The bilateral adrenal glands are grossly symmetrical and unremarkable. KIDNEYS/URINARY TRACT: On the noncontrast sequence, there is no definite evidence of nephrolithiasis. The bilateral kidneys enhance symmetrically. There is a 2.6 cm cyst in the interpolar region of the right kidney, which does not require follow-up imaging. There is no definite evidence of hydronephrosis or hydroureter. There is mild mucosal thickening of the urinary bladder. There are few foci of air noted within the urinary bladder, which may be related to recent instrumentation. GI: There are scattered subtle foci of free air in the abdomen and pelvis, which is most significant in the right upper quadrant of the abdomen, and findings raise the concern for bowel perforation. There is mild mucosal thickening of the small bowel with mild dilatation measuring up to 3.7 cm, which may be related to mild enteritis of infectious or inflammatory etiology with mild reactive ileus. The appendix is surgically absent. There is mild diffuse mucosal thickening of the mid to distal transverse colon, descending colon, and sigmoid colon. There is a small amount of free fluid in the abdomen and pelvis. There is no definite evidence of lymphadenopathy in the abdomen and pelvis. REPRODUCTIVE: The uterus is surgically absent. There is a cystic lesion in the right ovary with an irregular hyperattenuating rim measuring 2.1 cm, which likely represents a corpus luteum or hemorrhagic cyst. MUSCULOSKELETAL: There is a minimal to mild S shaped scoliotic curvature of the spine with minimal to mild degenerative changes. OTHER: No other abnormality. IMPRESSION: 1. No definite evidence of intraluminal extravasation of contrast within the large and small bowel to suggest active GI bleed. 2. Scattered subtle foci of free air in the abdomen and pelvis, which is most significant in the right upper quadrant of the abdomen, and findings raise the concern for bowel perforation. Surgical consultation and management is recommended as clinically indicated. 3. Mild mucosal thickening of the small bowel with mild dilatation measuring up to 3.7 cm, which may be related to mild enteritis of infectious or inflammatory etiology with mild reactive ileus. Continued follow-up is recommended as clinically indicated. 4. Mild diffuse mucosal thickening of the mid to distal transverse colon, descending colon, and sigmoid colon, which may be related to underdistention versus a component of mild colitis of infectious or inflammatory etiology. 5. Small amount of free fluid in the abdomen and pelvis. 6. Mild mucosal thickening of the urinary bladder, which may be related to underdistention versus cystitis. Clinical correlation with urinary analysis is recommended as clinically indicated. 7. Few foci of air noted within the urinary bladder, which may be related to recent instrumentation. Correlation with recent procedural history is recommended as clinically indicated. 8. Mild patchy airspace opacities in the left lower lobe, which may be related to subsegmental atelectasis versus airspace disease. 9. Cholelithiasis. 10. Right ovarian cystic lesion with an irregular hyperattenuating rim measuring 2.1 cm, which likely represents a corpus luteum or hemorrhagic cyst. Findings were discussed with Dr. Wesley by Dr. Dominguez at 15:48 hours on 10/28/2024 . THIS IS AN ELECTRONICALLY VERIFIED FINAL REPORT 10/28/2024 3:48 PM - Electronically signed by Brijesh Dominguez D.O. PS: PS Report ID: [id number] Reading Location: [id number] Procedure Note Brijesh Dominguez DO - 10/28/2024 EXAM DESCRIPTION: CTA ABDOMEN PELVIS REASON FOR STUDY: Lower GI bleed Patient she had syncopal episode on the toilet due to the pain she gotvery sweaty and dizzy and blacked out falling off the toilet. She reports sheis 5 weeks post-op hysterectomy. Reports she started with heavy vaginalbleeding yesterday and has continued today. TECHNIQUE: CTA scan of the abdomen and pelvis performed without and with intravenous and without oral contrast using helical scanning techniquewith dynamic intravenous contrast injection. Precontrast, arterial, and portal venous phase images of the abdomen and pelvis were acquired. Images reviewed with lung, soft tissue and bone windows. Reconstructed coronaland sagittal MPR images reviewed. All images stored on PACS. 3D MIP images rendered on scanning unit and reviewed at time of interpretation.Automated exposure control was used as a dose optimization technique for this examination. CONTRAST TYPE/DOSE: 100mL of IOVERSOL 350 MG IODINE/ML INTRAVENOUSSYRINGE injected via intravenous COMPARISON: 07/09/2024 FINDINGS: VASCULATURE: On the noncontrast sequence, there are no significant calcified atherosclerotic changes of the aorta. On the post-contrast sequence, there is no definite evidence of acute aorticinjury or dissection. The abdominal aorta appears grossly unremarkable without definite evidence of hemodynamic significant stenosis, occlusion,aneurysmal dilatation. There is no definite evidence of intraluminal extravasationof contrast within the large and small bowel to suggest active GI bleed. CELIAC TRUNK: The celiac artery appears grossly unremarkable without definite evidence of hemodynamically significant stenosis, occlusion, or aneurysmal dilatation. SUPERIOR MESENTERIC ARTERY: The superior mesenteric artery appearsgrossly unremarkable without definite of hemodynamically significant stenosis, occlusion, or aneurysmal dilatation. RIGHT RENAL ARTERY: There is a single right renal artery noted without evidence of hemodynamically significant stenosis, occlusion, aneurysmal dilatation. LEFT RENAL ARTERY: There are 2 left renal arteries noted withoutevidence of hemodynamic significant stenosis, occlusion, aneurysmal dilatation. INFERIOR MESENTERIC ARTERY: The inferior mesenteric artery appearsgrossly unremarkable without definite evidence of occlusion or aneurysmaldilatation. ILIAC ARTERIES: The bilateral common iliac, internal iliac, externaliliac, and common femoral arteries appear grossly unremarkable without evidenceof hemodynamic significant stenosis, occlusion, aneurysmal dilatation. LOWER CHEST: The heart size is normal. There is no definite evidence of pericardial effusion. There are mild patchy airspace opacities in theleft lower lobe, which may be related to subsegmental atelectasis versusairspace disease. LIVER: The liver is grossly normal in size and contour. There is focal fatty infiltration of the liver along the falciform ligament. There arefew scattered too small to characterize hypoattenuating lesions in the liver, which do not require follow-up imaging. The hepatic and portal veins are grossly patent. GALLBLADDER: There is cholelithiasis. BILE DUCTS: No intrahepatic or extrahepatic ductal dilatation. SPLEEN: The spleen is grossly normal in size and unremarkable. PANCREAS: The pancreas appears grossly unremarkable without definite evidence of pancreatic ductal dilatation, peripancreatic inflammatorychanges, or peripancreatic fluid collection. ADRENALS: The bilateral adrenal glands are grossly symmetrical and unremarkable. KIDNEYS/URINARY TRACT: On the noncontrast sequence, there is no definite evidence of nephrolithiasis. The bilateral kidneys enhance symmetrically. There is a 2.6 cm cyst in the interpolar region of the right kidney, which does not require follow-up imaging. There is no definite evidence of hydronephrosis or hydroureter. There is mild mucosal thickening of the urinary bladder. There are few foci of air noted within the urinarybladder, which may be related to recent instrumentation. GI: There are scattered subtle foci of free air in the abdomen andpelvis, which is most significant in the right upper quadrant of the abdomen, and findings raise the concern for bowel perforation. There is mild mucosal thickening of the small bowel with mild dilatation measuring up to 3.7 cm, which may be related to mild enteritis of infectious or inflammatoryetiology with mild reactive ileus. The appendix is surgically absent. There ismild diffuse mucosal thickening of the mid to distal transverse colon,descending colon, and sigmoid colon. There is a small amount of free fluid in the abdomen and pelvis. There is no definite evidence of lymphadenopathy inthe abdomen and pelvis. REPRODUCTIVE: The uterus is surgically absent. There is a cystic lesionin the right ovary with an irregular hyperattenuating rim measuring 2.1 cm,which likely represents a corpus luteum or hemorrhagic cyst. MUSCULOSKELETAL: There is a minimal to mild S shaped scoliotic curvatureof the spine with minimal to mild degenerative changes. OTHER: No other abnormality. IMPRESSION: 1. No definite evidence of intraluminal extravasation of contrast withinthe large and small bowel to suggest active GI bleed. 2. Scattered subtle foci of free air in the abdomen and pelvis, which is most significant in the right upper quadrant of the abdomen, and findings raise the concern for bowel perforation. Surgical consultation andmanagement is recommended as clinically indicated. 3. Mild mucosal thickening of the small bowel with mild dilatationmeasuring up to 3.7 cm, which may be related to mild enteritis of infectious or inflammatory etiology with mild reactive ileus. Continued follow-up is recommended as clinically indicated. 4. Mild diffuse mucosal thickening of the mid to distal transversecolon, descending colon, and sigmoid colon, which may be related tounderdistention versus a component of mild colitis of infectious or inflammatoryetiology. 5. Small amount of free fluid in the abdomen and pelvis. 6. Mild mucosal thickening of the urinary bladder, which may be relatedto underdistention versus cystitis. Clinical correlation with urinaryanalysis is recommended as clinically indicated. 7. Few foci of air noted within the urinary bladder, which may berelated to recent instrumentation. Correlation with recent procedural history is recommended as clinically indicated. 8. Mild patchy airspace opacities in the left lower lobe, which may be related to subsegmental atelectasis versus airspace disease. 9. Cholelithiasis. 10. Right ovarian cystic lesion with an irregular hyperattenuating rim measuring 2.1 cm, which likely represents a corpus luteum or hemorrhagiccyst. Findings were discussed with Dr. Wesley by Dr. Dominguez at 15:48 hours on 10/28/2024 . THIS IS AN ELECTRONICALLY VERIFIED FINAL REPORT 10/28/2024 3:48 PM - Electronically signed by Brijesh Dominguez D.O. PS: PS Report ID: [id number] Reading Location: [place] [address] us Esa Wesley DO IMG CT PROCEDURES Final Res ult * Sepsis Lactate w/ Reflex (10/28/2024 2:02 PM CDT) Sepsis Lactate 1.3 0.7 - 2.0 mmol/L Comment:Testing performed by : [facility], [address] [place] [address], [place]., [address] Blood 10/28/2024 2:02 PM CDT 10/28/2024 2:06 PM CDT Esa Wesley DO LAB BLOOD ORDERABLES Final Result [address] [address] * Antibody screen (10/28/2024 1:36 PM CDT) Mavis, indirect, Gel Interpretation Negative ABSC Comment:Testing performed by : [address] [address] Blood 10/28/2024 1:36 PM CDT 10/28/2024 1:41 PM CDT Narrative [facility] - 10/28/2024 2:26 PM CDT Has the patient had Daratumumab or Isatuximab in the past 6 months?->Unknown Esa Wesley DO LAB BLOOD BANK TEST ORDERAB LES Final Result Performing Organization Address [facility] Co de Phone Number [address] [address] * ABO/Rh (10/28/2024 1:36 PM CDT) ABO/Rh O Positive Comment:Testing performed by : [address] [address] Blood 10/28/2024 1:36 PM CDT 10/28/2024 1:41 PM CDT Narrative [facility] - 10/28/2024 2:09 PM CDT Has the patient had Daratumumab or Isatuximab in the past 6 months?->Unknown Esa Wesley DO LAB BLOOD BANK TEST ORDERAB LES Final Result Performing Organization Address City/[facility] Co de Phone Number [address] [address] * [place] CRITICAL CARE ILL/INJURED PATIENT INIT 30-74 MIN (10/28/2024 1:23 PM CDT) Narrative Esa Wesley DO - 10/28/2024 1:23 PM CDT Esa Wesley DO 10/28/2024 5:27 PM Critical Care Performed by: Esa Wesley DO Authorized by: Esa Wesley DO Critical care provider statement: As reflected in the history, physical exam, orders, notes, and/or MDM, I was personally present while the patient was critically ill and provided critical care services for 35 minutes, excluding time involved in separately billable procedures. Critical care was necessary to treat or prevent imminent or life-threatening deterioration of the following condition(s): Critical care was time spent by me providing the following: continuous telemetry, continuous pulse oximetry, interpretation of bedside monitors, imaging, and arterial/venous lab draws, serial bedside patient exams and resuscitation with fluids Pneumoperitoneum. Discussion with surgeon. obtain appropriate cultures and empiric broad coverage antibiotics I provided emergent necessary critical care medicine services to this patient. I ordered and reviewed test results and/or imaging studies. I spent time discussing the management of this critically ill patient with consultants and the medical staff. I spent time discussing the management and therapeutic options for this critically ill patient with the patient themselves or with the appropriate designated surrogate decision-maker. I spent time documenting in the medical record. I admitted this patient to a continuous cardiac monitored bed. Esa Wesley DO IN CLINIC/BEDSIDE ORDERABLE S Final Result * eGFR (10/28/2024 1:04 PM CDT) eGFR >90 >=60 mL/min/1. 73 m2 [...] Current interpretive data was last reviewed 2020. Testing performed by: [facility], [address] [place] [address]., [id number] Blood 10/28/2024 1:04 PM CDT 10/28/2024 2:40 PM CDT Esa Wesley DO LAB BLOOD ORDERABLES Final Result Performing Organization Address City/[facility]/ZIP Co de Phone Number TERE [address] [employer] [place] [address] * Blood smear review (10/28/2024 1:04 PM CDT) RBC morphology Consistent with RBC Indicies Comment:Testing performed by : [address] [address] Platelet estimate Adequate TERE Comment:Testing performed by : [facility], [address] [place] [address]., [id number] Blood 10/28/2024 1:04 PM CDT 10/28/2024 1:23 PM CDT Esa Wesley DO LAB BLOOD ORDERABLES Final Result Performing Organization Address [facility] Co de Phone Number JOSÉ[address] [address] * (ABNORMAL) Lipase (10/28/2024 1:04 PM CDT) Lipase 6(L) 10 - 99 Units/L Comment:Testing performed by : [address] [address] Blood 10/28/2024 1:04 PM CDT 10/28/2024 1:23 PM CDT Esa Wesley DO LAB BLOOD ORDERABLES Final Result TERE [address] [address] * (ABNORMAL) Differential, auto (10/28/2024 1:04 PM CDT) Pathologist [facility] Neutrophil abs 21.53(H) 1.50 - 6.50 K/cumm Comment:Testing performed by : [address] [address] Imm gran abs 0.17(H) 0.00 - 0.10 K/cumm TERE Comment:Testing performed by : [address] [address] Lymphocyte abs 0.90 0.80 - 3.30 K/cumm TERE Comment:Testing performed by : [address] [address] Monocyte abs 0.86(H) 0.20 - 0.80 K/cumm [facility] Comment:Testing performed by : [address] [address] Eosinophil abs 0.01 0.00 - 0.50 K/cumm [facility] Comment:Testing performed by : [address] [address] Basophil abs 0.04 0.00 - 0.10 K/cumm [facility] Comment:Testing performed by : [address] [address] Neutrophil pct 91.6 % [facility] Comment: Interpretive Data Percent cell count reference ranges are not reported, since discordance with absolute values may lead to misinterpretation of CBC data. Current Interpretive Data was last revised on 2017. Testing performed by: [address] [address] Imm gran pct 0.7 % [facility] Comment: Interpretive Data Percent cell count reference ranges are not reported, since discordance with absolute values may lead to misinterpretation of CBC data. Current Interpretive Data was last revised on 2017. Testing performed by: [address] [address] Lymphocyte pct 3.8 % [facility] Comment: Interpretive Data Percent cell count reference ranges are not reported, since discordance with absolute values may lead to misinterpretation of CBC data. Current Interpretive Data was last revised on 2017. Testing performed by: [address] [address] Monocyte pct 3.7 % [facility] Comment: Interpretive Data Percent cell count reference ranges are not reported, since discordance with absolute values may lead to misinterpretation of CBC data. Current Interpretive Data was last revised on 2017. Testing performed by: [facility], [address] [place] [address]., [address] Eosinophil pct 0.0 % [facility] Comment: Interpretive Data Percent cell count reference ranges are not reported, since discordance with absolute values may lead to misinterpretation of CBC data. Current Interpretive Data was last revised on 2017. Testing performed by: [facility], [address] [place] [address]., [address] Basophil pct 0.2 % [facility] Comment: Interpretive Data Percent cell count reference ranges are not reported, since discordance with absolute values may lead to misinterpretation of CBC data. Current Interpretive Data was last revised on 2017. Testing performed by: [address] [address] Blood 10/28/2024 1:04 PM CDT 10/28/2024 1:23 PM CDT Esa Wesley DO LAB BLOOD ORDERABLES Final Result TERE MARIANO [address] [facility] Department [place] [address] * Troponin T high-sensitivity series (baseline, 2hr, 4hr, 6hr) (10/28/2024 1:04 PM CDT) Trop T hs <6 <=14 ng/L Comment: Interpretive Data For further hscTnT resources including the diagnostic algorithm and an aid in interpretation, copy and paste this link: [email or web address].testcatalog.org/show/[email or web address] Current Interpretive Data last revised 2020. Testing performed by: [address] [address] Blood 10/28/2024 1:04 PM CDT 10/28/2024 1:23 PM CDT us Esa Wesley DO LAB BLOOD ORDERABLES Final Result TERE MARIANO [address] [facility] Department [place] [address] * (ABNORMAL) Comprehensive metabolic panel (10/28/2024 1:04 PM CDT) Sodium 140 135 - 145 mmol/L Comment:Testing performed by : [address] [address] Potassium, pl 4.0 3.3 - 4.9 mmol/L ETRE Comment:Testing performed by : [address] [address] Chloride 106 97 - 110 mmol/L TERE Comment:Testing performed by : [address] [address] CO2 18(L) 22 - 32 mmol/L TERE Comment:Testing performed by : [address] [address] Anion gap 16(H) 2 - 15 mmol/L TERE Comment:Testing performed by : [address] [address] BUN 9 6 - 25 mg/dL TERE Comment:Testing performed by : [address] [address] Creatinine 0.50(L) 0.60 - 1.10 mg/dL TERE Comment:Testing performed by : [address] [address] Glucose 107 70 - 199 mg/dL TERE Comment: Interpretive Data Fasting glucose >/= 126 [...] Current interpretive data was last revised 2022. Testing performed by: [address] [address] Calcium 8.5 8.5 - 10.3 mg/dL TERE Comment:Testing performed by : [address] [address] Bilirubin, total 0.6 0.1 - 1.2 mg/dL TERE Comment:Testing performed by : [address] [address] Protein, pl 6.9 6.5 - 8.5 g/dL TERE Comment:Testing performed by : [address] [address] Albumin 4.1 3.5 - 5.0 g/dL TERE Comment:Testing performed by : [address] [address] Alk phos 66 40 - 130 Units/L TERE Comment:Testing performed by : [address] [address] ALT 6(L) 7 - 45 Units/L TERE Comment:Testing performed by : [address] [address] AST 17 10 - 45 Units/L TERE Comment:Testing performed by : [address] [address] Blood 10/28/2024 1:04 PM CDT 10/28/2024 2:40 PM CDT Esa Wesley DO LAB BLOOD ORDERABLES Final Result TERE [facility] Department [place] [address] * (ABNORMAL) CBC with auto differential (10/28/2024 1:04 PM CDT) [facility] WBC 23.51(H) 3.80 - 9.90 K/cumm Comment:Testing performed by : [address] [address] Hgb 13.9 11.9 - 15.5 g/dL TERE Comment:Testing performed by : [address], [address] Hct 41.0 35.6 - 45.5 % TERE Comment:Testing performed by : [address] [address] Plt 263 150 - 400 K/cumm TERE Comment:Testing performed by : [address] [address] MPV 9.5 9.1 - 12.3 fL TERE Comment:Testing performed by : [address], [address] RBC 4.88 3.90 - 5.20 M/cumm TERE Comment:Testing performed by : [address], [address] MCV 84.0 81.3 - 96.4 fL TERE Comment:Testing performed by : [address] [address] MCH 28.5 27.1 - 33.3 pg TERE Comment:Testing performed by : [address], [address] MCHC 33.9 32.3 - 35.7 g/dL TERE Comment:Testing performed by : [address], [address] RDW CV 13.1 11.1 - 14.9 % TERE Comment:Testing performed by : [address], [address] RDW SD 40.1 35.7 - 48.1 fL TERE Comment:Testing performed by : [address] [address] NRBC abs 0.00 0.00 - 0.01 K/cumm TERE Comment:Testing performed by : [address] [address] Blood 10/28/2024 1:04 PM CDT 10/28/2024 1:23 PM CDT Esa Wesley DO LAB BLOOD ORDERABLES Edited Result - Final Performing Organization Address City/[facility]/ZIP Co de Phone Number TERE [address] [facility] Department [place] [address] * ECG 12 lead (10/28/2024 12:58 PM CDT) Ventricular Rate EKG/Min 83 BPM [facility] Atrial Rate 83 BPM [facility] TN-Interval (MSEC) 146 ms [facility] QRS-Interval (MSEC) 76 ms [facility] QT-Interval (MSEC) 392 ms [facility] QTc 460 ms [facility] P Arimo 57 degrees [facility] R Arimo 51 degrees [facility] T Ar[place] -7 degrees [facility] Diagnosis Normal sinus rhythm Possible Left atrial enlargement Nonspecific T wave abnormality Prolonged QT Abnormal ECG When compared with ECG of 25-MAY-2013 17:53, No significant change was found Confirmed by DEBBIE BENOIT M.D. ([id number]) on 10/29/2024 9:21:34 AM [facility] 10/28/2024 12:5 8 PM CDT 10/29/2024 9:21 AM CDT Esa Wesley DO ECG ORDERABLES Final Resul t Performing Organization Address [facility] Phone Number [facility] Agiliance [facility] documented in this encounter Visit Diagnoses Diagnosis Pneumoperitoneum- Primary Other specified disorder of peritoneum Pneumoperitoneum Other specified disorder of peritoneum documented in this encounter Admitting Diagnoses Diagnosis Pneumoperitoneum Other specified disorder of peritoneum documented in this encounter Administered Medications Inactive Administered Medications - up to 3 most recent administrations Medication Order MAR Action Action Date Dose Rate Site acetaminophen (TYLENOL) 32 mg/mL oral liquid 650 mg 650 mg, feeding tube, Every 4 hours PRN, 1st line for pain, fever, Starting on 10/28/24 at 2256, Administer if patient receiving meds per tube., Indications: Fever, PainIndications:Fever,Pain acetaminophen (TYLENOL) suppository 650 mg 650 mg, rectal, Every 4 hours PRN, 1st line for pain, fever, Starting on 10/28/24 at 2256, Administer if patient cannot tolerate enteral route., Indications: Fever, PainIndications:Fever,Pain acetaminophen (TYLENOL) tablet 650 mg 650 mg, oral, Every 4 hours PRN, 1st line for pain, fever, Starting on Tue10/28/24 at 2256, Administer if patient can swallow tablets., Indications: Fever, PainIndications:Fever,Pain acetaminophen (TYLENOL) tablet 975 mg 975 mg (rounded from 1,000 mg), oral, Every 6 hours scheduled, First dose on Tue10/29/24 at 0000, Indications: PainIndications:Pain Given 10/30/2024 11:23 AM CDT 975 mg Given 10/30/2024 5:37 AM CDT 975 mg Given 10/29/2024 11:36 PM CDT 975 mg enoxaparin (LOVENOX) syringe 40 mg 40 mg, subcutaneous, Daily, First dose on Tue10/29/24 at 0900, Indications: Deep Vein Thrombosis PreventionIndications:Deep Vein Thrombosis Prevention Given 10/30/2024 8:15 AM CDT 40 mg Right Lower Abdomen Given 10/29/2024 8:08 AM CDT 40 mg Ri ght Lower Abdomen fentaNYL (SUBLIMAZE) preservative free injection 25 mcg 25 mcg, intravenous, Every 5 min PRN, uncontrolled pain on PACU admission, Starting on Tue10/28/24 at 2146, For 4 doses, Phase I, Then proceed to PACU 1st line analgesic., Indications: PainIndications:Pain Given 10/28/2024 10:20 PM CDT 25 mcg Given 10/28/2024 10:00 PM CDT 25 mcg fentaNYL (SUBLIMAZE) preservative free injection 50 mcg 50 mcg, intravenous, Once, On Tue10/28/24 at 1324, For 1 dose Given 10/28/2024 1:36 PM CDT 50 mcg HYDROmorphone (DILAUDID) 2 mg/mL injection - ADS Override Pull Starting on Tue10/28/24 at 1535, For 1 dose, Created by leonidast override HYDROmorphone (DILAUDID) injection 0.2 mg 0.2 mg, intravenous, Administer over 2 Minutes, Every 10 min PRN, 1st line for pain, Starting on Tue10/28/24 at 2146, Phase I, Switch to 2nd line analgesic order if pain is uncontrolled or increasing after 2 doses. Notify Anesthesiologist if total PACU dose reaches 2 mg and pain score 5/10 or more., Indications: PainIndications:Pain Given 10/28/2024 10:20 PM CDT 0. 2 mg HYDROmorphone (DILAUDID) injection 0.4 mg 0.4 mg, intravenous, Administer over 2 Minutes, Every 10 min PRN, 2nd line for pain, Starting on Tue10/28/24 at 2146, Phase I, May administer 10 mintes after 2nd dose of 1st line analgesic agent for uncontrolled or increasing pain. Revert to 1st line dose if POSS of 3. Notify Anesthesiologist if total PACU dose reaches 2 mg and pain score 5/10 or more., Indications: PainIndications:Pain Given 10/28/2024 10:00 PM CDT 0.4 mg HYDROmorphone (DILAUDID) injection 0.5 mg 0.5 mg, intravenous, Administer over 2 Minutes, Once, On Tue10/28/24 at 1538, For 1 dose Given 10/28/2024 3:37 PM CDT 0.5 mg HYDROmorphone (DILAUDID) injection 0.5 mg 0.5 mg, intravenous, Administer over 2 Minutes, Once, On Tue10/28/24 at 1626, For 1 dose Given 10/28/2024 4:28 PM CDT 0.5 mg ibuprofen (ADVIL,MOTRIN) tablet/capsule 600 mg 600 mg, oral, Every 6 hours scheduled, First dose on Tue10/30/24 at 0300, Do not crush, break, or open., Indications: Pain, Postoperative Acute PainIndications:Pain,Postoperative Acute Pain Given 10/30/2024 3:57 PM CDT 600 mg Given 10/30/2024 8:15 AM CDT 600 mg Given 10/30/2024 2:38 AM CDT 600 mg ioversoL (OPTIRAY 350) syringe 100 mL 100 mL, intravenous, Once in imaging, contrast, Starting on Tue10/28/24 at 1520, For 1 dose Contrast Given 10/28/2024 3:21 PM CDT 100 mL ioversoL (OPTIRAY 350) syringe 100 mL 100 mL, intravenous, Once in imaging, contrast, Starting on Tue10/30/24 at 0846, For 1 dose Contrast Given 10/30/2024 8:47 AM CDT 100 mL Left Hand ketorolac (TORADOL) 30 mg/mL injection 30 mg 30 mg, intravenous, Every 6 hours scheduled, First dose on Tue10/29/24 at 0300, For 4 doses, Indications: Postoperative Acute PainIndications:Postoperative Acute Pain Given 10/29/2024 8:42 PM CDT 30 mg Given 10/29/2024 3:19 PM CDT 30 mg Given 10/29/2024 8:08 AM CDT 30 mg Lactated Ringer's (LR) bolus 1,000 mL 1,000 mL, intravenous, at 999 mL/hr, Administer over 1 Hours, Once, On Tue10/28/24 at 1348, For 1 dose New Bag 10/28/2024 1:51 PM CDT 1,000 mL 999 mL/hr Lactated Ringer's (LR) infusion - ADS Override Pull Starting on Tue10/28/24 at 2041, For 1 dose, Created by cabinet override Lactated Ringer's (LR) infusion 125 mL/hr, intravenous, Continuous, Starting on Tue10/28/24 at 2330 Restarted 10/29/2024 4:00 AM CDT 125 mL/hr 125 mL/hr New Bag 10/28/2024 11:57 PM CDT 125 mL/hr 125 mL/hr Lactated Ringer's (LR) infusion 30 mL/hr, intravenous, Continuous, Starting on Tue10/28/24 at 2115 Rate/Dose Verify 10/29/2024 5:37 PM CDT 30 mL/hr 30 mL/hr Rate/Dose Change 10/29/2024 12:01 AM CDT 30 mL/hr 30 mL/ hr Rate/Dose Verify 10/28/2024 8:56 PM CDT 30 mL/h r loperamide (IMODIUM) capsule 2 mg 2 mg, oral, 3 times daily PRN, diarrhea, Starting on Tue10/30/24 at 0951, Maximum recommended dose 16 mg/day Given 10/30/2024 11:09 AM CDT 2 mg metoclopramide (REGLAN) 5 mg/mL injection 10 mg 10 mg, intravenous, Every 8 hours PRN, other, nausea, Starting on Tue10/28/24 at 2258 Given 10/30/2024 11:09 AM CDT 10 mg Given 10/30/2024 2:44 AM CDT 10 mg Given 10/29/2024 3:49 PM CDT 10 mg morphine injection 1 mg 1 mg, intravenous, Administer over 4 Minutes, Every 4 hours PRN, 1st line for pain, Starting on 10/28/24 at 1931 Given 10/29/2024 9:27 AM CDT 1 mg Given 10/29/2024 12:13 AM CDT 1 mg Given 10/28/2024 7:41 PM CDT 1 mg morphine injection 2 mg 2 mg, intravenous, Administer over 4 Minutes, Every 4 hours PRN, 2nd line for pain, Starting on 10/28/24 at 1931 Given 10/30/2024 6:45 AM CDT 2 mg Given 10/30/2024 2:39 AM CDT 2 mg Given 10/29/2024 8:42 PM CDT 2 mg naloxone (NARCAN) 0.4 mg/mL injection 0.4 mg 0.4 mg, intravenous, Every 10 min PRN, opioid reversal, respiratory depression, Starting on Tue10/28/24 at 1932, For IV, administer over 30 seconds. ondansetron (ZOFRAN) injection 4 mg 4 mg, intravenous, Administer over 2 Minutes, Once, On Tue10/28/24 at 1324, For 1 dose Given 10/28/2024 1:36 PM CDT 4 m g ondansetron (ZOFRAN) injection 4 mg 4 mg, intravenous, Administer over 2 Minutes, Every 6 hours PRN, nausea, vomiting, Starting on Tue10/28/24 at 1929 Given 10/30/2024 6:36 PM CDT 4 mg Given 10/30/2024 5:38 AM CDT 4 mg Given 10/29/2024 8:42 PM CDT 4 mg ondansetron (ZOFRAN) injection 4 mg 4 mg, intravenous, Administer over 2 Minutes, Once as needed, nausea, vomiting, Starting on Tue10/28/24 at 2146, For 1 dose, Phase I, Proceed to prochlorperazine if ondansetron has been given within the last 6 hours. Given 10/28/2024 10:02 PM CDT 4 mg oxyCODONE (ROXICODONE) tablet 5 mg 5 mg, oral, Every 4 hours PRN, 1st line for pain, Starting on Tue10/28/24 at 2258, Indications: PainIndications:Pain Given 10/30/2024 5:30 PM CDT 5 mg Given 10/30/2024 5:38 AM CDT 5 mg Given 10/29/2024 9:52 PM CDT 5 mg piperacillin-tazobactam (ZOSYN) 3.375 gram/115 mL in sodium chloride 0.9% (premix) 3.375 g 3.375 g, intravenous, at 28.8 mL/hr, Administer over 4 Hours, Every 8 hours scheduled, First dose (after last reorder) on 10/28/24 at 2330, Dose and frequency are based on a 4hr infusion time and may be inappropriate for shorter infusions. Please infuse via secondary line to ensure complete administration., Indications: Abdominal/Pelvic InfectionIndications:Abdominal/Pe lvic Infection New Bag 10/30/2024 2:40 PM CDT 3.375 g 28.8 mL/hr New Bag 10/30/2024 6:29 AM CDT 3.375 g 28.8 mL/hr Restarted 10/30/2024 2:45 AM CDT 28.8 mL/hr piperacillin-tazobactam (ZOSYN) 4.5 g in sodium chloride 0.9% 100 mL IVPB 4.5 g, intravenous, at 200 mL/hr, Administer over 30 Minutes, Once, On Tue10/28/24 at 1415, For 1 dose, Dose and frequency are based on a 4hr infusion time and may be inappropriate for shorter infusions. Please infuse via secondary line to ensure complete administration. Mini-Bag Plus bag, Indications: Abdominal/Pelvic InfectionIndications:Abdominal/Pel court Infection New Bag 10/28/2024 3:01 PM CDT 4.5 g 200 mL/hr polyethylene glycol (MIRALAX) packet 17 g 17 g, oral, Daily PRN, constipation, Starting on Tue10/28/24 at 2256, Indications: constipationIndications:constipati on Given 10/29/2024 1:09 PM CDT 17 g prochlorperazine (COMPAZINE) injection 5 mg 5 mg, intravenous, Administer over 2 Minutes, Once as needed, nausea, vomiting, Starting on Tue10/28/24 at 2146, For 1 dose, Phase I, If nausea/vomiting not relieved by ondansetron within 30 minutes or if ondansetron has been given within the last 6 hours. Given 10/28/2024 10:16 PM CDT 5 mg simethicone (MYLICON) chewable tablet 160 mg 160 mg, oral, 3 times daily PRN, flatulence, Starting on Tue10/29/24 at 0607 Given 10/29/2024 1:09 PM CDT 160 mg Given 10/29/2024 6:14 AM CDT 160 mg sodium chloride 0.9% flush 0.5-20 mL 0.5-20 mL, intra-catheter, Every 8 hours scheduled, First dose on Tue10/28/24 at 2330, Flush volume based on line type and size. Given 10/30/2024 2:41 PM CDT 10 mL Given 10/30/2024 5:38 AM CDT 10 mL Given 10/29/2024 9:52 PM CDT 10 mL sodium chloride 0.9% flush 0.5-20 mL 0.5-20 mL, intra-catheter, Every 8 hours scheduled (alternate), First dose on Tue10/29/24 at 0000, Flush volume based on line type and size. Given 10/30/2024 2:41 PM CDT 10 mL Given 10/29/2024 11:36 PM CDT 10 mL Given 10/29/2024 6:15 AM CDT 10 mL documented in this encounter Discontinued Medications Medication Sig Discontinue Reason Start Date End Da te metroNIDAZOLE (FLAGYL) 500 mg tablet Take 1 tablet (500 mg total) by mouth 4 (four) times a day for 14 days Stop Taking at Discharge 10/30/2024 10/30/2024 documented as of this encounter Active and Recently Administered Medications Times are shown in CDT. Scheduled Medication Order 10/28/2024 10/29/2024 10/30/2024 acetaminophen (TYLENOL) tablet 975 mg 975 mg (rounded from 1,000 mg), oral, Every 6 hours scheduled, First dose on Tue10/29/24 at 0000, Indications: Pain 2349 (Given - Provider: Vandana Abdullahi RN) 0503 (Given - Provider: Vandana Abdullahi RN)1138 (Given - Provider: Annmarie Charles RN)1738 (Given - Provider: Annmarie Charles RN)2336 (Given - Provider: Vandana Abdullahi RN) 0537 (Given - Provider: Vandana Abdullahi RN)1123 (Given - Provider: Kiki Abdullahi RN)1800 (Due) enoxaparin (LOVENOX) syringe 40 mg 40 mg, subcutaneous, Daily, First dose on Tue10/29/24 at 0900, Indications: Deep Vein Thrombosis Prevention 0808 (Given - Provider: Annmarie Charles RN) 0815 (Given - Provider: Kiki Abdullahi RN) fentaNYL (SUBLIMAZE) preservative free injection 50 mcg (COMPLETED) 50 mcg, intravenous, Once, On Tue10/28/24 at 1324, For 1 dose 1336 (Given - Provider: Valencia Vega RN) HYDROmorphone (DILAUDID) injection 0.5 mg (COMPLETED) 0.5 mg, intravenous, Administer over 2 Minutes, Once, On Tue10/28/24 at 1538, For 1 dose 1537 (Given - Provider: Valencia Vega RN) HYDROmorphone (DILAUDID) injection 0.5 mg (COMPLETED) 0.5 mg, intravenous, Administer over 2 Minutes, Once, On Tue10/28/24 at 1626, For 1 dose 1628 (Given - Provider: Valencia Vega RN) ibuprofen (ADVIL,MOTRIN) tablet/capsule 600 mg(Linked Group 1) 600 mg, oral, Every 6 hours scheduled, First dose on Tue10/30/24 at 0300, Do not crush, break, or open., Indications: Pain, Postoperative Acute Pain 0238 (Given - Provider: Vandana Abdullahi RN)0815 (Given - Provider: Kiki Abdullahi RN)1557 (Given - Provider: Kiki Abdullahi RN) ketorolac (TORADOL) 30 mg/mL injection 30 mg (COMPLETED)(Linked Group 1) 30 mg, intravenous, Every 6 hours scheduled, First dose on Tue10/29/24 at 0300, For 4 doses, Indications: Postoperative Acute Pain 0202 (Given - Provider: Vandana Abdullahi RN)0808 (Given - Provider: Annmarie Charles, LILY)1519 (Given - Provider: Annmarie Charles RN)2042 (Given - Provider: Vandana Abdullahi RN) Lactated Ringer's (LR) bolus 1,000 mL (COMPLETED) 1,000 mL, intravenous, at 999 mL/hr, Administer over 1 Hours, Once, On 10/28/24 at 1348, For 1 dose 1351 (New Bag - Provider: Valencia Vega, LILY)1500 (Stopped - Provider: Valencia Vega, RN) levETIRAcetam (KEPPRA) tablet 500 mg 500 mg, oral, 2 times daily, First dose on 10/28/24 at 2330, May mix with 120 mL of enteral nutrition formula or disperse crushed tablets (500 mg tablet strength studied) in 10 mL of water, shake for 5 minutes to dissolve, and administer immediately via enteral feeding tube. 2349 (Not Given - Provider: Vandana Abdullahi RN - Reason: Patient/family refused - Comment: pt stated she stopped taking this a long time ago) 0808 (Not Given - Provider: Annmarie Charles RN - Reason: Patient/family refused)2043 (Not Given - Provider: Vandana Abdullahi RN - Reason: Patient/family refused) 0816 (Not Given - Provider: Kiki Abdullahi RN - Reason: Patient/family refused - Comment: Pt states that she doesnt) ondansetron (ZOFRAN) injection 4 mg (COMPLETED) 4 mg, intravenous, Administer over 2 Minutes, Once, On 10/28/24 at 1324, For 1 dose 1336 (Given - Provider: Valencia Vega, LILY) piperacillin-tazobactam (ZOSYN) 3.375 gram/115 mL in sodium chloride 0.9% (premix) 3.375 g 3.375 g, intravenous, at 28.8 mL/hr, Administer over 4 Hours, Every 8 hours scheduled, First dose (after last reorder) on 10/28/24 at 2330, Dose and frequency are based on a 4hr infusion time and may be inappropriate for shorter infusions. Please infuse via secondary line to ensure complete administration., Indications: Abdominal/Pelvic Infection 2355 (New Bag - Provider: Vandana Abdullahi RN) 0355 (Stopped - Provider: Vandana Abdullahi RN)0614 (New Bag - Provider: Vandana Abdullahi RN)1047 (Stopped - Provider: Annmarie Melvin, RN)1425 (New Bag - Provider: Annmarie Charles RN)1737 (Rate/Dose Verify - Provider: Annmarie Charles RN)1900 (Stopped - Provider: Vandana Abdullahi RN)2155 (New Bag - Provider: Vandana Abdullahi RN) 0200 (Stopped - Provider: Vandana Abdullahi RN - Comment: loss of IV)0245 (Restarted - Provider: Vandana Abdullahi RN - Comment: New IV access)0345 (Stopped - Provider: Vandana Abdullahi RN)0629 (New Bag - Provider: Vandana Abdullahi RN)1029 (Stopped - Provider: Melva Palomino, RN)1440 (New Bag - Provider: Kiki Abdullahi, RN)1843 (Stopped - Provider: Melva Palomino, RN) piperacillin-tazobactam (ZOSYN) 4.5 g in sodium chloride 0.9% 100 mL IVPB (COMPLETED) 4.5 g, intravenous, at 200 mL/hr, Administer over 30 Minutes, Once, On Tue10/28/24 at 1415, For 1 dose, Dose and frequency are based on a 4hr infusion time and may be inappropriate for shorter infusions. Please infuse via secondary line to ensure complete administration. Mini-Bag Plus bag, Indications: Abdominal/Pelvic Infection 1501 (New Bag - Provider: Valencia Vega, LILY)1531 (Stopped - Provider: Nithya Rubin RN) sodium chloride 0.9% flush 0.5-20 mL 0.5-20 mL, intra-catheter, Every 8 hours scheduled, First dose on Tue10/28/24 at 2330, Flush volume based on line type and size. 2355 (Given - Provider: Vandana Abdullahi RN) 0615 (Given - Provider: Vandana Abdullahi RN)1305 (Not Given - Provider: Annmarie Charles RN - Reason: IV Infusing)2152 (Given - Provider: Vandana Abdullahi RN) 0538 (Given - Provider: Vandana Abdullahi RN)1441 (Given - Provider: Kiki Abdullahi, RN) sodium chloride 0.9% flush 0.5-20 mL 0.5-20 mL, intra-catheter, Every 8 hours scheduled (alternate), First dose on Tue10/29/24 at 0000, Flush volume based on line type and size. 2355 (Given - Provider: Vandana Abdullahi RN) 0615 (Given - Provider: Vandana Abdullahi RN)1428 (Not Given - Provider: Annmarie Charles RN - Reason: IV Infusing)2336 (Given - Provider: Vandana Abdullahi RN) 0816 (Not Given - Provider: Kiki Abdullahi RN - Reason: IV Infusing)1441 (Given - Provider: Kiki Abdullahi RN) Continuous Medication Order 10/28/2024 10/29/2024 10/30/2024 Lactated Ringer's (LR) infusion (CANCELED) 125 mL/hr, intravenous, Continuous, Starting on 10/28/24 at 2330 2357 (New Bag - Provider: Vandana Abdullahi RN) 0000 (Stopped - Provider: Vandana Abdullahi RN - Comment: can not be ran with IV abx, not compatible. will continue when abx are complete)0400 (Restarted - Provider: Vandana Abdullahi RN) 0628 (Stopped - Provider: Melva Palomino RN)1309 (Canceled Entry - Provider: Melva Palomino RN) Lactated Ringer's (LR) infusion (CANCELED) 30 mL/hr, intravenous, Continuous, Starting on Tue10/28/24 at 2115 2044 (New Bag - Provider: Tamiko Cook RN)2056 (Rate/Dose Verify - Provider: Aston Campos MD)2143 (Anesthesia Volume Adjustment - Provider: Aston Campos MD) 0001 (Rate/Dose Change - Provider: Vandana Abdullahi RN)1737 (Rate/Dose Verify - Provider: Annmarie Charles, LILY) 0628 (Stopped - Provider: Melva Palomino RN)1308 (Canceled Entry - Provider: Melva Palomino RN) PRN Medication Order 10/28/2024 10/29/2024 10/30/2024 acetaminophen (TYLENOL) 32 mg/mL oral liquid 650 mg(Linked Group 2) 650 mg, feeding tube, Every 4 hours PRN, 1st line for pain, fever, Starting on Tue10/28/24 at 2256, Administer if patient receiving meds per tube., Indications: Fever, Pain 1108 (See Alternative - Provider: Kiki Abdullahi RN) acetaminophen (TYLENOL) suppository 650 mg(Linked Group 2) 650 mg, rectal, Every 4 hours PRN, 1st line for pain, fever, Starting on 10/28/24 at 2256, Administer if patient cannot tolerate enteral route., Indications: Fever, Pain 1108 (See Alternative - Provider: Kiki Abdullahi RN) acetaminophen (TYLENOL) tablet 650 mg(Linked Group 2) 650 mg, oral, Every 4 hours PRN, 1st line for pain, fever, Starting on 10/28/24 at 2256, Administer if patient can swallow tablets., Indications: Fever, Pain 1108 (Not Given - Provider: Kiki Abdullahi RN - Reason: Other - Comment: wrong med scanned) Carrier Fluids for Secondary Infusion - 0.9% Sodium Chloride 30 mL, intravenous, As needed, For priming tubing and/or flushing, Starting on 10/28/24 at 2256, 0-250 ml/hr to flush line after IV infusions when no maintenance IV ordered. Infuse 30mL at the same rate as the secondary infusion. Run as primary IV, not intended for KVO. Carrier Fluids for Secondary Infusion - 0.9% Sodium Chloride 30 mL, intravenous, As needed, For priming tubing and/or flushing, Starting on 10/28/24 at 2258, 0-250 ml/hr to flush line after IV infusions when no maintenance IV ordered. Infuse 30mL at the same rate as the secondary infusion. Run as primary IV, not intended for KVO. fentaNYL (SUBLIMAZE) preservative free injection 25 mcg (CANCELED) 25 mcg, intravenous, Every 5 min PRN, uncontrolled pain on PACU admission, Starting on 10/28/24 at 2146, For 4 doses, Phase I, Then proceed to PACU 1st line analgesic., Indications: Pain 2200 (Given - Provider: Tamiko Cook RN)2220 (Given - Provider: Tamiko Cook RN) HYDROmorphone (DILAUDID) injection 0.2 mg (CANCELED) 0.2 mg, intravenous, Administer over 2 Minutes, Every 10 min PRN, 1st line for pain, Starting on 10/28/24 at 2146, Phase I, Switch to 2nd line analgesic order if pain is uncontrolled or increasing after 2 doses. Notify Anesthesiologist if total PACU dose reaches 2 mg and pain score 5/10 or more., Indications: Pain 2220 (Given - Provider: Tamiko Cook, RN) HYDROmorphone (DILAUDID) injection 0.4 mg (CANCELED) 0.4 mg, intravenous, Administer over 2 Minutes, Every 10 min PRN, 2nd line for pain, Starting on Tue10/28/24 at 2146, Phase I, May administer 10 mintes after 2nd dose of 1st line analgesic agent for uncontrolled or increasing pain. Revert to 1st line dose if POSS of 3. Notify Anesthesiologist if total PACU dose reaches 2 mg and pain score 5/10 or more., Indications: Pain 2200 (Given - Provider: Tamiko Cook, LILY) ioversoL (OPTIRAY 350) syringe 100 mL (COMPLETED) 100 mL, intravenous, Once in imaging, contrast, Starting on Tue10/28/24 at 1520, For 1 dose 1521 (Contrast Given - Provider: Misbah Borjas, RT) ioversoL (OPTIRAY 350) syringe 100 mL (COMPLETED) 100 mL, intravenous, Once in imaging, contrast, Starting on Tue10/30/24 at 0846, For 1 dose 0847 (Contrast Given - Provider: Rober Rocha, RT) loperamide (IMODIUM) capsule 2 mg 2 mg, oral, 3 times daily PRN, diarrhea, Starting on Tue10/30/24 at 0951, Maximum recommended dose 16 mg/day 1109 (Given - Provider: Kiki Abdullahi, RN) metoclopramide (REGLAN) 5 mg/mL injection 10 mg 10 mg, intravenous, Every 8 hours PRN, other, nausea, Starting on Tue10/28/24 at 2258 0810 (Given - Provider: Annmarie Charles RN)1549 (Given - Provider: Annmarie Charles RN) 0244 (Given - Provider: Vandana Abdullahi RN)1109 (Given - Provider: Kiki Abdullahi, LILY) morphine injection 1 mg (CANCELED)(Linked Group 3) 1 mg, intravenous, Administer over 4 Minutes, Every 4 hours PRN, 1st line for pain, Starting on 10/28/25 at [id number] (Given - Provider: Greta River, LILY)1953 (APR Hold - Provider: Automatic Transfer Provider - Reason: Patient not available)2253 (APR Unhold - Provider: Automatic Transfer Provider) 0013 (Given - Provider: Vandana Abdullahi RN)0503 (See Alternative - Provider: Vandana Abdullahi RN)0927 (Given - Provider: Annmarie Charles, LILY)1309 (See Alternative - Provider: Annmarie Charles RN)2041 (See Alternative - Provider: Vandana Abdullahi RN) 023 (See Alternative - Provider: Vandana Abdullahi RN)0645 (See Alternative - Provider: Vandana Abdullahi RN) morphine injection 2 mg(Linked Group 3) 2 mg, intravenous, Administer over 4 Minutes, Every 4 hours PRN, 2nd line for pain, Starting on 10/28/24 at [id number] (See Alternative - Provider: Greta River, LILY)1953 (APR Hold - Provider: Automatic Transfer Provider - Reason: Patient not available)2253 (APR Unhold - Provider: Automatic Transfer Provider) 0013 (See Alternative - Provider: Vandana Abdullahi RN)0503 (Given - Provider: Vandana Abdullahi RN)0927 (See Alternative - Provider: Annmarie Charles RN)1309 (Given - Provider: Annmarie Charles RN)2041 (Given - Provider: Vandana Abdullahi RN) 0239 (Given - Provider: Vandana Abdullahi RN)0645 (Given - Provider: Vandana Abdullahi RN) naloxone (NARCAN) 0.4 mg/mL injection 0.4 mg 0.4 mg, intravenous, Every 10 min PRN, opioid reversal, respiratory depression, Starting on 10/28/24 at 1932, For IV, administer over 30 seconds. 1953 (APR Hold - Provider: Automatic Transfer Provider - Reason: Patient not available)2253 (APR Unhold - Provider: Automatic Transfer Provider) ondansetron (ZOFRAN) injection 4 mg 4 mg, intravenous, Administer over 2 Minutes, Every 6 hours PRN, nausea, vomiting, Starting on 10/28/24 at 1929 194 (Given - Provider: Greta River, LILY)1953 (APR Hold - Provider: Automatic Transfer Provider - Reason: Patient not available)2254 (MAR Unhold - Provider: Automatic Transfer Provider) 1138 (Given - Provider: Annmarie Charles, RN)2042 (Given - Provider: Vandana Abdullahi RN) 0538 (Given - Provider: Vandana Abdullahi RN)1836 (Given - Provider: Kiki Abdullahi, RN) ondansetron (ZOFRAN) injection 4 mg (COMPLETED) 4 mg, intravenous, Administer over 2 Minutes, Once as needed, nausea, vomiting, Starting on 10/28/24 at 2146, For 1 dose, Phase I, Proceed to prochlorperazine if ondansetron has been given within the last 6 hours. 220 (Given - Provider: Tamiko Cook, LILY) oxyCODONE (ROXICODONE) tablet 5 mg 5 mg, oral, Every 4 hours PRN, 1st line for pain, Starting on 10/28/24 at 2258, Indications: Pain 0621 (Given - Provider: Vandana Abdullahi RN)1138 (Given - Provider: Annmarie Charles RN)1549 (Given - Provider: Annmarie Charles RN)2152 (Given - Provider: Vandana Abdullahi RN) 0538 (Given - Provider: Vandana Abdullahi RN)1730 (Given - Provider: Kiki Abdullahi, LILY) polyethylene glycol (MIRALAX) packet 17 g 17 g, oral, Daily PRN, constipation, Starting on 10/28/24 at 2256, Indications: constipation 1309 (Given - Provider: Annmarie Charles, LILY) prochlorperazine (COMPAZINE) injection 5 mg (COMPLETED) 5 mg, intravenous, Administer over 2 Minutes, Once as needed, nausea, vomiting, Starting on 10/28/24 at 2146, For 1 dose, Phase I, If nausea/vomiting not relieved by ondansetron within 30 minutes or if ondansetron has been given within the last 6 hours. 221 (Given - Provider: Tamiko Cook, LILY) simethicone (MYLICON) chewable tablet 160 mg 160 mg, oral, 3 times daily PRN, flatulence, Starting on 10/29/24 at 0607 0614 (Given - Provider: Vandana Abdullahi RN)1309 (Given - Provider: Annmarie Charles, LILY) sodium chloride 0.9% flush 0.5-20 mL 0.5-20 mL, intra-catheter, As needed, line care, Starting on Tue10/28/24 at 2256, Flush volume based on line type and size. Flush before and after each use. sodium chloride 0.9% flush 0.5-20 mL 0.5-20 mL, intra-catheter, As needed, line care, Starting on Tue10/28/24 at 2258, Flush volume based on line type and size. Flush before and after each use. Linked Groups Order Group 1: ketorolac (TORADOL) 30 mg/mL injection 30 mg (COMPLETED)Jump to med 30 mg, intravenous, Every 6 hours scheduled, First dose on Tue10/29/24 at 0300, For 4 doses, Indications: Postoperative Acute Pain Followed by ibuprofen (ADVIL,MOTRIN) tablet/capsule 600 mgJump to med 600 mg, oral, Every 6 hours scheduled, First dose on Tue10/30/24 at 0300, Do not crush, break, or open., Indications: Pain, Postoperative Acute Pain Group 2: acetaminophen (TYLENOL) tablet 650 mgJump to med 650 mg, oral, Every 4 hours PRN, 1st line for pain, fever, Starting on Tue10/28/24 at 2256, Administer if patient can swallow tablets., Indications: Fever, Pain Or acetaminophen (TYLENOL) 32 mg/mL oral liquid 650 mgJump to med 650 mg, feeding tube, Every 4 hours PRN, 1st line for pain, fever, Starting on Tue10/28/24 at 2256, Administer if patient receiving meds per tube., Indications: Fever, Pain Or acetaminophen (TYLENOL) suppository 650 mgJump to med 650 mg, rectal, Every 4 hours PRN, 1st line for pain, fever, Starting on Tue10/28/24 at 2256, Administer if patient cannot tolerate enteral route., Indications: Fever, Pain Group 3: morphine injection 4 mg (CANCELED) 4 mg, intravenous, Administer over 4 Minutes, Every 4 hours PRN, 3rd line for pain, Starting on Tue10/28/24 at 1931 Or morphine injection 2 mgJump to med 2 mg, intravenous, Administer over 4 Minutes, Every 4 hours PRN, 2nd line for pain, Starting on Tue10/28/24 at 1931 Or morphine injection 1 mg (CANCELED)Jump to med 1 mg, intravenous, Administer over 4 Minutes, Every 4 hours PRN, 1st line for pain, Starting on 10/28/24 at 1931 documented in this encounter Orders Medications Ordered That Nestor ht Not Have Been Administered Count Last Ordered Date First Ordered Date acetaminophen (TYLENOL) 32 m g/mL oral liquid 650 mg 1 10/28/2024 acetaminophen (TYLENOL) suppository 650 mg 1 10/28/2024 acetaminophen (TYLENOL) tablet 650 mg 1 acetaminophen (TYLENOL) tablet 975 mg 1 albuterol 2.5 mg/0.5 mL nebu lizer solution 2.5 mg 1 10/28/2024 Carrier Fluids for Secondary Infusion - 0.9% Sodium Chloride 2 10/28/2024 cefepime (MAXIPIME) 2,000 mg in sodium chloride 0.9% 100 mL IVPB 1 10/28/2024 diphenhydrAMINE (BENADRYL) 5 0 mg/mL injection 12.5 mg 1 10/28/2024 hydrALAZINE (APRESOLINE) injection 5 mg 1 0 10/28/2024 labetaloL (NORMODYNE,TRANDAT E) injection 5 mg 1 10/28/2024 levETIRAcetam (KEPPRA) tablet 500 mg 1 09/30 meperidine (DEMEROL) preserv ative free injection 12.5 mg 1 10/28/2024 metroNIDAZOLE (FLAGYL) 500 m g/100 mL in sodium chloride (premix) 500 mg 1 10/28/2024 morphine injection 4 mg 1 10/28/2024 naloxone (NARCAN) 0.4 mg/mL injection 0.04-0.4 mg 1 10/28/2024 naloxone (NARCAN) 0.4 mg/mL injection 0.4 mg 1 10/28/2024 sodium chloride 0.9% flush 0.5-20 mL 2 09/30 vancomycin 1,000 mg/250 mL i n sodium chloride 0.9% (premix) 1,000 mg 1 10/28/2024 Lab Orders Without Results Count Last Ordered D ate First Ordered Date LIPASE 1 10/28/2024 MAGNESIUM 1 10/28/2024 PHOSPHORUS 1 10/28/2024 Nursing Count Last Ordered Date First Orde red Date TELEMETRY MONITORING 1 10/28/2024 WEIGH PATIENT 1 10/28/2024 Consult Count Last Ordered Date First Orde red Date IP CONSULT TO GENERAL SURGERY 1 10/28/2024 Admission Count Last Ordered Date First Orde red Date ADMIT TO INPATIENT 1 10/28/2024 Transfer Count Last Ordered Date First Orde red Date ED TO FLOOR BED REQUEST 1 10/28/2024 Discharge Count Last Ordered Date First Orde red Date DISCHARGE PATIENT 1 10/30/2024 CORE MEASURES Count Last Ordered Date First Ord ered Date REASON FOR NO VTE PROPHYLAXIS AT ADMISSION 1 10/28/2024 documented in this encounter Care Teams [place] Relationship Specialty Start Date End Date Unknown, Notinfile PCP - General 07/09/24 documented as of this encounter
--- OUTSIDE RECORDS SUMMARY | 2024-10-28 12:48 | XMS_ITS | Encounter Summary ---
Author Organization [facility] Healthcare Address [address] [place] [address] Care Team Providers Care Produce Sorter Name Role Phone Unknown, Notinfile Primary Care Provider Unavail able Reason for Visit * Reason Comments Abdominal Pain * Auth/Cert (Routine) Specialty Diagnoses / Procedures Referred By Genna siu Referred To Contact Diagnoses Pneumoperitoneum Procedures na Referral ID Status Reason Start Date Expiration Date Visits Re quested Visits Authorized [id number] 1 1 Encounter Details Date Type Department Care Team (Latest Contact Info) Description 10/28/2024 12:48 PM CDT - 10/30/2024 7:05 PM CDT Hospital Encounter [place] [address] Med Surg [address] [place] [id number] Esa Wesley DO [address] [place] [address] EMERGENCY DEPT [place], [place] [phone] Jona Palumbo MD [address] [place] [phone] Kelvin Portillo MD [address] [place] [address] [place] [address] Pneumoperitoneum (Primary Dx) Discharge Disposition: Discharge to [...] often do you attend chur ch or jewish services? Never 10/30/2024 Do you belong to any clubs o r organizations such as hoahaoism groups, unions, fraternal or athletic groups, or [...] any time in the past 12 [facility], were you homeless or living in a jail (including now)? 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 Gilbert [facility]) with a to-date normal post-operative recovery course [...] bowel rest for conservative management for now. HISTORY TEACHER consulted to r/o vaginal dehiscence as cause of free air. On pelvic examination ED - a full vaginal cuff width (3-4cm) mucosal dehiscence was noted with proximal peritonealization - no evidence of visceral evisceration or strangulation, active bleeding or acute infection/celulitis of cuff. The patient was seen by both general surgery and cradle placer. Senior Accounting Clerk cleared the patient for discharge since no acute intervention is required general surgery recommended to repeat CT which was done today and show few air bubbles next of the vagina but no gross abnormalities and no indication for acute intervention. The patient's WBC count down trended from the peak of 23.5-12.6 she has remained afebrile. General surgery and cradle placer cleared the patient for discharge he went [...] & Recommended Plan for Follow-up: PCP and cradle placer Allergies: No known allergies Discharge Medications: Your [...] Your Medications These medications were sent to [id number] - [facility] [address] [facility] [address] [facility] [id number] acetaminophen 500 mg tablet amoxicillin-clavulanate 875-125 mg [...] Brijesh Dominguez D.O. PS: PS Report ID: [id number] Reading Location: [id number] Recent Labs: Recent Labs Lab Units 10/30/24 [...] 9 CREATININE mg/dL 0.50* 0.55* -- 0.50* [id number] mL/min/1.73 m2 >90 >90 -- >90 GLUCOSE [...] Care Everywhere. * Amoxicillin/Clavulanate Potassium (By mouth) (Samoan) * Oxycodone, Rapid Release (By mouth) (Samoan) documented in this encounter Medications at Time [...] post-op admission on 09/11 (Dr. Miller of [facility]) with a to-date normal post- operative recovery [...] bowel rest for conservative management for now. HISTORY TEACHER consulted to r/o vaginal dehiscence as cause [...] post-op admission on 09/11 (Dr. Miller of [facility]) with a to-date normal post-operative recovery course [...] bowel rest for conservative management for now. HISTORY TEACHER consulted to r/o vaginal dehiscence as cause of free air. On pelvic examination ED - a full vaginal cuff width (3-4cm) mucosal dehiscence was noted with proximal peritonealization - no evidence of visceral evisceration or strangulation, active bleeding or acute infection/celulitis of cuff. The patient was seen by both general surgery and cradle placer. Senior Accounting Clerk cleared the patient for discharge since no [...] tongue midline, mucosa moist Lungs CTA Heart: [id number], no significant murmur or gallop Abd: +BS, [...] byBrijesh Dominguez D.O. PS: PS Report ID: [id number] Reading Location: [place] [address] Current Facility-Administered Medications Medication Dose Route Frequency [...] tablet 975 mg 975 mg oral Q6H [facility] Jackson Rodarte MD 975 mg at 10/30/24 [...] (premix) 3.375 g 3.375 g intravenous Q8H [facility] Jackson Rodarte MD 28.8 mL/hr at 10/30/24 [...] flush 0.5-20 mL 0.5-20 mL intra-catheter Q8H [facility] (ALT) Jackson Rodarte MD 10 mL at [...] independently Case discussed with Case Management and Clean Energy Policy Analyst Medical complexity/risk: Moderate My total encounter time on 10/30/24 was 37 minutes which was spent in the activities documented in the note. This includes time spent prior to the visit and after the visit in direct care of the patient. This time does not include time spent in any separately reportable services. Voice recognition software Pano [employer] Direct may have been used dictate and transcribe this document. Varnish Remover variances may occur. Despite proofreading, typographical errors [...] MD - 10/30/2024 9:32 AM CDT Inpatient HISTORY TEACHER Progress Note Subjective: Aurelia Torrez is a [...] K/cumm Final Comment: Testing performed by: [facility] [address] [place] [address]., [address] 10/28/2024 23.51 (H) 3.80 - 9.90 K/cumm Final Comment: Testing performed by: [facility] [address] [place] [address]., [address] Hgb Date Value Ref Range Status 10/29/2024 11.5 (L) 11.9 - 15.5 g/dL Final Comment: Testing performed by: [facility] [address] [place] [address]., [address] 10/28/2024 13.9 11.9 - 15.5 g/dL Final Comment: Testing performed by: [facility] [address] [place] [address]., [address] Hct Date Value Ref Range Status 10/29/2024 33.5 (L) 35.6 - 45.5 % Final Comment: Testing performed by: [facility] [address] [place] [address]., [address] 10/28/2024 41.0 35.6 - 45.5 % Final Comment: Testing performed by: [facility] [address] [place] [address]., [address] Plt Date Value Ref Range Status 10/29/2024 214 150 - 400 K/cumm Final Comment: Testing performed by: [facility] [address] [place] [address]., [address] 10/28/2024 263 150 - 400 K/cumm Final Comment: Testing performed by: [facility] [address] [place] [address]., [address] AST Date Value Ref Range Status 10/28/2024 17 10 - 45 Units/L Final Comment: Testing performed by: [facility] [address] [place] [address]., [address] 07/09/2024 See Comment 10 - 45 Final Comment: Credited; Hemolyzed Specimen ALT Date Value Ref Range Status 10/28/2024 6 (L) 7 - 45 Units/L Final Comment: Testing performed by: [address] [address] 07/09/2024 See Comment 7 - 03 Final Comment: Credited; Hemolyzed Specimen Alk phos Date Value Ref Range Status 10/28/2024 66 40 - 130 Units/L Final Comment: Testing performed by: [address] [address] 07/09/2024 64 40 - 130 Units/L Final Albumin Date Value Ref Range Status 10/28/2024 4.1 3.5 - 5.0 g/dL Final Comment: Testing performed by: [address], [address] 07/09/2024 4.0 3.5 - 5.0 g/dL Final Lipase Date Value Ref Range Status 10/28/2024 6 (L) 10 - 99 Units/L Final Comment: Testing performed by: [address], [address] 07/09/2024 20 10 - 99 Units/L Final Comment: Hemolyzed; result might be falsely decreased ASSESSMENT: Principal Problem: Pneumoperitoneum PLAN: We will repeat CT scan Jd Medrano MD 10/30/2024 This examination was transcribed using the Cooleaf voice recognition system without human service promoter salesperson. In an effort to expedite patient care, this report has not been adjusted for typographical, grammatical, and syntax by a trained medical records field technician. * Jona Palumbo MD - 10/29/2024 3:38 PM CDT Images from the original note were not included. General Medicine Daily Progress SUBJECTIVE History of Present Illness: Aurelia Torrez is a 39 y.o. female who is s/p a laparoscopic TLH complicated by severe endometriosis that required a 5hr surgical time and 2 day post-op admission on 09/11 (Dr. Miller of [facility]) with a to-date normal post- operative recovery [...] bowel rest for conservative management for now. HISTORY TEACHER consulted to r/o vaginal dehiscence as cause [...] tongue midline, mucosa moist Lungs CTA Heart: [id number], no significant murmur or gallop Abd: +BS, [...] Brijesh Dominguez D.O. PS: PS Report ID: [id number] Reading Location: [place] [address] Current Facility-Administered Medications Medication Dose Route Frequency [...] tablet 975 mg 975 mg oral Q6H [facility] Jackson Rodarte MD 975 mg at 10/29/24 [...] injection 30 mg 30 mg intravenous Q6H [facility] Jackson Rodarte MD 30mg at 10/29/24 1519 Followed by [START ON 10/30/2024] ibuprofen (ADVIL,MOTRIN) tablet/capsule 600 mg 600 mg oral Q6H [facility] Jackson Rodarte MD Lactated Ringer's (LR) infusion [...] independently Case discussed with Case Management and Clean Energy Policy Analyst Medical complexity/risk: Moderate My total encounter time on 10/29/24 was 37 minutes which was spent in the activities documented in the note. This includes time spent prior to the visit and after the visit in direct care of the patient. This time does not include time spent in any separately reportable services. Voice recognition software [employer]i2 [place] Fluency Direct may have been used dictate and transcribe this document. Varnish Remover variances may occur. Despite proofreading, typographical errors may occur. Jona Palumbo MD 10/29/2024 3:39 PM * Victor Hugo Sousa MD - 10/29/2024 12:06 PM CDT Images from the original note were not included. 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 1 syncopal fall. 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 Pt performed 90 [id number] degree turns, sidestepping, backwards walking, tandem walking, [...] level of functional performance prior to evaluation. Belt Glass Sander Services Utilized: NO Pt performed all bed [...] post-op admission on 09/11 (Dr. [facility] of [facility]) with a to-date normal post- operative recovery [...] bowel rest for conservative management for now. 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 [...] - Anti-coagulation: Pt is not on any group home anti-coagulation. Will plan for SCD's during surgeryand [...] byBrijesh Dominguez D.O. PS: PS Report ID: [id number] Reading Location: [place] [address] ASSESSMENT/PLAN: Principal Problem: Pneumoperitoneum Resolved Problems: No [...] reportable services. Complexity: Moderate Voice recognition software MMAi2 [place] Fluency Direct may have been used to dictate and transcribe this document. Varnish Remover variances may occur. Despite proofreading, typographical errors may occur. Latha Rojas AGACNPMARITA 10/28/2024 5:16 PM For patients or family members viewing this note through Sh[employer]Post: This note was written as a communication [...] note were not included. General Surgery Consultation Note-[facility] Aurelia Torrez 39 y.o. female [...] Rober Rogers M.D. JR T: Report ID: [id number] Reading Location: [id number] IMPRESSION: Abdominal pain, vaginal bleeding 5 weeks [...] nursing note reviewed. Exam conducted with a peach grower present (RN). Constitutional: Appearance: Normal appearance. She [...] Wesley DO Time: 10/28 1726 Comment: Dr. Sosua recommended medical management at this time. Senior Accounting Clerk consult discussed with Dr. Rodarte. By: Esa Wesley DO This examination was transcribed using the Cooleaf voice recognition system without human service promoter salesperson. In an effort to expedite patient care, this report has not been adjusted for typographical, grammatical, and syntax by a trained medical records field technician. Clinical Impression: Pneumoperitoneum Esa Wesley, 10/28/24 1628 [...] monitor for signs and symptoms of infection [place] appropriate cooling/warming therapies per order Administer medications [...] trachea Abnormalities of chest muscles: polio, myasthenia, Guillain-Kennard DIRECTOR OF IN SERVICE EDUCATION depression due to drugs, anesthesia, obesity hypoventilation If provider believes patient has acidosis in the absence of above laboratory values, please document rationale and clinical impression in detail Acidosis References Bing CD, Nurys RE. Lactic Acidosis. [Updated 2018Jan 22]. In: The Currency Cloud [Internet]. [facility]): Why Not Give Back; 2019-. Available from: https://www.ncbi.nlm.nih.gov/books/EBX067120/ https://www.Mango-Mate/contents/zbyqgq-xv-eztyyf-acidosis https://www.[facility]/professional/zrmewhtsj-dpx-ntkifpxeo-disorders/acid -huzp-arfidqhjqs-zgr-disorders/metabolic-acidosis https://www.[facility]/professional/jmddggatm-znw-nbnhdbscn-disorders/acid -yprk-iiukyquvwa-pyj-disorders/respiratory-acidosis https://www.[facility]/professional/oacrytlhz-ane-dimqicpzc-disorders/acid -udzr-mrcowybjaf-hhr-disorders/lactic-acidosis Guide to Clinical Validation, Documentation and Coding, [...] Coverage Payor Plan Insurance Group Employer/Plan Group [facility] Payor Plan Address Payor Plan Phone Number Payor Plan Fax Number Effective Dates [address] 09/28/2024 - None Entered [facility] [id number] Subscriber Name Subscriber Date Member ID AURELIA TORREZ 1985 [id number] Pharmacy: [id number] - [place], [place] - [address] [facility] [address] [facility] [address] Primary Care Provider: Unknown, Notinfile Prior to [...] were you homeless or living in a jail (including now)?: No (10/30/241257) Utilities: No, (10/30/241256) Social Connections: In a typical week, how many times do you talk on the phone with family, friends, or neighbors?: More than three times a week How often do you get together with friends or relatives?: More than three times a week How often do you attend hoahaoism or jewish services?: Never Do you belong to any clubs or organizations such as hoahaoism groups, unions, fraternal or athletic groups, or [...] Vaginal Cuff Surgeon: Jackson Rodarte MD Asst.: Tool Checker Anesthesia type: general Antibiotics: Zosyn IV (to [...] AND SCREEN STAT 10/28/2024 1:36 PM CDT [place] CRITICAL CARE ILL/INJURED PATIENT INIT 30-74 MIN [...] Deondre Arambula M.D. RB: MAI Report ID: [id number] Reading Location: [id number] Procedure Note Deondre Arambula MD - 10/30/2024 [...] Deondre Arambula M.D. RB: RB Report ID: [id number] Reading Location: [place] [address] us Jd Medrano MD IMG CT PROCEDURES [...] last reviewed 2020. Testing performed by: [facility], [address] [place] [address], [place]., [address] Blood 10/30/2024 5:34 AM CDT 10/30/2024 6:25 AM CDT us Latha Rojas GLASS RIBBON MACHINE OPERATOR LAB BLOOD ORDERABLES Final Result TERE [address] [facility] Department [place] [address] * (ABNORMAL) Differential, auto (10/30/2024 5:34 AM CDT) Neutrophil abs 10.02(H) 1.50 - 6.50 K/cumm Comment:Testing performed by : [address] [address] Imm gran abs 0.09 0.00 - 0.10 K/cumm TERE Comment:Testing performed by : [address] [address] Lymphocyte abs 1.67 0.80 - 3.30 K/cumm TERE Comment:Testing performed by : [address] [address] Monocyte abs 0.76 0.20 - 0.80 K/cumm [facility] Comment:Testing performed by : [address] [address] Eosinophil abs 0.06 0.00 - 0.50 K/cumm [facility] Comment:Testing performed by : [address] [address] Basophil abs 0.03 0.00 - 0.10 K/cumm [facility] Comment:Testing performed by : [address] [address] Neutrophil pct 79.4 % [facility] Comment: Interpretive Data Percent cell count reference ranges are not reported, since discordance with absolute values may lead to misinterpretation of CBC data. Current Interpretive Data was last revised on 2017. Testing performed by: [address] [address] Imm gran pct 0.7 % TERE Comment: Interpretive Data Percent cell count reference ranges are not reported, since discordance with absolute values may lead to misinterpretation of CBC data. Current Interpretive Data was last revised on 2017. Testing performed by: [address] [address] Lymphocyte pct 13.2 % TERE Comment: Interpretive Data Percent cell count reference ranges are not reported, since discordance with absolute values may lead to misinterpretation of CBC data. Current Interpretive Data was last revised on 2017. Testing performed by: [address] [address] Monocyte pct 6.0 % TERE Comment: Interpretive Data Percent cell count reference ranges are not reported, since discordance with absolute values may lead to misinterpretation of CBC data. Current Interpretive Data was last revised on 2017. Testing performed by: [address] [address] Eosinophil pct 0.5 % TERE Comment: Interpretive Data Percent cell count reference ranges are not reported, since discordance with absolute values may lead to misinterpretation of CBC data. Current Interpretive Data was last revised on 2017. Testing performed by: [address] [address] Basophil pct 0.2 % TERE Comment: Interpretive Data Percent cell count reference ranges are not reported, since discordance with absolute values may lead to misinterpretation of CBC data. Current Interpretive Data was last revised on 2017. Testing performed by: [address] [address] Blood 10/30/2024 5:34 AM CDT 10/30/2024 6:26 AM CDT us Latha Rojas NP LAB BLOOD ORDERABLES Final Result TERE [address] [facility] Department [place] [address] * (ABNORMAL) CBC with auto differential (10/30/2024 5:34 AM CDT) WBC 12.63(H) 3.80 - 9.90 K/cumm Comment:Testing performed by : [address] [address] Hgb 10.3(L) 11.9 - 15.5 g/dL TERE MARIANO Comment:Testing performed by : [address] [address] Hct 30.7(L) 35.6 - 45.5 % TERE Comment:Testing performed by : [address], [address] Plt 197 150 - 400 K/cumm TERE Comment:Testing performed by : [address] [address] MPV 9.9 9.1 - 12.3 fL TERE Comment:Testing performed by : [address], [address] RBC 3.60(L) 3.90 - 5.20 M/cumm TERE Comment:Testing performed by : [address], [address] MCV 85.3 81.3 - 96.4 fL TERE Comment:Testing performed by : [address], [address] MCH 28.6 27.1 - 33.3 pg TERE Comment:Testing performed by : [address], [address] MCHC 33.6 32.3 - 35.7 g/dL TERE Comment:Testing performed by : [address], [address] RDW CV 13.1 11.1 - 14.9 % TERE Comment:Testing performed by : [address], [address] RDW SD 40.9 35.7 - 48.1 fL TERE Comment:Testing performed by : [address], [address] NRBC abs 0.00 0.00 - 0.01 K/cumm TERE Comment:Testing performed by : [address], [address] Blood 10/30/2024 5:34 AM CDT 10/30/2024 6:26 AM CDT us Latha Rojas NP LAB BLOOD ORDERABLES Final Result TERE MARIANO [address] [facility] Department [place] [address] * (ABNORMAL) Basic metabolic panel (10/30/2024 5:34 AM CDT) Sodium 140 135 - 145 mmol/L Comment:Testing performed by : [address] [address] Potassium, pl 3.3 3.3 - 4.9 mmol/L TERE Comment:Testing performed by : [address], [place]., [address] Chloride 108 97 - 110 mmol/L TERE Comment:Testing performed by : [address], [place]., [address] CO2 21(L) 22 - 32 mmol/L TERE Comment:Testing performed by : [address], [place]., [address] Anion gap 11 2 - 15 mmol/L TERE Comment:Testing performed by : [address] [address] BUN 6 6 - 25 mg/dL TERE Comment:Testing performed by : [address] [address] Creatinine 0.50(L) 0.60 - 1.10 mg/dL TERE Comment:Testing performed by : [address] [address] Glucose 94 70 - 199 mg/dL TERE [...] was last revised 2022. Testing performed by: [address], [place]., [address] Calcium 7.7(L) 8.5 - 10.3 mg/dL TERE Comment:Testing performed by : [address] [address] Blood 10/30/2024 5:34 AM CDT 10/30/2024 6:25 AM CDT Latha Rojas GLASS RIBBON MACHINE OPERATOR LAB BLOOD ORDERABLES Final Result Performing Organization Address [facility] de Phone Number [address] [place] [address] * Sepsis Lactate w/ Reflex (10/29/2024 4:51 AM CDT) Pathologist [facility] Sepsis Lactate 0.8 0.7 - 2.0 mmol/L Comment:Testing performed by : [address] [address] Blood 10/29/2024 4:51 AM CDT 10/29/2024 4:53 AM CDT Latha Rojas GLASS RIBBON MACHINE OPERATOR LAB BLOOD ORDERABLES Final Result Performing Organization Address [facility] de Phone Number [address] [address] * (ABNORMAL) Urinalysis, microscopic only (10/29/2024 2:07 AM CDT) WBC, ur 0-5 0 - 5 /HPF Comment:Testing performed by : [address] [address] RBC, ur 3-5(A) 0 - 2 /HPF TERE Comment:Testing performed by : [address] [address] Epithelial cells, squamous, ur 1-5 0 - 5 /HPF TERE Comment:Testing performed by : [address] [address] Bacteria, ur Trace(A) TERE Comment:Testing performed by : [address] [address] Culture Reflex Comment Reflex conditions for urine culture (WBC >10) not met. TERE MARIANO Comment:Testing performed by : [address] [address] Urine 10/29/2024 2:07 AM CDT 10/29/2024 2:12 AM CDT Esa Wesley DO LAB URINE ORDERABLES Final Result TERE MARIANO [address] [facility] Department [place] [address] * (ABNORMAL) Urinalysis reflex to microscopic and culture Urine (10/29/2024 2:07 AM CDT) Color, ur Straw Yellow Comment:Testing performed by : [address] [address] Clarity, ur Clear Clear TERE Comment:Testing performed by : [address] [address] Specific gravity, ur 1.007 1.003 - 1.030 TERE Comment:Testing performed by : [address] [address] pH, urine 7.0 TERE Comment: Interpretive Data U rine pH is affected by diet, medications, systemic acid-base disturbances, and renal tubular function. pH may affect urinary stone formation. For example, urine pH below 6.0 may help reduce the tendency for calcium phosphate stones and pH greater than 6.0 may reduce the tendency for uric acid stone formation. Source: [facility] Current Interpretive Data was last revised on 2017 Testing performed by: [address] [address] Protein, ur ql Negative Negative TERE Comment:Testing performed by : [address] [address] Glucose, ur ql Negative Negative TERE Comment:Testing performed by : [address] [address] Ketones, ur 1+(A) Negative TERE Comment:Testing performed by : [address] [address] Bilirubin, ur Negative Negative TERE Comment:Testing performed by : [facility], [address] [place] [address], [place]., [address] Blood, ur 3+(A) Negative TERE Comment:Testing performed by : [facility], [address] [place] [address], [place]., [address] Urobilinogen, ur <2.0 <2.0 mg/dL TERE Comment:Testing performed by : [address] [address] Nitrite, ur Negative Negative TERE Comment:Testing performed by : [address], [place]., [address] Leukocyte esterase, ur 1+(A) Negative TERE Comment:Testing performed by : [address] [address] UA reflex comment Reflex to microscopic UA will be performed. TERE Comment:Testing performed by : [address] [address] Urine 10/29/2024 2:07 AM CDT 10/29/2024 2:12 AM CDT us Jackson Rodarte MD LAB MICROBIOLOGY - GENER AL ORDERABLES Final Result TERE MARIANO [address] [facility] Department of Laboratories [place], [place] [id number] * eGFR (10/29/2024 1:56 AM CDT) eGFR [...] was last reviewed 2020. Testing performed by: [address] [address] Blood 10/29/2024 1:56 AM CDT 10/29/2024 2:02 AM CDT us Latha Rojas GLASS RIBBON MACHINE OPERATOR LAB BLOOD ORDERABLES Final Result TERE [address] [facility] Department [place] [address] * (ABNORMAL) Differential, auto (10/29/2024 1:56 AM CDT) Neutrophil abs 14.69(H) 1.50 - 6.50 K/cumm Comment:Testing performed by : [address] [address] Imm gran abs 0.07 0.00 - 0.10 K/cumm TERE Comment:Testing performed by : [address] [address] Lymphocyte abs 0.63(L) 0.80 - 3.30 K/cumm TERE Comment:Testing performed by : [address] [address] Monocyte abs 0.20 0.20 - 0.80 K/cumm TERE Comment:Testing performed by : [address] [address] Eosinophil abs 0.00 0.00 - 0.50 K/cumm TERE Comment:Testing performed by : [address] [address] Basophil abs 0.02 0.00 - 0.10 K/cumm TERE Comment:Testing performed by : [address] [address] Neutrophil pct 94.2 % TERE Comment: Interpretive Data Percent cell count reference ranges are not reported, since discordance with absolute values may lead to misinterpretation of CBC data. Current Interpretive Data was last revised on 2017. Testing performed by: [address] [address] Imm gran pct 0.4 % [facility] Comment: Interpretive Data Percent cell count reference ranges are not reported, since discordance with absolute values may lead to misinterpretation of CBC data. Current Interpretive Data was last revised on 2017. Testing performed by: [address] [address] Lymphocyte pct 4.0 % [facility] Comment: Interpretive Data Percent cell count reference ranges are not reported, since discordance with absolute values may lead to misinterpretation of CBC data. Current Interpretive Data was last revised on 2017. Testing performed by: [address] [address] Monocyte pct 1.3 % [facility] Comment: Interpretive Data Percent cell count reference ranges are not reported, since discordance with absolute values may lead to misinterpretation of CBC data. Current Interpretive Data was last revised on 2017. Testing performed by: [address] [address] Eosinophil pct 0.0 % [facility] Comment: Interpretive Data Percent cell count reference ranges are not reported, since discordance with absolute values may lead to misinterpretation of CBC data. Current Interpretive Data was last revised on 2017. Testing performed by: [address] [address] Basophil pct 0.1 % [facility] Comment: Interpretive Data Percent cell count reference ranges are not reported, since discordance with absolute values may lead to misinterpretation of CBC data. Current Interpretive Data was last revised on 2017. Testing performed by: [address] [address] Blood 10/29/2024 1:56 AM CDT 10/29/2024 2:02 AM CDT Latha Rojas NP LAB BLOOD ORDERABLES Final Result Performing Organization Address City/[facility] Co de Phone Number [place] [phone] [place] [address] * (ABNORMAL) Sepsis Lactate w/ Reflex (10/29/2024 1:56 AM CDT) [facility] Sepsis Lactate 2.5(H) 0.7 - 2.0 mmol/L Comment:Testing performed by : [address] [address] Blood 10/29/2024 1:56 AM CDT 10/29/2024 2:02 AM CDT Latha Rojas NP LAB BLOOD ORDERABLES Final Result Performing Organization Address [facility] Co de Phone Number [facility] [address] [place] [address] * (ABNORMAL) CBC with auto differential (10/29/2024 1:56 AM CDT) [facility] WBC 15.61(H) 3.80 - 9.90 K/cumm Comment:Testing performed by : [address] [address] Hgb 11.5(L) 11.9 - 15.5 g/dL TERE Comment:Testing performed by : [address] [address] Hct 33.5(L) 35.6 - 45.5 % TERE Comment:Testing performed by : [address] [address] Plt 214 150 - 400 K/cumm TERE Comment:Testing performed by : [address] [address] MPV 9.4 9.1 - 12.3 fL TERE MARIANO Comment:Testing performed by : [address] [address] RBC 3.99 3.90 - 5.20 M/cumm TERE MARIANO Comment:Testing performed by : [address] [address] MCV 84.0 81.3 - 96.4 fL TERE MARIANO Comment:Testing performed by : [address] [address] MCH 28.8 27.1 - 33.3 pg TERE MARIANO Comment:Testing performed by : [address] [address] MCHC 34.3 32.3 - 35.7 g/dL TERE MARIANO Comment:Testing performed by : [address] [address] RDW CV 13.1 11.1 - 14.9 % TERE MARIANO Comment:Testing performed by : [address] [address] RDW SD 40.5 35.7 - 48.1 fL TERE MARIANO Comment:Testing performed by : [address] [address] NRBC abs 0.00 0.00 - 0.01 K/cumm TERE MARIANO Comment:Testing performed by : [address] [address] Blood 10/29/2024 1:56 AM CDT 10/29/2024 2:02 AM CDT Latha Rojas NP LAB BLOOD ORDERABLES Final Result TERE [facility] Department [place] [address] * (ABNORMAL) Basic metabolic panel (10/29/2024 1:56 AM CDT) Pathologist [facility] Sodium 136 135 - 145 mmol/L Comment:Testing performed by : [address] [address] Potassium, pl 3.8 3.3 - 4.9 mmol/L TERE MARIANO Comment:Testing performed by : [address] [address] Chloride 104 97 - 110 mmol/L TERE MARIANO Comment:Testing performed by : [address] [address] CO2 20(L) 22 - 32 mmol/L TERE Comment:Testing performed by : [address] [address] Anion gap 12 2 - 15 mmol/L TERE Comment:Testing performed by : [address] [address] BUN 6 6 - 25 mg/dL TERE Comment:Testing performed by : [address] [address] Creatinine 0.55(L) 0.60 - 1.10 mg/dL TERE Comment:Testing performed by : [address] [address] Glucose 157 70 - 199 mg/dL TERE [...] was last revised 2022. Testing performed by: [address] [address] Calcium 8.4(L) 8.5 - 10.3 mg/dL TERE Comment:Testing performed by : [address] [address] Blood 10/29/2024 1:56 AM CDT 10/29/2024 2:02 AM CDT us Latha Rojas NP LAB BLOOD ORDERABLES Final Result TERE MARIANO [address] [facility] Department [place] [address] * Magnesium (10/28/2024 7:28 PM CDT) [facility] Magnesium 1.6 1.4 - 2.5 mg/dL Comment:Testing performed by : [address] [address] Blood 10/28/2024 7:28 PM CDT 10/28/2024 7:34 PM CDT Latha Rojas GLASS [employer] MACHINE OPERATOR LAB BLOOD ORDERABLES Final Result Performing Organization Address City/[facility]/ZIP Co de Phone Number TERE [address] [address] * Phosphorus (10/28/2024 7:28 PM CDT) Pathologist [facility] Phosphorus, pl 2.6 2.3 - 4.5 mg/dL Comment:Testing performed by : [address] [address] Blood 10/28/2024 7:28 PM CDT 10/28/2024 7:34 PM CDT Latha Rojas GLASS RIB[employer] MACHINE OPERATOR LAB BLOOD ORDERABLES Final Result Performing Organization Address [facility] Co de Phone Number JOS[address] [address] * Troponin T high-sensitivity 6-hour (10/28/2024 7:28 PM CDT) Pathologist [facility] Trop T hs 13 <=14 ng/L Comment: Interpretive Data For further hscTnT resources including the diagnostic algorithm and an aid in interpretation, copy and paste this link: https://nrl.testcatalog.org/show/hsTrop Current Interpretive Data last revised 2020. Testing performed by: [address] [address] Trop T hs delta 7 ng/L TERE Comment:Testing performed by : [address] [address] Trop T hs interp Equivocal TERE Comment:Testing performed by : [address] [address] Blood 10/28/2024 7:28 PM CDT 10/28/2024 7:34 PM CDT Esa Wesley DO LAB BLOOD ORDERABLES Final Result TERE [address] [place] [employer] [place] [address] * ABO / Rh Confirmation Testing (10/28/2024 4:22 PM CDT) ABO/Rh Confirmation O Positive [facility] Comment:Testing performed by : [address] [address] Blood 10/28/2024 4:22 PM CDT 10/28/2024 4:26 PM CDT Esa Wesley DO LAB BLOOD ORDERABLES Final Result Performing Organization Address [facility] Co de Phone Number TERE [address] [place] [address] [facility] * Troponin T high-sensitivity 2-hour (10/28/2024 3:32 PM CDT) Trop T hs <6 <=14 ng/L Comment: Interpretive Data For further hscTnT resources including the diagnostic algorithm and an aid in interpretation, copy and paste this link: https://nrl.testcatalog.org/show/hsTrop Current Interpretive Data last revised 2020. Testing performed by: [address] [address] Trop T hs interp Equivocal TERE Comment:Testing performed by : [address] [address] Blood 10/28/2024 3:32 PM CDT 10/28/2024 3:39 PM CDT Esa Wesley DO LAB BLOOD ORDERABLES Final Result Performing Organization Address City/[facility]/ZIP Co de Phone Number TERE [facility] [place] [employer] [place] [address] * CTA Abdomen Pelvis (10/28/2024 3:24 PM [...] Brijesh Dominguez D.O. PS: PS Report ID: [id number] Reading Location: [id number] Procedure Note Brijesh Dominguez DO - 10/28/2024 [...] Brijesh Dominguez D.O. PS: PS Report ID: [id number] Reading Location: [place] [address] us Esa Wesley DO IMG CT PROCEDURES Final Res ult * Sepsis Lactate w/ Reflex (10/28/2024 2:02 PM CDT) Sepsis Lactate 1.3 0.7 - 2.0 mmol/L Comment:Testing performed by : [facility], [address] [place] [address], [place]., [address] Blood 10/28/2024 2:02 PM CDT 10/28/2024 2:06 PM CDT Esa Wesley DO LAB BLOOD ORDERABLES Final Result [address] [address] * Antibody screen (10/28/2024 1:36 PM CDT) Mavis, indirect, Gel Interpretation Negative ABSC Comment:Testing performed by : [address] [address] Blood 10/28/2024 1:36 PM CDT 10/28/2024 1:41 PM CDT Narrative [facility] - 10/28/2024 2:26 PM CDT Has the patient had Daratumumab or Isatuximab in the past 6 months?->Unknown Esa Wesley DO LAB BLOOD BANK TEST ORDERAB LES Final Result Performing Organization Address [facility] Co de Phone Number [address] [address] * ABO/Rh (10/28/2024 1:36 PM CDT) ABO/Rh O Positive Comment:Testing performed by : [address] [address] Blood 10/28/2024 1:36 PM CDT 10/28/2024 1:41 PM CDT Narrative [facility] - 10/28/2024 2:09 PM CDT Has the patient had Daratumumab or Isatuximab in the past 6 months?->Unknown Esa Wesley DO LAB BLOOD BANK TEST ORDERAB LES Final Result Performing Organization Address City/[facility] Co de Phone Number [address] [address] * [place] CRITICAL CARE ILL/INJURED PATIENT INIT 30-74 MIN [...] last reviewed 2020. Testing performed by: [facility], [address] [place] [address]., [address] Blood 10/28/2024 1:04 PM CDT 10/28/2024 2:40 PM CDT Esa Wesley DO LAB BLOOD ORDERABLES Final Result Performing Organization Address City/[facility]/ZIP Co de Phone Number TERE [address] [place] [address] * Blood smear review (10/28/2024 1:04 PM CDT) RBC morphology Consistent with RBC Indicies Comment:Testing performed by : [address] [address] Platelet estimate Adequate TERE Comment:Testing performed by : [facility], [address] [place] [address]., [address] Blood 10/28/2024 1:04 PM CDT 10/28/2024 1:23 PM CDT Esa Wesley DO LAB BLOOD ORDERABLES Final Result Performing Organization Address [facility] Co de Phone Number JOS[address] [address] * (ABNORMAL) Lipase (10/28/2024 1:04 PM CDT) Lipase 6(L) 10 - 99 Units/L Comment:Testing performed by : [address] [address] Blood 10/28/2024 1:04 PM CDT 10/28/2024 1:23 PM CDT Esa Wesley DO LAB BLOOD ORDERABLES Final Result TERE [address] [address] * (ABNORMAL) Differential, auto (10/28/2024 1:04 PM CDT) Pathologist [facility] Neutrophil abs 21.53(H) 1.50 - 6.50 K/cumm Comment:Testing performed by : [address] [address] Imm gran abs 0.17(H) 0.00 - 0.10 K/cumm TERE Comment:Testing performed by : [address] [address] Lymphocyte abs 0.90 0.80 - 3.30 K/cumm TERE Comment:Testing performed by : [address] [address] Monocyte abs 0.86(H) 0.20 - 0.80 K/cumm [facility] Comment:Testing performed by : [address] [address] Eosinophil abs 0.01 0.00 - 0.50 K/cumm [facility] Comment:Testing performed by : [address] [address] Basophil abs 0.04 0.00 - 0.10 K/cumm [facility] Comment:Testing performed by : [address] [address] Neutrophil pct 91.6 % [facility] Comment: Interpretive Data Percent cell count reference ranges are not reported, since discordance with absolute values may lead to misinterpretation of CBC data. Current Interpretive Data was last revised on 2017. Testing performed by: [address] [address] Imm gran pct 0.7 % [facility] Comment: Interpretive Data Percent cell count reference ranges are not reported, since discordance with absolute values may lead to misinterpretation of CBC data. Current Interpretive Data was last revised on 2017. Testing performed by: [address] [address] Lymphocyte pct 3.8 % [facility] Comment: Interpretive Data Percent cell count reference ranges are not reported, since discordance with absolute values may lead to misinterpretation of CBC data. Current Interpretive Data was last revised on 2017. Testing performed by: [address] [address] Monocyte pct 3.7 % [facility] Comment: Interpretive Data Percent cell count reference ranges are not reported, since discordance with absolute values may lead to misinterpretation of CBC data. Current Interpretive Data was last revised on 2017. Testing performed by: [facility], [address] [place] [address]., [address] Eosinophil pct 0.0 % [facility] Comment: Interpretive Data Percent cell count reference ranges are not reported, since discordance with absolute values may lead to misinterpretation of CBC data. Current Interpretive Data was last revised on 2017. Testing performed by: [facility], [address] [place] [address]., [address] Basophil pct 0.2 % [facility] Comment: Interpretive Data Percent cell count reference ranges are not reported, since discordance with absolute values may lead to misinterpretation of CBC data. Current Interpretive Data was last revised on 2017. Testing performed by: [address] [address] Blood 10/28/2024 1:04 PM CDT 10/28/2024 1:23 PM CDT Esa Wesley DO LAB BLOOD ORDERABLES Final Result TERE MARIANO [address] [facility] Department [place] [address] * Troponin T high-sensitivity series (baseline, 2hr, 4hr, 6hr) (10/28/2024 1:04 PM CDT) Trop T hs <6 <=14 ng/L Comment: Interpretive Data For further hscTnT resources including the diagnostic algorithm and an aid in interpretation, copy and paste this link: https://nrl.testcatalog.org/show/hsTrop Current Interpretive Data last revised 2020. Testing performed by: [address] [address] Blood 10/28/2024 1:04 PM CDT 10/28/2024 1:23 PM CDT us Esa Wesley DO LAB BLOOD ORDERABLES Final Result TERE MARIANO [address] [facility] Department [place] [address] * (ABNORMAL) Comprehensive metabolic panel (10/28/2024 1:04 PM CDT) Sodium 140 135 - 145 mmol/L Comment:Testing performed by : [address] [address] Potassium, pl 4.0 3.3 - 4.9 mmol/L TERE Comment:Testing performed by : [address] [address] Chloride 106 97 - 110 mmol/L TERE Comment:Testing performed by : [address] [address] CO2 18(L) 22 - 32 mmol/L TERE Comment:Testing performed by : [address] [address] Anion gap 16(H) 2 - 15 mmol/L TERE Comment:Testing performed by : [address] [address] BUN 9 6 - 25 mg/dL TERE Comment:Testing performed by : [address] [address] Creatinine 0.50(L) 0.60 - 1.10 mg/dL TERE Comment:Testing performed by : [address] [address] Glucose 107 70 - 199 mg/dL TERE [...] was last revised 2022. Testing performed by: [address] [address] Calcium 8.5 8.5 - 10.3 mg/dL TERE Comment:Testing performed by : [address] [address] Bilirubin, total 0.6 0.1 - 1.2 mg/dL TERE Comment:Testing performed by : [address] [address] Protein, pl 6.9 6.5 - 8.5 g/dL TERE Comment:Testing performed by : [address] [address] Albumin 4.1 3.5 - 5.0 g/dL TERE Comment:Testing performed by : [address] [address] Alk phos 66 40 - 130 Units/L TERE Comment:Testing performed by : [address] [address] ALT 6(L) 7 - 45 Units/L TERE Comment:Testing performed by : [address] [address] AST 17 10 - 45 Units/L TERE Comment:Testing performed by : [address] [address] Blood 10/28/2024 1:04 PM CDT 10/28/2024 2:40 PM CDT Esa Wesley DO LAB BLOOD ORDERABLES Final Result TERE [facility] Department [place] [address] * (ABNORMAL) CBC with auto differential (10/28/2024 1:04 PM CDT) [facility] WBC 23.51(H) 3.80 - 9.90 K/cumm Comment:Testing performed by : [address] [address] Hgb 13.9 11.9 - 15.5 g/dL TERE Comment:Testing performed by : [address], [address] Hct 41.0 35.6 - 45.5 % TERE Comment:Testing performed by : [address] [address] Plt 263 150 - 400 K/cumm TERE Comment:Testing performed by : [address] [address] MPV 9.5 9.1 - 12.3 fL TERE Comment:Testing performed by : [address], [address] RBC 4.88 3.90 - 5.20 M/cumm TERE Comment:Testing performed by : [address], [address] MCV 84.0 81.3 - 96.4 fL TERE Comment:Testing performed by : [address] [address] MCH 28.5 27.1 - 33.3 pg TERE Comment:Testing performed by : [address], [address] MCHC 33.9 32.3 - 35.7 g/dL TERE Comment:Testing performed by : [address], [address] RDW CV 13.1 11.1 - 14.9 % TERE Comment:Testing performed by : [address], [address] RDW SD 40.1 35.7 - 48.1 fL TERE Comment:Testing performed by : [address] [address] NRBC abs 0.00 0.00 - 0.01 K/cumm TERE Comment:Testing performed by : [address] [address] Blood 10/28/2024 1:04 PM CDT 10/28/2024 1:23 PM CDT Esa Wesley DO LAB BLOOD ORDERABLES Edited Result - Final Performing Organization Address City/[facility]/ZIP Co de Phone Number TERE [address] [facility] Department [place] [address] * ECG 12 lead (10/28/2024 12:58 PM CDT) Ventricular Rate EKG/Min 83 BPM [facility] Atrial Rate 83 BPM [facility] WI-Interval (MSEC) 146 ms [facility] QRS-Interval (MSEC) 76 ms [facility] QT-Interval (MSEC) 392 ms [facility] QTc 460 ms [facility] P [place] 57 degrees [facility] R [place] 51 degrees [facility] T [place] -7 degrees [facility] Diagnosis Normal sinus rhythm Possible Left atrial enlargement Nonspecific T wave abnormality Prolonged QT Abnormal ECG When compared with ECG of 25-MAY-2013 17:53, No significant change was found Confirmed by DEBBIE BENOIT M.D. ([id number]) on 10/29/2024 9:21:34 AM [facility] 10/28/2024 12:5 8 PM CDT 10/29/2024 9:21 AM CDT Esa Wesley DO ECG ORDERABLES Final Resul t Performing Organization Address [facility] Phone Number [facility] [employer] [facility] documented in this encounter Visit Diagnoses [...] MD) 0001 (Rate/Dose Change - Provider: Vandana Abdulalhi RN)1737 (Rate/Dose Verify - Provider: Annmarie Charles, [...] analgesic., Indications: Pain 2200 (Given - Provider: Tamiok Cook RN)2220 (Given - Provider: Tamiko Cook [...] Vandana Abdullahi RN) 0239 (Given - Provider: Vadnana Abdullahi RN)0645 (Given - Provider: Vandana Abdullahi [...] 1930 194 (Given - Provider: Greta River, ILLY)1953 (APR Hold - Provider: Automatic Transfer Provider [...] 10/28/2024 documented in this encounter Care Teams Produce Sorter Relationship Specialty Start Date End Date Unknown, Notinfile PCP - General 07/09/24 documented as of this encounter
--- NOTE | ~2024-11-01 | CT_ITS ---
EXAMINATION: CT abdomen pelvis w con DATE: 11/01/2024 14:37 INDICATION: Status post hysterectomy and vaginal cuff repair TECHNIQUE: Computed tomography (CT) of the abdomen and pelvis was performed with 100 cc Omnipaque 350 intravenous contrast. The dose-length product was 327.62 mGy-cm. Automated exposure control and iterative reconstruction technique were employed. COMPARISON: CT dated 11/18/2022. FINDINGS: There is right middle lobe atelectasis. Heart size upper normal. No significant pleural or pericardial effusion. Fatty infiltration of the liver. There is a gallstone. The spleen, pancreas, adrenal glands and left kidney are unremarkable. There is a right renal cyst. Nonobstructive bowel gas pattern. There is a walled off fluid collection in the right pelvis measuring 4.4 x 3.6 cm with enhancement of the wall, consistent with abscess. This may be secondary to prior surgery or diverticulitis. There is a corpus luteal cyst in the right ovary measuring 2 cm. There is a small bone island in the left ilium. No acute osseous abnormality. No significant vascular abnormality. No lymphadenopathy. No evidence for hernia. IMPRESSION: 1. Walled off fluid collection right pelvis measuring 4.4 x 3.6 cm with peripheral enhancement, consistent with abscess. This may be secondary to prior surgery or diverticulitis. 2: Cholelithiasis. Reviewed, dictated and finalized at location O. IMPRESSION: 1. Walled off fluid collection right pelvis measuring 4.4 x 3.6 cm with periphe ral enhancement, consistent with abscess. This may be secondary to prior surger y or diverticulitis. 2: Cholelithiasis.
--- NOTE | ~2024-11-01 | CT_ITS ---
EXAMINATION: CT guide absc cath placement DATE: 11/02/2024 13:27 INDICATION: Pelvic abscess post recent hysterectomy TECHNIQUE: The procedure including the risks and benefits was discussed with the patient. Risks discussed included bleeding and infection. The patient understood the risks and benefits and agreed to proceed. The patient was confirmed to be receiving appropriate antibiotic coverage. The skin overlying the medial right buttock was prepped and draped in usual sterile fashion. Anesthetic was administered with 1% lidocaine subcutaneously. Conscious sedation was provided with 1 mg Versed and 25 mcg fentanyl IV. For one of the scans, 100 mL Omnipaque- 350 intravenous contrast was utilized to better delineate the margins of the fluid collection. Utilizing CT guidance an 18-gauge trochar needle was inserted into the deep pelvic peritoneal fluid collection. The inner stylette was removed and a J-wire advanced into the fluid collection with position confirmed by CT. Needle was removed and utilizing Seldinger technique the tract was serially dilated over the wire to 8 Fr. The proximal tract beyond the level of the coccygeal ligament was further dilated to 10 Fr. An 8.5 Fr pigtail catheter was then placed. Positioning appeared good on CT however no fluid was able to be aspirated. 5 mL a 1:25 Omnipaque 350: Sterile saline was injected into the catheter which demonstrated the catheter positioned just posterior and peripheral to the fluid collection. The catheter was removed and utilizing identical technique second 18-gauge trochar needle was advanced into the fluid collection with CT guidance. The inner stylette was removed and a new J-wire was advanced into the fluid collection with position confirmed by CT. Utilizing Seldinger technique the needle was removed over the wire and the tract was again serially dilated to 10 Fr. A new 8.5 Fr pigtail catheter was then placed over the wire and following confirmation of positioning by CT, the loop was formed and locked and the wire was removed. 5 mL of clear yellowish fluid was aspirated from the catheter. The catheter was stitched to the skin with suture. Antibiotic ointment and a sterile dressing were applied. The dose-length product was 796.02 mGy-cm. FINDINGS: CT images demonstrate the catheter within the fluid collection in the deep pelvic uterine fossa. 5 mL fluid was aspirated for testing. IMPRESSION: 1. Successful CT-guided pelvic abscess drainage catheter placement. 2. 5 mL fluid was sent for aerobic and anaerobic cultures. 3. The catheter will be managed by Dr. Kerr. Reviewed, dictated and finalized at location A.
[2024-11-01 12:38] VITALS: BP 110/77; PULSE 94; RESP 20; TEMP 36.9; O2SAT 98
--- OUTSIDE RECORDS SUMMARY | 2024-11-01 12:40 | XMS_ITS | Clinical Summary ---
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 Name Role Phone Unknown, Notinfile Primary Care Provider Unavail able Allergies Active Allergy Reactions Criticality Noted Date Comments No Known Allergies Other (See comments) Low Reaction: Medications levETIRAcetam (KEPPRA) 500 mg tablet Take 1 tablet (500 mg total) by mouth 2 (two) times a day 09/02/19 13 Active amoxicillin-clavul anate (AUGMENTIN) 875-125 mg per tablet Take 1 tablet (875 mg of amoxicillin total) by mouth 2 (two) times a day for 14 days 28 tablet 10/31/19 25 025 Active acetaminophen (TYLENOL) 500 mg tablet Take 1 tablet (500 mg total) by mouth every 6 (six) hours as needed for pain, headaches or fever for up to 14 days 30 tablet 10/31/19 25 025 Active oxyCODONE (ROXICODONE) 5 mg immediate release tabletIndications: Pain Take 1 tablet (5 mg total) by mouth every 6 (six) hours as needed for pain for up to 5 days 20 tablet 10/31/19 25 025 Active ondansetron ODT (ZOFRAN-ODT) 4 mg disintegrating tablet Take 1 tablet (4 mg total) by mouth every 8 (eight) hours as needed for nausea or vomiting for up to 7 days 20 tablet 10/31/19 25 025 Active metroNIDAZOLE (FLAGYL) 500 mg tablet Take 1 tablet (500 mg total) by mouth 4 (four) times a day for 14 days 56 tablet 10/31/19 25 025 Discontin ued(Stop Taking at Discharge ) Active Problems Problem Noted Date Diagnosed Date Pneumoperitoneum 10/28/2024 Syncope and collapse 01/09/2018 Overview (01/09/2018): Added automatically from request for surgery [id number] Wheezing Encounters Date Type Department Care Team Description 10/28/2024 8:56 PM CDT Anesthesia Event [facility] [address] [place] [address] Aston Campos MD 10/28/2024 8:26 PM CDT - 10/28/2024 11:01 PM CDT Surgery [facility] [address] [place] [address] Jackson Rodarte MD EXAM UNDER ANESTHESIA, REPAIR OF VAGINAL CUFF 10/28/2024 12:48 PM CDT - 10/30/2024 7:05 PM CDT Hospital Encounter [place] [address] [address] [place] [address] Esa Wesley DO Lopez, Manuel Emilio, MD Saturno Arias, Dany Jose, MD Pneumoperitoneum (Primary Dx) Discharge Disposition: Discharge to [...] often do you attend chur ch or denominational services? Never 10/30/2024 Do you belong to any clubs o r organizations such as samaritan groups, unions, fraternal or athletic groups, or [...] any time in the past 12 m [facility], were you homeless or living in a [facility] (including now)? 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 Gender Identity Not on file Sexual Orientation [...] Mass Index 25.73 10/28/2024 10:57 PM CDT Plan of Treatment Health Maintenance Due Date Last Done Comments Breast Cancer Screening-Mammogram 1984 Cervical Cancer Screening 1984 Depression Screening 1984 Hepatitis C Screening 1984 DTaP/Tdap/Td Vaccine (3 - Tdap) 1995 0, 12/10/1988 Varicella Vaccines (1 of 2 - 13+ 2-dose series) 1997 Regular Well Visit/Exam 18-64 2002 Pneumococcal vaccine <65 (1 of 2 - PCV) 2003 HPV Vaccines (1 - 3-dose SCDM series) 2011 Influenza Vaccine (#1) 2024 Hepatitis B Screening Completed 01/14/2009 Procedures Procedure Name Priority Date/Time Associated Diagnosis Comments CT ABDOMEN PELVIS W CONTRAST ED Urgent/IP Urgent 10/30/2024 8:45 AM CDT EGFR Routine 10/30/2024 5:34 AM CDT DIFFERENTIAL AUTO Routine 10/30/2024 5:3 4 AM CDT CBC WITH AUTO DIFFERENTIAL Routine 10/30/2024 5:34 AM CDT BASIC METABOLIC PANEL Routine 10/30/2024 5:34 AM CDT SEPSIS LACTATE WITH REFLEX Timed 10/29/2024 4:51 AM CDT URINALYSIS, MICROSCOPIC ONLY STAT 10/29/2024 2:07 AM CDT URINALYSIS AND REFLEX TO MICROSCOPIC AND CULTURE STAT 10/29/2024 2:07 AM CDT EGFR Routine 10/29/2024 1:56 AM CDT DIFFERENTIAL AUTO Routine 10/29/2024 1:5 6 AM CDT SEPSIS LACTATE WITH REFLEX STAT 10/29/2024 1:56 AM CDT CBC WITH AUTO DIFFERENTIAL Routine 10/29/2024 1:56 AM CDT BASIC METABOLIC PANEL Routine 10/29/2024 1:56 AM CDT GA AN PROCEDURE PLACEHOLDER Routine 10/28/2024 9:10 PM CDT GA AN ELECTIVE ENDOTRACHEAL AIRWAY Routine 10/28/2024 9:10 PM CDT HYSTERECTOMY VAGINAL SALPINGO-OOPHORECTOM Y 10/28/2024 8:58 PM CDT MAGNESIUM Timed 10/28/2024 7:28 PM CDT PHOSPHORUS Timed 10/28/2024 7:28 PM CDT TROPONIN T HIGH-SENSITIVITY 6-HOUR Timed 10/28/2024 7:28 PM CDT B ABO / RH CONFIRMATION TESTING STAT 10/28/2024 4:22 PM CDT TROPONIN T HIGH-SENSITIVITY 2-HOUR Timed 10/28/2024 3:32 PM CDT CTA ABDOMEN PELVIS W WO CONTRAST ED Urgent/IP Urgent 10/28/2024 3:24 PM CDT SEPSIS LACTATE WITH REFLEX STAT 10/28/2024 2:02 PM CDT BLOOD CULTURE STAT 10/28/2024 2:02 PM CDT BLOOD CULTURE STAT 10/28/2024 2:02 PM CDT ANTIBODY SCREEN STAT 10/28/2024 1:36 PM CDT ABO/RH STAT 10/28/2024 1:36 PM CDT TYPE AND SCREEN STAT 10/28/2024 1:36 PM CDT GA CRITICAL CARE ILL/INJURED PATIENT INIT 30-74 MIN Routine 10/28/2024 1:23 PM CDT EGFR STAT 10/28/2024 1:04 PM CDT BLOOD SMEAR REVIEW STAT 10/28/2024 1: 04 PM CDT LIPASE STAT 10/28/2024 1:04 PM CDT DIFFERENTIAL AUTO STAT 10/28/2024 1:0 4 PM CDT TROPONIN T HIGH-SENSITIVITY SERIES (BASELINE, 2HR, 4HR, 6HR) STAT 10/28/2024 1:04 PM CDT COMPREHENSIVE METABOLIC PANEL STAT 10/28/2024 1:04 PM CDT CBC WITH AUTO DIFFERENTIAL STAT 10/28/2024 1:04 PM CDT ECG 12-LEAD STAT 10/28/2024 12:58 PM CDT from Last 3 Months Results * CT Abdomen Pelvis W Contrast [...] Deondre Arambula M.D. RB: MAI Report ID: [id number] Reading Location: [id number] Procedure Note Deondre Arambula MD - 10/30/2024 [...] Deondre Arambula M.D. RB: MAI Report ID: [id number] Reading Location: [place] [address] us Jd Medrano MD IMG CT PROCEDURES [...] last reviewed 2020. Testing performed by: [address] [address] Blood 10/30/2024 5:34 AM CDT 10/30/2024 6:25 AM CDT Latha Leanna Bob SALES SUPPORT REP LAB BLOOD ORDERABLES Final Result [facility] [address] [facility] Department [place] [address] * (ABNORMAL) Differential, auto (10/30/2024 5:34 AM CDT) Neutrophil abs 10.02(H) 1.50 - 6.50 K/cumm Comment:Testing performed by : [address] [address] Imm gran abs 0.09 0.00 - 0.10 K/cumm TERE Comment:Testing performed by : [address] [address] Lymphocyte abs 1.67 0.80 - 3.30 K/cumm TERE Comment:Testing performed by : [address] [address] Monocyte abs 0.76 0.20 - 0.80 K/cumm TERE Comment:Testing performed by : [address] [address] Eosinophil abs 0.06 0.00 - 0.50 K/cumm TERE Comment:Testing performed by : [address] [address] Basophil abs 0.03 0.00 - 0.10 K/cumm TERE Comment:Testing performed by : [address] [address] Neutrophil pct 79.4 % TERE Comment: Interpretive Data Percent cell count reference ranges are not reported, since discordance with absolute values may lead to misinterpretation of CBC data. Current Interpretive Data was last revised on 2017. Testing performed by: [address] [address] Imm gran pct 0.7 % [facility] Comment: Interpretive Data Percent cell count reference ranges are not reported, since discordance with absolute values may lead to misinterpretation of CBC data. Current Interpretive Data was last revised on 2017. Testing performed by: [address] [address] Lymphocyte pct 13.2 % [facility] Comment: Interpretive Data Percent cell count reference ranges are not reported, since discordance with absolute values may lead to misinterpretation of CBC data. Current Interpretive Data was last revised on 2017. Testing performed by: [address] [address] Monocyte pct 6.0 % [facility] Comment: Interpretive Data Percent cell count reference ranges are not reported, since discordance with absolute values may lead to misinterpretation of CBC data. Current Interpretive Data was last revised on 2017. Testing performed by: [address] [address] Eosinophil pct 0.5 % [facility] Comment: Interpretive Data Percent cell count reference ranges are not reported, since discordance with absolute values may lead to misinterpretation of CBC data. Current Interpretive Data was last revised on 2017. Testing performed by: [address] [address] Basophil pct 0.2 % [facility] Comment: Interpretive Data Percent cell count reference ranges are not reported, since discordance with absolute values may lead to misinterpretation of CBC data. Current Interpretive Data was last revised on 2017. Testing performed by: [address] [address] Blood 10/30/2024 5:34 AM CDT 10/30/2024 6:26 AM CDT us Latha Rojas NP LAB BLOOD ORDERABLES Final Result TERE MARIANO [address] [facility] Department [place] [address] * (ABNORMAL) CBC with auto differential (10/30/2024 5:34 AM CDT) [facility] WBC 12.63(H) 3.80 - 9.90 K/cumm Comment:Testing performed by : [address], [address] Hgb 10.3(L) 11.9 - 15.5 g/dL TERE Comment:Testing performed by : [address] [address] Hct 30.7(L) 35.6 - 45.5 % TERE Comment:Testing performed by : [address] [address] Plt 197 150 - 400 K/cumm TERE Comment:Testing performed by : [address], [address] MPV 9.9 9.1 - 12.3 fL TERE Comment:Testing performed by : [address], [address] RBC 3.60(L) 3.90 - 5.20 M/cumm TERE Comment:Testing performed by : [address], [address] MCV 85.3 81.3 - 96.4 fL TERE Comment:Testing performed by : [address], [address] MCH 28.6 27.1 - 33.3 pg TERE Comment:Testing performed by : [address], [address] MCHC 33.6 32.3 - 35.7 g/dL TERE Comment:Testing performed by : [address], [address] RDW CV 13.1 11.1 - 14.9 % TERE Comment:Testing performed by : [address], [address] RDW SD 40.9 35.7 - 48.1 fL TERE Comment:Testing performed by : [address], [address] NRBC abs 0.00 0.00 - 0.01 K/cumm TERE Comment:Testing performed by : [address] [address] Blood 10/30/2024 5:34 AM CDT 10/30/2024 6:26 AM CDT Latha Rojas NP LAB BLOOD ORDERABLES Final Result [facility] [address] [facility] Department [place] [address] * (ABNORMAL) Basic metabolic panel (10/30/2024 5:34 AM CDT) Sodium 140 135 - 145 mmol/L Comment:Testing performed by : [address] [address] Potassium, pl 3.3 3.3 - 4.9 mmol/L TERE Comment:Testing performed by : [address] [address] Chloride 108 97 - 110 mmol/L TERE Comment:Testing performed by : [address] [address] CO2 21(L) 22 - 32 mmol/L TERE Comment:Testing performed by : [address] [address] Anion gap 11 2 - 15 mmol/L TERE Comment:Testing performed by : [address] [address] BUN 6 6 - 25 mg/dL TERE Comment:Testing performed by : [address] [address] Creatinine 0.50(L) 0.60 - 1.10 mg/dL TERE Comment:Testing performed by : [address] [address] Glucose 94 70 - 199 mg/dL TERE [...] last revised 2022. Testing performed by: [address] [address] Calcium 7.7(L) 8.5 - 10.3 mg/dL TERE Comment:Testing performed by : [address] [address] Blood 10/30/2024 5:34 AM CDT 10/30/2024 6:25 AM CDT Latha Rojas LAB BLOOD ORDERABLES Final Result Performing Organization Address [facility] [[email or web address]] Co de Phone Number [id number] [place] [address] * Sepsis Lactate w/ Reflex (10/29/2024 4:51 AM CDT) Pathologist [facility] Sepsis Lactate 0.8 0.7 - 2.0 mmol/L Comment:Testing performed by : [address] [address] Blood 10/29/2024 4:51 AM CDT 10/29/2024 4:53 AM CDT Latha Rojas LAB BLOOD ORDERABLES Final Result Performing Organization Address [facility] [[email or web address]] Co de Phone Number [address] [address] * (ABNORMAL) Urinalysis reflex to microscopic and culture Urine (10/29/2024 2:07 AM CDT) Color, ur Straw Yellow Comment:Testing performed by : [address] [address] Clarity, ur Clear Clear TERE Comment:Testing performed by : [address] [address] Specific gravity, ur 1.007 1.003 - 1.030 TERE Comment:Testing performed by : [facility], [address] [place] [address], [place]., [address] pH, urine 7.0 TERE Comment: Interpretive Data U rine pH is affected by diet, medications, systemic acid-base disturbances, and renal tubular function. pH may affect urinary stone formation. For example, urine pH below 6.0 may help reduce the tendency for calcium phosphate stones and pH greater than 6.0 may reduce the tendency for uric acid stone formation. Source: [facility] [place] Current Interpretive Data was last revised on 2017 Testing performed by: [facility], [address] [place] [address], [place]., [address] Protein, ur ql Negative Negative TERE Comment:Testing performed by : [address], [place]., [address] Glucose, ur ql Negative Negative TERE Comment:Testing performed by : [address], [place]., [address] Ketones, ur 1+(A) Negative TERE Comment:Testing performed by : [address], [place]., [address] Bilirubin, ur Negative Negative TERE Comment:Testing performed by : [address], [place]., [address] Blood, ur 3+(A) Negative TERE Comment:Testing performed by : [address], [place]., [address] Urobilinogen, ur <2.0 <2.0 mg/dL TERE Comment:Testing performed by : [address], [place]., [address] Nitrite, ur Negative Negative TERE Comment:Testing performed by : [address], [place]., [address] Leukocyte esterase, ur 1+(A) Negative TERE Comment:Testing performed by : [address], [place]., [address] UA reflex comment Reflex to microscopic UA will be performed. TERE Comment:Testing performed by : [address], [place]., [address] Urine 10/29/2024 2:07 AM CDT 10/29/2024 2:12 AM CDT us Jackson Rodarte MD LAB MICROBIOLOGY - GENER AL ORDERABLES Final Result Performing Organization Address [facility] [[email or web address]] Co de Phone Number TERE [phone] [facility] [place] [address] * (ABNORMAL) Urinalysis, microscopic only (10/29/2024 2:07 AM CDT) WBC, ur 0-5 0 - 5 /HPF Comment:Testing performed by : [address] [address] RBC, ur 3-5(A) 0 - 2 /HPF TERE Comment:Testing performed by : [address] [address] Epithelial cells, squamous, ur 1-5 0 - 5 /HPF TERE Comment:Testing performed by : [address] [address] Bacteria, ur Trace(A) TERE Comment:Testing performed by : [address] [address] Culture Reflex Comment Reflex conditions for urine culture (WBC >10) not met. TERE Comment:Testing performed by : [address] [address] Urine 10/29/2024 2:07 AM CDT 10/29/2024 2:12 AM CDT us Esa Wesley DO LAB URINE ORDERABLES Final Result Performing Organization Address [facility] de Phone Number TERE [address] [facility] Department [place] [address] * (ABNORMAL) Sepsis Lactate w/ Reflex (10/29/2024 1:56 AM CDT) Sepsis Lactate 2.5(H) 0.7 - 2.0 mmol/L Comment:Testing performed by : [address] [address] Blood 10/29/2024 1:56 AM CDT 10/29/2024 2:02 AM CDT Latha Rojas SALES SUPPORT REP LAB BLOOD ORDERABLES Final Result Performing Organization Address City/State/[facility] [[email or web address]] Co de Phone Number TERE [address] [place] [address] * eGFR (10/29/2024 1:56 AM CDT) eGFR [...] was last reviewed 2020. Testing performed by: [facility], [address] [place] [address]., [address] Blood 10/29/2024 1:56 AM CDT 10/29/2024 2:02 AM CDT Latha Rojas SALES SUPPORT REP LAB BLOOD ORDERABLES Final Result TERE [address] [place] [address] * (ABNORMAL) Differential, auto (10/29/2024 1:56 AM CDT) Neutrophil abs 14.69(H) 1.50 - 6.50 K/cumm Comment:Testing performed by : [address], [place]., [address] Imm gran abs 0.07 0.00 - 0.10 K/cumm [facility] Comment:Testing performed by : [address], [place]., [address] Lymphocyte abs 0.63(L) 0.80 - 3.30 K/cumm [facility] Comment:Testing performed by : [address], [place]., [address] Monocyte abs 0.20 0.20 - 0.80 K/cumm [facility] Comment:Testing performed by : [address], [place]., [address] Eosinophil abs 0.00 0.00 - 0.50 K/cumm [facility] Comment:Testing performed by : [address], [place]., [address] Basophil abs 0.02 0.00 - 0.10 K/cumm [facility] Comment:Testing performed by : [address] [address] Neutrophil pct 94.2 % [facility] Comment: Interpretive Data Percent cell count reference ranges are not reported, since discordance with absolute values may lead to misinterpretation of CBC data. Current Interpretive Data was last revised on 2017. Testing performed by: [address] [address] Imm gran pct 0.4 % [facility] Comment: Interpretive Data Percent cell count reference ranges are not reported, since discordance with absolute values may lead to misinterpretation of CBC data. Current Interpretive Data was last revised on 2017. Testing performed by: [address] [address] Lymphocyte pct 4.0 % C[facility] Comment: Interpretive Data Percent cell count reference ranges are not reported, since discordance with absolute values may lead to misinterpretation of CBC data. Current Interpretive Data was last revised on 2017. Testing performed by: [address] [address] Monocyte pct 1.3 % [facility] Comment: Interpretive Data Percent cell count reference ranges are not reported, since discordance with absolute values may lead to misinterpretation of CBC data. Current Interpretive Data was last revised on 2017. Testing performed by: [address] [address] Eosinophil pct 0.0 % TERE Comment: Interpretive Data Percent cell count reference ranges are not reported, since discordance with absolute values may lead to misinterpretation of CBC data. Current Interpretive Data was last revised on 2017. Testing performed by: [address] [address] Basophil pct 0.1 % TERE Comment: Interpretive Data Percent cell count reference ranges are not reported, since discordance with absolute values may lead to misinterpretation of CBC data. Current Interpretive Data was last revised on 2017. Testing performed by: [address] [address] Blood 10/29/2024 1:56 AM CDT 10/29/2024 2:02 AM CDT us Latha Rojas SALES SUPPORT REP LAB BLOOD ORDERABLES Final Result [facility] [address] [facility] Department [place] [address] * (ABNORMAL) CBC with auto differential (10/29/2024 1:56 AM CDT) WBC 15.61(H) 3.80 - 9.90 K/cumm Comment:Testing performed by : [address] [address] Hgb 11.5(L) 11.9 - 15.5 g/dL TERE Comment:Testing performed by : [address] [address] Hct 33.5(L) 35.6 - 45.5 % TERE Comment:Testing performed by : [address] [address] Plt 214 150 - 400 K/cumm TERE Comment:Testing performed by : [address] [address] MPV 9.4 9.1 - 12.3 fL TERE MARIANO Comment:Testing performed by : [address] [address] RBC 3.99 3.90 - 5.20 M/cumm TERE MARIANO Comment:Testing performed by : [address] [address] MCV 84.0 81.3 - 96.4 fL TERE Comment:Testing performed by : [address] [address] MCH 28.8 27.1 - 33.3 pg TERE Comment:Testing performed by : [address] [address] MCHC 34.3 32.3 - 35.7 g/dL TERE Comment:Testing performed by : [address] [address] RDW CV 13.1 11.1 - 14.9 % TERE Comment:Testing performed by : [address] [address] RDW SD 40.5 35.7 - 48.1 fL TERE Comment:Testing performed by : [address] [address] NRBC abs 0.00 0.00 - 0.01 K/cumm TERE MARIANO Comment:Testing performed by : [address] [address] Blood 10/29/2024 1:56 AM CDT 10/29/2024 2:02 AM CDT us Latha Rojas SALES SUPPORT REP LAB BLOOD ORDERABLES Final Result TERE [address] [facility] [place] [address] * (ABNORMAL) Basic metabolic panel (10/29/2024 1:56 AM CDT) Pathologist [facility] Sodium 136 135 - 145 mmol/L Comment:Testing performed by : [address] [address] Potassium, pl 3.8 3.3 - 4.9 mmol/L [facility] Comment:Testing performed by : [address] [address] Chloride 104 97 - 110 mmol/L [facility] Comment:Testing performed by : [address], [place]., [address] CO2 20(L) 22 - 32 mmol/L [facility] Comment:Testing performed by : [address] [address] Anion gap 12 2 - 15 mmol/L [facility] Comment:Testing performed by : [address] [address] BUN 6 6 - 25 mg/dL [facility] Comment:Testing performed by : [address] [address] Creatinine 0.55(L) 0.60 - 1.10 mg/dL [facility] Comment:Testing performed by : [address] [address] Glucose 157 70 - 199 mg/dL [facility] Comment: Interpretive Data Fasting glucose >/= 126 [...] last revised 2022. Testing performed by: [address] [address] Calcium 8.4(L) 8.5 - 10.3 mg/dL [facility] Comment:Testing performed by : [address] [address] Blood 10/29/2024 1:56 AM CDT 10/29/2024 2:02 AM CDT Latha Rojas SALES SUPPORT REP LAB BLOOD ORDERABLES Final Result TERE [address] [facility] [place] [address] * GA AN ELECTIVE ENDOTRACHEAL AIRWAY, GA AN PROCEDURE PLACEHOLDER (10/28/2024 9:10 PM CDT) Narrative Aston Campos MD - 10/28/2024 9:10 PM CDT Aston Campos MD 10/28/2024 9:11 PM Airway Patient location: OR Urgency: elective Date/time: 10/28/2024 9:06 PM Indications for airway management: anesthesia Difficult airway: no Staff: Placed by: Anesthesiologist: Aston Campos MD Emergent airway documentation: Risks and benefits discussed: yes Consent obtained: yes Consent given by: patient Airway prep: Preoxygenated: yes Patient position: sniffing Spontaneous ventilation during airway: absent Sedation level during airway: deep Final airway details: Final airway type: endotracheal airway Tube type: ETT ETT size: 7.0 mm Cuffed: yes Technique used for successful ETT placement: video laryngoscopy Devices/Methods used in placement: intubating stylet Insertion site: oral Blade type: Hannah Video blade type: Glidescope Blade size: 3 Cormack-Lehane (direct): grade I - full view of glottis Cuff inflated with: air Placement verified by: auscultation and CO2 detection Airway secured with: silk tape Number of attempts: 1 Planned trial extubation: yes us Aston Campos MD ANESTHESIA ORDERABLES Final R esult * Troponin T high-sensitivity 6-hour (10/28/2024 7:28 PM CDT) Trop T hs 13 <=14 ng/L Comment: Interpretive Data For further hscTnT resources including the diagnostic algorithm and an aid in interpretation, copy and paste this link: https://nrl.testcatalog.org/show/hsTrop Current Interpretive Data last revised 2020. Testing performed by: [address] [address] Trop T hs delta 7 ng/L TREE MARIANO Comment:Testing performed by : [address] [address] Trop T hs interp Equivocal [facility] Comment:Testing performed by : [facility], [address] [place] [address]., [address] Blood 10/28/2024 7:28 PM CDT 10/28/2024 7:34 PM CDT Esa Wesley DO LAB BLOOD ORDERABLES Final Result [address] [place] [address] * Phosphorus (10/28/2024 7:28 PM CDT) Pathologist [facility] Phosphorus, pl 2.6 2.3 - 4.5 mg/dL Comment:Testing performed by : [facility], [address] [place] [address]., [address] Blood 10/28/2024 7:28 PM CDT 10/28/2024 7:34 PM CDT Latha Rojas SALES SUPPORT REP LAB BLOOD ORDERABLES Final Result Performing Organization Address [facility] [[email or web address]] Co de Phone Number [address] [address] * Magnesium (10/28/2024 7:28 PM CDT) Pathologist [facility] [place] Magnesium 1.6 1.4 - 2.5 mg/dL Comment:Testing performed by : [facility], [address] [place] [address]., [id number] Blood 10/28/2024 7:28 PM CDT 10/28/2024 7:34 PM CDT Latha Rojas SALES SUPPORT REP LAB BLOOD ORDERABLES Final Result Performing Organization Address City/[facility]/ZIP Co de Phone Number [address] [address] * ABO / Rh Confirmation Testing (10/28/2024 4:22 PM CDT) Pathologist [facility] [place] ABO/Rh Confirmation O Positive B Comment:Testing performed by : [facility], [address] [place] [address]., [id number] Blood 10/28/2024 4:22 PM CDT 10/28/2024 4:26 PM CDT Esa Wesley LAB BLOOD ORDERABLES Final Result Performing Organization Address [facility] de Phone Number [facility]0 [facility] [place] [address] [facility] * Troponin T high-sensitivity 2-hour (10/28/2024 3:32 PM CDT) Pathologist [facility] [place] Trop T hs <6 <=14 ng/L Comment: Interpretive Data For further hscTnT resources including the diagnostic algorithm and an aid in interpretation, copy and paste this link: https://nrl.testcatalog.org/show/hsTrop Current Interpretive Data last revised 2020. Testing performed by: [facility], [address] [place] [address]., [address] Trop T hs interp Equivocal [facility] Comment:Testing performed by : [facility], [address] [place] [address]., [id number] Blood 10/28/2024 3:32 PM CDT 10/28/2024 3:39 PM CDT Esa Wesley DO LAB BLOOD ORDERABLES Final Result Performing Organization Address [facility] de Phone Number TERE [facility]0 [facility] [place] [address] * CTA Abdomen Pelvis (10/28/2024 3:24 PM [...] Brijesh Dominguez D.O. PS: PS Report ID: [id number] Reading Location: [place] [address] Procedure Note Brijesh Dominguez, - 10/28/2024 EXAM DESCRIPTION: CTA ABDOMEN PELVIS [...] Brijesh Dominguez D.O. PS: PS Report ID: [id number] Reading Location: [id number] Esa Wesley DO IMG CT PROCEDURES Final Res ult * Sepsis Lactate w/ Reflex (10/28/2024 2:02 PM CDT) Sepsis Lactate 1.3 0.7 - 2.0 mmol/L Comment:Testing performed by : [address] [address] Blood 10/28/2024 2:02 PM CDT 10/28/2024 2:06 PM CDT Esa Wesley DO LAB BLOOD ORDERABLES Final Result [facility] [address] [facility] Department [place] [address] * ABO/Rh (10/28/2024 1:36 PM CDT) ABO/Rh O Positive Comment:Testing performed by : [address] [address] Blood 10/28/2024 1:36 PM CDT 10/28/2024 1:41 PM CDT Narrative [facility] 10/28/2024 2:09 PM CDT Has the patient had Daratumumab or Isatuximab in the past 6 months?->Unknown Esa Wesley LAB BLOOD BANK TEST ORDERAB LES Final Result Performing Organization Address [facility] de Phone Number TERE [address] [address] * Antibody screen (10/28/2024 1:36 PM CDT) Mavis, indirect, Gel Interpretation Negative ABSC Comment:Testing performed by : [facility], [address] [place] [address]., [address] Blood 10/28/2024 1:36 PM CDT 10/28/2024 1:41 PM CDT Narrative [facility] 10/28/2024 2:26 PM CDT Has the patient had Daratumumab or Isatuximab in the past 6 months?->Unknown Result [facility] Esa Wesley LAB BLOOD BANK TEST ORDERAB LES Final Result Performing Organization Address [facility] de Phone Number TERE [address] [place] [address] * GA CRITICAL CARE ILL/INJURED PATIENT INIT 30-74 MIN [...] IN CLINIC/BEDSIDE ORDERABLE S Final Result * Troponin T high-sensitivity series (baseline, 2hr, 4hr, 6hr) (10/28/2024 1:04 PM CDT) Trop T hs <6 <=14 ng/L Comment: Interpretive Data For further hscTnT resources including the diagnostic algorithm and an aid in interpretation, copy and paste this link: https://nrl.testcatalog.org/show/hsTrop Current Interpretive Data last revised 2020. Testing performed by: [address] [address] Blood 10/28/2024 1:04 PM CDT 10/28/2024 1:23 PM CDT Esa Wesley DO LAB BLOOD ORDERABLES Final Result [facility] [address] [facility] Department [place] [address] * Blood smear review (10/28/2024 1:04 PM CDT) RBC morphology Consistent with RBC Indicies Comment:Testing performed by : [address] [address] Platelet estimate Adequate TERE MARIANO Comment:Testing performed by : [address] [address] Blood 10/28/2024 1:04 PM CDT 10/28/2024 1:23 PM CDT Esa Cruz Maryjane DO LAB BLOOD ORDERABLES Final Result Performing Organization Address [facility]/ZIP Co de Phone Number [facility]0 [facility] [place] [address] * eGFR (10/28/2024 1:04 PM CDT) Pathologist [facility] [place] eGFR >90 >=60 mL/min/1. 73 m2 Comment: [...] was last reviewed 2020. Testing performed by: [facility], [address] [place] [address]., [address] Blood 10/28/2024 1:04 PM CDT 10/28/2024 2:40 PM CDT Esa Wesley DO LAB BLOOD ORDERABLES Final Result Performing Organization Address City/[facility]/ZIP Co de Phone Number [facility]0 [facility] [place] [address] * (ABNORMAL) Differential, auto (10/28/2024 1:04 PM CDT) Pathologist [facility] [place] Neutrophil abs 21.53(H) 1.50 - 6.50 K/cumm Comment:Testing performed by : [address], [place]., [address] Imm gran abs 0.17(H) 0.00 - 0.10 K/cumm [facility] Comment:Testing performed by : [address], [place]., [address] Lymphocyte abs 0.90 0.80 - 3.30 K/cumm [facility] Comment:Testing performed by : [address], [place]., [address] Monocyte abs 0.86(H) 0.20 - 0.80 K/cumm [facility] Comment:Testing performed by : [address], [place]., [address] Eosinophil abs 0.01 0.00 - 0.50 K/cumm [facility] Comment:Testing performed by : [address], [place]., [address] Basophil abs 0.04 0.00 - 0.10 K/cumm [facility] Comment:Testing performed by : [address] [address] Neutrophil pct 91.6 % [facility] Comment: Interpretive Data Percent cell count reference ranges are not reported, since discordance with absolute values may lead to misinterpretation of CBC data. Current Interpretive Data was last revised on 2017. Testing performed by: [address] [address] Imm gran pct 0.7 % [facility] Comment: Interpretive Data Percent cell count reference ranges are not reported, since discordance with absolute values may lead to misinterpretation of CBC data. Current Interpretive Data was last revised on 2017. Testing performed by: [address] [address] Lymphocyte pct 3.8 % CERNER Comment: Interpretive Data Percent cell count reference ranges are not reported, since discordance with absolute values may lead to misinterpretation of CBC data. Current Interpretive Data was last revised on 2017. Testing performed by: [address] [address] Monocyte pct 3.7 % CERNER Comment: Interpretive Data Percent cell count reference ranges are not reported, since discordance with absolute values may lead to misinterpretation of CBC data. Current Interpretive Data was last revised on 2017. Testing performed by: [address] [address] Eosinophil pct 0.0 % TERE Comment: Interpretive Data Percent cell count reference ranges are not reported, since discordance with absolute values may lead to misinterpretation of CBC data. Current Interpretive Data was last revised on 2017. Testing performed by: [address] [address] Basophil pct 0.2 % TERE Comment: Interpretive Data Percent cell count reference ranges are not reported, since discordance with absolute values may lead to misinterpretation of CBC data. Current Interpretive Data was last revised on 2017. Testing performed by: [address] [address] Blood 10/28/2024 1:04 PM CDT 10/28/2024 1:23 PM CDT Esa Wesley DO LAB BLOOD ORDERABLES Final Result [facility] [address] [facility] Department of Laboratories [place], [place] [id number] * (ABNORMAL) CBC with auto differential (10/28/2024 1:04 PM CDT) WBC 23.51(H) 3.80 - 9.90 K/cumm Comment:Testing performed by : [address] [address] Hgb 13.9 11.9 - 15.5 g/dL TERE Comment:Testing performed by : [address] [address] Hct 41.0 35.6 - 45.5 % TERE Comment:Testing performed by : [address] [address] Plt 263 150 - 400 K/cumm TERE Comment:Testing performed by : [address] [address] MPV 9.5 9.1 - 12.3 fL TERE MARIANO Comment:Testing performed by : [facility], [address] [place] [address]., [address] RBC 4.88 3.90 - 5.20 M/cumm TERE MARIANO Comment:Testing performed by : [address] [address] MCV 84.0 81.3 - 96.4 fL TERE MARIANO Comment:Testing performed by : [address] [address] MCH 28.5 27.1 - 33.3 pg TERE MARIANO Comment:Testing performed by : [address] [address] MCHC 33.9 32.3 - 35.7 g/dL TERE Comment:Testing performed by : [address] [address] RDW CV 13.1 11.1 - 14.9 % TERE Comment:Testing performed by : [address], [address] RDW SD 40.1 35.7 - 48.1 fL TERE Comment:Testing performed by : [address] [address] NRBC abs 0.00 0.00 - 0.01 K/cumm TERE Comment:Testing performed by : [address] [address] Blood 10/28/2024 1:04 PM CDT 10/28/2024 1:23 PM CDT us Esa Wesley DO LAB BLOOD ORDERABLES Edited Result - Final [facility] [address] [facility] Department [place] [address] * (ABNORMAL) Lipase (10/28/2024 1:04 PM CDT) Lipase 6(L) 10 - 99 Units/L Comment:Testing performed by : [address] [address] Blood 10/28/2024 1:04 PM CDT 10/28/2024 1:23 PM CDT Esa Wesley DO LAB BLOOD ORDERABLES Final Result TERE [address] [facility] Department [place] [address] * (ABNORMAL) Comprehensive metabolic panel (10/28/2024 1:04 PM CDT) Sodium 140 135 - 145 mmol/L Comment:Testing performed by : [address] [address] Potassium, pl 4.0 3.3 - 4.9 mmol/L TERE Comment:Testing performed by : [address] [address] Chloride 106 97 - 110 mmol/L TERE Comment:Testing performed by : [address] [address] CO2 18(L) 22 - 32 mmol/L TERE Comment:Testing performed by : [address] [address] Anion gap 16(H) 2 - 15 mmol/L TERE Comment:Testing performed by : [address] [address] BUN 9 6 - 25 mg/dL TERE Comment:Testing performed by : [address] [address] Creatinine 0.50(L) 0.60 - 1.10 mg/dL TERE Comment:Testing performed by : [address] [address] Glucose 107 70 - 199 mg/dL TERE [...] last revised 2022. Testing performed by: [address] [address] Calcium 8.5 8.5 - 10.3 mg/dL TERE Comment:Testing performed by : [address] [address] Bilirubin, total 0.6 0.1 - 1.2 mg/dL TERE Comment:Testing performed by : [address] [address] Protein, pl 6.9 6.5 - 8.5 g/dL TERE Comment:Testing performed by : [address] [address] Albumin 4.1 3.5 - 5.0 g/dL TERE Comment:Testing performed by : [address] [address] Alk phos 66 40 - 130 Units/L TERE Comment:Testing performed by : [address] [address] ALT 6(L) 7 - 45 Units/L TERE Comment:Testing performed by : [address] [address] AST 17 10 - 45 Units/L TERE Comment:Testing performed by : [address] [address] Blood 10/28/2024 1:04 PM CDT 10/28/2024 2:40 PM CDT us Esa Wesley DO LAB BLOOD ORDERABLES Final Result TERE MARIANO [address] [facility] Department [place] [address] * ECG 12 lead (10/28/2024 12:58 PM CDT) Ventricular Rate EKG/Min 83 BPM [facility] Atrial Rate 83 BPM [facility] GA-Interval (MSEC) 146 ms [facility] QRS-Interval (MSEC) 76 ms [facility] QT-Interval (MSEC) 392 ms [facility] QTc 460 ms [facility] P [place] 57 degrees [facility] R [place] 51 degrees [facility] T [place] -7 degrees [facility] Diagnosis Normal sinus rhythm Possible Left atrial enlargement Nonspecific T wave abnormality Prolonged QT Abnormal ECG When compared with ECG of 25-MAY-2013 17:53, No significant change was found Confirmed by DEBBIE BENOIT M.D. ([id number]) on 10/29/2024 9:21:34 AM [facility] 10/28/2024 12:5 8 PM CDT 10/29/2024 9:21 AM CDT us Esa Wesley DO ECG ORDERABLES Final Resul t [facility] from Last 3 Months Insurance [place] [facility] [place] [facility] Advance Directives For more information, please contact: [phone] * Full Code (Latest Code Status on File) Date Activated Date Inactivated Comments 10/28/2024 10:58 PM 10/30/2024 11:10 PM * Full Code Date Activated Date Inactivated Comments 10/28/2024 10:56 PM 10/28/2024 10:58 PM Care Teams Oracle Database Analyst Relationship Specialty Start Date End Date Unknown, Notinfile PCP - General 07/09/24
--- OUTSIDE RECORDS SUMMARY | 2024-11-01 12:40 | XMS_ITS | Encounter Summary ---
Author Organization [facility] Address [address] [place] [address] Phone Care Team Providers Care Woodworking Machine Operator Name Role Phone No, Physician Primary Care Provider Unavailabl e No, Physician Primary Care Provider Kateryna Brandon MD Primary Care Pr ovider Unknown, Notinfile Primary Care Provider Unavail able Encounter Details Date Type Department Care Team (Late st Contact Info) Description 06/07/2013 Orders Only [facility] CLINCONV Provider, MD Sebastien [address] [place] [address] Social History Tobacco Use Types Packs/Day Years Used Date Smoking Tobacco: Never Assessed Comments Unknown Sex and Gender Information Value Date Recorded Sex Assigned at Not on file 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
--- OUTSIDE RECORDS SUMMARY | 2024-11-01 12:40 | XMS_ITS | Clinical Summary ---
Author Organization [facility] Address [address] [place] [address] Care Team Providers Care Cool Roofing Installer Name Role Phone Unavailable Primary Care Provider Unavailabl e Social History Tobacco Use Types Packs/Day Years Used Date Smoking Tobacco: Never Assessed Comments Unknown Sex and Gender Information Value Date Recorded Sex Assigned at Not on file Legal Sex Female 11:35 AM SHIFT COORDINATOR Gender Identity Not on file Sexual Orientation Not on file Plan of Treatment Health Maintenance Due Date Last Done Comments Hepatitis C Virus (HCV) Screening 1984 TdaP Immunization 1984 Hepatitis B Immunization (1 of 3 - 19+ 3-dose series) 2003 Pap Smear 2005 Human Papillomavirus (HPV) Immunization (1 - 3-dose SCDM series) 2011 Cervical Cancer Screening (CCS) 2014 HPV/Cotest 2014 SARS-COV-2 Immunization (2023- season) 2023 Influenza Immunization (#1) 2024 Respiratory Syncytial Virus (RSV) Immunization (Adult) [...]
--- OUTSIDE RECORDS SUMMARY | 2024-11-01 12:40 | XMS_ITS | Encounter Summary ---
Author Organization [facility] Address [address] [place] [address] Phone Care Team Providers Care Mfg Assoc Name Role Phone Kateryna Brandon MD Primary Care Pr ovider Unknown, Notinfile Primary Care Provider Unavail able Encounter Details Date Type Department Care Team (Late st Contact Info) Description 11/29/2017 Telephone [facility] Cardiology [address] [facility] [address] [place] [address] [place] [id number] Bridgette Forbes, MPH Social History Tobacco Use Types Packs/Day Years Used Date Smoking Tobacco: Never Assessed Comments Unknown Sex and Gender Information Value Date Recorded Sex Assigned at Not on file 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
--- OUTSIDE RECORDS SUMMARY | 2024-11-01 12:40 | XMS_ITS | Clinical Summary ---
Author Organization [facility] Address [address] [place] [address] Care Team Providers Care Gta Name Role Phone Shira Mujica PA-C Primary Care Provider [phone] Allergies No known active allergies Medications No [...] Date Smoking Tobacco: Every Day Cigarettes 0.5 16.7 Started: 2008 Smokeless Tobacco: Never Tobacco Cessation:Ready [...] Years) (1 of 2 - PCV) 2003 HPV Vaccines (1 - 3-dose SCD M series) 2011 Cervical Cancer Screening Pa p with HPV Testing (Age 30 to 64) Every 5 Years 2014 COVID-19 Vaccine ( - 2023-2 5 season) 2023 PHQ-2 (Physician [place]) 02/29/2024 Mammogram Screening 2024 Cervical Cancer Screening Pa p Smear (Age 30 to 64) Every 3 Years 06/10/2025 06/10/2022 Cervical Cancer Screening with HPV 06/10/2025 Meningococcal B Vaccine Aged Out No l onger eligible based on patient's age to complete this topic Meningococcal Vaccine Aged Out No fern stella eligible based on patient's age to complete this topic RSV Immunizations Under 20 Months Aged Out No longer eligible based on patient's age to complete this topic Insurance MEDICAID Care Teams Gta Relationship Specialty Start Date End Date Shira Mujica PA-C PCP - General NURSE PRACTITIONER 05/15/23
--- OUTSIDE RECORDS SUMMARY | 2024-11-01 12:40 | XMS_ITS | Encounter Summary ---
Author Organization [facility] Address [address] [place] [address] Phone Care Team Providers Care Life Insurance Underwriter Name Role Phone No, Physician Primary Care Provider Unavailabl e No, Physician Primary Care Provider [phone] Kateryna Brandon MD Primary Care Pr ovider Unknown, Notinfile Primary Care Provider Unavail able Encounter Details Date Type Department Care Team (Late st Contact Info) Description 01/11/2014 Orders Only [facility] CAR CLINCONV Provider, MD Sebastien [address] [place] [address] Social History Tobacco Use Types Packs/Day Years Used Date Smoking Tobacco: Never Assessed Comments Unknown Sex and Gender Information Value Date Recorded Sex Assigned at Not on file 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
--- NOTE | 2024-11-01 12:57 | ECG_ITS ---
Test Date: 2024-11-01 13:12:23 Measurements Intervals [place] Rate: 87 P: 49 GA: 149 QRS: 41 QRSD: 93 T: -16 QT: 342 QTc: 412 Interpretive Statements SINUS RHYTHM POSSIBLE LEFT ATRIAL ENLARGEMENT [-0.1mV P-WAVE IN V1/V2] MODERATE T-WAVE ABNORMALITY, CONSIDER ANTERIOR ISCHEMIA [-0.1+ mV T-WAVE IN V3/V4] No previous ECG available for comparison Electronically Signed On 11-02-2024 12:10:18 CDT by Norberto Munoz M.D.
--- NOTE | 2024-11-01 13:02 | ED.GENADULT ---
HPI - General Adult General Chief complaint: Recheck/Abnormal Lab/Rx Stated complaint: post op complications s/p hyst Time Seen by Provider: 11/01/24 12:50 History of Present Illness HPI narrative: This is a 39-year-old female presenting for abdominal pain. Patient a robotic hysterectomy with salpingectomy performed on September 11. She was doing well until October 28. That time she had significant abdominal pain and went to [facility] where she was found to have free air in her abdomen. and emergent vaginal cuff repair was performed and she was kept hospital for several days on IV antibiotics and discharged on Flagyl and amoxicillin. She has been taking the antibiotics as instructed. she is still having abdominal pain and right flank into the right lower abdomen. She has been taking [place] approximately 3 times a day and Tylenol 1000 mg q.6 hours for pain control. She has nausea and vomiting and loose stools. She says she has a fever of 100 at home orally. No chest pain difficulty breathing or urinary symptoms. No vaginal bleeding or discharge. Related Data Allergies Allergy/AdvReac Type Severity Reaction Status Date / Time No Known Allergies Allergy Verified 11/01/24 13:01 [facility] Past Medical History Medical History Asthma Family History Family History Other Hypertension Social History Social History Years smoked: 15 Smoking status: Current some day smoker Tobacco type: cigarettes Alcohol intake: former Substance use type: marijuana Other substance usage details: DAILY Living arrangements: with family Exam Narrative: APPEARANCE: No apparent distress. Head: atraumatic. EYES: EOMI, NOSE: Atraumatic NECK: Trachea midline RESPIRATORY: No increased rate of breathing Clear to auscultation CARDIOVASCULAR: RRR, ABDOMINAL: abdomen is soft, tenderness in the right lower quadrant and right flank. Rebound tenderness. No guarding. MUSCULOSKELETAl: No obvious deformities NEURO: Alert. Moving 4/4 extremities SKIN:: Warm, dry. Normal color PSYCHIATRIC: Normal affect Course Vital Signs Vital signs: Vital Signs Temperature 98.5 F 11/01/24 12:38 Pulse Rate 94 11/01/24 12:38 Respiratory Rate 20 11/01/24 12:38 Blood Pressure 110/77 11/01/24 12:38 Pulse Oximetry 98 11/01/24 12:38 Oxygen Delivery Room Air 11/01/24 12:38 Temperature 98.5 F 11/01/24 12:38 Pulse Rate 76 11/01/24 15:00 Respiratory Rate 20 11/01/24 15:00 Blood Pressure 104/68 11/01/24 15:00 Pulse Oximetry 100 11/01/24 15:00 Oxygen Delivery Room Air 11/01/24 12:38 Medical Decision Making MDM Narrative Medical decision making narrative: -Course: 39-year-old female presenting for abdominal pain. Vital signs stable. Patient has tenderness in the right side of the abdomen. CT abdomen pelvis showed a pelvic abscess. Labs within normal limits. Given fluid resuscitation and antibiotics. Case discussed with Dr. Kerr. He requested Zosyn and Flagyl antibiotics. She will be admitted to his service. -DDX includes but is not limited to: Pelvic abscess, constipation, postop Vital Signs Vital Signs: Vital Signs Temperature 98.5 F 11/01/24 12:38 Pulse Rate 94 11/01/24 12:38 Respiratory Rate 20 11/01/24 12:38 Blood Pressure 110/77 11/01/24 12:38 Pulse Oximetry 98 11/01/24 12:38 Oxygen Delivery Room Air 11/01/24 12:38 Temperature 98.5 F 11/01/24 12:38 Pulse Rate 76 11/01/24 15:00 Respiratory Rate 20 11/01/24 15:00 Blood Pressure 104/68 11/01/24 15:00 Pulse Oximetry 100 11/01/24 15:00 Oxygen Delivery Room Air 11/01/24 12:38 Lab Data 11/01/24 13:18 11/01/24 13:18 Labs: Lab Results 11/01/24 11/01/24 11/01/24 Range/Units 13:07 13:18 14:48 WBC 10.2 H (4.5-10.0) K/mm3 RBC 4.16 L (4.2-5.4) M/mm3 Hgb 11.8 L (12.0-15.0) g/dL Hct 35.3 L (37.0-47.0) % MCV 84.9 (80-100) fl MCH 28.4 (26-34) pg MCHC 33.4 (32-36) g/dl RDW 12.9 (11.5-14.5) % Plt Count 275 (150-375) k/mm3 MPV 9.6 (7.4-10.4) fl Immature Gran % (Auto) 0.5 (0-0.5) % Neut % (Auto) 74.2 H (45.5-73.1) % Lymph % (Auto) 17.3 L (18.3-44.2) % Turner % (Auto) 5.2 (2.6-8.5) % Eos % (Auto) 2.6 (0-4.4) % Baso % (Auto) 0.2 (0.2-1.2) % Lymph # (Auto) 1.77 (0.9-3.2) K/mm3 Turner # (Auto) 0.5 (0.1-0.6) K/mm3 Eos # (Auto) 0.3 (0-0.3) K/mm3 Baso # (Auto) 0.0 (0.0-0.1) K/mm3 Abs Immat Gran (auto) 0.05 H (0.00-0.031) K/mm3 Absolute Neuts (auto) 7.6 H (1.3-6.7) K/mm3 Absolute Nucleated RBC 0.000 (0.0-0.012) K/mm3 Nucleated RBC % 0.0 (0.0-0.2) % Sodium 136 L (137-145) mmol/L Potassium 3.4 (3.4-5.0) mmol/L Chloride 104 (98-107) mmol/L Carbon Dioxide 26 (22-30) mmol/L Anion Gap 6 (4-12) mmol/L BUN 6 L (7-17) mg/dL Creatinine 0.46 L (0.7-1.0) mg/dL Estim Creat Clear Calc 116 ml/min Estimated GFR > 60 (59 - ) Glucose 127 H (65-110) mg/dL POC Capillary Glucose 126 H (65-105) mg/dl Lactic Acid 1.2 (0.7-2.0) mmol/L Calcium 8.4 (8.4-10.2) mg/dL Total Bilirubin 0.3 (0.2-1.3) mg/dL AST 34 (14-36) U/L ALT 25 (6-35) U/L Alkaline Phosphatase 59 (38-126) U/L Total Protein 6.7 (6.3-8.2) g/dL Albumin 3.4 L (3.5-5.1) g/dL Lipase 16 L (23-300) U/L Urine Color Pending Urine Appearance Pending Urine pH Pending Ur Specific [place] Pending Urine Protein Pending Urine Glucose (UA) Pending Urine Ketones Pending Ur Blood (Man) Pending Urine Nitrate Pending Urine Bilirubin Pending Urine Urobilinogen Pending Leukocyte Esterase Rfl Pending Urine Opiates Screen Urine Methadone Screen Ur Barbiturates Screen Ur Phencyclidine Scrn Ur Amphetamine Screen U Benzodiazepines Scrn Urine Cocaine Screen U Cannabinoids Screen 11/01/24 Range/Units 14:52 WBC (4.5-10.0) K/mm3 RBC (4.2-5.4) M/mm3 Hgb (12.0-15.0) g/dL Hct (37.0-47.0) % MCV (80-100) fl MCH (26-34) pg MCHC (32-36) g/dl RDW (11.5-14.5) % Plt Count (150-375) k/mm3 MPV (7.4-10.4) fl Immature Gran % (Auto) (0-0.5) % Neut % (Auto) (45.5-73.1) % Lymph % (Auto) (18.3-44.2) % Turner % (Auto) (2.6-8.5) % Eos % (Auto) (0-4.4) % Baso % (Auto) (0.2-1.2) % Lymph # (Auto) (0.9-3.2) K/mm3 Turner # (Auto) (0.1-0.6) K/mm3 Eos # (Auto) (0-0.3) K/mm3 Baso # (Auto) (0.0-0.1) K/mm3 Abs Immat Gran (auto) (0.00-0.031) K/mm3 Absolute Neuts (auto) (1.3-6.7) K/mm3 Absolute Nucleated RBC (0.0-0.012) K/mm3 Nucleated RBC % (0.0-0.2) % Sodium (137-145) mmol/L Potassium (3.4-5.0) mmol/L Chloride (98-107) mmol/L Carbon Dioxide (22-30) mmol/L Anion Gap (4-12) mmol/L BUN (7-17) mg/dL Creatinine (0.7-1.0) mg/dL Estim Creat Clear Calc ml/min Estimated GFR (59 - ) Glucose (65-110) mg/dL POC Capillary Glucose (65-105) mg/dl Lactic Acid (0.7-2.0) mmol/L Calcium (8.4-10.2) mg/dL Total Bilirubin (0.2-1.3) mg/dL AST (14-36) U/L ALT (6-35) U/L Alkaline Phosphatase (38-126) U/L Total Protein (6.3-8.2) g/dL Albumin (3.5-5.1) g/dL Lipase (23-300) U/L Urine Color Urine Appearance Urine pH Ur Specific [place] Urine Protein Urine Glucose (UA) Urine Ketones Ur Blood (Man) Urine Nitrate Urine Bilirubin Urine Urobilinogen Leukocyte Esterase Rfl Urine Opiates Screen Pending Urine Methadone Screen Pending Ur Barbiturates Screen Pending Ur Phencyclidine Scrn Pending Ur Amphetamine Screen Pending U Benzodiazepines Scrn Pending Urine Cocaine Screen Pending U Cannabinoids Screen Pending Critical Care Time Critical Care Time Critical Care Time: Yes Total Critical Care Time: 35 Discharge Plan Discharge Clinical Impression: Abscess of female pelvis Patient Disposition: Home Condition: Stable Instructions: Antibiotic Form Patient Language: Citizen Of [place] Prescriptions: No Action albuterol sulfate 90 mcg/actuation HFA aerosol inhaler 2 puff inhalation QID PRN (Reason: shortness of breath or wheezing) Qty: 6.7 0RF Follow-up/Referrals: Aaron Kerr MD [Primary Care Provider, [employer]]
--- OUTSIDE RECORDS SUMMARY | 2024-11-01 13:16 | XMS_ITS | Clinical Summary ---
Author Organization [facility] Address [address] [place] [address] Care Team Providers Care Speck Dyer Name Role Phone Unknown, Notinfile Primary Care [...] (01/09/2018): Added automatically from request for surgery [id number] Wheezing Encounters Date Type Department Care Team Description 10/28/2024 8:56 PM CDT Anesthesia Event [facility] OR [address] [place] [address] Aston Campos MD 10/28/2024 8:26 PM CDT - 10/28/2024 11:01 PM CDT Surgery [facility] OR [address] [place] [address] Jackson Rodarte MD EXAM UNDER ANESTHESIA, REPAIR OF VAGINAL CUFF 10/28/2024 12:48 PM CDT - 10/30/2024 7:05 PM CDT Hospital Encounter [place] [address] Med [address] [place] [address] Esa Wesley DO Lopez, Manuel Emilio, MD [...] often do you attend chur ch or advent services? Never 10/30/2024 Do you belong to any clubs o r organizations such as judaism groups, unions, fraternal or athletic groups, or [...] any time in the past 12 m [facility], were you homeless or living in a correction (including now)? 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 RB: MAI Report ID: [id number] Reading Location: [id number] Procedure Note Deondre Arambula MD - 10/30/2024 [...] Deondre Arambula M.D. RB: MAI Report ID: [id number] Reading Location: [place] [address] us Jd Medrano MD IMG CT PROCEDURES [...] last reviewed 2020. Testing performed by: [address] [address] Blood 10/30/2024 5:34 AM CDT 10/30/2024 6:25 AM CDT Latha Leanna Bob SOILS ANALYST LAB BLOOD ORDERABLES Final Result [facility] [address] [facility] [place] [address] * (ABNORMAL) Differential, auto (10/30/2024 5:34 AM CDT) Neutrophil abs 10.02(H) 1.50 - 6.50 K/cumm Comment:Testing performed by : [address] [address] Imm gran abs 0.09 0.00 - 0.10 K/cumm TERE Comment:Testing performed by : [address] [address] Lymphocyte abs 1.67 0.80 - 3.30 K/cumm TERE Comment:Testing performed by : [address] [address] Monocyte abs 0.76 0.20 - 0.80 K/cumm TERE Comment:Testing performed by : [address] [address] Eosinophil abs 0.06 0.00 - 0.50 K/cumm TERE Comment:Testing performed by : [address] [address] Basophil abs 0.03 0.00 - 0.10 K/cumm TERE Comment:Testing performed by : [address] [address] Neutrophil pct 79.4 % TERE Comment: Interpretive Data Percent cell count reference ranges are not reported, since discordance with absolute values may lead to misinterpretation of CBC data. Current Interpretive Data was last revised on 2017. Testing performed by: [address] [address] Imm gran pct 0.7 % [facility] Comment: Interpretive Data Percent cell count reference ranges are not reported, since discordance with absolute values may lead to misinterpretation of CBC data. Current Interpretive Data was last revised on 2017. Testing performed by: [address] [address] Lymphocyte pct 13.2 % [facility] Comment: Interpretive Data Percent cell count reference ranges are not reported, since discordance with absolute values may lead to misinterpretation of CBC data. Current Interpretive Data was last revised on 2017. Testing performed by: [address] [address] Monocyte pct 6.0 % [facility] Comment: Interpretive Data Percent cell count reference ranges are not reported, since discordance with absolute values may lead to misinterpretation of CBC data. Current Interpretive Data was last revised on 2017. Testing performed by: [address] [address] Eosinophil pct 0.5 % [facility] Comment: Interpretive Data Percent cell count reference ranges are not reported, since discordance with absolute values may lead to misinterpretation of CBC data. Current Interpretive Data was last revised on 2017. Testing performed by: [address] [address] Basophil pct 0.2 % [facility] Comment: Interpretive Data Percent cell count reference ranges are not reported, since discordance with absolute values may lead to misinterpretation of CBC data. Current Interpretive Data was last revised on 2017. Testing performed by: [address] [address] Blood 10/30/2024 5:34 AM CDT 10/30/2024 6:26 AM CDT us Latha Rojas NP LAB BLOOD ORDERABLES Final Result TERE MARIANO [address] [facility] [place] [address] * (ABNORMAL) CBC with auto differential (10/30/2024 5:34 AM CDT) [facility] WBC 12.63(H) 3.80 - 9.90 K/cumm Comment:Testing performed by : [address], [address] Hgb 10.3(L) 11.9 - 15.5 g/dL TERE Comment:Testing performed by : [address] [address] Hct 30.7(L) 35.6 - 45.5 % TERE Comment:Testing performed by : [address] [address] Plt 197 150 - 400 K/cumm TERE Comment:Testing performed by : [address], [address] MPV 9.9 9.1 - 12.3 fL TERE Comment:Testing performed by : [address], [address] RBC 3.60(L) 3.90 - 5.20 M/cumm TERE Comment:Testing performed by : [address], [address] MCV 85.3 81.3 - 96.4 fL TERE Comment:Testing performed by : [address], [address] MCH 28.6 27.1 - 33.3 pg TERE Comment:Testing performed by : [address], [address] MCHC 33.6 32.3 - 35.7 g/dL TERE Comment:Testing performed by : [address], [address] RDW CV 13.1 11.1 - 14.9 % TERE Comment:Testing performed by : [address], [address] RDW SD 40.9 35.7 - 48.1 fL TERE Comment:Testing performed by : [address], [address] NRBC abs 0.00 0.00 - 0.01 K/cumm TERE Comment:Testing performed by : [address] [address] Blood 10/30/2024 5:34 AM CDT 10/30/2024 6:26 AM CDT Latha Rojas NP LAB BLOOD ORDERABLES Final Result [facility] [address] [facility] Department [place] [address] * (ABNORMAL) Basic metabolic panel (10/30/2024 5:34 AM CDT) Sodium 140 135 - 145 mmol/L Comment:Testing performed by : [address] [address] Potassium, pl 3.3 3.3 - 4.9 mmol/L TERE Comment:Testing performed by : [address] [address] Chloride 108 97 - 110 mmol/L TERE Comment:Testing performed by : [address] [address] CO2 21(L) 22 - 32 mmol/L TERE Comment:Testing performed by : [address] [address] Anion gap 11 2 - 15 mmol/L TERE Comment:Testing performed by : [address] [address] BUN 6 6 - 25 mg/dL TERE Comment:Testing performed by : [address] [address] Creatinine 0.50(L) 0.60 - 1.10 mg/dL TERE Comment:Testing performed by : [address] [address] Glucose 94 70 - 199 mg/dL TERE [...] last revised 2022. Testing performed by: [address] [address] Calcium 7.7(L) 8.5 - 10.3 mg/dL TERE Comment:Testing performed by : [address] [address] Blood 10/30/2024 5:34 AM CDT 10/30/2024 6:25 AM CDT Latha Rojas LAB BLOOD ORDERABLES Final Result Performing Organization Address [facility] Co de Phone Number JOS[address] [place] [address] * Sepsis Lactate w/ Reflex (10/29/2024 4:51 AM CDT) Pathologist [facility] Sepsis Lactate 0.8 0.7 - 2.0 mmol/L Comment:Testing performed by : [address] [address] Blood 10/29/2024 4:51 AM CDT 10/29/2024 4:53 AM CDT Latha Rojas LAB BLOOD ORDERABLES Final Result Performing Organization Address [facility] Co de Phone Number [address] [address] * (ABNORMAL) Urinalysis reflex to microscopic and culture Urine (10/29/2024 2:07 AM CDT) Color, ur Straw Yellow Comment:Testing performed by : [address] [address] Clarity, ur Clear Clear TERE Comment:Testing performed by : [address] [address] Specific gravity, ur 1.007 1.003 - 1.030 TERE Comment:Testing performed by : [facility], [address] [place] [address], [place]., [address] pH, urine 7.0 TERE Comment: Interpretive Data U rine pH is affected by diet, medications, systemic acid-base disturbances, and renal tubular function. pH may affect urinary stone formation. For example, urine pH below 6.0 may help reduce the tendency for calcium phosphate stones and pH greater than 6.0 may reduce the tendency for uric acid stone formation. Source: [facility] [employer] Current Interpretive Data was last revised on 2017 Testing performed by: [facility], [address] [place] [address], [place]., [address] Protein, ur ql Negative Negative TERE Comment:Testing performed by : [address], [place]., [address] Glucose, ur ql Negative Negative TERE Comment:Testing performed by : [address], [place]., [address] Ketones, ur 1+(A) Negative TERE Comment:Testing performed by : [address], [place]., [address] Bilirubin, ur Negative Negative TERE Comment:Testing performed by : [address], [place]., [address] Blood, ur 3+(A) Negative TERE Comment:Testing performed by : [address], [place]., [address] Urobilinogen, ur <2.0 <2.0 mg/dL TERE Comment:Testing performed by : [address], [place]., [address] Nitrite, ur Negative Negative TERE Comment:Testing performed by : [address], [place]., [address] Leukocyte esterase, ur 1+(A) Negative TERE Comment:Testing performed by : [address], [place]., [address] UA reflex comment Reflex to microscopic UA will be performed. TERE Comment:Testing performed by : [address], [place]., [address] Urine 10/29/2024 2:07 AM CDT 10/29/2024 2:12 AM CDT us Jackson Rodarte MD LAB MICROBIOLOGY - GENER AL ORDERABLES Final Result Performing Organization Address [facility] Co de Phone Number TERE [address] [facility] [place] [address] * (ABNORMAL) Urinalysis, microscopic only (10/29/2024 2:07 AM CDT) WBC, ur 0-5 0 - 5 /HPF Comment:Testing performed by : [address] [address] RBC, ur 3-5(A) 0 - 2 /HPF TERE Comment:Testing performed by : [address] [address] Epithelial cells, squamous, ur 1-5 0 - 5 /HPF TERE Comment:Testing performed by : [address] [address] Bacteria, ur Trace(A) TERE Comment:Testing performed by : [address] [address] Culture Reflex Comment Reflex conditions for urine culture (WBC >10) not met. TERE Comment:Testing performed by : [address] [address] Urine 10/29/2024 2:07 AM CDT 10/29/2024 2:12 AM CDT us Esa Wesley DO LAB URINE ORDERABLES Final Result Performing Organization Address [facility] de Phone Number TERE [address] [facility] Department [place] [address] * (ABNORMAL) Sepsis Lactate w/ Reflex (10/29/2024 1:56 AM CDT) Sepsis Lactate 2.5(H) 0.7 - 2.0 mmol/L Comment:Testing performed by : [address] [address] Blood 10/29/2024 1:56 AM CDT 10/29/2024 2:02 AM CDT Latha Rojas SOILS ANALYST LAB BLOOD ORDERABLES Final Result Performing Organization Address City/State/[facility] Co de Phone Number TERE [address] [place] [address] * eGFR (10/29/2024 1:56 AM CDT) eGFR [...] was last reviewed 2020. Testing performed by: [facility], [address] [place] [address]., [address] Blood 10/29/2024 1:56 AM CDT 10/29/2024 2:02 AM CDT Latha Rojas SOILS ANALYST LAB BLOOD ORDERABLES Final Result TERE [address] [place] [address] * (ABNORMAL) Differential, auto (10/29/2024 1:56 AM CDT) Neutrophil abs 14.69(H) 1.50 - 6.50 K/cumm Comment:Testing performed by : [address], [place]., [address] Imm gran abs 0.07 0.00 - 0.10 K/cumm [facility] Comment:Testing performed by : [address], [place]., [address] Lymphocyte abs 0.63(L) 0.80 - 3.30 K/cumm [facility] Comment:Testing performed by : [address], [place]., [address] Monocyte abs 0.20 0.20 - 0.80 K/cumm [facility] Comment:Testing performed by : [address], [place]., [address] Eosinophil abs 0.00 0.00 - 0.50 K/cumm [facility] Comment:Testing performed by : [address], [place]., [address] Basophil abs 0.02 0.00 - 0.10 K/cumm [facility] Comment:Testing performed by : [address] [address] Neutrophil pct 94.2 % [facility] Comment: Interpretive Data Percent cell count reference ranges are not reported, since discordance with absolute values may lead to misinterpretation of CBC data. Current Interpretive Data was last revised on 2017. Testing performed by: [address] [address] Imm gran pct 0.4 % [facility] Comment: Interpretive Data Percent cell count reference ranges are not reported, since discordance with absolute values may lead to misinterpretation of CBC data. Current Interpretive Data was last revised on 2017. Testing performed by: [address] [address] Lymphocyte pct 4.0 % CERNER Comment: Interpretive Data Percent cell count reference ranges are not reported, since discordance with absolute values may lead to misinterpretation of CBC data. Current Interpretive Data was last revised on 2017. Testing performed by: [address] [address] Monocyte pct 1.3 % [facility] Comment: Interpretive Data Percent cell count reference ranges are not reported, since discordance with absolute values may lead to misinterpretation of CBC data. Current Interpretive Data was last revised on 2017. Testing performed by: [address] [address] Eosinophil pct 0.0 % TERE Comment: Interpretive Data Percent cell count reference ranges are not reported, since discordance with absolute values may lead to misinterpretation of CBC data. Current Interpretive Data was last revised on 2017. Testing performed by: [address] [address] Basophil pct 0.1 % TERE Comment: Interpretive Data Percent cell count reference ranges are not reported, since discordance with absolute values may lead to misinterpretation of CBC data. Current Interpretive Data was last revised on 2017. Testing performed by: [address] [address] Blood 10/29/2024 1:56 AM CDT 10/29/2024 2:02 AM CDT us Latha Rojas SOILS ANALYST LAB BLOOD ORDERABLES Final Result [facility] [address] [facility] [place] [address] * (ABNORMAL) CBC with auto differential (10/29/2024 1:56 AM CDT) WBC 15.61(H) 3.80 - 9.90 K/cumm Comment:Testing performed by : [address] [address] Hgb 11.5(L) 11.9 - 15.5 g/dL TERE Comment:Testing performed by : [address] [address] Hct 33.5(L) 35.6 - 45.5 % TERE Comment:Testing performed by : [address] [address] Plt 214 150 - 400 K/cumm TERE Comment:Testing performed by : [address] [address] MPV 9.4 9.1 - 12.3 fL TERE MARIANO Comment:Testing performed by : [address] [address] RBC 3.99 3.90 - 5.20 M/cumm TERE MARIANO Comment:Testing performed by : [address] [address] MCV 84.0 81.3 - 96.4 fL TERE Comment:Testing performed by : [address] [address] MCH 28.8 27.1 - 33.3 pg TERE Comment:Testing performed by : [address] [address] MCHC 34.3 32.3 - 35.7 g/dL TERE Comment:Testing performed by : [address] [address] RDW CV 13.1 11.1 - 14.9 % TERE Comment:Testing performed by : [address] [address] RDW SD 40.5 35.7 - 48.1 fL TERE Comment:Testing performed by : [address] [address] NRBC abs 0.00 0.00 - 0.01 K/cumm TERE MARIANO Comment:Testing performed by : [address] [address] Blood 10/29/2024 1:56 AM CDT 10/29/2024 2:02 AM CDT us Latha Rojas SOILS ANALYST LAB BLOOD ORDERABLES Final Result TERE [address] [facility] [place] [address] * (ABNORMAL) Basic metabolic panel (10/29/2024 1:56 AM CDT) Pathologist [facility] Sodium 136 135 - 145 mmol/L Comment:Testing performed by : [address] [address] Potassium, pl 3.8 3.3 - 4.9 mmol/L [facility] Comment:Testing performed by : [address] [address] Chloride 104 97 - 110 mmol/L [facility] Comment:Testing performed by : [address], [place]., [address] CO2 20(L) 22 - 32 mmol/L [facility] Comment:Testing performed by : [address] [address] Anion gap 12 2 - 15 mmol/L [facility] Comment:Testing performed by : [address] [address] BUN 6 6 - 25 mg/dL [facility] Comment:Testing performed by : [address] [address] Creatinine 0.55(L) 0.60 - 1.10 mg/dL [facility] Comment:Testing performed by : [address] [address] Glucose 157 70 - 199 mg/dL [facility] Comment: Interpretive Data Fasting glucose >/= 126 [...] last revised 2022. Testing performed by: [address] [address] Calcium 8.4(L) 8.5 - 10.3 mg/dL [facility] Comment:Testing performed by : [address] [address] Blood 10/29/2024 1:56 AM CDT 10/29/2024 2:02 AM CDT Latha Rojas SOILS ANALYST LAB BLOOD ORDERABLES Final Result TERE [address] [facility] [place] [address] * UT AN ELECTIVE ENDOTRACHEAL AIRWAY, UT AN PROCEDURE PLACEHOLDER (10/28/2024 9:10 PM CDT) [...] last revised 2020. Testing performed by: [address] [address] Trop T hs delta 7 ng/L TERE MARIANO Comment:Testing performed by : [address] [address] Trop T hs interp Equivocal [facility] Comment:Testing performed by : [facility], [address] [place] [address]., [address] Blood 10/28/2024 7:28 PM CDT 10/28/2024 7:34 PM CDT Esa Wesley DO LAB BLOOD ORDERABLES Final Result [address] [place] [address] * Phosphorus (10/28/2024 7:28 PM CDT) Pathologist [facility] Phosphorus, pl 2.6 2.3 - 4.5 mg/dL Comment:Testing performed by : [facility], [address] [place] [address]., [address] Blood 10/28/2024 7:28 PM CDT 10/28/2024 7:34 PM CDT Latha Rojas SOILS ANALYST LAB BLOOD ORDERABLES Final Result Performing Organization Address [facility] Co de Phone Number [address] [address] * Magnesium (10/28/2024 7:28 PM CDT) Pathologist [facility] Magnesium 1.6 1.4 - 2.5 mg/dL Comment:Testing performed by : [facility], [address] [place] [address]., [address] Blood 10/28/2024 7:28 PM CDT 10/28/2024 7:34 PM CDT Latha Rojas SOILS ANALYST LAB BLOOD ORDERABLES Final Result Performing Organization Address City/[facility]/ZIP Co de Phone Number [address] [address] * ABO / Rh Confirmation Testing (10/28/2024 4:22 PM CDT) Pathologist [facility] ABO/Rh Confirmation O Positive B Comment:Testing performed by : [facility], [address] [place] [address]., [address] Blood 10/28/2024 4:22 PM CDT 10/28/2024 4:26 PM CDT Esa Wesley LAB BLOOD ORDERABLES Final Result Performing Organization Address [facility] de Phone Number TERE [facility] [place] [address] [facility] * Troponin T high-sensitivity 2-hour (10/28/2024 3:32 PM CDT) Pathologist [facility] Trop T hs <6 <=14 ng/L Comment: Interpretive Data For further hscTnT resources including the diagnostic algorithm and an aid in interpretation, copy and paste this link: https://nrl.testcatalog.org/show/hsTrop Current Interpretive Data last revised 2020. Testing performed by: [facility], [address] [place] [address]., [address] Trop T hs interp Equivocal [facility] Comment:Testing performed by : [facility], [address] [place] [address]., [address] Blood 10/28/2024 3:32 PM CDT 10/28/2024 3:39 PM CDT Esa Wesley DO LAB BLOOD ORDERABLES Final Result Performing Organization Address [facility] de Phone Number TERE [facility] [place] [address] * CTA Abdomen Pelvis (10/28/2024 3:24 PM [...] Brijesh Dominguez D.O. PS: PS Report ID: [id number] Reading Location: [place] [address] Procedure Note Brijesh Dominguez, - 10/28/2024 EXAM [...] Brijesh Dominguez D.O. PS: PS Report ID: [id number] Reading Location: [id number] Esa Wesley DO IMG CT PROCEDURES Final Res ult * Sepsis Lactate w/ Reflex (10/28/2024 2:02 PM CDT) Sepsis Lactate 1.3 0.7 - 2.0 mmol/L Comment:Testing performed by : [address] [address] Blood 10/28/2024 2:02 PM CDT 10/28/2024 2:06 PM CDT Esa Wesley DO LAB BLOOD ORDERABLES Final Result [facility] [address] [facility] [place] [address] * ABO/Rh (10/28/2024 1:36 PM CDT) ABO/Rh O Positive Comment:Testing performed by : [address] [address] Blood 10/28/2024 1:36 PM CDT 10/28/2024 1:41 PM CDT Narrative [facility] 10/28/2024 2:09 PM CDT Has the patient had Daratumumab or Isatuximab in the past 6 months?->Unknown Esa Wesley LAB BLOOD BANK TEST ORDERAB LES Final Result Performing Organization Address [facility] de Phone Number TERE [address] [address] * Antibody screen (10/28/2024 1:36 PM CDT) Mavis, indirect, Gel Interpretation Negative ABSC Comment:Testing performed by : [facility], [address] [place] [address]., [address] Blood 10/28/2024 1:36 PM CDT 10/28/2024 1:41 PM CDT Narrative [facility] 10/28/2024 2:26 PM CDT Has the patient had Daratumumab or Isatuximab in the past 6 months?->Unknown Result [facility] Esa Wesley LAB BLOOD BANK TEST ORDERAB LES Final Result Performing Organization Address [facility] de Phone Number TERE [address] [place] [address] * UT CRITICAL CARE ILL/INJURED PATIENT INIT 30-74 MIN [...] last revised 2020. Testing performed by: [address] [address] Blood 10/28/2024 1:04 PM CDT 10/28/2024 1:23 PM CDT Esa Wesley DO LAB BLOOD ORDERABLES Final Result [facility] [address] [facility] [place] [address] * Blood smear review (10/28/2024 1:04 PM CDT) RBC morphology Consistent with RBC Indicies Comment:Testing performed by : [address] [address] Platelet estimate Adequate TERE MARIANO Comment:Testing performed by : [address] [address] Blood 10/28/2024 1:04 PM CDT 10/28/2024 1:23 PM CDT Esa Cruz Maryjane DO LAB BLOOD ORDERABLES Final Result Performing Organization Address [facility]/ZIP Co de Phone Number TERE [facility] [place] [address] * eGFR (10/28/2024 1:04 PM CDT) Pathologist [facility] eGFR >90 >=60 mL/min/1. 73 m2 Comment: [...] was last reviewed 2020. Testing performed by: [facility], [address] [place] [address]., [address] Blood 10/28/2024 1:04 PM CDT 10/28/2024 2:40 PM CDT Esa Wesley DO LAB BLOOD ORDERABLES Final Result Performing Organization Address City/[facility]/ZIP Co de Phone Number TERE [facility] [place] [address] * (ABNORMAL) Differential, auto (10/28/2024 1:04 PM CDT) Pathologist [facility] Neutrophil abs 21.53(H) 1.50 - 6.50 K/cumm Comment:Testing performed by : [address], [place]., [address] Imm gran abs 0.17(H) 0.00 - 0.10 K/cumm [facility] Comment:Testing performed by : [address], [place]., [address] Lymphocyte abs 0.90 0.80 - 3.30 K/cumm [facility] Comment:Testing performed by : [address], [place]., [address] Monocyte abs 0.86(H) 0.20 - 0.80 K/cumm [facility] [facility] Comment:Testing performed by : [address], [place]., [address] Eosinophil abs 0.01 0.00 - 0.50 K/cumm [facility] Comment:Testing performed by : [address], [place]., [address] Basophil abs 0.04 0.00 - 0.10 K/cumm [facility] Comment:Testing performed by : [address] [address] Neutrophil pct 91.6 % [facility] Comment: Interpretive Data Percent cell count reference ranges are not reported, since discordance with absolute values may lead to misinterpretation of CBC data. Current Interpretive Data was last revised on 2017. Testing performed by: [address] [address] Imm gran pct 0.7 % [facility] Comment: Interpretive Data Percent cell count reference ranges are not reported, since discordance with absolute values may lead to misinterpretation of CBC data. Current Interpretive Data was last revised on 2017. Testing performed by: [address] [address] Lymphocyte pct 3.8 % [facility] Comment: Interpretive Data Percent cell count reference ranges are not reported, since discordance with absolute values may lead to misinterpretation of CBC data. Current Interpretive Data was last revised on 2017. Testing performed by: [address] [address] Monocyte pct 3.7 % [facility] Comment: Interpretive Data Percent cell count reference ranges are not reported, since discordance with absolute values may lead to misinterpretation of CBC data. Current Interpretive Data was last revised on 2017. Testing performed by: [address] [address] Eosinophil pct 0.0 % [facility] Comment: Interpretive Data Percent cell count reference ranges are not reported, since discordance with absolute values may lead to misinterpretation of CBC data. Current Interpretive Data was last revised on 2017. Testing performed by: [address] [address] Basophil pct 0.2 % [facility] Comment: Interpretive Data Percent cell count reference ranges are not reported, since discordance with absolute values may lead to misinterpretation of CBC data. Current Interpretive Data was last revised on 2017. Testing performed by: [address] [address] Blood 10/28/2024 1:04 PM CDT 10/28/2024 1:23 PM CDT Esa Wesley DO LAB BLOOD ORDERABLES Final Result [facility] [address] [facility] Department of Laboratories [place], [place] [id number] * (ABNORMAL) CBC with auto differential (10/28/2024 1:04 PM CDT) WBC 23.51(H) 3.80 - 9.90 K/cumm Comment:Testing performed by : [address] [address] Hgb 13.9 11.9 - 15.5 g/dL [facility] Comment:Testing performed by : [address] [address] Hct 41.0 35.6 - 45.5 % [facility] Comment:Testing performed by : [address] [address] Plt 263 150 - 400 K/cumm [facility] Comment:Testing performed by : [address] [address] MPV 9.5 9.1 - 12.3 fL [facility] MARIANO Comment:Testing performed by : [facility], [address] [place] [address]., [address] RBC 4.88 3.90 - 5.20 M/cumm [facility] MAR[facility]O Comment:Testing performed by : [address] [address] MCV 84.0 81.3 - 96.4 fL [facility] MAR[facility] Comment:Testing performed by : [address] [address] MCH 28.5 27.1 - 33.3 pg [facility] MAR[facility] Comment:Testing performed by : [address] [address] MCHC 33.9 32.3 - 35.7 g/dL [facility] Comment:Testing performed by : [address] [address] RDW CV 13.1 11.1 - 14.9 % [facility] Comment:Testing performed by : [address], [address] RDW SD 40.1 35.7 - 48.1 fL [facility] Comment:Testing performed by : [address] [address] NRBC abs 0.00 0.00 - 0.01 K/cumm [facility] Comment:Testing performed by : [address] [address] Blood 10/28/2024 1:04 PM CDT 10/28/2024 1:23 PM CDT us Esa Wesley DO LAB BLOOD ORDERABLES Edited Result - Final [facility] [address] [facility] [place] [address] * (ABNORMAL) Lipase (10/28/2024 1:04 PM CDT) Lipase 6(L) 10 - 99 Units/L Comment:Testing performed by : [address] [address] Blood 10/28/2024 1:04 PM CDT 10/28/2024 1:23 PM CDT Esa Wesley DO LAB BLOOD ORDERABLES Final Result [facility] [address] [facility] Department [place] [address] * (ABNORMAL) Comprehensive metabolic panel (10/28/2024 1:04 PM CDT) Sodium 140 135 - 145 mmol/L Comment:Testing performed by : [address] [address] Potassium, pl 4.0 3.3 - 4.9 mmol/L [facility] Comment:Testing performed by : [address] [address] Chloride 106 97 - 110 mmol/L [facility] Comment:Testing performed by : [address] [address] CO2 18(L) 22 - 32 mmol/L [facility] Comment:Testing performed by : [address] [address] Anion gap 16(H) 2 - 15 mmol/L TEER Comment:Testing performed by : [address] [address] BUN 9 6 - 25 mg/dL [facility] Comment:Testing performed by : [address] [address] Creatinine 0.50(L) 0.60 - 1.10 mg/dL [facility] Comment:Testing performed by : [address] [address] Glucose 107 70 - 199 mg/dL TERE [...] last revised 2022. Testing performed by: [address] [address] Calcium 8.5 8.5 - 10.3 mg/dL [facility] Comment:Testing performed by : [address] [address] Bilirubin, total 0.6 0.1 - 1.2 mg/dL [facility] Comment:Testing performed by : [address] [address] Protein, pl 6.9 6.5 - 8.5 g/dL [facility] Comment:Testing performed by : [address] [address] Albumin 4.1 3.5 - 5.0 g/dL [facility] Comment:Testing performed by : [address] [address] Alk phos 66 40 - 130 Units/L [facility] Comment:Testing performed by : [address] [address] ALT 6(L) 7 - 45 Units/L [facility] Comment:Testing performed by : [address] [address] AST 17 10 - 45 Units/L [facility] Comment:Testing performed by : [address] [address] Blood 10/28/2024 1:04 PM CDT 10/28/2024 2:40 PM CDT us Esa Wesley DO LAB BLOOD ORDERABLES Final Result [facility] MARIANO [address] [facility] [place] [address] * ECG 12 lead (10/28/2024 12:58 PM CDT) Ventricular Rate EKG/Min 83 BPM [facility] Atrial Rate 83 BPM [facility] UT-Interval (MSEC) 146 ms [facility] QRS-Interval (MSEC) 76 ms [facility] QT-Interval (MSEC) 392 ms [facility] QTc 460 ms [facility] [place] 57 degrees [facility] [place] 51 degrees [facility] T [place] -7 degrees [facility] Diagnosis Normal sinus rhythm Possible Left atrial enlargement Nonspecific T wave abnormality Prolonged QT Abnormal ECG When compared with ECG of 25-MAY-2013 17:53, No significant change was found Confirmed by DEBBIE BENOIT M.D. ([id number]) on 10/29/2024 9:21:34 AM [facility] 10/28/2024 12:5 8 PM CDT 10/29/2024 9:21 AM CDT us Esa Wesley DO ECG ORDERABLES Final Resul t [facility] from Last 3 Months Insurance [place] [place] [facility] Advance Directives For more information, please contact: [phone] * Full Code (Latest Code Status on File) Date Activated Date Inactivated Comments 10/28/2024 10:58 PM 10/30/2024 11:10 PM * Full Code Date Activated Date Inactivated Comments 10/28/2024 10:56 PM 10/28/2024 10:58 PM Care Teams Speck Dyer Relationship Specialty Start Date End Date Unknown, Notinfile PCP - General 07/09/24
--- OUTSIDE RECORDS SUMMARY | 2024-11-01 13:16 | XMS_ITS | Clinical Summary ---
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
--- OUTSIDE RECORDS SUMMARY | 2024-11-01 13:16 | XMS_ITS | Encounter Summary ---
Author Organization [facility] Address [address] [place] [address] Phone Care Team Providers Care Juvenile Justice Officer Name Role Phone No, Physician Primary Care Provider Unavailabl e No, Physician Primary Care Provider [phone] Kateryna Brandon MD Primary Care Pr ovider Unknown, Notinfile Primary Care Provider Unavail able Encounter Details Date Type Department Care Team (Late st Contact Info) Description 01/11/2014 Orders Only [facility]INCONV Provider, MD Sebastien [address] [place] [id number] Social History Tobacco Use Types Packs/Day Years Used Date Smoking Tobacco: Never Assessed Comments Unknown Sex and Gender Information Value Date Recorded Sex Assigned at Not on file 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
--- OUTSIDE RECORDS SUMMARY | 2024-11-01 13:16 | XMS_ITS | Clinical Summary ---
Author Organization [facility] Address [address] [place] [address] Care Team Providers Care Foam Charger Name Role Phone Shira Mujica PA-C Primary Care Provider Allergies No known active allergies Medications No [...] - 2023-2 5 season) 2023 PHQ-2 (Physician [place]) 02/29/2024 Mammogram Screening 2024 Cervical Cancer Screening [...] complete this topic Insurance MEDICAID Care Teams Foam Charger Relationship Specialty Start Date End Date Shira Mujica PA-C PCP - General NURSE PRACTITIONER 05/15/23
--- OUTSIDE RECORDS SUMMARY | 2024-11-01 13:16 | XMS_ITS | Encounter Summary ---
Author Organization [facility] Address [address] [place] [address] Phone Care Team Providers Care Weigher Production Name Role Phone Kateryna Brandon MD Primary Care Pr ovider Unknown, Notinfile Primary Care Provider Unavail able Encounter Details Date Type Department Care Team (Late st Contact Info) Description 11/29/2017 Telephone [facility] Cardiology [address] [facility] [address] [place] [address] [place] [id number] Bridgette Forbes, MPH Social History Tobacco Use Types Packs/Day Years Used Date Smoking Tobacco: Never Assessed Comments Unknown Sex and Gender Information Value Date Recorded Sex Assigned at Not on file 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
--- OUTSIDE RECORDS SUMMARY | 2024-11-01 13:16 | XMS_ITS | Encounter Summary ---
Author Organization [facility] Address [address] [place] [address] Phone Care Team Providers Care Real Estate Leasing Manager Name Role Phone No, Physician Primary Care Provider Unavailabl e No, Physician Primary Care Provider [phone] Kateryna Brandon MD Primary Care Pr ovider Unknown, Notinfile Primary Care Provider Unavail able Encounter Details Date Type Department Care Team (Late st Contact Info) Description 06/07/2013 Orders Only [facility] CLINCONV Provider, MD Sebastien [address] [place] [address] Social History Tobacco Use Types Packs/Day Years Used Date Smoking Tobacco: Never Assessed Comments Unknown Sex and Gender Information Value Date Recorded Sex Assigned at Not on file 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
[2024-11-01] MEDS: HYDROmorphone HCL INJ (*CRX) 1 MG/ML SYR 0.5 MG IV PUSH ×4 (13:20→22:46)
[2024-11-01] MEDS: KETOROLAC 15 MG/ML VIAL (*BKC) IV PUSH (13:20)
[2024-11-01] MEDS: SODIUM CHLORIDE 0.9% IV 1,000 ML 999 ML IV CONT ×2 (13:20→14:54)
[2024-11-01 13:42] LABS: Hematocrit 35.3 % (37.0-47.0); Hemoglobin 11.8 g/dL (12.0-15.0); Immature Granulocyte Percent A 0.5 % (0-0.5); Lymphocytes Absolute Auto 1.77 K/mm3 (0.9-3.2); Mean Corpuscular HGB Conc 33.4 g/dl (32-36); Mean Corpuscular Hemoglobin 28.4 pg (26-34); Mean Corpuscular Volume 84.9 fl (80-100); Nucleated Red Blood Cells Absolute Auto 0.000 K/mm3 (0.0-0.012); Nucleated Red Blood Cells Perc 0.0 % (0.0-0.2); Platelet Count Result 275 k/mm3 (150-375); Red Blood Count 4.16 M/mm3 (4.2-5.4); White Blood Count 10.2 K/mm3 (4.5-10.0)
[2024-11-01 14:04] LABS: Alanine Aminotransferase 25 U/L (6-35); Albumin Level 3.4 g/dL (3.5-5.1); Alkaline Phosphatase 59 U/L (38-126); Anion Gap 6 mmol/L (4-12); Aspartate Amino Transferase 34 U/L (14-36); Bilirubin,Total 0.3 mg/dL (0.2-1.3); Blood Urea Nitrogen 6 mg/dL (7-17); Calcium 8.4 mg/dL (8.4-10.2); Carbon Dioxide 26 mmol/L (22-30); Chloride 104 mmol/L (98-107); Estimated CRCL calculation 116 ml/min; Estimated Glomerular Filt Rate > 60; Glucose 127 mg/dL (65-110); Lipase 16 U/L (23-300); Potassium 3.4 mmol/L (3.4-5.0); Sodium 136 mmol/L (137-145); Total Protein 6.7 g/dL (6.3-8.2)
[2024-11-01 15:00] VITALS: BP 104/68; PULSE 76; RESP 20; O2SAT 100
[2024-11-01 15:59] LABS: Appearance Urine Cloudy (Clear)
[2024-11-01 16:00] LABS: Add Urine Microscopic? YES; Specific Grav Ur 1.020 (1.001-1.035)
[2024-11-01 16:01] LABS: Glucose Urine UA Negative (Negative); Leukocyte Esterase Ur Negative LEU/UL (Negative); Nitrate Urine Negative (Negative)
[2024-11-01 16:25] LABS: Cannabinoid Screen Urine Positive (Negative)
[2024-11-01] MEDS: metroNIDAZOLE 500 MG/ISO 100ML 500 MG/100 ML BAG 100 MG IVPB ×2 (16:25→22:48)
[2024-11-01] MEDS: PIPERACILLIN/TAZOBACTAM SOD 3.375 GM in SODIUM CHLORIDE 0.9% IV 50 ML 100 ML IVPB ×2 (16:25→23:56)
[2024-11-01] MEDS: LACTATED RINGERS 1,000 ML 75 ML IV CONT (16:25)
[2024-11-01 17:18] VITALS: BP 102/61; PULSE 82; RESP 16; O2SAT 99
--- NOTE | 2024-11-01 17:30 | ADMGEN ---
This patient, Geovanna Torrez, was admitted to 2 Medical Room 259-01. Patient/family oriented to hospital policies and general routines including ID bracelet, bed and alarms, visiting hours, pain management, procedures, bathroom and other care routines, personal items, smoking policy, room service/diet, and visiting hours. Information on how to activate the Rapid Response Team has been discussed. Patient/Family are encouraged to report perceived risks to care and to ask questions if they do not understand what they are told or what they should do.
[2024-11-01 17:36] VITALS: BMI 25.3
[2024-11-01 17:55] VITALS: RESP 16; O2SAT 99
[2024-11-01] MEDS: KETOROLAC 30 MG/ML VIAL (*BKC) IV PUSH (20:29)
[2024-11-01 21:50] VITALS: O2SAT 99
[2024-11-01 21:56] VITALS: BP 102/45; PULSE 67; RESP 14; TEMP 36.4; O2SAT 99
[2024-11-02] VITALS (23 sets, daily range): BP systolic 98–126; BP diastolic 42–77; PULSE 56–83; RESP 12–22; TEMP 36.4–36.8; O2SAT 99–100
[2024-11-02] MEDS: ONDANSETRON INJ 4 MG/2 ML VIAL IV PUSH ×3 (04:09→15:21)
[2024-11-02] MEDS: HYDROmorphone HCL INJ (*CRX) 1 MG/ML SYR 0.5 MG IV PUSH ×4 (04:09→19:42)
[2024-11-02] MEDS: PIPERACILLIN/TAZOBACTAM SOD 3.375 GM in SODIUM CHLORIDE 0.9% IV 50 ML 100 ML IVPB ×4 (05:29→23:32)
[2024-11-02] MEDS: metroNIDAZOLE 500 MG/ISO 100ML 500 MG/100 ML BAG 100 MG IVPB ×3 (05:29→22:17)
[2024-11-02 07:06] LABS: Hematocrit 37.7 % (37.0-47.0); Hemoglobin 12.1 g/dL (12.0-15.0); Immature Granulocyte Percent A 0.7 % (0-0.5); Lymphocytes Absolute Auto 1.96 K/mm3 (0.9-3.2); Mean Corpuscular HGB Conc 32.1 g/dl (32-36); Mean Corpuscular Hemoglobin 28.5 pg (26-34); Mean Corpuscular Volume 88.7 fl (80-100); Nucleated Red Blood Cells Absolute Auto 0.000 K/mm3 (0.0-0.012); Nucleated Red Blood Cells Perc 0.0 % (0.0-0.2); Platelet Count Result 278 k/mm3 (150-375); Red Blood Count 4.25 M/mm3 (4.2-5.4); White Blood Count 8.0 K/mm3 (4.5-10.0)
[2024-11-02 07:29] LABS: Anion Gap 6 mmol/L (4-12); Blood Urea Nitrogen 3 mg/dL (7-17); Calcium 8.2 mg/dL (8.4-10.2); Carbon Dioxide 22 mmol/L (22-30); Chloride 107 mmol/L (98-107); Estimated CRCL calculation 110 ml/min; Estimated Glomerular Filt Rate > 60; Glucose 96 mg/dL (65-110); Potassium 3.6 mmol/L (3.4-5.0); Sodium 135 mmol/L (137-145)
[2024-11-02] MEDS: KETOROLAC 30 MG/ML VIAL (*BKC) IV PUSH ×2 (07:39→17:06)
[2024-11-02 08:16] LABS: Platelet Count Result 232 k/mm3 (150-375)
[2024-11-02 08:28] LABS: INR 1.1; Prothrombin Time 14.4 Seconds (11.1-14.7)
[2024-11-02 08:30] LABS: Partial Thromboplastin Time 32.3 Seconds (22.3-36.8)
[2024-11-02] MEDS: LACTATED RINGERS 1,000 ML 75 ML IV CONT (09:15)
--- NOTE | 2024-11-02 10:47 | PC.NURSE ---
To Cat scan via wheelchair.
--- NOTE | 2024-11-02 11:28 | P.SEDATION_ITS ---
Moderate Sedation Note-Pt Data Patient Data Diagnosis: pelvic abscess Present Complaint: pelvic abscess Procedure to be performed/Plan: transgluteal percutaneous abscess drain placement Allergies Allergy/AdvReac Type Severity Reaction Status Date / Time No Known Allergies Allergy Verified 11/01/24 13:01 Home Medications ?Medication ?Instructions ?Recorded ?Confirmed ?Type albuterol sulfate 90 mcg/actuation 2 puff inhalation Q ID PRN 08/25/20 11/01/24 Rx aerosol inhaler shortness of breath or wheez ing #6.7 grams acetaminophen 500 mg tablet 500 mg PO Q6H PRN fever or pain 11/01/24 11/01/24 History amoxicillin 875 mg-potassium 1 tablet PO Q12H 11/01/24 11/01/24 History clavulanate 125 mg tablet metronidazole 500 mg tablet 500 mg PO Q6H 11/01/2406/22 History ondansetron 4 mg disintegrating 4 mg PO Q6H PRN nausea and vomiting 11/01/24 11/01/24 History tablet oxycodone 5 mg tablet 5 mg PO Q6H PRN pain 5 11/01/24 History Current Medications: Active Medications Albuterol (Albuterol Sulfate (*Sp) Aerosol 1 Puff) 2 puff INHALATION Q6HRT PRN PRN Reason: Shortness Of Breath Guaifenesin/Dextromethorphan (Guaifenesin/Dextromethorphan 10 Ml Udc) 10 ml PO Q4H PRN PRN Reason: Cough Last Admin: 11/02/24 09:46 Dose: 10 ml Hydromorphone HCl (Hydromorphone Hcl Inj (*Crx) 1 Mg/Ml Syr) 0.5 mg IV PUSH Q4H PRN PRN Reason: Pain Rated 7-10 Last Admin: 11/02/24 09:22 Dose: 0.5 mg Piperacillin Sod/Tazobactam (Sod 3.375 gm/ Sodium Chloride) 50 mls @ 100 mls/hr IVPB Q6HR [facility] Last Infusion: 11/02/24 05:59 Dose: Infused Lactated Ringer's (Lr - Lactated Ringers Iv) 1,000 mls @ 75 mls/hr IV CONT .[id number] NATALY Last Infusion: 11/02/24 10:18 Dose: 0 mls/hr Metronidazole (Flagyl 500 Mg/Iso Soln 100 Ml) 500 mg in 100 mls @ 100 mls/hr IVPB Q8HR NATALY Last Admin: 11/02/24 05:29 Dose: 100 mls/hr Ketorolac Tromethamine (Ketorolac 30 Mg/Ml Vial (*Bkc)) 30 mg IV PUSH Q6H PRN PRN Reason: Pain Rated 4-6 Stop: 11/06/24 15:27 Last Admin: 11/02/24 07:39 Dose: 30 mg Ondansetron HCl (Ondansetron Inj 4 Mg/2 Ml Vial) 4 mg IV PUSH Q6H PRN PRN Reason: Nausea And Vomiting Last Admin: 11/02/24 09:45 Dose: 4 mg Sedation/Anesthesia: No previous sedation/anesthesia problems (including family history). [facility] Past Medical History Medical History Asthma Family History Family History Other Hypertension Social History Social History Years smoked: 15 Smoking status: Never smoker Tobacco type: cigarettes Alcohol intake: current Substance use: current Substance use type: marijuana Other substance usage details: uses 4 times a week Lack of Transportation: No Lack of Food: Never True Current Housing: I Have Housing Concerned About Future Housing: No Difficulty Paying Gas/Electric Bills: No Difficulty Paying for Meds: No Currently Unemployed: No Education: Decline to Answer Difficulty w/ Childcare or Family Care: No Living arrangements: with family Spiritual care concerns: No Mod Sed Physical Exam Physical Exam Pre Procedural Exam: Normal: Appearance, Throat, Lungs, Heart Rate and Heart Rhythm Hours since solid foods: 12 Hours since liquid intake: 12 Mallampati Classification: class II Internal Medicine - PN: Obj Da Vital Signs Vital Signs: Vital Signs - 24 hr 11/01/24 12:38 11/01/24 15:00 11/01/24 17:18 Temperature 98.5 F Pulse Rate 94 76 82 Respiratory Rate 20 20 16 Blood Pressure 110/77 104/68 102/61 Pulse Oximetry 98 100 99 Oxygen Delivery Room Air 11/01/24 17:55 11/01/24 20:00 11/01/24 21:50 Temperature Pulse Rate Respiratory Rate 16 Blood Pressure Pulse Oximetry 99 99 Oxygen Delivery Room Air Room Air Room Air 11/01/24 21:56 11/02/24 04:38 11/02/24 05:47 Temperature 97.5 F L 97.5 F L Pulse Rate 67 62 Respiratory Rate 14 16 Blood Pressure 102/45 L 103/53 L Pulse Oximetry 99 99 Oxygen Delivery Room Air 11/02/24 07:45 Temperature Pulse Rate Respiratory Rate 16 Blood Pressure Pulse Oximetry 99 Oxygen Delivery Room Air Intake/Output Intake/Output: Intake & Output 10/30/24 10/31/24 11/01/24 11/02/24 23:59 23:59 23:59 23:59 Intake Total 2370 1578.8 Balance 2370 1578.8 Meds/Results Medications: Active Medications Generic Name Dose Route Start Last Admin Trade Name Freq PRN Reason Stop Dose Admin Albuterol 2 puff 11/02/24 09:32 Albuterol Sulfate (*Sp) Aerosol 1 Puff INHALATION Q6HRT PRN Shortness Of Breath Guaifenesin/Dextromethorphan 10 ml 11/02/24 09:35 11/02/24 09:46 Guaifenesin/Dextromethorphan 10 Ml Udc PO 10 ml Q4H PRN Administration Cough Hydromorphone HCl 0.5 mg 11/01/24 15:28 11/02/24 09:22 Hydromorphone Hcl Inj (*Crx) 1 Mg/Ml Syr IV PUSH 0.5 mg Q4H PRN Administration Pain Rated 7-10 Piperacillin Sod/Tazobactam 50 mls @ 100 mls/hr 11/02/24 00:00 11/02/24 05:59 Sod 3.375 gm/ Sodium Chloride IVPB Infused Q6HR NATALY Infusion Lactated Ringer's 1,000 mls @ 75 mls/hr 11/01/24 15:30 11/02/24 10:18 Lr - Lactated Ringers Iv IV CONT 0 mls/hr .[id number] NATALY Infusion Metronidazole 500 mg in 100 mls @ 100 mls/hr 11/01/24 22:00 11/02/24 05:29 Flagyl 500 Mg/Iso Soln 100 Ml IVPB 100 mls/hr Q8HR NATALY Administration Ketorolac Tromethamine 30 mg 11/01/24 15:28 11/02/24 07:39 Ketorolac 30 Mg/Ml Vial (*Bkc) IV PUSH 11/06/24 15:27 30 mg Q6H PRN Administration Pain Rated 4-6 Ondansetron HCl 4 mg 11/01/24 18:28 11/02/24 09:45 Ondansetron Inj 4 Mg/2 Ml Vial IV PUSH 4 mg Q6H PRN Administration Nausea And Vomiting Radiology Results: ITS Impressions Abdomen/Pelvis CT 11/01/24 14:40 IMPRESSION: 1. Walled off fluid collection right pelvis measuring 4.4 x 3.6 cm with peripheral enhancement, consistent with abscess. This may be secondary to prior surgery or diverticulitis. 2: Cholelithiasis. Labs 11/02/24 08:11 11/02/24 07:01 Labs: Laboratory Results - last 24 hr 11/01/24 11/01/24 11/01/24 13:07 13:18 14:48 WBC 10.2 H RBC 4.16 L Hgb 11.8 L Hct 35.3 L MCV 84.9 MCH 28.4 MCHC 33.4 RDW 12.9 Plt Count 275 MPV 9.6 Immature Gran % (Auto) 0.5 Neut % (Auto) 74.2 H Lymph % (Auto) 17.3 L [place] % (Auto) 5.2 Eos % (Auto) 2.6 Baso % (Auto) 0.2 Lymph # (Auto) 1.77 [place] # (Auto) 0.5 Eos # (Auto) 0.3 Baso # (Auto) 0.0 Abs Immat Gran (auto) 0.05 H Absolute Neuts (auto) 7.6 H Absolute Nucleated RBC 0.000 Nucleated RBC % 0.0 PT INR APTT Sodium 136 L Potassium 3.4 Chloride 104 Carbon Dioxide 26 Anion Gap 6 BUN 6 L Creatinine 0.46 L Estim Creat Clear Calc 116 Estimated GFR > 60 Glucose 127 H POC Capillary Glucose 126 H Lactic Acid 1.2 Calcium 8.4 Total Bilirubin 0.3 AST 34 ALT 25 Alkaline Phosphatase 59 Total Protein 6.7 Albumin 3.4 L Lipase 16 L Urine Color Light timothy Urine Appearance Cloudy H Urine pH 7.5 Ur Specific [place] 1.020 Urine Protein 1+ H Urine Glucose (UA) Negative Urine Ketones Negative Ur Blood (Man) Negative Urine Nitrate Negative Urine Bilirubin 1+ H Urine Urobilinogen 1.0 Leukocyte Esterase Rfl Negative Urine RBC 0-2 Urine WBC 0-5 Ur Squamous Epith Cells None seen Urine Bacteria 3+ H Urine Mucus Present Urine Opiates Screen Urine Methadone Screen Ur Barbiturates Screen Ur Phencyclidine Scrn Ur Amphetamine Screen U Benzodiazepines Scrn Urine Cocaine Screen U Cannabinoids Screen 11/01/24 11/02/24 11/02/24 14:52 07:01 08:11 WBC 8.0 RBC 4.25 Hgb 12.1 Hct 37.7 MCV 88.7 MCH 28.5 MCHC 32.1 RDW 13.2 Plt Count 278 232 MPV 9.2 9.2 Immature Gran % (Auto) 0.7 H Neut % (Auto) 65.2 Lymph % (Auto) 24.4 [place] % (Auto) 6.6 Eos % (Auto) 2.9 Baso % (Auto) 0.2 Lymph # (Auto) 1.96 [place] # (Auto) 0.5 Eos # (Auto) 0.2 Baso # (Auto) 0.0 Abs Immat Gran (auto) 0.06 H Absolute Neuts (auto) 5.2 Absolute Nucleated RBC 0.000 Nucleated RBC % 0.0 PT 14.4 INR 1.1 APTT 32.3 Sodium 135 L Potassium 3.6 Chloride 107 Carbon Dioxide 22 Anion Gap 6 BUN 3 L Creatinine 0.49 L Estim Creat Clear Calc 110 Estimated GFR > 60 Glucose 96 POC Capillary Glucose Lactic Acid Calcium 8.2 L Total Bilirubin AST ALT Alkaline Phosphatase Total Protein Albumin Lipase Urine Color Urine Appearance Urine pH Ur Specific [place] Urine Protein Urine Glucose (UA) Urine Ketones Ur Blood (Man) Urine Nitrate Urine Bilirubin Urine Urobilinogen Leukocyte Esterase Rfl Urine RBC Urine WBC Ur Squamous Epith Cells Urine Bacteria Urine Mucus Urine Opiates Screen Positive A Urine Methadone Screen Negative Ur Barbiturates Screen Negative Ur Phencyclidine Scrn Negative Ur Amphetamine Screen Negative U Benzodiazepines Scrn Negative Urine Cocaine Screen Negative U Cannabinoids Screen Positive A ASA Classification/Sedation ASA Classification/Sedation ASA Class: II Emergent: No Risks: Risks, benefits and alternatives explained and patient/family accepted plan for sedation. Patient re-evaluated immediately prior to sedation.
--- NOTE | 2024-11-02 13:10 | PC.NURSE ---
Returned from cat scan via wheelchair.
--- NOTE | 2024-11-02 16:25 | P.HP_ITS ---
H&P: HPI History of Present Illness Date/Time: 11/02/24 16:25 Chief Complaint: Pelvic pain Narrative: this patient is a 39-year-old female with pelvic pain. She has been found to have a 4 cm pelvic abscess postoperatively. Vaginal cuff had to be reapproximated in a small portion at an outside hospital. She had sudden onset pain after getting in the hot tub. No abscess is present. She was seen by interventional radiology and a drain was placed using CT guidance. She has been started on antibiotics and is being observed in the hospital. She will be discharged when she is recovered from the procedure. We will likely be able to discharge her on oral antibiotics and have short-term follow-up. She denies any nausea, vomiting, fever, chills. She denies any chest pain or shortness of breath. She will follow up next week in the office. Review of Systems Review of Systems: All systems reviewed & are unremarkable except as noted in HPI and below Constitutional: Constitutional: Denies chills, Denies fatigue, Denies fever(s) and Denies weakness Eyes: Eyes: Denies blurry vision, Denies change in vision, Denies loss of peripheral vision, Denies loss of vision, Denies other visual disturbances and Denies eye pain ENT: Denies vertigo, Denies dizziness, Denies hearing loss, Denies mouth pain, Denies nasal obstruction, Denies neck mass and Denies neck pain Cardiovascular: Cardiovascular: Denies chest pain, Denies diaphoresis, Denies syncope, Denies leg edema and Denies dyspnea Respiratory: Respiratory: Denies chest congestion, Denies cough, Denies hemoptysis, Denies dyspnea and Denies wheezing Gastrointestinal: Gastrointestinal: Denies abdominal pain, Denies constipation, Denies diarrhea, Denies nausea and Denies vomiting Genitourinary: Genitourinary: Denies hematuria, Denies change in libido, Denies nocturia, Denies genital lesions, Denies flank pain and Denies urinary urgency Musculoskeletal: Musculoskeletal: Denies abnormal gait, Denies back pain, Denies myalgias, Denies arthralgias, Denies joint swelling, Denies muscle weakness and Denies neck pain Integumentary/Breasts: Skin/Breast: Denies swelling, Denies breast pain, Denies breast mass, Denies dry skin, Denies nipple discharge, Denies unusual bruising and Denies jaundice Neurologic: Denies Neuro-related abnormal movements, Denies Abnormal speech present, Denies abnormal gait, Denies behavioral changes, Denies confusion, Denies vertigo, Denies dizziness, Denies syncope, Denies loss of vision, Denies memory loss, Denies convulsions and Denies weakness Psychiatric: Psychiatric: Denies abnormal sleep pattern, Denies behavioral changes, Denies change in libido, Denies confusion, Denies depression, Denies anhedonia and Denies memory loss Endocrine: Endocrine: Reports no additional endocrine complaints, Denies change in libido and Denies fatigue Hematologic/Lymphatic: Hematologic/Lymphatic: Reports no additional hematologic/lymphatic complaints Allergic/Immunologic: Allergic/Immunologic: Reports no additional allergic/immunologic complaints and Denies wheezing PMFSH Past Medical History Medical History Asthma Family History Family History Other Hypertension Social History Social History Years smoked: 15 Smoking status: Never smoker Tobacco type: cigarettes Alcohol intake: current Substance use: current Substance use type: marijuana Other substance usage details: uses 4 times a week Lack of Transportation: No Lack of Food: Never True Current Housing: I Have Housing Concerned About Future Housing: No Difficulty Paying Gas/Electric Bills: No Difficulty Paying for Meds: No Currently Unemployed: No Education: Decline to Answer Difficulty w/ Childcare or Family Care: No Living arrangements: with family Spiritual care concerns: No Meds Home Medications and Allergies Home Medications ?Medication ?Instructions ?Recorded ?Confirmed ?Type albuterol sulfate 90 mcg/actuation 2 puff inhalation Q ID PRN 08/25/20 11/01/24 Rx aerosol inhaler shortness of breath or wheez ing #6.7 grams acetaminophen 500 mg tablet 500 mg PO Q6H PRN fever or pain 11/01/24 11/01/24 History amoxicillin 875 mg-potassium 1 tablet PO Q12H 11/01/24 11/01/24 History clavulanate 125 mg tablet metronidazole 500 mg tablet 500 mg PO Q6H 11/01/2406/22 History ondansetron 4 mg disintegrating 4 mg PO Q6H PRN nausea and vomiting 11/01/24 11/01/24 History tablet oxycodone 5 mg tablet 5 mg PO Q6H PRN pain 5 11/01/24 History Allergies Allergy/AdvReac Type Severity Reaction Status Date / Time No Known Allergies Allergy Verified 11/01/24 13:01 Vital Signs Vital Signs - 24 hr 11/01/24 17:18 11/01/24 17:55 11/01/24 20:00 Temperature Pulse Rate 82 Respiratory Rate 16 16 Blood Pressure 102/61 Pulse Oximetry 99 99 Oxygen Delivery Room Air Room Air Oxygen Flow Rate 11/01/24 21:50 11/01/24 21:56 11/02/24 04:38 Temperature 97.5 F L 97.5 F L Pulse Rate 67 62 Respiratory Rate 14 16 Blood Pressure 102/45 L 103/53 L Pulse Oximetry 99 99 99 Oxygen Delivery Room Air Oxygen Flow Rate 11/02/24 05:47 11/02/24 07:45 11/02/24 11:20 Temperature Pulse Rate 66 Respiratory Rate 16 18 Blood Pressure 107/71 Pulse Oximetry 99 100 Oxygen Delivery Room Air Room Air Nasal Cannula Oxygen Flow Rate 2 11/02/24 11:35 11/02/24 11:40 11/02/24 11:45 Temperature Pulse Rate 67 76 60 Respiratory Rate 16 19 14 Blood Pressure 118/68 103/65 105/58 L Pulse Oximetry 100 100 100 Oxygen Delivery Nasal Cannula Nasal Cannula Nasal Cannula Oxygen Flow Rate 2 2 2 11/02/24 11:50 11/02/24 11:55 11/02/24 12:00 Temperature Pulse Rate 56 L 58 L 83 Respiratory Rate 14 18 22 H Blood Pressure 108/67 102/73 99/77 L Pulse Oximetry 100 100 100 Oxygen Delivery Nasal Cannula Nasal Cannula Nasal Cannula Oxygen Flow Rate 2 2 2 11/02/24 12:05 11/02/24 12:10 11/02/24 12:15 Temperature Pulse Rate 61 63 60 Respiratory Rate 14 20 12 Blood Pressure 98/65 L 112/62 100/66 Pulse Oximetry 100 100 100 Oxygen Delivery Nasal Cannula Nasal Cannula Nasal Cannula Oxygen Flow Rate 2 2 2 11/02/24 12:20 11/02/24 12:25 11/02/24 12:30 Temperature Pulse Rate 74 69 61 Respiratory Rate 14 15 13 Blood Pressure 112/64 110/67 101/64 Pulse Oximetry 100 100 100 Oxygen Delivery Nasal Cannula Nasal Cannula Nasal Cannula Oxygen Flow Rate 2 2 2 11/02/24 12:35 11/02/24 12:40 11/02/24 12:45 Temperature Pulse Rate 66 63 67 Respiratory Rate 16 19 15 Blood Pressure 111/66 102/72 105/65 Pulse Oximetry 100 100 100 Oxygen Delivery Nasal Cannula Nasal Cannula Nasal Cannula Oxygen Flow Rate 2 2 2 11/02/24 12:45 11/02/24 13:00 11/02/24 13:43 Temperature 97.9 F Pulse Rate 67 65 57 L Respiratory Rate 15 20 16 Blood Pressure 105/65 104/66 114/65 Pulse Oximetry 100 100 100 Oxygen Delivery Nasal Cannula Nasal Cannula Oxygen Flow Rate 2 2 11/02/24 14:59 Temperature Pulse Rate 58 L Respiratory Rate 14 Blood Pressure 126/77 Pulse Oximetry 100 Oxygen Delivery Oxygen Flow Rate Exam Const: General: cooperative, healthy appearing, comfortable and no acute distress Orientation/consciousness: oriented to person, oriented to place and oriented to time HENMT: Head: normal to inspection Ears: external ears normal Face/Nose/Sinus: Normal external nose present and normal facial exam Face and sinus: normal facial exam Eyes: General: appearance normal, both eyes and all related structures Neck: Neck: normal visual inspection, trachea midline and supple Resp: Auscultation: clear to auscultation bilaterally, no crackles, no rales, no rhonchi and no wheezes Cardio: Rate: regular rate Rhythm: regular rhythm Heart sounds: no click, no murmurs and no rubs GI: GI Palp: No abdominal tenderness, No Soft to palpation, No Tenderness to palpation present (GI) and No Palpable mass present Auscultation: normal bowel sounds Skin: General skin exam: normal color and no rashes or lesions noted Neuro: General: oriented to person, oriented to place and oriented to time Extrem: General: normal to inspection, no joint enlargement, no clubbing, cyanosis or edema, no pedal edema and no calf tenderness Psych: Appearance: grossly normal Mental Status: mental status grossly normal Speech and movement: Normal speech and movement present H&P: Results Labs Labs: Short CBC 11/02/24 11/02/24 Range/Units 07:01 08:11 WBC 8.0 (4.5-10.0) K/mm3 Hgb 12.1 (12.0-15.0) g/dL Hct 37.7 (37.0-47.0) % Plt Count 278 232 (150-375) k/mm3 [facility] 11/02/24 07:01 Sodium 135 L Potassium 3.6 Chloride 107 Carbon Dioxide 22 BUN 3 L Creatinine 0.49 L Glucose 96 Calcium 8.2 L Assessment and Plan Assessment and plan (1) Abscess of female pelvis: Code(s): N73.9 - Female pelvic inflammatory disease, unspecified Status: Acute Assessment and Plan: this patient is a 39-year-old female with pelvic pain. She has been found to have a 4 cm pelvic abscess postoperatively. Vaginal cuff had to be reapproximated in a small portion at an outside hospital. She had sudden onset pain after getting in the hot tub. No abscess is present. She was seen by interventional radiology and a drain was placed using CT guidance. She has been started on antibiotics and is being observed in the hospital. She will be discharged when she is recovered from the procedure. We will likely be able to discharge her on oral antibiotics and have short-term follow-up. She denies any nausea, vomiting, fever, chills. She denies any chest pain or shortness of breath. She will follow up next week in the office.
[2024-11-02] MEDS: ALBUTEROL SULFATE (*SP) AEROSOL 1 PUFF 2 PUFF INHALATION (19:51)
[2024-11-03] MEDS: HYDROmorphone HCL INJ (*CRX) 1 MG/ML SYR 0.5 MG IV PUSH ×2 (03:02→09:44)
[2024-11-03 06:00] VITALS: BP 99/52; PULSE 73; RESP 18; TEMP 36.8; O2SAT 98
[2024-11-03] MEDS: PIPERACILLIN/TAZOBACTAM SOD 3.375 GM in SODIUM CHLORIDE 0.9% IV 50 ML 100 ML IVPB (06:04)
[2024-11-03] MEDS: metroNIDAZOLE 500 MG/ISO 100ML 500 MG/100 ML BAG 100 MG IVPB (06:45)
[2024-11-03] MEDS: LACTATED RINGERS 1,000 ML 75 ML IV CONT (09:39)
[2024-11-03] MEDS: ONDANSETRON INJ 4 MG/2 ML VIAL IV PUSH (09:43)
--- NOTE | 2024-11-03 12:12 | P.PNOB_ITS ---
SYSTEMS INTEGRATION ENGINEER - A/P Assessment and plan (1) Abscess of female pelvis: Code(s): N73.9 - Female pelvic inflammatory disease, unspecified Status: Acute Assessment and Plan: CT-guided drain placement yesterday none vaginal cuff abscess. Tolerating it well. Small amount of fluid in the drain. Not great output there. Patient is comfortable. Denies nausea, vomiting, fever, chills. Stable. Normal vitals. To discharge home. Prescribed oral by antibiotics. Given precautions. Follow- up in 3 days. Postoperative Procedures: Procedures Operation Date: 11/02/24 11:00 Actual Procedure Side Surgeon p Radiology Procedure Mod.Sed.Rn- CT Guided Abscess Drain Placement Anthony Prieto MD Time Spent With Patient Time: Total time spent is greater than 50% in coordination of care (as documented) at patient's floor/unit and/or counseling patient: Time with patient: less than 15 minutes SYSTEMS INTEGRATION ENGINEER- PN:Speedy Post-Op Subjective Date/time seen: CT-guided drain placement yesterday none vaginal cuff abscess. Tolerating it well. Small amount of fluid in the drain. Not great output there. Patient is comfortable. Denies nausea, vomiting, fever, chills. Stable. Normal vitals. To discharge home. Prescribed oral by antibiotics. Given precautions. Follow- up in 3 days. SYSTEMS INTEGRATION ENGINEER - PN: Obj Data Vital Signs Vital Signs: Vital Signs - 24 hr 11/02/24 12:15 11/02/24 12:20 11/02/24 12:25 Temperature Pulse Rate 60 74 69 Respiratory Rate 12 14 15 Blood Pressure 100/66 112/64 110/67 Pulse Oximetry 100 100 100 Oxygen Delivery Nasal Cannula Nasal Cannula Nasal Cannula Oxygen Flow Rate 2 2 2 11/02/24 12:30 11/02/24 12:35 11/02/24 12:40 Temperature Pulse Rate 61 66 63 Respiratory Rate 13 16 19 Blood Pressure 101/64 111/66 102/72 Pulse Oximetry 100 100 100 Oxygen Delivery Nasal Cannula Nasal Cannula Nasal Cannula Oxygen Flow Rate 2 2 2 11/02/24 12:45 11/02/24 12:45 11/02/24 13:00 Temperature Pulse Rate 67 67 65 Respiratory Rate 15 15 20 Blood Pressure 105/65 105/65 104/66 Pulse Oximetry 100 100 100 Oxygen Delivery Nasal Cannula Nasal Cannula Nasal Cannula Oxygen Flow Rate 2 2 2 11/02/24 13:43 11/02/24 14:59 11/02/24 18:09 Temperature 97.9 F 97.9 F Pulse Rate 57 L 58 L Respiratory Rate 16 14 Blood Pressure 114/65 126/77 Pulse Oximetry 100 100 Oxygen Delivery Oxygen Flow Rate 11/02/24 20:00 11/02/24 20:31 11/03/24 06:00 Temperature 98.3 F 98.3 F Pulse Rate 57 L 73 Respiratory Rate 18 18 Blood Pressure 105/42 L 99/52 L Pulse Oximetry 100 98 Oxygen Delivery Room Air Oxygen Flow Rate 11/03/24 08:00 Temperature Pulse Rate Respiratory Rate Blood Pressure Pulse Oximetry Oxygen Delivery Room Air Oxygen Flow Rate Intake/Output Intake/Output: Intake & Output 10/31/24 11/01/24 11/02/24 11/03/24 23:59 23:59 23:59 23:59 Intake Total 2370 2675.0 965 Balance 2370 2675.0 965 Meds/Results Medications: Active Medications Generic Name Dose Route Start Last Admin Trade Name Freq PRN Reason Stop Dose Admin Albuterol 2 puff 11/02/24 09:32 11/02/24 19:51 Albuterol Sulfate (*Sp) Aerosol 1 Puff INHALATION 2 puff Q6HRT PRN Administration Shortness Of Breath Guaifenesin/Dextromethorphan 10 ml 11/02/24 09:35 11/02/24 19:42 Guaifenesin/Dextromethorphan 10 Ml Udc PO 10 ml Q4H PRN Administration Cough Hydromorphone HCl 0.5 mg 11/01/24 15:28 11/03/24 09:44 Hydromorphone Hcl Inj (*Crx) 1 Mg/Ml Syr IV PUSH 0.5 mg Q4H PRN Administration Pain Rated 7-10 Piperacillin Sod/Tazobactam 50 mls @ 100 mls/hr 11/02/24 00:00 11/03/24 06:41 Sod 3.375 gm/ Sodium Chloride IVPB Infused Q6HR NATALY Infusion Lactated Ringer's 1,000 mls @ 75 mls/hr 11/01/24 15:30 11/03/24 09:39 Lr - Lactated Ringers Iv IV CONT 75 mls/hr .[id number] NATALY Administration Metronidazole 500 mg in 100 mls @ 100 mls/hr 11/01/24 22:00 11/03/24 06:45 Flagyl 500 Mg/Iso Soln 100 Ml IVPB 100 mls/hr Q8HR NATALY Administration Ketorolac Tromethamine 30 mg 11/01/24 15:28 11/02/24 17:06 Ketorolac 30 Mg/Ml Vial (*Bkc) IV PUSH 11/06/24 15:27 30 mg Q6H PRN Administration Pain Rated 4-6 Ondansetron HCl 4 mg 11/01/24 18:28 11/03/24 09:43 Ondansetron Inj 4 Mg/2 Ml Vial IV PUSH 4 mg Q6H PRN Administration Nausea And Vomiting Radiology Results: ITS Impressions Abdomen/Pelvis CT 11/01/24 14:40 IMPRESSION: 1. Walled off fluid collection right pelvis measuring 4.4 x 3.6 cm with peripheral enhancement, consistent with abscess. This may be secondary to prior surgery or diverticulitis. 2: Cholelithiasis. Catheter Placement CT 11/02/24 14:12 IMPRESSION: 1. Successful CT-guided pelvic abscess drainage catheter placement. 2. 5 mL fluid was sent for aerobic and anaerobic cultures. 3. The catheter will be managed by Dr. Kerr. Labs 11/02/24 08:11 11/02/24 07:01
--- NOTE | 2024-11-03 12:15 | P.DS_ITS ---
DS: Admitting Diagnosis Discharge Date 11/03/2024 Admitting Diagnosis Postop pelvic abscess DS: Discharge Diagnosis Discharge Diagnosis (1) Abscess of female pelvis: Code(s): N73.9 - Female pelvic inflammatory disease, unspecified Status: Acute DS: Summary Hospital Course Hospital Course: Admitted for postop pelvic abscess. Status post robotic hysterectomy. CT- guided drain placement. Stable, afebrile, clinically improving throughout her stay. Discharged home on hospital day 2 Time Spent with Patient Time attestation: Total time spent providing and/or coordinating discharge services: Discharge Plan Discharge Discharging Clinician: Aaron Kerr Patient Disposition: Home Activity: pelvic rest Diet: regular Patient Instructions: Antibiotic Form Patient Language: Palestinian Stand Alone Forms: General Discharge Information Follow-up/Referrals: Aaron Kerr MD [Primary Care Provider, MEDICAL RECORD TECHNICIAN] Discharge Medications: New hydrocodone-acetaminophen 5-325 mg tablet 1 tablet PO Q4H PRN (Reason: pain) Qty: 14 0RF levofloxacin 500 mg tablet 500 mg PO DAILY Qty: 30 5RF Continued albuterol sulfate 90 mcg/actuation HFA aerosol inhaler 2 puff inhalation QID PRN (Reason: shortness of breath or wheezing) Qty: 6.7 0RF metronidazole 500 mg tablet 500 mg PO Q6H acetaminophen 500 mg tablet 500 mg PO Q6H PRN (Reason: fever or pain) ondansetron 4 mg tablet,disintegrating 4 mg PO Q6H PRN (Reason: nausea and vomiting) amoxicillin-pot clavulanate 875-125 mg tablet 1 tablet PO Q12H oxycodone 5 mg tablet 5 mg PO Q6H PRN (Reason: pain) Date of admission: 11/01/24 15:28 Primary Care Provider: Aaron Kerr Admitting Provider: Aaron Kerr Attending physician on admission: Aaron Kerr Condition: Stable
== END 2024-11-03 13:30 | disposition home or self-care (01) | DRG 850 ==
LOC: ANHED 15:31 → ANH3MEDSUR 16:24 → ANH2MED 17:18
PROVIDERS: Radiology Diagnostic Radiology; Admitting Provider Obstetrics & Gynecology; Emergency Provider Emergency Medicine; PCP Obstetrics & Gynecology; Visit Provider Obstetrics & Gynecology
PROC: 0W9J40Z Drainage of Pelvic Cavity with Drainage Device, Percutaneous Endoscopic Approach (ICD-10-PCS; principal; 2024-11-02 11:00)
DX: T81.40XD Infection following a procedure, unspecified, subsequent encounter (principal); N73.8 Other specified female pelvic inflammatory diseases; F10.91 Alcohol use, unspecified, in remission; F12.90 Cannabis use, unspecified, uncomplicated; Z79.2 Long term (current) use of antibiotics; Z90.722 Acquired absence of ovaries, bilateral; Z90.710 Acquired absence of both cervix and uterus; Z72.0 Tobacco use
CPT/HCPCS: 36415; 74177; 75989; 80048; 80053; 80307; 81001; 82948; 83605; 83690; 85025; 85049; 85610; 85730; 87070; 87205; 93005; 94640; 96361; 96374; 96375; 96376; 99285; A9270; C1729; C1769; J1171; J1836; J1885; J2250; J2405; J2543; J3010; J7030; J7040; J7120; Q9967